=== PATIENT | female | born 1940 | race Caucasian/White ===

== ENCOUNTER → 2018-01-02 10:28 | Outpatient (CLI) | payer MEDICARE, OTHER, SELFPAY ==
--- NOTE | 2018-01-02 10:44 | XR_ITS ---
XR chest 2V HISTORY: ITS.REASON: SHORTNESS OF BREATH ORDERING PHYSICIAN: Vanessa Choudhury PATIENT AGE: 77 years COMPARISON: 03/20/2016 FINDINGS: The cardiomediastinal silhouette and pulmonary vascularity are within normal limits. There are atelectatic changes in the left lung base laterally. The lungs are otherwise clear. No acute bony anomalies. IMPRESSION: Mild left basilar atelectasis otherwise negative chest
== END ==
PROVIDERS: PCP Nurse Practitioner Family; Visit Provider Nurse Practitioner Family
DX: R06.02 Shortness of breath (principal)
CPT/HCPCS: 71046

== ENCOUNTER → 2018-01-24 12:47 | Outpatient (CLI) | payer MEDICARE, OTHER, SELFPAY | PROVIDERS: PCP Nurse Practitioner Family; Visit Provider Nurse Practitioner Family | DX: R06.02 Shortness of breath (principal) | CPT/HCPCS: 94060 ==

== ENCOUNTER → 2018-02-14 10:04 | Outpatient (CLI) | payer MEDICARE, OTHER, SELFPAY ==
--- NOTE | 2018-02-14 10:22 | XR_ITS ---
XR hand RT min 3V HISTORY: ITS.REASON: DECREASED RANG OF MOTION OF FINGER ORDERING PHYSICIAN: Vanessa Choudhury PATIENT AGE: 77 years COMPARISON: None FINDINGS: There are mild osteoarthritic changes at the first interphalangeal joint and second through fifth PIPs. No erosive changes evident. No fracture or dislocation. There are minimal hypertrophic changes along the distal aspect of the second metacarpal laterally. IMPRESSION: Osteoarthritis of the fingers
== END ==
PROVIDERS: PCP Nurse Practitioner Family; Visit Provider Nurse Practitioner Family
DX: M25.641 Stiffness of right hand, not elsewhere classified (principal)
CPT/HCPCS: 73130

== ENCOUNTER → 2018-07-29 09:23 | Outpatient (POV) | payer MEDICARE, OTHER, SELFPAY | PROVIDERS: Visit Provider Dermatology | DX: Z00.00 Encounter for general adult medical examination without abnormal findings (principal) ==

== ENCOUNTER → 2018-10-23 15:07 | Outpatient (CLI) | payer MEDICARE, OTHER, SELFPAY | PROVIDERS: Visit Provider Podiatrist | DX: B35.1 Tinea unguium (principal) | CPT/HCPCS: 87102; 87206; 87220 ==

== ENCOUNTER → 2019-06-16 09:40 | Outpatient (POV) | payer MEDICARE, OTHER, SELFPAY | PROVIDERS: Visit Provider Dermatology | DX: Z00.00 Encounter for general adult medical examination without abnormal findings (principal) ==

== ENCOUNTER → 2019-09-10 14:20 | Outpatient (CLI) | payer MEDICARE, OTHER, SELFPAY ==
--- NOTE | 2019-09-10 14:28 | US_ITS ---
PROCEDURE: US TRANSVAGINAL CLINICAL INDICATION: ABNORMAL UTERINE BLEEDING COMPARISON: No exams were available for comparison FINDINGS: UTERUS: 9cm x 6cmx 4cm with a combined endometrial thickness of 26.5mm.. There is some heterogeneous echogenicity of the endometrium with some blood flow noted within the endometrial lining. The ovaries are not demonstrated. No adnexal mass or cul-de-sac fluid is evident IMPRESSION: Thickened endometrium with heterogeneous echogenicity. Differential diagnosis includes endometrial carcinoma versus endometrial hyperplasia Dictated by: Rafael Jaimes MD 09/10/2019 18:22 Electronically signed by Rafael Jaimes MD in [facility] 09/10/2019 18:22
== END ==
PROVIDERS: PCP Nurse Practitioner Family; Visit Provider Nurse Practitioner Family
DX: N93.9 Abnormal uterine and vaginal bleeding, unspecified (principal)
CPT/HCPCS: 76830

== ENCOUNTER → 2019-09-28 08:29 | Outpatient (CLI) | payer MEDICARE, OTHER, SELFPAY ==
--- NOTE | 2019-09-28 08:56 | CT_ITS ---
PROCEDURE: CT ABDOMEN PELVIS W CON CLINICAL INDICATION: ENDOMETRIAL ADENOCARCINOMA Adenocarcinoma, evaluate for possible metastasis COMPARISON: ABDPELW/O CT ABD PELVIS W/O CONTRAST from 09/01/2016 US TRANSVAGINAL from 09/10/2019 TECHNIQUE: IV Contrast: 75ML OPTIRAY 350 Oral Contrast none Axial images obtained with sagittal and coronal reformats. All CT scans at the facility use one or more dose reduction, viz: automated exposure control, ma/kV adjustment per patient size (including targeted exams where dose is matched to indication, i.e. head), or iterative reconstruction technique. FINDINGS: LOWER THORAX: No acute finding ABDOMEN & PELVIS: There are 2 small hypodensities in the liver 1 in the caudate lobe and 1 in the left hepatic lobe at 4 mm each and may be due to small cyst. The gallbladder, spleen, adrenal glands, and pancreas have an unremarkable appearance. There are multiple small calcified splenic granulomata not significantly changed. There is a 3.7 cm left renal cyst. No retroperitoneal adenopathy. There is a small umbilical hernia containing fat. No intestinal obstruction or free air. No evidence of appendicitis Prominent vascularity is present in the periuterine region. There are some nonspecific low-density changes in the fundus of the uterus on the right. Endometrial thickening was noted on recent ultrasound better demonstrated on that exam. The there is diverticulosis of the sigmoid colon but no evidence of diverticulitis. There is abnormal small bowel wall thickening within the pelvis most prominent in the right pelvic region. This does not involve the terminal ileum. There is no evidence of bowel obstruction. This is not as focal as 1 would expect for a neoplastic process. No evidence of bowel obstruction. There are degenerative changes in the lumbar spine IMPRESSION: 1. No convincing evidence of abdominal metastasis. 2. Prominent vascularity in the periuterine region with low-density changes in the uterine fundus. These findings are keeping with endometrial adenocarcinoma. No obvious extra uterine extension 3. Thickened small bowel loops in the pelvis especially in the right lower pelvic region. These findings are more consistent with enteritis. These loops are adjacent to the uterus however the 1 would expect a more focal process for neoplasm. However, that entity is not excluded. No evidence of bowel obstruction. Dictated by: Rafael Jaimes MD 09/29/2019 07:03 Electronically signed by Rafael Jaimes MD in [facility] 09/29/2019 07:03
--- NOTE | 2019-09-28 08:56 | CT_ITS ---
PROCEDURE: CT CHEST W CON CLINCAL INDICATION: Endometrial adenocarcinoma. Evaluate for metastatic disease COMPARISON: [facility] CT CHEST W/O CONTRAST from 04/11/2016 CT ABDOMEN PELVIS W CON from 09/28/2019 TECHNIQUE: IV Contrast: 75ml Optiray 350 Axial images obtained with sagittal and coronal reformats. All CT scans at the facility use one or more dose reduction, viz: automated exposure control, ma/kV adjustment per patient size (including targeted exams where dose is matched to indication, i.e. head), or iterative reconstruction technique. 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 The right carotid artery originates from the aorta and not the subclavian calcified nodes are present in the mediastinum. No mediastinal or hilar mass or adenopathy. Coronary artery calcifications are present. There is a small hiatal hernia. No suspicious pulmonary nodules. There are atelectatic/fibrotic changes in the left lung base. Small nodular density is present in the left major fissure nonspecific at approximately 5 mm. There are degenerative changes in the thoracic spine with no acute bony anomaly. IMPRESSION: Nonspecific nonacute findings. No evidence of pulmonary metastasis. Dictated by: Rafael Jaimes MD 09/29/2019 06:50 Electronically signed by Rafael Jaimes MD in [facility] 09/29/2019 06:50
== END ==
PROVIDERS: PCP Nurse Practitioner Family; Visit Provider Nurse Practitioner Family
DX: C54.1 Malignant neoplasm of endometrium (principal)
CPT/HCPCS: 71260; 74177; Q9967

== ENCOUNTER 2019-12-30 13:39 | Emergency (ER) | payer MEDICARE, OTHER, SELFPAY ==
[2019-12-30 14:01] VITALS: BP 111/74; PULSE 95; RESP 19; TEMP 36.7; O2SAT 99; BMI 23.8
--- NOTE | 2019-12-30 14:06 | CA_ITS ---
APPROVED REPORT Bilateral Lower Extremity Venous Study for DVT. Osd Clerk: Ora Cadena RVT Indications Lower Extremity Pain: Bilateral Lower Extremity Edema: Bilateral History of Smoking Endometrial cancer, s/p surgery 10/02, just finished radiation treatments last week Risk Factors Malignancy History of Smoking Vein Imaging CFV (R): compressive, spontaneous, phasic, augmentation FEM (R): compressive, spontaneous, phasic, augmentation POP (R): compressive, spontaneous, phasic, augmentation PTV (R): Compressible GSV (R): Compressible Peroneals (R):Compressible GAS (R): Compressible CFV (L): compressive, spontaneous, phasic, augmentation FEM (L): compressive, spontaneous, phasic, augmentation POP (L): compressive, spontaneous, phasic, augmentation PTV (L): Compressible GSV (L): Compressible Peroneals (L):Compressible GAS (L): Compressible Findings Study suggests no evidence of DVT of the bilateral lower extremites. Study suggests no evidence of SVT of the bilateral lower extremites. Conclusion No evidence of DVT or superficial thrombophlebitis in the veins scanned of the right lower extremity. No evidence of DVT or superficial thrombophlebitis in the veins scanned of the left lower extremity. Critical Notification Physician Notified Date: 12/30/2019 Time: 14:55 Physician Name: Mustapha Sotelo Electronically signed by : Rafael Jaimes MD 12/30/2019 17:33:48
--- NOTE | 2019-12-30 14:13 | HMH.EDUTC ---
[facility] Disposition Clinical Impression: Leg pain, bilateral, Localized swelling of both lower legs Disposition: Home, Self-Care Condition on Discharge: Good Instructions: DI for Leg Pain Additional Instructions: Take tylenol for your pain Follow up with your regular doctor and your radiation doctor. GO TO THE ER FOR ANY WORSENING SYMPTOMS OR CONCERNS Referrals: Mac Pennington MD [Primary Care Provider] - Time of Disposition: 16:08 Medical Decision Making - Medical Records Medical records reviewed: No: I reviewed the patient's medical records. - David Inquiry Pt receiving controlled substance: No Vital Signs: 12/30/19 14:01 12/30/19 16:10 Temperature 98.1 F 98.1 F Temperature Source Oral Pulse Rate 95 H Pulse Rate [Right Brachial] 95 H Respiratory Rate 19 19 Blood Pressure 111/74 Blood Pressure [Right Arm] 111/74 Blood Pressure Mean [Right Arm] 86 Blood Pressure Source [Right Arm] Automatic Cuff Blood Pressure Position [Right Arm] Sitting 02 Sat by Pulse Oximetry 99 Oxygen Delivery Method Room Air - Lab Data Lab results reviewed: Yes: I reviewed the patient's lab results. Lab Results 12/30/19 15:20: WBC 4.4 L, RBC 3.90 L, Hgb 11.1 L, Hct 36.2 L, MCV 92.7, MCH 28.5, MCHC 30.8 L, RDW 16.0, Plt Count 241, MPV 7.6, Neut % (Auto) 73.7, Lymph % (Auto) 10.1, [place] % (Auto) 6.8, Eos % (Auto) 8.6, Baso % (Auto) 0.8, Neut # (Auto) 3.2, Lymph # (Auto) 0.4 L, [place] # (Auto) 0.3, Eos # (Auto) 0.4, Baso # (Auto) 0.0, ESR 46 H 12/30/19 15:20: Sodium 138, Potassium 4.4, Chloride 107, Carbon Dioxide 29, Anion Gap 6.4, BUN 22 H, Creatinine 0.80, Estimated Creat Clear 45, Estimated GFR 69, Est GFR ( Amer) 83, Glucose 107 H, Calcium 8.7, Total Bilirubin < 0.1 L, AST 33, ALT 27, Alkaline Phosphatase 73, Total Protein 5.9 L, Albumin 3.3 L, Globulin 2.6, Albumin/Globulin Ratio 1.3 Result diagrams: 12/30/19 15:20 12/30/19 15:20 Medical Decision Narrative: I tried to call her cancer and radiation doctor at to discuss her issues with them. I was unable to get them on the phone, so a message was left. [facility] HPI - General Stated complaint: leg pain,CA patient Time Seen by Provider: 12/30/19 14:14 Mode of Arrival: Ambulatory Source of Information: Patient Limitations: No Limitations Description of Symptoms (Recalled from Triage Doc. by RN): PATIENT C/O SWELLING TO BLE, LEFT MORE SWOLLEN THAN RIGHT. SHE STATES THAT THEY FEEL TINGLY AND RESTLESS . BILATERAL PEDAL PULSES ARE PRESENT. SYMPTOMS STARTED YESTERDAY. PATIENT IS A CANCER PATIENT WHO RECENTLY FINISHED RADIATION THERAPY. SHE SPOKE WITH [facility] WHO REFERED HER HERE TO BE RULED OUT FOR BLOOD CLOTS. HEENT Symptoms (Recalled from RN notes): No Resp Symptoms (Recalled from RN notes): No Skin Symptoms (Recalled from RN notes): No MS Symptoms (Recalled from RN notes): Yes Functional Status (Recalled from RN notes): WNL - History of Present Illness Provider Complaint: She c/o bilateral lower leg pain, numbness and swelling. She states that the left is worse than the right, but both legs are affected. She has a history of endometrial cancer. She is treated at the [facility] in [place]. She called her doctors there and she was told that she needed to come here and get checked for a blood clot first. She denies any shortness of breath or chest pain. She denies any history of dvt of family history of dvt. She did just get finished with 5 weeks of radiation treatment for the endometrial cancer. Her last treatment was - Related Data Home Medications Medication Instructions Recorded Confirmed celecoxib 200 mg capsule 200 mg PO DAILY 90 Days #90 cap 10/23/18 12/30/19 ezetimibe 10 mg-simvastatin 20 mg 1 tab PO QODHS 10/23/18 12/30/19 tablet Allergies Allergy/AdvReac Type Severity Reaction Status Date / Time Penicillins [PENICILLINS] Allergy Unknown Verified 12/22/18 16:26 - Worker's Comp Is this a Worker's
[2019-12-30 15:33] LABS: Basophils % 0.8 % (0.1-2.0); Eosinophils # 0.4 K/mm3 (0.0-0.4); Eosinophils % 8.6 % (0.1-12.0); Hematocrit 36.2 % (37.0-47.0); Hemoglobin 11.1 g/dL (12.2-16.2); Lymphocytes # 0.4 K/mm3 (0.7-4.5); Lymphocytes % 10.1 % (10-50); Mean Corpuscular HGB Conc 30.8 g/dL (31.8-35.4); Mean Corpuscular Hemoglobin 28.5 pg (27.0-31.2); Mean Corpuscular Volume 92.7 fl (81-99); Mean Platelet Volume 7.6 fl (7.4-10.4); Monocytes # 0.3 K/mm3 (0.1-1.0); Monocytes % 6.8 % (1.7-9.3); Neutrophils # 3.2 K/mm3 (1.8-7.8); Neutrophils % 73.7 % (37.0-80.0); Platelet Count 241 K/mm3 (142-424); White Blood Count 4.4 K/mm3 (4.8-10.8)
[2019-12-30 16:03] LABS: Alanine Aminotransferase 27 U/L (12-78); Albumin Level 3.3 g/dl (3.5-5.0); Albumin/Globulin Ratio 1.3 (1.1-1.8); Alkaline Phosphatase 73 U/L (38-126); Anion Gap 6.4 mEq/L (5-15); Aspartate Amino Transferase 33 U/L (14-36); Blood Urea Nitrogen 22 mg/dl (7-17); Calcium 8.7 mg/dl (8.4-10.2); Carbon Dioxide 29 mmol/L (22.0-30.0); Chloride 107 mmol/L (98-107); Creatinine Clearance Estimated 45 mL/min (50-200); Estimated Glomerular Filt Rate 69 ml/min (>60); GFR (African American) 83 ML/MIN (>60); Globulin 2.6 g/dL (1.3-3.2); Glucose 107 mg/dl (74-100); Potassium 4.4 mmoL/L (3.5-5.1); Sodium 138 mmol/L (136-145); Total Protein,Serum 5.9 g/dl (6.3-8.2)
[2019-12-30 16:08] LABS: Bilirubin,Total < 0.1 mg/dl (0.2-1.3)
[2019-12-30 16:10] VITALS: BP 111/74; PULSE 95; RESP 19; TEMP 36.7; O2SAT 99
[2019-12-30 16:12] LABS: Erythrocyte Sedimentation Rate 46 mm/hr (0-30)
== END 2019-12-30 16:16 | disposition home or self-care (01) ==
PROVIDERS: Emergency Provider Nurse Practitioner Family; PCP Family Medicine
DX: R22.43 Localized swelling, mass and lump, lower limb, bilateral (principal); M79.604 Pain in right leg; C54.1 Malignant neoplasm of endometrium; K21.9 Gastro-esophageal reflux disease without esophagitis; I10 Essential (primary) hypertension; E78.5 Hyperlipidemia, unspecified; Z88.0 Allergy status to penicillin; Z87.891 Personal history of nicotine dependence; Z90.09 Acquired absence of other part of head and neck
CPT/HCPCS: G0463; 36415; 80053; 85025; 85651; 93970; 99201; 99202

== ENCOUNTER 2020-04-28 11:00 | Outpatient (RCR) | payer MEDICARE, OTHER, SELFPAY | END 2020-04-28 12:00 | disposition home or self-care (01) | LOC: PT 11:00 | PROVIDERS: PCP Family Medicine; Visit Provider Family Medicine | DX: I89.0 Lymphedema, not elsewhere classified (principal); C54.1 Malignant neoplasm of endometrium | CPT/HCPCS: 97110; 97112; 97140; 97162; 97164; 97530 ==

== ENCOUNTER 2020-06-02 04:20 | Emergency (ER) | payer MEDICARE, OTHER, SELFPAY ==
[2020-06-02 04:20] VITALS: BP 179/108; PULSE 54; RESP 16; TEMP 36.8; O2SAT 98; BMI 23.3
--- NOTE | 2020-06-02 04:23 | ECG_ITS ---
APPROVED REPORT Exam: Resting ECG HR:81 bpm ECG Measurements Heart Rate 81 AXES DE 158 P 90 QRSd 66 QRS 44 QT 370 T 94 QTc 429 <Conclusion> Normal sinus rhythm Nonspecific ST and T wave abnormality Abnormal ECG Electronically signed by : Mac Parsons, 06/03/2020 07:22:18
[2020-06-02 04:50] VITALS: BP 142/81; PULSE 74; RESP 17; O2SAT 98
[2020-06-02 05:04] VITALS: BP 148/81; PULSE 76; RESP 18; O2SAT 94
--- NOTE | 2020-06-02 05:26 | PC.NURSE ---
Sahra McnultyRN: pt to rad
[2020-06-02 06:01] VITALS: BP 147/85; PULSE 71; RESP 14; O2SAT 100
--- NOTE | 2020-06-02 06:01 | PC.NURSE ---
Sahra Mcnulty RN: Pt reports no pain at this time.
--- NOTE | 2020-06-02 08:13 | CT_ITS ---
PROCEDURE: CTA ANGIOGRAPHY CHEST CT ANGIOGRAPHY ABDOMEN AND PELVIS Referring Doctor: Mac Parsons Patient Age:79Y CLINCIAL INDICATION: EPIGASTRIC PAIN RADIATING INTO CHEST,R/O aortic DISECTION. History of endometrial carcinoma COMPARISON: CT [facility] CT CHEST W/O CONTRAST from 04/11/2016 CT ABDPELW/O CT ABD PELVIS W/O CONTRAST from 09/01/[address] CHEST W CON from 09/28/[address] ABDOMEN PELVIS W CON from 09/28/2019 TECHNIQUE: IV Contrast: 100 cc OPTIRAY 350 bolus contrast followed by 40 mL normal saline A helical axialimages obtained with thick MIP sagittal and coronal reformats by technologist on CT workstation.-CTAa technique and processing. All CT scans at the facility use one or more dose reduction, viz: automated exposure control, ma/kV adjustment per patient size (including targeted exams where dose is matched to indication, i.e. head), or iterative reconstruction technique. FINDINGS: Note there is a problems in the 3DVista at the time of this study, which interfered with obtaining appropriate orders and Delayed this report. We are still waiting for the CTA abdomen order. CT ANGIOGRAPHY CHEST --- PULMONARY ARTERIES: No pulmonary embolus evident. AORTA: No acute finding. No thoracic aortic aneurysm or dissection evident Generous over 2 cm caliber, aberrant right subclavian artery and seen passing posterior to the esophagus-anatomical variation the LUNGS: Unremarkable. No mass or consolidation. There is some linear scarring and atelectasis towards the lung bases.. . There is a small 6 mm area of density at the anterior margin RML on axial image 49 and 50. Most likely reflecting an area of scarring but was not on the previous 2016 CT chest thus suggest a follow-up CT chest in 6-8 months to support this is merely due to scarring. There is a small 6 mm nodular density at the anterior aspect of the lingula on axial image 59 which appear stable. PLEURAL SPACES: No significant effusion. No evidence of pneumothorax. HEART: Unremarkable. Normal to upper normal heart size. No significant pericardial effusion. Pulmonary vascularity appears satisfactory MEDIASTINAL AND HILAR STRUCTURES: No significant mediastinal or hilar mass evident. No do significant appearing adenopathy. The multiple numerous calcified lymph nodes is reflect old granulomatous disease LYMPH NODES: Multiple calcified hilar lymph nodes reflecting old granulomatous disease. No significant enlarged nodes BONY STRUCTURES: No acute bony abnormalities apparent. No rib fractures. Degenerative changes spine CT ANGIOGRAPHY ABDOMEN: --- Abdominal aorta: Normal caliber with no aneurysm nor dissection. Atherosclerotic calcification throughout abdominal aorta with minimal calcification origin of renal arteries and celiac artery. SMA and iliac arteries patent and clear.. Liver adrenals pancreas appears satisfactory on this early contrast study but extensive granulomatous calcifications throughout the spleen.. Gallbladder but unremarkable no gallstones. No biliary ductal dilatation GI TRACT. --- Hiatal hernia moderate size. Stomach unremarkable . DILATED SMALL BOWEL, with of prominent fluid throughout. Dilated small bowel measure up to 3.2 cm diameter.... Wall thickening and enhancement suggested involving several segments of distal small bowel at pelvis. For example there seems to be thickening at a segment of small bowel at the mid pelvis axial image 133/134 as well as axial another loop seen anteriorly on image 141. There is also some thickening and enhancement suggested at the distal ileum just prior to the terminal ileum axial image 110-120, coronal 34-29.. No prominent wall thick
[2020-06-02 08:15] VITALS: BP 140/70; PULSE 70; RESP 16; TEMP 36.6; O2SAT 98
--- NOTE | 2020-06-02 08:17 | XR_ITS ---
PROCEDURE: XR CHEST 2V Referring Doctor: Mac Parsons Patient Age:79Y CLINICAL HISTORY: EPIGASTIC PAIN RADIATING TO CHEST epigastric and chest pain former smoker. COMPARISON: CR CXR CHEST(2 VIEWS-NOT PORTABLE) from 03/15/2015 CR CXR CHEST(2 VIEWS-NOT PORTABLE) from 03/20/2016 CR CXR2V XR chest 2V from 01/02/[address] ANGIO CHEST from 06/02/2020 FINDINGS: PA and lateral chest performed today. Nothing definitely acute. Less optimal inspiration today with diaphragm only down to the anterior 5th rib today., previously down to the anterior 6 to 7th rib on 2016 study but this does somewhat crowding markings the bases and there is some mild basilar atelectasis but I specifically note an area of linear atelectasis or scarring just near the left CP angle. . No focal pneumonia is identified. No acute cardiopulmonary disease otherwise At the mediastinum there are some dots of air just above the GE junction. Presumably these are in the distal esophagus and could reflect a hiatal hernia or reflux but mildly tortuous aorta. Bethanie and mediastinal structures satisfactory At the upper abdomen there are air-fluid levels within generous, mildly dilated gas filled small bowel loops in the left upper abdomen. Correlation required IMPRESSION: 1...Less optimal inspiration today than previous studies . Subtle basilar atelectasis; specifically noting a small area linear atelectasis towards left CP angle .. No acute cardiopulmonary findings otherwise. No pneumonia 2... Would note air-fluid levels within dilated small bowel loops in the upper left epigastric region... . Also note scant air along course of distal esophagus faintly seen.-Could reflect small hiatal hernia or reflux. Dictated by: Edwin Luna MD 06/02/2020 15:33 Edwin Luna MD in [facility] 06/02/2020 15:33
--- NOTE | 2020-06-02 08:24 | HMH.EDNVD ---
ED Disposition Clinical Impression: SBO (small bowel obstruction) Disposition: Home, Self-Care Condition on Discharge: Good Instructions: DI for Acute Abdomen Additional Instructions: go to office now Referrals: Mac Pennington MD [Primary Care Provider] - - Critical Care Critical Care Time: No Attestation: On 06/02/20, the high probability of a clinically significant, sudden or life threatening deterioration of the following system(s) required my full and direct attention, intervention and personal management. The time I documented below is in addition to time spent performing reported procedures but includes the following listed in this critical care notation. Medical Decision Making - Medical Records Medical records reviewed: Yes: I reviewed the patient's medical records. - David Inquiry Pt receiving controlled substance: No - Lab Data Lab results reviewed: Yes: I reviewed the patient's lab results. Orders (Tests/Meds): ORDERS Category Date Time Status CT angio abdomen Routine Cat Scan 06/02/20 08:[address] angio chest Routine Cat Scan 06/02/20 08:13 Ordered XR chest AP Routine Exams 06/02/20 08:17 Ordered - Radiology Data #1 Image(s): Chest Image Reviewed: Yes I reviewed the patient's radiology image Preliminary Findings: Normal/NAD - CT Data CT Scan: Abdomen, Pelvis, Chest Time Received: 08:[address] Reviewed: Yes: I have viewed the radiologist's interpretation Preliminary Findings: Abnormal (see report) - ECG Data Tracing #1 Normal Sinus Rhythm: Yes Ischemic changes: non-specific ST-T wave changes - Physician Consults Physician Consulted: manish Reason -: Pt condition Nausea/Vomiting/Diarrhea HPI - General Stated complaint: Chest pain Time Seen by Provider: 06/02/20 05:00 Mode of Arrival: Ambulatory Source of Information: Patient, Relative, Medical Record Limitations: No Limitations - History of Present Illness HPI Narrative: acute onset of upper abd pain - no chest pain- hx of radiation therapy complaint: nausea, abdominal pain Onset (ago): hour(s) Associated Abdominal Pain: Yes Location of pain: epigastric Severity: moderate Associated symptoms: denies other symptoms - Related Data Home Medications Medication Instructions Recorded Confirmed celecoxib 200 mg capsule 200 mg PO DAILY 90 Days #90 cap 10/23/18 05/26/20 ezetimibe 10 mg-simvastatin 20 mg 1 tab PO QODHS 10/23/18 05/26/20 tablet lisinopril 10 mg tablet 10 mg PO tab 05/26/20 05/26/20 Allergies Allergy/AdvReac Type Severity Reaction Status Date / Time Penicillins [PENICILLINS] Allergy Unknown Verified 05/26/20 13:19 [facility] History - Hepatitis A Screen Attestation statement:: This patient has been screened for Hepatitis A risk factors. I have reviewed the patient's past medical history: Yes Medical History: Reports:: Cancer, Gastroesophageal Reflux Disease(GERD), Hyperlipidemia, Hypertension Other Medical History: Reports: Arthritis Laterality Cases: Bilateral: Tonsillectomy Other Surgeries: Yes: No Previous Surgery Amputation: No Fractures: Yes (Fractured 5th met of unknown foot 6 years ago. ) Comment: Bunionectomy L great Hallux- 18 years ago - Social History Smoking Status: Former smoker #Yrs smoked (if former smoker): 45 Alcohol Intake: never Alcohol Intake Frequency:: holidays/special occasions only Occupational Status: other Family Hx:: No significant family history ROS Obtained: Yes All systems reviewed & no additional complaints - Gastrointestinal Gastrointestingal: Reports: as per HPI, abdominal pain, nausea, vomiting Physical Exam - General General appearance: alert - Head Head exam: normocephalic - Eye Eye exam: Present: PERRL, EOMI - ENT ENT exam: Present: mucous membranes moist - Neck Neck exam: Present: trachea midline - Respiratory Respiratory exam: Present: normal lung sounds bilaterally. Absent: respiratory distress
[2020-06-02 08:44] LABS: Basophils # 0.1 K/mm3 (0-0.2); Basophils % 0.9 % (0.1-2.0); Eosinophils # 0.5 K/mm3 (0.0-0.4); Eosinophils % 7.4 % (0.1-12.0); Erythrocyte Sedimentation Rate 32 mm/hr (0-30); Hematocrit 41.6 % (37.0-47.0); Hemoglobin 14.4 g/dL (12.2-16.2); Lymphocytes # 0.7 K/mm3 (0.7-4.5); Lymphocytes % 11.6 % (10-50); Mean Corpuscular HGB Conc 34.7 g/dL (31.8-35.4); Mean Corpuscular Hemoglobin 31.4 pg (27.0-31.2); Mean Corpuscular Volume 90.4 fl (81-99); Mean Platelet Volume 8.5 fl (7.4-10.4); Monocytes # 0.4 K/mm3 (0.1-1.0); Monocytes % 7.1 % (1.7-9.3); Neutrophils # 4.5 K/mm3 (1.8-7.8); Neutrophils % 73.1 % (37.0-80.0); Platelet Count 244 K/mm3 (142-424); Red Cell Distribution Width 14.2 % (11.5-17.5); White Blood Count 6.1 K/mm3 (4.8-10.8)
[2020-06-02 08:45] LABS: Alanine Aminotransferase 21 U/L (12-78); Albumin Level 3.7 g/dl (3.5-5.0); Albumin/Globulin Ratio 1.4 (1.1-1.8); Alkaline Phosphatase 75 U/L (38-126); Amylase 67 U/L (30-110); Anion Gap 12.4 mEq/L (5-15); Aspartate Amino Transferase 30 U/L (14-36); Bilirubin,Total 0.4 mg/dl (0.2-1.3); Blood Urea Nitrogen 25 mg/dl (7-17); Calcium 9.6 mg/dl (8.4-10.2); Carbon Dioxide 25 mmol/L (22.0-30.0); Chloride 107 mmol/L (98-107); Estimated Glomerular Filt Rate 60 ml/min (>60); GFR (African American) 73 ML/MIN (>60); Globulin 2.6 g/dL (1.3-3.2); Glucose 125 mg/dl (74-100); Lipase 140 U/L (23-300); Potassium 4.4 mmoL/L (3.5-5.1); Sodium 140 mmol/L (136-145); Total Protein,Serum 6.3 g/dl (6.3-8.2); Troponin I 0.08 ng/ml (0.00-0.034)
[2020-06-02 08:46] LABS: Lactic Acid 1.9 mmol/L (0.7-2.1)
--- NOTE | 2020-06-02 08:52 | PC.NURSE ---
d/kenny with instructions
[2020-06-02 11:43] LABS: C-Reactive Protein 3.1 mg/L (0-4)
--- NOTE | 2020-06-02 12:05 | PC.NURSE ---
Sahra Mcnulty RN: Spoke with rad who stated they were attempting to contact Dr Jaimes and push CT to [facility]
== END 2020-06-02 08:15 | disposition home or self-care (01) ==
PROVIDERS: Emergency Provider Emergency Medicine; PCP Family Medicine
DX: K56.609 Unspecified intestinal obstruction, unspecified as to partial versus complete obstruction (principal); I10 Essential (primary) hypertension; E78.5 Hyperlipidemia, unspecified; K21.9 Gastro-esophageal reflux disease without esophagitis; Z88.0 Allergy status to penicillin
CPT/HCPCS: 71046; 71275; 74175; 80053; 82150; 83605; 83690; 84484; 85025; 85651; 86140; 87040; 93005; 96365; 96374; 96375; 99284; J2405; Q9967

== ENCOUNTER → 2020-06-16 08:04 | Outpatient (CLI) | payer MEDICARE, OTHER, SELFPAY ==
[2020-06-16 10:58] LABS: Blood Urea Nitrogen 23 mg/dl (7-17); Estimated Glomerular Filt Rate 60 ml/min (>60); GFR (African American) 73 ML/MIN (>60)
== END ==
PROVIDERS: Visit Provider Family Medicine
DX: K56.600 Partial intestinal obstruction, unspecified as to cause (principal)
CPT/HCPCS: 36415; 82565; 84520

== ENCOUNTER → 2020-06-20 10:16 | Outpatient (CLI) | payer MEDICARE, OTHER, SELFPAY ==
--- NOTE | 2020-06-20 10:37 | CT_ITS ---
PROCEDURE: CT ABDOMEN PELVIS W CON CLINICAL INDICATION: PARTIAL SMALL BOWEL OBSTRUCTION COMPARISON: CT CT ABDOMEN PELVIS W CON from 09/28/2019 TECHNIQUE: IV Contrast: 75ML OPTIRAY 350 Oral Contrast 20ml Gastroview Axial images obtained with sagittal and coronal reformats. All CT scans at the facility use one or more dose reduction, viz: automated exposure control, ma/kV adjustment per patient size (including targeted exams where dose is matched to indication, i.e. head), or iterative reconstruction technique. FINDINGS: Lower thorax: There is minimal atelectasis in the posterior gutters bilaterally. Cardiac size is borderline. ABDOMEN: Liver: The liver is normal in size and shows homogeneous density. The tiny hypodense cystic lesions 1 in the left hepatic lobe the other in the caudate lobe are stable and unchanged from the previous exam. Gallbladder: Nondistended. No radio opaque stones. Pancreas: No masses or peripancreatic fluid collections. Spleen: Spleen is normal in size and shows multiple calcifications. Adrenals: unremarkable Kidneys/ureters: The kidneys are normal in size and show symmetrical function. There is a stable exophytic benign-appearing cortical cyst upper pole left kidney measuring 3.7 cm. ABDOMEN & PELVIS: Stomach bowel: There is a small sliding hiatal hernia. The stomach and duodenal sweep appear normal. The proximal small bowel is normal. There is mild thickening of the bowel wall in the distal small bowel not is prominent is on the previous exam. There is oral contrast mixed with stool in the cecum and ascending colon and hepatic flexure. There is a moderate amount stool in the transverse colon and splenic flexure. There are few scattered diverticuli of the sigmoid colon but there is no evidence of diverticulitis. Peritoneum: No abnormal fluid collections. No obvious inflammatory changes. No free air. Lymph nodes: No enlarged lymph nodes apparent. Vasculature: There is prominent diffuse arthrosclerotic calcification of the abdominal aorta but there is no aneurysm. Bones: There are mild multilevel degenerate changes of the lower lumbar spine. There is a vacuum phenomenon of the L2-3, L3-4 L4-5 and L5-S1 disc. Disc space narrowing is most prominent at the L 4 5 level. There is mild diffuse levo scoliotic curvature of the lower thoracic and lumbar spine. PELVIS: Reproductive: The uterus is atrophic and in the midline. Bladder: The urinary bladder is partially decompressed but otherwise appears normal, there is no free fluid in the pelvis. Appendix: There are no findings to suggest appendicitis. IMPRESSION: Mild thickening of the bowel wall distal small bowel possibly a reflection of mild enteritis, findings of mild diverticulosis sigmoid colon without diverticulitis, no other acute abdominal or pelvic pathology identified Dictated by: Dr. Medhat Solis MD 06/20/2020 11:31 Dr. Medhat Solis MD in [facility] 06/20/2020 11:31
== END ==
PROVIDERS: PCP Family Medicine; Visit Provider Family Medicine
DX: K56.600 Partial intestinal obstruction, unspecified as to cause (principal)
CPT/HCPCS: 74177; Q9967

== ENCOUNTER → 2020-06-20 14:40 | Outpatient (POV) | payer MEDICARE, OTHER, SELFPAY | PROVIDERS: Visit Provider Nurse Practitioner Family | DX: Z00.00 Encounter for general adult medical examination without abnormal findings (principal) ==

== ENCOUNTER → 2021-01-24 09:39 | Outpatient (POV) | payer MEDICARE, OTHER, SELFPAY | PROVIDERS: Visit Provider Dermatology | DX: Z00.00 Encounter for general adult medical examination without abnormal findings (principal) ==

== ENCOUNTER 2021-03-17 09:00 | Outpatient (RCR) | payer MEDICARE, OTHER, SELFPAY | END 2021-03-17 09:05 | disposition home or self-care (01) | LOC: PT 09:00 | PROVIDERS: PCP Family Medicine; Visit Provider Obstetrics & Gynecology | DX: I89.0 Lymphedema, not elsewhere classified (principal) | CPT/HCPCS: 97033; 97110; 97140; 97162; 97530; 97760 ==

== ENCOUNTER 2021-05-12 09:00 | Outpatient (RCR) | payer MEDICARE, OTHER, SELFPAY ==
--- NOTE | 2021-03-10 11:28 | HMH.PTOPEV ---
PT Outpatient Evaluation Rehab PT Outpatient Evaluation Start: 03/10/21 10:51 Freq: Status: Active Protocol: Document 03/10/21 10:51 JOSIAH (Rec: 03/10/21 11:27 JOSIAH [id number]) Electronically Signed By Raúl Garrett, PT 03/10/21 10:51 Outpatient Therapy Subjective History Subjective History Pt reports h/o chronic bilateral hip pain and LBP for ~3-4 yrs. Pt reports exacerbation of s/s over the last ~2-3 months. Pt reports R >L sided hip pain, localized to the area just superior to Bilateral greater trochanters. Pt reports increased pain w/ sidelying. Chief Complaint Pain,Stiff,Weakness Symptom Type Ache,Sharp,Dull Symptoms Relieved By Rest/Positioning,Ice Symptoms Aggravated By Standing,Physical Activity, Walking Prior Functional Limitations Standing,Recreation Activity, Walking Current Functional Limitations Housework,Standing,Recreation Activity,Walking Symptom Description Constant but Variable Level of pain today (0-10) 4 Pain scale - at its best (0-10) 3 Pain scale - at its worst (0-10) 7 Hip/Knee Eval Gait Observation General Gait Pattern Observation Antalgic Gait Palpation Tenderness bilateral Knee Palpation Overall Comment 3/4 bilateral glut med mm MMT Hip Flexion Strength Grade 4- Good- Hip Abduction Strength Grade 4- Good- Hip Adduction Strength Grade 4 Good Hip Extension Strength Grade 4 Good Hip External Rotation Strength Grade 4 Good Hip Internal Rotation Strength Grade 4 Good Knee Extension Strength Grade 5 Normal Knee Flexion Strength Grade 5 Normal ROM Hip Flexion w/Knee Extended Passive 0-90 Range of Motion (degrees) Hip External Rotation Passive Range of 0-35 Motion (degrees) Hip Internal Rotation Passive Range of 0-40 Motion (degrees) Hip ROM Limitations Soft Tissue Tightness,Pain Special Tests Hip Andreas Test Negative Left,Negative Right Outpatient Therapy Assessment Impairments Problems/Impairmments Palpation Tenderness,Impaired Range of Motion,Impaired Strength,Impaired Gait Pattern ,Impaired Walking,Impaired Standing,Impaired Household Care,Subjective C/O Pain, Impaired Self Care/Self Management Prognosi
--- NOTE | 2021-04-13 09:40 | HMH.RHREAS ---
Rehab Reassessment Rehab OP Re-assessment Start: 04/13/21 09:08 Freq: Status: Active Protocol: Document 04/13/21 09:08 IRISGURDEEP (Rec: 04/13/21 09:40 ADRIGERARDOGURDEEP [id number]) Electronically Signed By Raúl Garrett, PT 04/13/21 09:08 Rehab Re-assessment Subjective Subjective Pt reports 3-4/10 LBP/ bilateral hip pain on VAS, and feels 50% better overall since I eval. 'I really feel like therapy is helping.' Objective Objective Notes AROM L-SPINE FLX 0-90, EXT 0- 15, B SB 0-20, B HIP FLX W/ KNEE EXT 0-95, B HIP IR 0-45, B HIP ER 0-45 MMT: B HIP FLX 4+/5, B HIP ABD 4+/5, B HIP ADD 4/5, B KNEE EXT 5/5, B KNEE FLX 5/5 TTP: B LUMBAR PARA 1/4, B PIRI MM 2/4 Assessment Progress Assessment Progressing as Expected Assessment Notes improved arom, strength, and ttp Patient goals met STG'S 03/09 LTG'S 11/08 Goals Not Met STG'S 09/09, LTG'S 02/08 Plan Plan Pt to cont. w/skilled P.T. to make further improvements in lumbar spine AROM, strength, and TTP to allow for optimal function Frequency of Therapy 2-3x/wk Duration of therapy 3-4wks Time and Billing Re-Eval Time 15 Re-Eval Billing Units 0 PHYSICIAN CERTIFICATION: I certify the specified therapy services for Jocelyn Ramos are required, authorized, and reviewed every 30 days.
== END 2021-05-12 09:05 | disposition home or self-care (01) ==
LOC: PT 09:00
PROVIDERS: PCP Family Medicine; Visit Provider Nurse Practitioner Family
DX: M70.71 Other bursitis of hip, right hip (principal); M70.72 Other bursitis of hip, left hip; M54.5 Low back pain
CPT/HCPCS: 20560; 97010; 97014; 97033; 97035; 97110; 97163; 97164; G0283

== ENCOUNTER 2021-07-12 08:59 | Emergency (ER) | payer MEDICARE, OTHER, SELFPAY ==
[2021-07-12 09:19] VITALS: BP 136/79; PULSE 77; RESP 18; TEMP 36.5; O2SAT 100; BMI 24.0
--- NOTE | 2021-07-12 10:02 | HMH.EDUTC ---
[facility] [place] Clinical Impression: Lymphedema Cellulitis Qualifiers: Site of cellulitis: extremity Site of cellulitis of extremity: lower extremity Laterality: left Qualified Code(s): L03.116 - Cellulitis of left lower limb Disposition: Home, Self-Care Condition on Discharge: Good Instructions: Cellulitis, DI for Lymphedema Additional Instructions: Follow up in 3 days with your primary care physician to have the area rechecked. Your physician may want to stop one of the antibiotics by then too. Follow the instructions from your physician. Have your physician review your blood work that we kelli today too. I will call you about it if there is anything pertinent about it. If your symptoms are getting worse instead of better (especially if you have fever/chilling or other worrisome symptoms) over the next couple of days, return to the ER or f/u with your primary care physician ko. Take the antibiotics as directed. The topical antibiotic ointment (mupirocin) is for if you have any open areas that develop. It probably won't help much to put in on the intact skin. GO TO THE ER FOR ANY WORSENING SYMPTOMS OR CONCERNS Prescriptions: Sulfamethoxazole/Trimethoprim [Bactrim DS tablet] 1 each PO BID 10 Days #20 tab Transmission Status: Received by [facility] Mupirocin [Bactroban 2% Ointment 22gm tube] 1 applicatio TP TID 7 Days #1 gm Transmission Status: Received by [facility] cephALEXin [cephALEXin 500mg capsule] 500 mg PO Q6H 10 Days #40 cap Transmission Status: Received by [facility] Referrals: Jose Alejandro Cao MD [Primary Care Provider] - Time of Disposition: 10:15 Medical Decision Making - Medical Records Medical records reviewed: No: I reviewed the patient's medical records. - David Inquiry Pt receiving controlled substance: No Vital Signs: 07/12/21 09:19 07/12/21 10:54 Temperature 97.7 F 97.7 F Temperature Source Oral Pulse Rate 77 Pulse Rate [Left] 77 Respiratory Rate 18 18 Blood Pressure 136/79 Blood Pressure [Right Arm] 136/79 Blood Pressure Mean [Right Arm] 98 02 Sat by Pulse Oximetry 100 - Lab Data Lab results reviewed: Yes: I reviewed the patient's lab results. Lab Results 07/12/21 10:47: WBC 4.4 L, RBC 3.36 L, Hgb 10.0 L, Hct 31.4 L, MCV 93.4, MCH 29.6, MCHC 31.7 L, RDW 15.6, Plt Count 250, MPV 8.7, Neut % (Auto) 75.4, Lymph % (Auto) 12.9, [place] % (Auto) 7.3, Eos % (Auto) 3.7, Baso % (Auto) 0.8, Neut # (Auto) 3.4, Lymph # (Auto) 0.6 L, [place] # (Auto) 0.3, Eos # (Auto) 0.2, Baso # (Auto) 0.0 07/12/21 10:47: Sodium 139, Potassium 5.0, Chloride 106, Carbon Dioxide 30, Anion Gap 8.0, BUN 29 H, Creatinine 1.00, Estimated Creat Clear 43, Estimated GFR 53 L, Est GFR ( Amer) 64, Glucose 101 H, Calcium 8.8 Result diagrams: 07/12/21 10:47 07/12/21 10:47 Orders (Tests/Meds): ORDERS Category Date Time Status Blood Culture Stat Micro 07/12/21 10:47 Received [facility] [place] [facility] [place] - General Stated complaint: rash inside left hip/leg area Time Seen by Provider: 07/12/21 09:25 Mode of Arrival: Ambulatory Source of Information: Patient Limitations: No Limitations Description of Symptoms (Recalled from Triage Doc. by RN): pt c/o a red and warm rash on her L buttock, hip and thigh. ongoing since yesterday morning. HEENT Symptoms (Recalled from RN notes): No Resp Symptoms (Recalled from RN notes): No Skin Symptoms (Recalled from RN notes): Yes (rash on L buttock, hip and thigh) MS Symptoms (Recalled from RN notes): No Functional Status (Recalled from RN notes): na - History of Present Illness Provider Complaint: She has a red, tender area on her left buttock and left hip. She states that this began about 2 days ago. She denies any injury. She denies fever or chills. She denies any open areas or boils in the area. She is not a diabetic. She does have a history of cellulitis in her left leg due to a history of endometrial cancer. After she had a total hysterec
[2021-07-12 10:54] VITALS: BP 136/79; PULSE 77; RESP 18; TEMP 36.5
[2021-07-12 11:13] LABS: Basophils % 0.8 % (0.1-2.0); Chloride 106 mmol/L (98-107); Eosinophils # 0.2 K/mm3 (0.0-0.4); Eosinophils % 3.7 % (0.1-12.0); Hematocrit 31.4 % (37.0-47.0); Lymphocytes # 0.6 K/mm3 (0.7-4.5); Lymphocytes % 12.9 % (10-50); Mean Corpuscular HGB Conc 31.7 g/dL (31.8-35.4); Mean Corpuscular Hemoglobin 29.6 pg (27.0-31.2); Mean Corpuscular Volume 93.4 fl (81-99); Mean Platelet Volume 8.7 fl (7.4-10.4); Monocytes # 0.3 K/mm3 (0.1-1.0); Monocytes % 7.3 % (1.7-9.3); Neutrophils # 3.4 K/mm3 (1.8-7.8); Neutrophils % 75.4 % (37.0-80.0); Platelet Count 250 K/mm3 (142-424); Red Blood Count 3.36 M/mm3 (4.20-5.40); Red Cell Distribution Width 15.6 % (11.5-17.5); Sodium 139 mmol/L (136-145); White Blood Count 4.4 K/mm3 (4.8-10.8)
[2021-07-12 11:16] LABS: Blood Urea Nitrogen 29 mg/dl (7-17); Creatinine Clearance Estimated 43 mL/min (50-200); Estimated Glomerular Filt Rate 53 ml/min (>60); GFR (African American) 64 ML/MIN (>60)
[2021-07-12 11:17] LABS: Calcium 8.8 mg/dl (8.4-10.2); Carbon Dioxide 30 mmol/L (22.0-30.0); Glucose 101 mg/dl (74-100)
== END 2021-07-12 10:54 | disposition home or self-care (01) ==
PROVIDERS: Emergency Provider Nurse Practitioner Family; PCP Family Medicine
DX: L03.116 Cellulitis of left lower limb (principal); K21.9 Gastro-esophageal reflux disease without esophagitis; I10 Essential (primary) hypertension; E78.5 Hyperlipidemia, unspecified
CPT/HCPCS: G0463; 80048; 85025; 87040; 99202

== ENCOUNTER → 2021-08-01 10:56 | Outpatient (POV) | payer MEDICARE, OTHER, SELFPAY | PROVIDERS: Visit Provider Dermatology | DX: Z00.00 Encounter for general adult medical examination without abnormal findings (principal) ==

== ENCOUNTER 2021-09-22 16:39 | Inpatient (IN) | payer MEDICARE, OTHER, SELFPAY ==
[2021-09-22] VITALS (7 sets, daily range): BP systolic 106–130; BP diastolic 58–94; PULSE 75–90; RESP 18–20; TEMP 36.4–36.7; O2SAT 96–100; BMI 23.3; BMI 23.0
--- NOTE | 2021-09-22 16:40 | PC.NURSE ---
ER called to BS r/t having difficulty locating pulses in LLE with doppler. Pt has palpable femoral pulse. ER was able to doppler Post tib pulse. will continue to monitor
--- NOTE | 2021-09-22 17:00 | CA_ITS ---
FINAL REPORT TECHNIQUE: Ultrasound images of the deep venous system were obtained from the left groin to the calf veins. CLINICAL HISTORY: Patient has a history of lymphedema in LLE post endometrial cancer. She states she woke up this morning with LLE pain, redness, edema. She denies trauma. The left leg is discolored with the left foot purple in color. FINDINGS: There is visualized thrombosis in the superficial femoral, popliteal, and posterior tibial veins. There is superficial venous thrombosis in the proximal greater saphenous vein. IMPRESSION: Positive for DVT in the left lower extremity. Reviewed, Interpreted and Dictated by Chano Clinton MD Transcribed by Marva Herrera Authenticated by Chano Clinton MD on 09/26/2021 09:49:[address] [facility]
--- NOTE | 2021-09-22 17:00 | PC.NURSE ---
notified CV lab of order, spoke with jerry
--- NOTE | 2021-09-22 17:11 | PC.NURSE ---
CV lab staff at
--- NOTE | 2021-09-22 17:11 | PC.NURSE ---
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
--- NOTE | 2021-09-22 17:13 | PC.NURSE ---
spoke with [facility], states they are going to enter heparin dosing on pt.
[2021-09-22 17:16] LABS: Basophils # 0.1 K/mm3 (0-0.2); Basophils % 0.8 % (0.1-2.0); Eosinophils # 0.2 K/mm3 (0.0-0.4); Hematocrit 35.7 % (37.0-47.0); Hemoglobin 11.1 g/dL (12.2-16.2); Lymphocytes # 1.1 K/mm3 (0.7-4.5); Lymphocytes % 14.1 % (10-50); Mean Corpuscular HGB Conc 31.1 g/dL (31.8-35.4); Mean Corpuscular Hemoglobin 29.2 pg (27.0-31.2); Mean Corpuscular Volume 93.7 fl (81-99); Mean Platelet Volume 8.4 fl (7.4-10.4); Monocytes # 0.5 K/mm3 (0.1-1.0); Monocytes % 6.1 % (1.7-9.3); Neutrophils # 5.7 K/mm3 (1.8-7.8); Platelet Count 194 K/mm3 (142-424); Red Blood Count 3.81 M/mm3 (4.20-5.40); Red Cell Distribution Width 15.3 % (11.5-17.5); White Blood Count 7.5 K/mm3 (4.8-10.8)
[2021-09-22 17:25] LABS: Anion Gap 13.7 mEq/L (5-15); Blood Urea Nitrogen 37 mg/dl (7-17); Calcium 9.5 mg/dl (8.4-10.2); Carbon Dioxide 26 mmol/L (22.0-30.0); Chloride 103 mmol/L (98-107); Creatinine Clearance Estimated 33 mL/min (50-200); Estimated Glomerular Filt Rate 39 ml/min (>60); GFR (African American) 47 ML/MIN (>60); Glucose 96 mg/dl (74-100); Potassium 4.7 mmoL/L (3.5-5.1); Sodium 138 mmol/L (136-145)
[2021-09-22 17:42] LABS: INR 0.93 (0.9-1.1); Prothrombin Time 10.6 seconds (10.1-12.5)
[2021-09-22 17:43] LABS: Activated Partial Thrombo Time 19.9 seconds (22.8-30.6)
--- NOTE | 2021-09-22 17:48 | CT_ITS ---
PROCEDURE INFORMATION: Exam: CTA Chest With Contrast Exam date and time: 09/22/2021 5:48 PM Age: 81 years old Clinical indication: Other: Dvt in left lower leg; Additional info: Large lle dvt through femoral vein RO pe TECHNIQUE: Imaging protocol: Computed tomographic angiography of the chest with contrast. 3D rendering (Not supervised by radiologist): MIP and/or 3D reconstructed images were created by the technologist. Radiation optimization: All CT scans at this facility use at least one of these dose optimization techniques: automated exposure control; mA and/or kV adjustment per patient size (includes targeted exams where dose is matched to clinical indication); or iterative reconstruction. Contrast material: ISOVUE 370; Contrast volume: 70 ml; Contrast route: INTRAVENOUS (IV); COMPARISON: CT ANGIO CHEST 06/02/2020 5:38 AM FINDINGS: Limitations: Respiratory motion artifact degrades images, limiting sensitivity of exam. Pulmonary arteries: No evidence of pulmonary emboli through the level of the segmental pulmonary arteries. Respiratory motion artifact limits evaluation for definitive exclusion of smaller pulmonary emboli (subsegmental). Aorta: Ascending aortic ectasia, unchanged. No aortic aneurysm or dissection. 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 Moderate (50-69%) stenosis in the right subclavian artery secondary to atherosclerotic plaque proximal to the origin of the right vertebral artery. Other arteries: Moderate amount of calcific arterial atherosclerosis throughout the systemic arteries. Lungs: No focal consolidation. No appreciable pulmonary edema. Pleural spaces: No pneumothorax. No pleural effusion. Heart: No cardiomegaly. No pericardial effusion. Lymph nodes: Calcified lymph nodes, compatible with chronic sequelae of prior granulomatous disease. Intraperitoneal space: No emergent findings or suspicious mass lesions in the visualized upper abdomen. Bones/joints: No acute fracture or malalignment. Soft tissues: Unremarkable. IMPRESSION: 1. No acute findings in the chest. No evidence of pulmonary emboli through the level of the segmental pulmonary arteries. Technically suboptimal study for definitive exclusion of smaller pulmonary emboli (subsegmental). 2. Aberrant right subclavian artery coursing posterior to the esophagus. Findings represent normal variant anatomy, although can be associated with dysphagia. Please correlate with patient history. 3. Moderate (50-69%) stenosis in the right subclavian artery secondary to atherosclerotic plaque. Findings may predispose patient to development of vertebral artery steal syndrome. If clinically indicated, ultrasound could better evaluate vertebral artery hemodynamics.
--- NOTE | 2021-09-22 17:59 | PC.NURSE ---
spoke with pt son Cliff at this time updated him on pt POC and pending admission per pt request. PHONE PASSWORD IS : ABDIRAHMAN
[2021-09-22 18:02] LABS: Coronavirus 19, PCR Not Detected (NotDetected); Influenza A, PCR Not Detected (NotDetected); Influenza B, PCR Not Detected (NotDetected)
--- NOTE | 2021-09-22 18:08 | PC.NURSE ---
rad notified of ct scan order
--- NOTE | 2021-09-22 18:27 | PC.NURSE ---
pt to CT
--- NOTE | 2021-09-22 18:30 | HMH.EDGENADL ---
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 The time I documented below is in addition to time spent performing reported procedures but includes the following listed in this critical care notation. Total Critical Care Time: 30 Vital system(s) involved:: Circulatory Failure My critical care processes included: Assessment & monitoring of V/S, Initial and Re-exams, Data Review/Interpretation, Coordinating Care, Medication Orders and management Comment: 30 minutes or more was spent evaluating and reevaluating the patient, attempting to obtain pulses in her foot, and ruling out a limb threatening event as well as following up imaging and dosing heparin products myself as there was no pharmacist available. Medical Decision Making - Medical Records Medical records reviewed: Yes: I reviewed the patient's medical records. - David Inquiry Pt receiving controlled substance: No Vital Signs: 09/22/21 16:39 Temperature 98.0 F Temperature Source Oral Pulse Rate [Right Radial] 89 Respiratory Rate 18 Blood Pressure [Right Arm] 106/58 L Blood Pressure Mean [Right Arm] 74 Blood Pressure Source [Right Arm] Automatic Cuff Blood Pressure Position [Right Arm] Sitting 02 Sat by Pulse Oximetry 100 Oxygen Delivery Method Room Air - Lab Data Lab results reviewed: Yes: I reviewed the patient's lab results. Lab Results 09/22/21 17:08: WBC 7.5, RBC 3.81 L, Hgb 11.1 L, Hct 35.7 L, MCV 93.7, MCH 29.2, MCHC 31.1 L, RDW 15.3, Plt Count 194, MPV 8.4, Neut % (Auto) 76.0, Lymph % (Auto) 14.1, [place] % (Auto) 6.1, Eos % (Auto) 3.0, Baso % (Auto) 0.8, Neut # (Auto) 5.7, Lymph # (Auto) 1.1, [place] # (Auto) 0.5, Eos # (Auto) 0.2, Baso # (Auto) 0.1 09/22/21 17:08: PT 10.6, INR 0.93, APTT 19.9 L 09/22/21 17:08: Sodium 138, Potassium 4.7, Chloride 103, Carbon Dioxide 26, Anion Gap 13.7, BUN 37 H, Creatinine 1.30 H, Estimated Creat Clear 33, Estimated GFR 39 L, Est GFR ( Amer) 47 L, Glucose 96, Calcium 9.5 09/22/21 17:52: SARS-CoV-2 (PCR) Not detected, Influenza A Untype (PCR) Not detected, Influenza Type B (PCR) Not detected Result diagrams: 09/22/21 17:08 09/22/21 17:08 Orders (Tests/Meds): ED MEDICATIONS Generic Name Dose Route Start Last Admin Trade Name Freq PRN Reason Stop Dose Admin Heparin Sodium/Dextrose 500 mls @ 22 mls/hr 09/22/21 17:30 09/22/21 17:38 Heparin 25,000 Units In D5w 500ml Premix IV 10/22/21 17:29 22 mls/hr .[id number] SARIKA Administration 1,100 UNITS/HR Discontinued Medications Generic Name Dose Route Start Last Admin Trade Name Freq PRN Reason Stop Dose Admin Heparin Sodium (Porcine) 5,000 unit 09/22/21 17:15 09/22/21 17:39 Heparin Sodium 5,000 Unit/Ml Vial IV 09/22/21 17:16 5,000 unit ONCE ONE Administration ORDERS Category Date Time Status CT angio chest PE protocol Stat Cat Scan 09/22/21 17:48 Ordered Heparin drip PTT [PTT Heparin (inpatient only)] Routine Lab 09/22/21 22:00 Ordered Medical Decision Narrative: 81-year-old female who presents the emergency department with chief complaint of left lower extremity pain, swelling, discoloration, and inability to ambulate. Patient was evaluated immediately by nursing staff, who alerted me when they could not find Doppler signals in her left foot. On my evaluation, patient's leg was very swollen compared to the right side, bluish discolored, cold from the top of the foot down, and I was unable to find a DP Doppler signal. Fortunately, patient did have a very good PT Doppler signal as well as good cap refill
--- NOTE | 2021-09-22 18:40 | PC.NURSE ---
attempted to call report on pt, second floor bar steward contacted charge, states charge in the middle of giving blood and will call back for report
--- NOTE | 2021-09-22 19:19 | PC.NURSE ---
reassessed pt while giving shift change report, pt color on LLE has improved, skin temp is warmer than before, pt has a palpable DP pulse now notified ER
--- NOTE | 2021-09-22 20:16 | PC.NURSE ---
PT ARRIVED TO FLOOR VIA STRETCHER FROM ED W/STAFF @ 2017
[2021-09-22 23:12] LABS: PTT Heparin (inpatient only) 91.6 Seconds (23.6-34.0)
--- NOTE | 2021-09-22 23:17 | PC.NURSE ---
[facility] contacted at this time about PTT result of 91.6, spoke with Alva, stated to decrease heparin gtt to 950 units/hr, Alva will put in another PTT for 6 hours from now
[2021-09-23 04:00] VITALS: BP 137/67; PULSE 64; RESP 16; TEMP 36.6; O2SAT 96
[2021-09-23 05:17] VITALS: BMI 23.0
--- NOTE | 2021-09-23 06:19 | PC.NURSE ---
pt has remained on room air t/o shift with O2 sats 96-98%, no complaints of pain or SOA, pt has complained about her inability to sleep, LLE noticeably purplish in color, but has improved t/o shift, pedal pulse on left able to be palpated
--- NOTE | 2021-09-23 07:03 | PC.NURSE ---
2317 [facility] contacted at this time about PTT result of 91.6, spoke with Alva, stated to decrease heparin gtt to 900 units/hr, Alva to put to orders in
[2021-09-23 07:13] LABS: Basophils # 0.1 K/mm3 (0-0.2); Basophils % 0.9 % (0.1-2.0); Eosinophils # 0.3 K/mm3 (0.0-0.4); Hematocrit 32.9 % (37.0-47.0); Hemoglobin 10.3 g/dL (12.2-16.2); Lymphocytes # 0.6 K/mm3 (0.7-4.5); Lymphocytes % 12.2 % (10-50); Mean Corpuscular HGB Conc 31.2 g/dL (31.8-35.4); Mean Corpuscular Hemoglobin 29.2 pg (27.0-31.2); Mean Corpuscular Volume 93.5 fl (81-99); Mean Platelet Volume 9.1 fl (7.4-10.4); Monocytes # 0.3 K/mm3 (0.1-1.0); Monocytes % 6.4 % (1.7-9.3); Neutrophils # 3.8 K/mm3 (1.8-7.8); Neutrophils % 75.5 % (37.0-80.0); Platelet Count 168 K/mm3 (142-424); Red Blood Count 3.52 M/mm3 (4.20-5.40); Red Cell Distribution Width 15.5 % (11.5-17.5); White Blood Count 5.1 K/mm3 (4.8-10.8)
[2021-09-23 07:17] LABS: Anion Gap 12.2 mEq/L (5-15); Blood Urea Nitrogen 33 mg/dl (7-17); Calcium 8.7 mg/dl (8.4-10.2); Carbon Dioxide 24 mmol/L (22.0-30.0); Chloride 104 mmol/L (98-107); Creatinine Clearance Estimated 38 mL/min (50-200); Estimated Glomerular Filt Rate 47 ml/min (>60); GFR (African American) 57 ML/MIN (>60); Glucose 109 mg/dl (74-100); Potassium 4.2 mmoL/L (3.5-5.1); Sodium 136 mmol/L (136-145)
[2021-09-23 07:33] LABS: INR 0.98 (0.9-1.1); Prothrombin Time 11.1 seconds (10.1-12.5)
[2021-09-23 07:42] LABS: Activated Partial Thrombo Time 96.1 seconds (22.8-30.6)
[2021-09-23 08:00] VITALS: BP 111/62; PULSE 76; RESP 14; TEMP 36.4; O2SAT 99
--- NOTE | 2021-09-23 08:20 | PC.NURSE ---
0800- Spoke to jorge in pharmacy, decrease heparin gtt to 700 units/hr.
--- NOTE | 2021-09-23 08:31 | HMH.HP ---
*Admission Date: 09/22/21 *Chief complaint: Left leg swelling *History of present illness: 81-year-old female presented to the emergency department with left leg swelling and pain with difficulty ambulating. Patient stated most of the day yesterday she had noticed lightheadedness upon standing. She has a history of lymphedema in the left lower extremity due to prior history of treatment for endometrial cancer with hysterectomy and postsurgical radiation. Patient noticed tingling in the left lower extremity during the day but she states this is not out of the ordinary. Early in the afternoon she attempted to ambulate and had such severe pain in the leg that she self examined the left lower extremity where it was found to be discolored and edematous. Patient contacted family and was brought to the emergency department. In the emergency department patient was identified as having signs of phlegmasia cerulea dolens. Venous Doppler was performed which identified extensive thrombosis from the left mid thigh to the ankle. Pulses were dopplerable. CT angiogram of the chest was performed to rule out PE although patient denies having any shortness of breath. She had no pulmonary embolism. Heparin drip was initiated and patient was admitted. This morning patient reports improvement in pain, swelling and discoloration of the left lower extremity. Pulses continue to be dopplerable of the dorsalis pedis and posterior tibialis [facility] History I have reviewed the patient's past medical history: Yes Medical History: Reports:: Cancer, Gastroesophageal Reflux Disease(GERD), Hyperlipidemia, Hypertension Denies:: Diabetes Mellitus Type 1, Diabetes Mellitus Type 2, Internal Pacemaker, MRSA *Have you ever received a pneumonia vaccine?: No *Have you received a flu vaccine this season?: No Other Medical History: Reports: Arthritis Laterality Cases: Bilateral: Tonsillectomy Other Surgeries: Yes: No Previous Surgery. No: Pacemaker Amputation: No Fractures: Yes (Fractured 5th met of unknown foot 6 years ago. ) - *Social History Smoking Status: Former smoker Tobacco Type: cigarettes # Packs/Day (cigarettes): 1 #Yrs smoked (if former smoker): 45 Alcohol Intake: current Alcohol Intake Frequency:: holidays/special occasions only *Occupational Status:: retired *Travel in the last 8 weeks: None Family Hx:: Cancer, Diabetes, Hyperlipidemia, Hypertension Review of Systems - Constitutional Denies anorexia, Denies body ache(s), Denies chills, Denies lack of energy - *Cardiovascular Denies chest pain - *Respiratory Denies change in phlegm color - *Gastrointestinal Denies abdominal pain - *Genitourinary Denies painful urination - *Musculoskeletal Reports abnormal walking, Reports tingling (Left lower leg) - Integumentary/Breasts Reports change in skin color - *Neurologic Reports abnormal walking, Denies headache(s) Meds Home Medications Medication Instructions Recorded Confirmed Type ezetimibe 10 mg-simvastatin 20 mg 1 tab PO QODHS 10/23/18 09/22/21 History tablet lisinopril 10 mg tablet 10 mg PO DAILY tab 05/26/20 09/22/21 History Celecoxib 100 mg PO DAILY 09/22/21 09/22/21 History Magnesium 400 mg PO DAILY 09/22/21 09/22/21 History Turmeric/Turmeric Root Extract 500 mg PO DAILY 09/22/21 09/22/21 History [Turmeric] Allergies Allergy/AdvReac Type Severity Reaction Status Date / Time Penicillins [PENICILLINS] Allergy Unknown Verified 09/22/21 21:11 Exam Vital signs and Labs for Last 24 Hours: Temp Pulse Resp BP Pulse Ox 97.8 F 64 16 137/67 96 09/23/21 04:00 09/23/21 04:00 09/23/21 04:00 09/23/21 04:00 09/23/21 04:00 Laboratory Results - last 24 hr 09/22/21 17:08: WBC 7.5, RBC 3.81 L, Hgb 11.1 L, Hct 35.7 L, MCV 93.7, MCH 29.2, MCHC 31.1 L, RDW 15.3, Plt Count 194, MPV 8.4, Neut % (Auto) 76.0, Lymph % (Auto) 14.1, [place] % (Auto) 6.1, Eos % (Auto) 3.0, Baso % (Auto) 0.8, Neut # (Auto) 5.7, Lymph # (Auto) 1
--- NOTE | 2021-09-23 10:41 | P.CONPHA_ITS ---
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) Left leg DVT (Acute) History of endometrial cancer (Acute) Lymphedema of left lower extremity (Acute) History of endometrial cancer (Acute) CVA?: No Bleeding problem?: No Kidney disease?: No ND?: No Desired PTT range:: Other (50-75) - Labs Anticoagulation Lab Results:: 09/22/21 09/23/21 17:08 06:36 Hgb 11.1 L 10.3 L Hct 35.7 L 32.9 L Plt Count 194 168 - Monitoring Dose Monitor 1 Date: 09/22/21 Time: 17:08 PTT Result:: 19.9 (BASELINE) Infusion Rate:: 1,100 UNITS/HR Comment:: 5,000 UNIT BOLUS [id number] Dose Monitor 2 Date: 09/22/21 Time: 22:30 PTT Result:: 91.6 Infusion Rate:: RATE DECREASE TO 900 UNITS/HR Dose Monitor 3 Date: 09/23/21 Time: 06:30 PTT Result:: 96.1 Infusion Rate:: RATE DECREASE TO 700 UNITS/HR Comment:: [id number] ELIELGINIS ADDED Dose Monitor 4 Date: 09/23/21 Time: 10:30 PTT Result:: 60.9 Infusion Rate:: 700 UNITS/HR Dose Monitor 5 Date: 09/23/21 Time: 16:30 PTT Result:: 60.4 Infusion Rate:: 700 UNITS/HR Dose Monitor 6 Date: 09/24/21 Time: 07:20 PTT Result:: 58.4 Infusion Rate:: 700 UNITS/HR Comment:: [id number] - Core Measures Is INR > or = 2 at discharge?: No Most Recent Labs:: Laboratory Results - last 24 hr 09/22/21 17:08: WBC 7.5, RBC 3.81 L, Hgb 11.1 L, Hct 35.7 L, MCV 93.7, MCH 29.2, MCHC 31.1 L, RDW 15.3, Plt Count 194, MPV 8.4, Neut % (Auto) 76.0, Lymph % (Auto) 14.1, [place] % (Auto) 6.1, Eos % (Auto) 3.0, Baso % (Auto) 0.8, Neut # (A uto) 5.7, Lymph # (Auto) 1.1, [place] # (Auto) 0.5, Eos # (Auto) 0.2, Baso # (Auto) 0.1 09/22/21 17:08: PT 10.6, INR 0.93, APTT 19.9 L 09/22/21 17:08: Sodium 138, Potassium 4.7, Chloride 103, Carbon Dioxide 26, Anion Gap 13.7, BUN 37 H, Creatinine 1.30 H, Estimated Creat Clear 33, Estimated GFR 39 L, Est GFR ( Amer) 47 L, Glucose 96, Calcium 9.5 09/22/21 17:52: SARS-CoV-2 (PCR) Not detected, Influenza A Untype (PCR) Not detected, Influenza Type B (PCR) Not detected 09/22/21 22:28: APTT 91.6 H* 09/23/21 06:36: WBC 5.1 D, RBC 3.52 L, Hgb 10.3 L, Hct 32.9 L, MCV 93.5, MCH 29.2, MCHC 31.2 L, RDW 15.5, Plt Count 168, MPV 9.1, Neut % (Auto) 75.5, Lymph % (Auto) 12.2, [place] % (Auto) 6.4, Eos % (Auto) 5.0, Baso % (Auto) 0.9, Neut # (Auto) 3.8, Lymph # (Auto) 0.6 L, [place] # (Auto) 0.3, Eos # (Auto) 0.3, Baso # (Auto) 0.1 09/23/21 06:36: PT 11.1, INR 0.98, APTT 96.1 H* D 09/23/21 06:36: Sodium 136, Potassium 4.2, Chloride 104, Carbon Dioxide 24, Anion Gap 12.2, BUN 33 H, Creatinine 1.10 H, Estimated Creat Clear 38, Estimated GFR 47 L, Est GFR ( Amer) 57 L D, Glucose 109 H, Calcium 8.7 If INR was < than 2.0 why was therapy stopped?: ELIQUIS STARTED Were Heparin and Warfarin started on the same day?: No If not, why?: ELIQUIS STARTED
[2021-09-23 11:17] LABS: PTT Heparin (inpatient only) 60.9 Seconds (23.6-34.0)
--- NOTE | 2021-09-23 11:17 | PC.NURSE ---
1117-spoke to Enrike Ryder-continue rate of 700mL/hr on heparin gtt d/t PTT of 60.9
--- NOTE | 2021-09-23 11:20 | PC.NURSE ---
1117-spoke to Enrike Ryder-continue rate of 700units/hr on heparin gtt d/t PTT of 60.9
--- NOTE | 2021-09-23 14:52 | P.CONPHA_ITS ---
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) Left leg DVT (Acute) History of endometrial cancer (Acute) Lymphedema of left lower extremity (Acute) History of endometrial cancer (Acute) - VTE Risk Labs: VTE Related Lab Results Hgb 10.3 g/dL (12.2-16.2) L 09/23/21 06:36 Hct 32.9 % (37.0-47.0) L 09/23/21 06:36 Plt Count 168 K/mm3 (142-424) 09/23/21 06:36 PT 11.1 seconds (10.1-12.5) 09/23/21 06:36 INR 0.98 (0.9-1.1) 09/23/21 06:36 APTT 60.9 Seconds (23.6-34.0) H* 09/23/21 10:26 BUN 33 mg/dl (7-17) H 09/23/21 06:36 Creatinine 1.10 mg/dl (0.52-1.04) H 09/23/21 06:36 Estimated Creat Clear 38 mL/min (50-200) 09/23/21 06:36 Was VTE Risk Assessment Performed: Yes VTE Score: 8 VTE Risk Level: Moderate Risk - Prophylaxis VTE Prophylaxis Ordered?: Yes Types of VTE Prophylaxis: Pharmacological Location of Applied Device: Bilateral Lower Extremeties Pharmacologic Type: Heparin (AND ELIQUIS)
--- NOTE | 2021-09-23 14:55 | HMH.PHAINT ---
MEDICATION RECONCILIATION COMPLETED ON PATIENT USING EXTERNAL FILL HISTORY FROM PHARMACY. -PRISCA CHAN, LALITD
[2021-09-23 16:00] VITALS: BP 136/80; PULSE 80; RESP 19; TEMP 36.6; O2SAT 98
[2021-09-23 19:19] LABS: PTT Heparin (inpatient only) 60.4 Seconds (23.6-34.0)
--- NOTE | 2021-09-23 19:34 | PC.NURSE ---
Gerard from [employer] called at this time, with PTT result, stated to leave at 700 units/hr and that we will recheck PTT in morning
[2021-09-23 20:00] VITALS: BP 103/67; PULSE 78; RESP 18; TEMP 36.7; O2SAT 95
[2021-09-24 04:00] VITALS: BP 111/47; PULSE 62; RESP 16; TEMP 36.5; O2SAT 97
[2021-09-24 06:00] VITALS: BMI 23.3
[2021-09-24 08:00] VITALS: BP 137/70; PULSE 71; RESP 18; TEMP 36.4; O2SAT 98
--- NOTE | 2021-09-24 08:04 | PC.NURSE ---
pt has rested better this shift, has remained on room air, no complaints of SOA or pain, heparin gtt still infusing at 700 units/hr
[2021-09-24 08:17] LABS: Basophils % 0.5 % (0.1-2.0); Eosinophils # 0.2 K/mm3 (0.0-0.4); Eosinophils % 4.3 % (0.1-12.0); Hematocrit 31.5 % (37.0-47.0); Hemoglobin 9.9 g/dL (12.2-16.2); Lymphocytes # 0.7 K/mm3 (0.7-4.5); Lymphocytes % 18.2 % (10-50); Mean Corpuscular HGB Conc 31.4 g/dL (31.8-35.4); Mean Corpuscular Volume 92.2 fl (81-99); Mean Platelet Volume 9.6 fl (7.4-10.4); Monocytes # 0.3 K/mm3 (0.1-1.0); Monocytes % 8.4 % (1.7-9.3); Neutrophils # 2.6 K/mm3 (1.8-7.8); Neutrophils % 68.5 % (37.0-80.0); Platelet Count 189 K/mm3 (142-424); Red Blood Count 3.41 M/mm3 (4.20-5.40); Red Cell Distribution Width 15.8 % (11.5-17.5); White Blood Count 3.9 K/mm3 (4.8-10.8)
[2021-09-24 08:28] LABS: PTT Heparin (inpatient only) 58.4 Seconds (23.6-34.0)
--- NOTE | 2021-09-24 08:43 | PC.NURSE ---
Spoke to Enrike Ryder regarding PTT results. Continue heparin gtt at current rate
--- NOTE | 2021-09-24 09:05 | HMH.ACPN2 ---
Internal Medicine - PN: Subj *Date: 09/24/21 *Time: 09:05 Interval history: Patient reports improvement in swelling in the left leg primarily below the knee. She still feels that there is some edema in the thigh. She has been able to stand at bedside with minimal pain. Exam Vital signs and Labs for Last 24 Hours: Temp Pulse Resp BP Pulse Ox 97.7 F 62 16 111/47 L 97 09/24/21 04:00 09/24/21 04:00 09/24/21 04:00 09/24/21 04:00 09/24/21 04:00 Laboratory Results - last 24 hr 09/23/21 10:26: APTT 60.9 H* 09/23/21 17:45: APTT 60.4 H* 09/24/21 07:22: WBC 3.9 L, RBC 3.41 L, Hgb 9.9 L, Hct 31.5 L, MCV 92.2, MCH 29.0, MCHC 31.4 L, RDW 15.8, Plt Count 189, MPV 9.6, Neut % (Auto) 68.5, Lymph % (Auto) 18.2, [place] % (Auto) 8.4, Eos % (Auto) 4.3, Baso % (Auto) 0.5, Neut # (Auto) 2.6, Lymph # (Auto) 0.7, [place] # (Auto) 0.3, Eos # (Auto) 0.2, Baso # (Auto) 0.0 09/24/21 07:22: APTT 58.4 H* I & O for Last 24 hours: Intake & Output 09/21/21 09/22/21 09/23/21 09/24/21 11:59 11:59 11:59 11:59 Intake Total 917 / 917 849 / 849 Output Total 600 / 600 1200 / 1200 Balance 317 / 317 -351 / -351 Weight 138 lb 0.15 oz 140 lb Narrative: Patient looks comfortable. Lungs are clear. Heart has regular rate and rhythm. Patient continues to have swelling of the left leg with mild calf tenderness and proximal thigh tenderness to palpation. Ready discoloration of the medial left thigh and knee has improved compared to yesterday. Assessment and Plan (1) History of endometrial cancer Status: Acute Category: Medical Code(s): Z85.42 - Personal history of malignant neoplasm of other parts of uterus (2) Left leg DVT Status: Acute Category: Medical Code(s): I82.402 - Acute embolism and thrombosis of unspecified deep veins of left lower extremity (3) Phlegmasia cerulea dolens of left lower extremity Status: Acute Category: Medical Code(s): I80.202 - Phlebitis and thrombophlebitis of unspecified deep vessels of left lower extremity (4) History of endometrial cancer Status: Acute Category: Medical Code(s): Z85.42 - Personal history of malignant neoplasm of other parts of uterus - Assessment and plan all Dx Assessment and Plan for all problems:: 1. Continue Eliquis 10 twice daily 2. DC heparin this morning 3. Ambulate as tolerated today. Anticipate discharge tomorrow.
[2021-09-24 10:44] VITALS: BMI 23.3
--- NOTE | 2021-09-24 12:11 | PC.NURSE ---
0959- heparin gtt turned off per VO from MD Pennington. PO Eliquis given to pt
[2021-09-24 16:00] VITALS: BP 115/84; PULSE 78; RESP 16; TEMP 36.5; O2SAT 97
--- NOTE | 2021-09-24 18:54 | PC.NURSE ---
Pt has done well this shift. Pt ambulated w/ this RN multiple times this morning and maintained a steady gait. For the better part of the afternoon, pt has ambulated independently pt has been up to chair and reading. No other acute changes or complaints, will continue to monitor.
[2021-09-24 20:00] VITALS: BP 127/71; PULSE 78; RESP 20; TEMP 37; O2SAT 98
[2021-09-25 04:00] VITALS: BP 111/60; PULSE 71; RESP 16; TEMP 36.4; O2SAT 99
[2021-09-25 05:18] VITALS: BMI 23.3
--- NOTE | 2021-09-25 06:41 | PC.NURSE ---
Pt rested well this shift. Pt has ambulated to and from bathroom independently as needed with no c/o of pain.
--- NOTE | 2021-09-25 07:36 | HMH.DCSUM ---
General - General Admission date:: 09/22/21 Discharge date: 09/25/21 HPI HPI: 81-year-old female presented to the emergency department with left leg swelling and pain with difficulty ambulating. Patient stated most of the day yesterday she had noticed lightheadedness upon standing. She has a history of lymphedema in the left lower extremity due to prior history of treatment for endometrial cancer with hysterectomy and postsurgical radiation. Patient noticed tingling in the left lower extremity during the day but she states this is not out of the ordinary. Early in the afternoon she attempted to ambulate and had such severe pain in the leg that she self examined the left lower extremity where it was found to be discolored and edematous. Patient contacted family and was brought to the emergency department. In the emergency department patient was identified as having signs of phlegmasia cerulea dolens. Venous Doppler was performed which identified extensive thrombosis from the left mid thigh to the ankle. Pulses were dopplerable. CT angiogram of the chest was performed to rule out PE although patient denies having any shortness of breath. She had no pulmonary embolism. Heparin drip was initiated and patient was admitted. This morning patient reports improvement in pain, swelling and discoloration of the left lower extremity. Pulses continue to be dopplerable of the dorsalis pedis and posterior tibialis Hospital Course Hospital Course: Patient was admitted and placed on heparin drip for extensive left leg DVT. Swelling, pain, discoloration improved significantly on the heparin drip within 12 hours. Patient was transitioned to oral Eliquis 10 mg twice daily. She remained on bedrest until the morning of the . After the patient was allowed to ambulate with assistance in her room. She was able to do this without increase in pain or edema. On the patient was ambulating independently. The proximal thigh remained swollen but was nontender. Patient was discharged home on Eliquis 10 mg twice daily. Patient will follow up in the office on September 29. Objective Vital signs: Temp Pulse Resp BP Pulse Ox 97.6 F 71 16 111/60 99 09/25/21 04:00 09/25/21 04:00 09/25/21 04:00 09/25/21 04:00 09/25/21 04:00 no acute distress - *Routine Respiratory Exam Present: CTA bilaterally - *Routine Cardiovascular Exam Present: RRR - *Routine Extremities Exam Present: edema Results Labs on day of discharge: Labs from last 24 hours 09/24/21 09/24/21 07:22 07:22 WBC 3.9 L RBC 3.41 L Hgb 9.9 L Hct 31.5 L MCV 92.2 MCH 29.0 MCHC 31.4 L RDW 15.8 Plt Count 189 MPV 9.6 Neut % (Auto) 68.5 Lymph % (Auto) 18.2 [place] % (Auto) 8.4 Eos % (Auto) 4.3 Baso % (Auto) 0.5 Neut # (Auto) 2.6 Lymph # (Auto) 0.7 [place] # (Auto) 0.3 Eos # (Auto) 0.2 Baso # (Auto) 0.0 APTT 58.4 H* DS: Diagnosis - Discharge Diagnosis (1) Phlegmasia cerulea dolens of left lower extremity Status: Acute (2) History of endometrial cancer Status: Acute (3) Left leg DVT Status: Acute (4) History of endometrial cancer Status: Acute Discharge Plan - Patient Discharge Instructions ACTIVITY: Continue current activity DIET: continue same diet Patient Instructions: Deep Vein Thrombosis, DI for Deep Vein Thrombosis, Lymphedema, DI for Lymphedema, DI for Leg Pain - Follow up Plan Follow up with: Mac Pennington MD [Primary Care Provider] - 09/29/21 Disposition: Home, Self-Care Condition at discharge:: Improved Home Medications: Home Medications Medication Instructions Recorded Confirmed Type ezetimibe 10 mg-simvastatin 20 mg 1 tab PO MOWEFR@2100 10/23/18 09/23/21 History tablet lisinopril 10 mg tablet 10 mg PO DAILY tab 05/26/20 09/22/21 History Celecoxib 100 mg PO DAILY 09/22/21 09/22/21 History Magnesium 400 mg PO DAILY 09/22/21 09/22/21
[2021-09-25 08:00] VITALS: BP 132/73; PULSE 81; RESP 18; TEMP 37; O2SAT 99
== END 2021-09-25 09:45 | disposition home or self-care (01) | DRG 301 ==
LOC: ER 16:46 → 2ND 18:47
PROVIDERS: Admitting Provider Internal Medicine Adolescent Medicine; Emergency Provider Emergency Medicine; PCP Family Medicine; Visit Provider Family Medicine
DX: I82.432 Acute embolism and thrombosis of left popliteal vein (principal); I82.442 Acute embolism and thrombosis of left tibial vein; I82.412 Acute embolism and thrombosis of left femoral vein; Z87.891 Personal history of nicotine dependence; K21.9 Gastro-esophageal reflux disease without esophagitis; E78.5 Hyperlipidemia, unspecified; Z85.42 Personal history of malignant neoplasm of other parts of uterus; Z20.822 Contact with and (suspected) exposure to COVID-19
CPT/HCPCS: 36415; 71275; 80048; 85025; 85610; 85730; 93971; 96365; 96367; 99284; C9803; Q9967; U0003; U0005

== ENCOUNTER → 2021-11-07 15:20 | Outpatient (CLI) | payer MEDICARE, OTHER, SELFPAY ==
--- NOTE | 2021-11-07 15:38 | XR_ITS ---
FINAL REPORT CLINICAL HISTORY: SOB COMPARISON: June 02, 2020 FINDINGS: Two views of the chest were obtained. The heart size and pulmonary vascularity are within normal limits. The mediastinum is normal. There is mild left lung base atelectasis or scarring. There is no pneumothorax. The bony thorax is intact. IMPRESSION: Mild left lung base atelectasis or scarring. Reviewed, Interpreted and Dictated by Jose Roberto Shrestha III, MD Transcribed by Tess Mchugh Authenticated by Jose Roberto Shrestha III, MD on 11/07/2021 04:53:27 PM [facility]
[2021-11-07 16:09] LABS: Basophils # 0.1 K/mm3 (0-0.2); Eosinophils # 0.2 K/mm3 (0.0-0.4); Eosinophils % 5.2 % (0.1-12.0); Hematocrit 29.2 % (37.0-47.0); Hemoglobin 9.1 g/dL (12.2-16.2); Lymphocytes # 0.7 K/mm3 (0.7-4.5); Lymphocytes % 17.9 % (10-50); Mean Corpuscular HGB Conc 31.2 g/dL (31.8-35.4); Mean Corpuscular Hemoglobin 27.9 pg (27.0-31.2); Mean Corpuscular Volume 89.2 fl (81-99); Mean Platelet Volume 7.5 fl (7.4-10.4); Monocytes # 0.3 K/mm3 (0.1-1.0); Monocytes % 7.5 % (1.7-9.3); Neutrophils # 2.7 K/mm3 (1.8-7.8); Neutrophils % 67.3 % (37.0-80.0); Platelet Count 260 K/mm3 (142-424); Red Blood Count 3.28 M/mm3 (4.20-5.40); Red Cell Distribution Width 15.7 % (11.5-17.5)
== END ==
PROVIDERS: PCP Family Medicine; Visit Provider Family Medicine
DX: R06.02 Shortness of breath (principal)
CPT/HCPCS: 36415; 71046; 85025

== ENCOUNTER 2021-11-24 09:46 | Outpatient (CLI) | payer MEDICARE, OTHER, SELFPAY ==
[2021-11-24 10:11] VITALS: BP 133/88; PULSE 88; RESP 18; TEMP 36.4; O2SAT 97
[2021-11-24 10:35] VITALS: BP 122/66; PULSE 61; RESP 18; O2SAT 98
[2021-11-24 11:00] VITALS: BP 124/68; PULSE 72; RESP 16; TEMP 36.5; O2SAT 98
== END 2021-11-24 11:00 | disposition home or self-care (01) ==
LOC: INF 09:47
PROVIDERS: PCP Nurse Practitioner Family; Visit Provider Family Medicine
DX: D50.9 Iron deficiency anemia, unspecified (principal)
CPT/HCPCS: 96365; J1439

== ENCOUNTER 2021-12-01 09:43 | Outpatient (CLI) | payer MEDICARE, OTHER, SELFPAY ==
[2021-12-01 10:40] VITALS: BP 141/84; PULSE 100; RESP 16; O2SAT 98
[2021-12-01 11:10] VITALS: BP 138/79; PULSE 83; RESP 16
== END 2021-12-01 11:20 | disposition home or self-care (01) ==
LOC: INF 09:44
PROVIDERS: PCP Family Medicine; Visit Provider Family Medicine
DX: D50.9 Iron deficiency anemia, unspecified (principal)
CPT/HCPCS: 96365; J1439

== ENCOUNTER 2022-01-08 20:27 | Inpatient (IN) | payer MEDICARE, OTHER, SELFPAY ==
[2022-01-08] VITALS (8 sets, daily range): BP systolic 93–133; BP diastolic 34–83; PULSE 78–107; RESP 10–24; TEMP 36.5–36.8; O2SAT 96–99; BMI 23.8; BMI 24.0
--- NOTE | 2022-01-08 20:41 | ECG_ITS ---
APPROVED REPORT Exam: Resting ECG HR:101 bpm ECG Measurements Heart Rate 101 AXES ID 166 P 77 QRSd 84 QRS 23 QT 336 T 85 QTc 394 Conclusion SINUS TACHYCARDIA MODERATE ST DEPRESSION [0.05+ mV ST DEPRESSION] ABNORMAL ECG UNCONFIRMED REPORT Electronically signed by : Mac Parsons MD 01/09/2022 21:07:45
--- NOTE | 2022-01-08 20:49 | XR_ITS ---
PROCEDURE INFORMATION: Exam: XR Chest Exam date and time: 01/08/2022 9:14 PM Age: 81 years old Clinical indication: Shortness of breath; Additional info: SOB TECHNIQUE: Imaging protocol: XR of the chest. Views: 2 views. COMPARISON: CR XR CHEST 2V 11/07/2021 3:40 PM FINDINGS: Lungs: Unremarkable. No consolidation. Pleural spaces: Unremarkable. No pleural effusion. No pneumothorax. Heart/Mediastinum: Unremarkable. No cardiomegaly. Bones/joints: Scoliosis. IMPRESSION: No acute findings.
--- NOTE | 2022-01-08 20:50 | CT_ITS ---
PROCEDURE INFORMATION: Exam: CT Abdomen And Pelvis With Contrast Exam date and time: 01/08/2022 9:25 PM Age: 81 years old Clinical indication: Abdominal pain; Generalized; Prior surgery TECHNIQUE: Imaging protocol: Computed tomography of the abdomen and pelvis with contrast. Radiation optimization: All CT scans at this facility use at least one of these dose optimization techniques: automated exposure control; mA and/or kV adjustment per patient size (includes targeted exams where dose is matched to clinical indication); or iterative reconstruction. Contrast material: ISOVUE; Contrast volume: 75 ml; Contrast route: IV; COMPARISON: CT ABDOMEN PELVIS W CON 06/20/2020 11:03 AM FINDINGS: Diaphragm: Moderate hiatal hernia. Liver: Geographic hypoattenuation of the liver adjacent to the falciform ligament, likely focal fat. Gallbladder and bile ducts: No calcified stones. No ductal dilation. Pancreas: Normal enhancement. No ductal dilation. Spleen: There are multiple splenic calcifications likely on the basis of prior granulomatous exposure. Adrenal glands: No mass. Kidneys and ureters: Renal cysts measuring up to 3.4 cm. Stomach and bowel: Dilated loops of fluid and gas-filled small bowel measuring up to 2.8 cm with a small amount of adjacent fluid and distal decompression. Appendix: No evidence of appendicitis. Intraperitoneal space: No free air. No significant fluid collection. Vasculature: Calcified atherosclerosis. No aneurysm. Lymph nodes: No enlarged lymph nodes. Urinary bladder: No acute abnormality. Reproductive: No acute abnormality. Bones/joints: Degenerative changes. No acute fracture. Soft tissues: No soft tissue swelling. IMPRESSION: Dilated loops of fluid and gas-filled small bowel measuring up to 2.8 cm with a small amount of adjacent fluid and distal decompression compatible with small bowel obstruction.
[2022-01-08 21:05] LABS: Alanine Aminotransferase 30 U/L (12-78); Albumin Level 4.2 g/dl (3.5-5.0); Albumin/Globulin Ratio 1.6 (1.1-1.8); Alkaline Phosphatase 86 U/L (38-126); Amylase 79 U/L (30-110); Anion Gap 17.2 mEq/L (5-15); Aspartate Amino Transferase 38 U/L (14-36); Bilirubin,Total 0.7 mg/dl (0.2-1.3); Blood Urea Nitrogen 32 mg/dl (7-17); Calcium 9.6 mg/dl (8.4-10.2); Carbon Dioxide 25 mmol/L (22.0-30.0); Chloride 100 mmol/L (98-107); Creatinine Clearance Estimated 36 mL/min (50-200); Estimated Glomerular Filt Rate 43 ml/min (>60); GFR (African American) 52 ML/MIN (>60); Globulin 2.7 g/dL (1.3-3.2); Glucose 154 mg/dl (74-100); Lipase 182 U/L (23-300); Potassium 4.2 mmoL/L (3.5-5.1); Sodium 138 mmol/L (136-145); Total Protein,Serum 6.9 g/dl (6.3-8.2)
[2022-01-08 21:15] LABS: Microscopic, Urine URINE MICROSCOPIC (MICROSCOPIC)
[2022-01-08 21:15] LABS: Basophils # 0.1 K/mm3 (0-0.2); Basophils % 0.9 % (0.1-2.0); Eosinophils # 0.2 K/mm3 (0.0-0.4); Eosinophils % 2.4 % (0.1-12.0); Hematocrit 42.6 % (37.0-47.0); Hemoglobin 13.8 g/dL (12.2-16.2); Lymphocytes # 0.8 K/mm3 (0.7-4.5); Lymphocytes % 9.2 % (10-50); Mean Corpuscular HGB Conc 32.4 g/dL (31.8-35.4); Mean Corpuscular Hemoglobin 30.9 pg (27.0-31.2); Mean Corpuscular Volume 95.3 fl (81-99); Mean Platelet Volume 8.8 fl (7.4-10.4); Monocytes # 0.5 K/mm3 (0.1-1.0); Monocytes % 6.5 % (1.7-9.3); Neutrophils # 6.7 K/mm3 (1.8-7.8); Neutrophils % 81.1 % (37.0-80.0); Platelet Count 265 K/mm3 (142-424); Red Blood Count 4.47 M/mm3 (4.20-5.40); Red Cell Distribution Width 19.1 % (11.5-17.5); White Blood Count 8.3 K/mm3 (4.8-10.8)
[2022-01-08 21:23] LABS: Procalcitonin 0.092 ng/mL (0.0-2.0); T4 (Thyroxine) 13.3 ug/dl (5.53-11.0)
[2022-01-08 21:25] LABS: Troponin I < 0.01 ng/ml (0.00-0.034)
[2022-01-08 21:36] LABS: Thyroid Stimulating Hormone 0.11 uIU/mL (0.465-4.68)
[2022-01-08 21:41] LABS: Appearance,Urine CLEAR (Clear); Bilirubin,Urine Negative (Negative); Blood, Urine Negative (Negative); Color,Urine YELLOW (Yellow); Glucose,Urine (UA) Negative (Negative); Ketones,Urine 2+ (Negative); Leukocyte Esterase,Urine Negative (Negative); Nitrate,Urine Negative (Negative); PH,Urine 6.5 (5.0-8.5); Protein,Urine Negative (Negative); Specific Gravity, Urine 1.015 (1.005-1.030); Urobilinogen,Urine 0.2 EU/dl (0.2)
[2022-01-08 21:41] LABS: Lactic Acid 2.4 mmol/L (0.7-2.1)
--- NOTE | 2022-01-08 22:06 | PC.NURSE ---
Dr. Devries on phone with HALEYAD
--- NOTE | 2022-01-08 22:08 | HMH.EDNVD ---
ED Disposition Clinical Impression: SBO (small bowel obstruction) Disposition: Admitted As Inpatient Condition on Discharge: Serious Instructions: DI for Acute Abdominal Pain Referrals: Jose Alejandro Cao MD [Primary Care Provider] - - Critical Care Critical Care Time: No Attestation: On 01/08/22, the high probability of a clinically significant, sudden or life threatening deterioration of the following system(s) required my full and direct attention, intervention and personal management. The time I documented below is in addition to time spent performing reported procedures but includes the following listed in this critical care notation. Medical Decision Making - Medical Records Medical records reviewed: Yes: I reviewed the patient's medical records. - David Inquiry Pt receiving controlled substance: No Vital Signs: 01/08/22 20:28 Temperature 97.7 F Temperature Source Oral Pulse Rate [Left Radial] 107 H Respiratory Rate 22 Blood Pressure [Right Arm] 102/34 L Blood Pressure Mean [Right Arm] 56 Blood Pressure Source [Right Arm] Automatic Cuff Blood Pressure Position [Right Arm] Sitting 02 Sat by Pulse Oximetry 99 Oxygen Delivery Method Room Air - Lab Data Lab results reviewed: Yes: I reviewed the patient's lab results. Lab Results 01/08/22 20:45: WBC 8.3, RBC 4.47, Hgb 13.8, Hct 42.6, MCV 95.3, MCH 30.9, MCHC 32.4, RDW 19.1 H, Plt Count 265, MPV 8.8, Neut % (Auto) 81.1 H, Lymph % (Auto) 9.2 L, [place] % (Auto) 6.5, Eos % (Auto) 2.4, Baso % (Auto) 0.9, Neut # (Auto) 6.7, Lymph # (Auto) 0.8, [place] # (Auto) 0.5, Eos # (Auto) 0.2, Baso # (Auto) 0.1, ESR 24 01/08/22 20:45: Sodium 138, Potassium 4.2, Chloride 100, Carbon Dioxide 25, Anion Gap 17.2 H, BUN 32 H, Creatinine 1.20 H, Estimated Creat Clear 36, Estimated GFR 43 L, Est GFR ( Amer) 52 L, Glucose 154 H, Calcium 9.6, Total Bilirubin 0.7, AST 38 H, ALT 30, Alkaline Phosphatase 86, Troponin I < 0.01, Total Protein 6.9, Albumin 4.2, Globulin 2.7, Albumin/Globulin Ratio 1.6, Amylase 79, Lipase 182, Procalcitonin 0.092, TSH 0.11 L, Thyroxine (T4) 13.3 H 01/08/22 21:11: Urine Color Yellow, Urine Appearance Clear, Urine pH 6.5, Ur Specific [place] 1.015, Urine Protein Negative, Urine Glucose (UA) Negative, Urine Ketones 2+, Urine Blood Negative, Urine Nitrate Negative, Urine Bilirubin Negative, Urine Urobilinogen 0.2, Ur Leukocyte Esterase Negative 01/08/22 21:19: Lactate 2.4 H Result diagrams: 01/08/22 20:45 01/08/22 20:45 Orders (Tests/Meds): ED MEDICATIONS Generic Name Dose Route Start Last Admin Trade Name Freq PRN Reason Stop Dose Admin Sodium Chloride 1,000 mls @ 999 mls/hr 01/08/22 21:00 01/08/22 21:10 Sod Chlor 0.9% 1000ml Bag IV 01/08/22 22:00 999 mls/hr .Q1H1M SARIKA Administration Discontinued Medications Generic Name Dose Route Start Last Admin Trade Name Freq PRN Reason Stop Dose Admin Iopamidol 75 ml 01/08/22 21:37 01/08/22 21:38 Iopamidol-370 (76%);100ml Bottle IV 01/08/22 21:38 75 ml ONCE ONE Administration Morphine Sulfate 4 mg 01/08/22 22:18 Morphine 4mg/Ml Syringe IV 01/08/22 22:19 ONCE ONE Ondansetron HCl 4 mg 01/08/22 20:51 01/08/22 21:10 Ondansetron 4mg/2ml Vial IV 01/08/22 20:52 4 mg ONCE ONE Administration Sodium Chloride 10 ml 01/08/22 21:37 01/08/22 21:38 Sodium Chloride 0.9% 10ml Syr (Rad Only) IV 01/08/22 21:38 10 ml ONCE ONE Administration ORDERS Category Date Time Status Rapid PCR Covid and Flu A/B Stat Lab 01/08/22 22:01 Ordered Troponin I Q3H Lab 01/08/22 23:49 Ordered Troponin I Q3H Lab 01/09/22 02:49 Ordered UA [Urinalysis and Microscopic] Stat Lab 01/08/22 21:11 Results Blood Culture Stat Micro 01/08/22 20:45 Received - Radiology Data #1 Image(s): Chest Image Reviewed: Yes I discussed the image results w/the radiologist Preliminary Findings: Normal/NAD - CT Data CT Scan: Abdomen, Pelvis Time Received: 22:[address] Reviewed: Tito
[2022-01-08 22:17] LABS: Erythrocyte Sedimentation Rate 24 mm/hr (0-30)
--- NOTE | 2022-01-08 22:18 | PC.NURSE ---
Dr. Parsons on phone with ED doctor
--- NOTE | 2022-01-08 22:19 | PC.NURSE ---
Research Methods Instructor notified of admission
--- NOTE | 2022-01-08 22:22 | PC.NURSE ---
Admit to [address] Parsons with bowel obstruction.
[2022-01-08 22:31] LABS: Bacteria,Urine Trace /lpf
--- NOTE | 2022-01-08 22:41 | PC.NURSE ---
PT STATES SHE DOES NOT WANT MORPHINE AT THIS TIME. PT RATES HER PAIN 3/10 AND STATES THAT IS OK FOR THIS TIME.
[2022-01-08 22:43] LABS: Coronavirus 19, PCR Not Detected (NotDetected); Influenza A, PCR Not Detected (NotDetected); Influenza B, PCR Not Detected (NotDetected)
--- NOTE | 2022-01-08 23:40 | PC.NURSE ---
patient up to floor via wheelchair @ this time.
[2022-01-09 00:02] LABS: Troponin I < 0.01 ng/ml (0.00-0.034)
[2022-01-09 01:22] LABS: Reflex Lactic Add Lactic Reflex
[2022-01-09 03:03] LABS: Troponin I < 0.01 ng/ml (0.00-0.034)
[2022-01-09 03:56] VITALS: BP 104/62; PULSE 82; RESP 16; TEMP 36.7; O2SAT 94
[2022-01-09 05:00] VITALS: BMI 24.0
[2022-01-09 06:12] LABS: Basophils % 0.5 % (0.1-2.0); Eosinophils # 0.2 K/mm3 (0.0-0.4); Eosinophils % 3.8 % (0.1-12.0); Hematocrit 33.3 % (37.0-47.0); Lymphocytes # 0.5 K/mm3 (0.7-4.5); Lymphocytes % 9.6 % (10-50); Mean Corpuscular HGB Conc 33.2 g/dL (31.8-35.4); Mean Corpuscular Hemoglobin 31.6 pg (27.0-31.2); Mean Corpuscular Volume 95.1 fl (81-99); Mean Platelet Volume 8.5 fl (7.4-10.4); Monocytes # 0.4 K/mm3 (0.1-1.0); Monocytes % 8.6 % (1.7-9.3); Neutrophils # 3.8 K/mm3 (1.8-7.8); Neutrophils % 77.5 % (37.0-80.0); Platelet Count 198 K/mm3 (142-424); Red Blood Count 3.51 M/mm3 (4.20-5.40); Red Cell Distribution Width 19.2 % (11.5-17.5); White Blood Count 4.8 K/mm3 (4.8-10.8)
[2022-01-09 06:17] LABS: Alanine Aminotransferase 18 U/L (12-78); Albumin Level 2.9 g/dl (3.5-5.0); Albumin/Globulin Ratio 1.5 (1.1-1.8); Alkaline Phosphatase 53 U/L (38-126); Anion Gap 6.2 mEq/L (5-15); Aspartate Amino Transferase 26 U/L (14-36); Bilirubin,Total 0.4 mg/dl (0.2-1.3); Blood Urea Nitrogen 32 mg/dl (7-17); Calcium 8.1 mg/dl (8.4-10.2); Carbon Dioxide 27 mmol/L (22.0-30.0); Chloride 108 mmol/L (98-107); Creatinine Clearance Estimated 40 mL/min (50-200); Estimated Glomerular Filt Rate 47 ml/min (>60); GFR (African American) 57 ML/MIN (>60); Glucose 100 mg/dl (74-100); Potassium 4.2 mmoL/L (3.5-5.1); Sodium 137 mmol/L (136-145); Total Protein,Serum 4.9 g/dl (6.3-8.2)
[2022-01-09 06:19] LABS: Hemoglobin 11.1 g/dL (12.2-16.2)
--- NOTE | 2022-01-09 07:09 | PC.NURSE ---
Pt arrive last night with severe stomach cramping and pain. Pt given protonix, zofran and tylenol for cramping and nausea. PT stated that they helped a littler. Pt encouraged to take the morphine and agreed. PT slept after morphine and she had a watery bm this am. PT stated I feel much better PT stated that she felt that her SBO passed and she can go home now. The pain is better and she is no longer cramping or nauseated.
--- NOTE | 2022-01-09 07:12 | HMH.PHAVTE ---
[facility] Pharmacy VTE Monitoring - Patient Demographics Admission date: 01/08/22 Report Date: 01/09/22 Time: 07:12 Allergies/Adverse Reactions: Patient Allergies Penicillins [PENICILLINS] Allergy (Unknown, Verified 11/24/21 10:19) Height: 1.65 m Weight: 65.408 kg Patient Problems: Current Active Problems SBO (small bowel obstruction) (Acute) - VTE Risk Labs: VTE Related Lab Results Hgb 11.1 g/dL (12.2-16.2) L D 01/09/22 05:31 Hct 33.3 % (37.0-47.0) L 01/09/22 05:31 Plt Count 198 K/mm3 (142-424) D 01/09/22 05:31 BUN 32 mg/dl (7-17) H 01/09/22 05:31 Creatinine 1.10 mg/dl (0.52-1.04) H 01/09/22 05:31 Estimated Creat Clear 40 mL/min (50-200) 01/09/22 05:31 Was VTE Risk Assessment Performed: Yes VTE Score: 2 VTE Risk Level: Very Low Risk - Prophylaxis VTE Prophylaxis Ordered?: Yes Types of VTE Prophylaxis: TEDS Knee High Location of Applied Device: Bilateral Lower Extremeties
--- NOTE | 2022-01-09 07:21 | HMH.PHAINT ---
MEDICATION RECONCILIATION COMPLETED ON PATIENT USING EXTERNAL FILL HISTORY FROM PHARMACY. -PRISCA CHAN, LALITD
--- NOTE | 2022-01-09 07:41 | HMH.GSCON ---
*Admission Date: 01/08/22 *Reason for consult:: Bowel OBstruction *History of present illness: Patient is an 81-year-old female who had undergone laparoscopic hysterectomy for apparent cancer in September 2019 with radiation. She had presented to the emergency department yesterday evening. She had multiple episodes of nausea and vomiting beginning in the afternoon of 01/08/2022. This resolved and then returned. She describes cramping significant abdominal pain diffusely. Evaluation in the emergency department included CT scan which revealed dilated loops of fluid and gas-filled small bowel measuring up to 2.8 cm with small amount of adjacent fluid with distal decompression compatible with small bowel obstruction. Patient was admitted for inpatient management. Interestingly she did not have a nasogastric tube placed. She states that this morning she did have a large liquid bowel movement and does feel better. Review of Systems - Review of Systems Review of systems:: pertinent systems reviewed and negative unless documented below - *Neurologic Denies headache(s) [facility] History I have reviewed the patient's past medical history: Yes Medical History: Reports:: Deep Vein Thrombosis, Gastroesophageal Reflux Disease(GERD), Hyperlipidemia, Hypertension Denies:: Cancer (hx), Diabetes Mellitus Type 1, Diabetes Mellitus Type 2, Internal Pacemaker, MRSA *Have you ever received a pneumonia vaccine?: Yes *Have you received a flu vaccine this season?: Yes Other Medical History: Reports: Anemia, Arthritis, Cataracts, Radiation Therapy, Sinus Problems Laterality Cases: Bilateral: Tonsillectomy Other Surgeries: Yes: No Previous Surgery, Colonoscopy, Hysterectomy-Total. No: Pacemaker Amputation: No Fractures: Yes (Fractured 5th met of unknown foot 6 years ago. ) - *Social History Last grade of school completed: High school graduate Smoking Status: Former smoker Tobacco Type: cigarettes # Packs/Day (cigarettes): 1 #Yrs smoked (if former smoker): 45 Alcohol Intake: former Alcohol Intake Frequency:: holidays/special occasions only *Occupational Status:: retired Housing: house Household Members: none *Travel in the last 8 weeks: None Family Hx:: Cancer, Diabetes Meds Home Medications Medication Instructions Recorded Confirmed Type Celecoxib 100 mg PO DAILY 09/22/21 01/09/22 History Magnesium 400 mg PO DAILY 09/22/21 01/09/22 History Turmeric/Turmeric Root Extract 1 each PO DAILY 09/22/21 01/09/22 History [Turmeric 500 mg Capsule] Ezetimibe/Simvastatin 1 each PO HS 01/09/22 01/09/22 History [Ezetimibe-Simvastatin 10-20 mg] Iron Polysaccharide Complex [Pro 180 mg PO DAILY 01/09/22 01/09/22 History Fe] Rivaroxaban [Xarelto 20mg Tablet*] 20 mg PO QPMWITHMEAL 01/09/22 01/09/22 History lisinopriL [Zestril 10mg Tab] 10 mg PO DAILY 01/09/22 01/09/22 History Allergies Allergy/AdvReac Type Severity Reaction Status Date / Time Penicillins [PENICILLINS] Allergy Unknown Verified 11/24/21 10:19 Exam Vital signs and Labs for Last 24 Hours: Temp Pulse Resp BP Pulse Ox 98.1 F 82 16 104/62 L 94 L 01/09/22 03:56 01/09/22 03:56 01/09/22 03:56 01/09/22 03:56 01/09/22 03:56 Laboratory Results - last 24 hr 01/08/22 20:45: WBC 8.3, RBC 4.47, Hgb 13.8, Hct 42.6, MCV 95.3, MCH 30.9, MCHC 32.4, RDW 19.1 H, Plt Count 265, MPV 8.8, Neut % (Auto) 81.1 H, Lymph % (Auto) 9.2 L, [place] % (Auto) 6.5, Eos % (Auto) 2.4, Baso % (Auto) 0.9, Neut # (Auto) 6.7, Lymph # (Auto) 0.8, [place] # (Auto) 0.5, Eos # (Auto) 0.2, Baso # (Auto) 0.1, ESR 24 01/08/22 20:45: Sodium 138, Potassium 4.2, Chloride 100, Carbon Dioxide 25, Anion Gap 17.2 H, BUN 32 H, Creatinine 1.20 H, Estimated Creat Clear 36, Estimated GFR 43 L, Est GFR ( Amer) 52 L, Glucose 154 H, Calcium 9.6, Total Bilirubin 0.7, AST 38 H, ALT 30, Alkaline Phosphatase 86, Troponin I < 0.01, Total Protein 6.9, Albumin 4.2, Globulin 2.7, Albumin/Globulin Ratio 1.6, Amylase 79, Lipase 182, Proca
--- NOTE | 2022-01-09 07:51 | XR_ITS ---
FINAL REPORT CLINICAL HISTORY: BOWEL OBSTRUCTION COMPARISON: CT scan dated January 08, 2022 FINDINGS: Chest: A single view of the chest demonstrates mild bibasilar atelectasis. Abdomen: Flat and upright views of the abdomen demonstrate multiple air-filled distended small bowel loops. There is residual contrast in the bladder. There are degenerative changes of the spine. IMPRESSION: Multiple air-filled distended small bowel loops, consistent with history of small-bowel obstruction. Reviewed, Interpreted and Dictated by Jose Roberto Shrestha III, MD Transcribed by Av Jiang Authenticated by Jose Roberto Shrestha III, MD on 01/09/2022 09:55:49 AM [facility]
--- NOTE | 2022-01-09 07:53 | HMH.HP ---
*Admission Date: 01/08/22 *Chief complaint: nausea and vomiting. *History of present illness: Ms. Ramos is an anxious 81-year-old female who presented to [facility] due to significant abdominal pain, nausea, bilious emesis. Had no fever. Denies any diarrhea. No blood in vomit or stool. On initial evaluation in the ER was found to have tender abdomen. CT obtained showing concern for small bowel obstruction. Denies any preceding illness or previous episodes similar to this. He is admitted to medicine for further management and surgical consult. On review of her history this morning on rounds, she states she underwent laproscopic hysterectomy approximately 2 years ago for endometrial cancer. Subsequently had radiation therapy. No other intra-abdominal procedures/surgeries. Feeling better this morning. Had a loose bowel movement this morning. Belch significantly overnight but that is calm down this morning. Denies passing any gas with her bowel movement. Is afebrile, hemodynamically stable. Still having some mild discomfort with palpation of her abdomen. [facility] History I have reviewed the patient's past medical history: Yes Medical History: Reports:: Deep Vein Thrombosis, Gastroesophageal Reflux Disease(GERD), Hyperlipidemia, Hypertension Denies:: Cancer (hx), Diabetes Mellitus Type 1, Diabetes Mellitus Type 2, Internal Pacemaker, MRSA *Have you ever received a pneumonia vaccine?: Yes *Have you received a flu vaccine this season?: Yes Other Medical History: Reports: Anemia, Arthritis, Cataracts, Radiation Therapy, Sinus Problems Laterality Cases: Bilateral: Tonsillectomy Other Surgeries: Yes: No Previous Surgery, Colonoscopy, Hysterectomy-Total. No: Pacemaker Amputation: No Fractures: Yes (Fractured 5th met of unknown foot 6 years ago. ) - *Social History Last grade of school completed: High school graduate Smoking Status: Former smoker Tobacco Type: cigarettes # Packs/Day (cigarettes): 1 #Yrs smoked (if former smoker): 45 Alcohol Intake: former Alcohol Intake Frequency:: holidays/special occasions only *Occupational Status:: retired Housing: house Household Members: none *Travel in the last 8 weeks: None Family Hx:: Cancer, Diabetes Review of Systems - Review of Systems Review of systems:: pertinent systems reviewed and negative unless documented below (14 point review of systems performed, pertinent positives and negatives as per HPI) - *Neurologic Denies headache(s) Meds Home Medications Medication Instructions Recorded Confirmed Type Celecoxib 100 mg PO DAILY 09/22/21 01/09/22 History Magnesium 400 mg PO DAILY 09/22/21 01/09/22 History Turmeric/Turmeric Root Extract 1 each PO DAILY 09/22/21 01/09/22 History [Turmeric 500 mg Capsule] Ezetimibe/Simvastatin 1 each PO HS 01/09/22 01/09/22 History [Ezetimibe-Simvastatin 10-20 mg] Iron Polysaccharide Complex [Pro 180 mg PO DAILY 01/09/22 01/09/22 History Fe] Rivaroxaban [Xarelto 20mg Tablet*] 20 mg PO QPMWITHMEAL 01/09/22 01/09/22 History lisinopriL [Zestril 10mg Tab] 10 mg PO DAILY 01/09/22 01/09/22 History Allergies Allergy/AdvReac Type Severity Reaction Status Date / Time Penicillins [PENICILLINS] Allergy Unknown Verified 11/24/21 10:19 Exam Vital signs and Labs for Last 24 Hours: Temp Pulse Resp BP Pulse Ox 98.1 F 82 16 104/62 L 94 L 01/09/22 03:56 01/09/22 03:56 01/09/22 03:56 01/09/22 03:56 01/09/22 03:56 Laboratory Results - last 24 hr 01/08/22 20:45: WBC 8.3, RBC 4.47, Hgb 13.8, Hct 42.6, MCV 95.3, MCH 30.9, MCHC 32.4, RDW 19.1 H, Plt Count 265, MPV 8.8, Neut % (Auto) 81.1 H, Lymph % (Auto) 9.2 L, [place] % (Auto) 6.5, Eos % (Auto) 2.4, Baso % (Auto) 0.9, Neut # (Auto) 6.7, Lymph # (Auto) 0.8, [place] # (Auto) 0.5, Eos # (Auto) 0.2, Baso # (Auto) 0.1, ESR 24 01/08/22 20:45: Sodium 138, Potassium 4.2, Chloride 100, Carbon Dioxide 25, Anion Gap 17.2 H, BUN 32 H, Creatinine 1.20 H, Estimated Creat Clear 36, Estim
[2022-01-09 08:00] VITALS: BP 100/58; PULSE 73; RESP 21; TEMP 36.6; O2SAT 97
--- NOTE | 2022-01-09 11:36 | PC.NURSE ---
Called Dr. Corley office to see if we can get something to help the pt with the pain of the NG tube when she swallows. I left a message for his nurse and waiting to hear back.
--- NOTE | 2022-01-09 12:36 | PC.NURSE ---
LATE ENTRY As of 1199, this RN resumes care of this patient.
[2022-01-09 13:15] VITALS: BMI 23.8
[2022-01-09 16:00] VITALS: BP 121/60; PULSE 73; RESP 20; TEMP 36.4; O2SAT 96
--- NOTE | 2022-01-09 16:21 | PC.NURSE ---
New 16fr NG tube placed in pts rt nare. 65cm at the rt nare. Hooked up to low wall suction, creamy light pink contents draining into suction canister. Pt requesting pain meds at this time. No other acute changes. Will monitor.
[2022-01-09 19:39] VITALS: BP 126/70; PULSE 76; RESP 18; TEMP 36.5; O2SAT 98
[2022-01-10 03:39] VITALS: BP 142/81; PULSE 81; RESP 18; TEMP 36.4; O2SAT 95
[2022-01-10 05:00] VITALS: BMI 23.5
--- NOTE | 2022-01-10 06:00 | XR_ITS ---
PROCEDURE INFORMATION: Exam: XR Complete Acute Abdomen Series Including Chest Exam date and time: 01/10/2022 5:46 AM Age: 81 years old Clinical indication: Condition or disease; Intestinal condition; Obstruction; Additional info: Bowel obstruction TECHNIQUE: Imaging protocol: XR complete acute abdomen series, including 2 or more views of the abdomen and a single view chest. COMPARISON: CR XR ACUTE ABDOMEN SERIES 01/09/2022 8:48 AM FINDINGS: Tubes, catheters and devices: NG tube with tip in the proximal stomach. Lungs: Normal. No consolidation. Pleural spaces: Normal. No pleural effusions. No pneumothorax. Heart/Mediastinum: Normal. No cardiomegaly. Gastrointestinal tract: Normal. No bowel dilation. Intraperitoneal space: Normal. No free air. Organs: Calcified splenic granulomas. Bones/joints: Multilevel spondylosis with convex left scoliosis. Soft tissues: Normal. IMPRESSION: 1. NG tube in situ. 2. Otherwise no acute pathology.
--- NOTE | 2022-01-10 07:03 | HMH.GSPN ---
Subjective Narrative: Patient complains of the NG tube being miserable . She denies any cramping abdominal pain. Progress Note: A&P (1) SBO (small bowel obstruction) Status: Acute (2) History of endometrial cancer Status: Chronic (3) Essential hypertension Status: Chronic (4) Hyperlipidemia Status: Chronic (5) Left leg DVT Status: Chronic Assessment and Plan for All Diagnoses:: X-rays reportedly revealed NG tube in place with no other acute pathology. I reviewed these films. She does have the NG tube to be kinked in the upper stomach. She has gas through her colon. I will go ahead and plan to remove the NG tube and have her have some limited clear liquids today. Exam Vital signs and Labs for Last 24 Hours: Temp Pulse Resp BP Pulse Ox 97.6 F 81 18 142/81 H 95 01/10/22 03:39 01/10/22 03:39 01/10/22 03:39 01/10/22 03:39 01/10/22 03:39 I & O for Last 24 hours: Intake & Output 01/07/22 01/08/22 01/09/22 01/10/22 11:59 11:59 11:59 11:59 Output Total 0 / 0 Balance 0 / 0 Weight 144 lb 3.2 oz 141 lb - *Routine Abdominal Exam Present: soft
--- NOTE | 2022-01-10 07:37 | PC.NURSE ---
NG TUBE REMOVED PER MD LUZ V/O. PT TOLERATED WELL.
[2022-01-10 07:41] VITALS: BP 117/79; PULSE 77; RESP 16; TEMP 36.6; O2SAT 98
[2022-01-10 08:00] VITALS: O2SAT 97
--- NOTE | 2022-01-10 08:57 | HMH.ACPN2 ---
Internal Medicine - PN: Subj *Date: 01/10/22 *Time: 08:57 Interval history: Patient has had her NG tube removed and feels like a new woman. Exam Vital signs and Labs for Last 24 Hours: Temp Pulse Resp BP Pulse Ox 97.9 F 77 16 117/79 98 01/10/22 07:41 01/10/22 07:41 01/10/22 07:41 01/10/22 07:41 01/10/22 07:41 I & O for Last 24 hours: Intake & Output 01/07/22 01/08/22 01/09/22 01/10/22 11:59 11:59 11:59 11:59 Intake Total 0 / 0 Output Total 0 / 0 Balance 0 / 0 0 / 0 Weight 144 lb 3.2 oz 141 lb Narrative: Alert, pleasant. Oriented. Lungs clear, heart rate regular. Abdomen soft, very minimal tenderness. Lymphedema on the left side, otherwise right leg clear of edema or clubbing. Lymphedema the left side is baseline. Assessment and Plan (1) SBO (small bowel obstruction) Status: Acute Category: Medical Code(s): K56.609 - Unspecified intestinal obstruction, unspecified as to partial versus complete obstruction (2) History of endometrial cancer Status: Chronic Category: Medical Code(s): Z85.42 - Personal history of malignant neoplasm of other parts of uterus (3) Essential hypertension Status: Chronic Category: Medical Code(s): I10 - Essential (primary) hypertension (4) Hyperlipidemia Status: Chronic Qualifiers: Hyperlipidemia type: mixed hyperlipidemia Qualified Code(s): E78.2 - Mixed hyperlipidemia Category: Medical Code(s): E78.5 - Hyperlipidemia, unspecified (5) Left leg DVT Status: Chronic Qualifiers: Chronicity: chronic Category: Medical Code(s): I82.402 - Acute embolism and thrombosis of unspecified deep veins of left lower extremity - Assessment and plan all Dx Assessment and Plan for all problems:: Improving. Appreciate surgery input. Advance diet to clear liquids cautiously. Possible discharge home tomorrow.
[2022-01-10 09:31] LABS: Blood Urea Nitrogen 19 mg/dl (7-17); Calcium 8.7 mg/dl (8.4-10.2); Carbon Dioxide 27 mmol/L (22.0-30.0); Chloride 107 mmol/L (98-107); Creatinine Clearance Estimated 43 mL/min (50-200); Estimated Glomerular Filt Rate 60 ml/min (>60); GFR (African American) 72 ML/MIN (>60); Glucose 91 mg/dl (74-100); Sodium 140 mmol/L (136-145)
--- NOTE | 2022-01-10 14:34 | DIET.NUTRFU ---
RD saw patient again today, she is feeling much better. Had clear liquids for breakfast and lunch. Hopes to discharge tomorrow. Provided a low fiber diet for 1-2 weeks and then gradual increase fiber. According to er dietary recall she does not eat that much fiber daily. She did question if she should start her Metamucil up right way- recommended to reveiw that with either Tian or Aislinn before discharge.
[2022-01-10 15:05] VITALS: BP 119/56; PULSE 71; RESP 17; TEMP 36.6; O2SAT 97
--- NOTE | 2022-01-10 16:48 | PC.NURSE ---
PT IS AOX4, ABLE TO MAKE NEEDS KNOWN TO STAFF, SHE HAS AMBULATED IN ROOM AND TOLERATED WELL. SPENT A FEW HOURS THIS AFTERNOON SITTING UP TO CHAIR HAS NOT REQUIRED O2 SUPPORT. NG TUBE WAS REMOVED THIS MORNING AND PT TOLERATED WELL. SHE HAS DENIED N/V/D. BOWEL SOUNDS ARE ACTIVEX4, ABD IS SOFT AND NON-TENDER. PT IS TOLERATING DIET WELL.
--- NOTE | 2022-01-10 18:36 | PC.NURSE ---
PT is alert and oriented x4, tolerating room air, no c/o N/V/D. Has ambulated independently to the bathroom. No c/o abd pain. Continue to monitor.
[2022-01-10 19:49] VITALS: BP 136/84; PULSE 85; RESP 18; TEMP 36.6; O2SAT 96
--- NOTE | 2022-01-11 03:26 | PC.NURSE ---
Patient has had no complaints thus far. Bowel sounds are active. Patient reports a bowel movement today (01/10). Patient ambulates good to and from the bathroom without assistance. Patient has had adequate PO intake and has tolerated it well without N/V. Patient reports no pain.
[2022-01-11 04:00] VITALS: BP 128/68; PULSE 77; RESP 18; TEMP 36.3; O2SAT 93
[2022-01-11 04:57] VITALS: BMI 24.2
[2022-01-11 06:39] LABS: Basophils % 0.8 % (0.1-2.0); Eosinophils # 0.2 K/mm3 (0.0-0.4); Eosinophils % 7.4 % (0.1-12.0); Hemoglobin 10.9 g/dL (12.2-16.2); Lymphocytes # 0.5 K/mm3 (0.7-4.5); Lymphocytes % 17.8 % (10-50); Mean Corpuscular Volume 96.9 fl (81-99); Mean Platelet Volume 9.2 fl (7.4-10.4); Monocytes # 0.3 K/mm3 (0.1-1.0); Monocytes % 10.3 % (1.7-9.3); Neutrophils # 1.8 K/mm3 (1.8-7.8); Neutrophils % 63.7 % (37.0-80.0); Platelet Count 187 K/mm3 (142-424); Red Blood Count 3.41 M/mm3 (4.20-5.40); Red Cell Distribution Width 19.3 % (11.5-17.5); White Blood Count 2.8 K/mm3 (4.8-10.8)
[2022-01-11 06:48] LABS: Anion Gap 6.6 mEq/L (5-15); Blood Urea Nitrogen 12 mg/dl (7-17); Calcium 8.2 mg/dl (8.4-10.2); Carbon Dioxide 27 mmol/L (22.0-30.0); Chloride 109 mmol/L (98-107); Creatinine Clearance Estimated 44 mL/min (50-200); Estimated Glomerular Filt Rate 60 ml/min (>60); GFR (African American) 72 ML/MIN (>60); Glucose 102 mg/dl (74-100); Potassium 3.6 mmoL/L (3.5-5.1); Sodium 139 mmol/L (136-145)
[2022-01-11 07:20] VITALS: BP 132/79; PULSE 74; RESP 16; TEMP 36.5; O2SAT 97
--- NOTE | 2022-01-11 07:32 | P.PN_ITS ---
Subjective Narrative: Pt feels much better. No abdominal pain. Tolerating clears without issue. Progress Note: A&P (1) SBO (small bowel obstruction) Status: Acute (2) History of endometrial cancer Status: Chronic (3) Essential hypertension Status: Chronic (4) Hyperlipidemia Status: Chronic (5) Left leg DVT Status: Chronic Assessment and Plan for All Diagnoses:: Advance diet. Probable discharge later. Exam Vital signs and Labs for Last 24 Hours: Temp Pulse Resp BP Pulse Ox 97.7 F 74 16 132/79 97 01/11/22 07:20 01/11/22 07:20 01/11/22 07:20 01/11/22 07:20 01/11/22 07:20 Laboratory Results - last 24 hr 01/10/22 09:04: Sodium 140, Potassium 4.0, Chloride 107, Carbon Dioxide 27, Anion Gap 10.0, BUN 19 H D, Creatinine 0.90, Estimated Creat Clear 43, Estimated GFR 60, Est GFR ( Amer) 72 D, Glucose 91, Calcium 8.7 01/11/22 05:23: WBC 2.8 L D, RBC 3.41 L, Hgb 10.9 L, Hct 33.0 L, MCV 96.9, MCH 32.0 H, MCHC 33.0, RDW 19.3 H, Plt Count 187, MPV 9.2, Neut % (Auto) 63.7, Lymph % (Auto) 17.8, [place] % (Auto) 10.3 H, Eos % (Auto) 7.4, Baso % (Auto) 0.8, Neut # (Auto) 1.8, Lymph # (Auto) 0.5 L, [place] # (Auto) 0.3, Eos # (Auto) 0.2, Baso # (A uto) 0.0 01/11/22 05:23: Sodium 139, Potassium 3.6, Chloride 109 H, Carbon Dioxide 27, Anion Gap 6.6, BUN 12 D, Creatinine 0.90, Estimated Creat Clear 44, Estimated GFR 60, Est GFR ( Amer) 72, Glucose 102 H, Calcium 8.2 L I & O for Last 24 hours: Intake & Output 01/08/22 01/09/22 01/10/22 01/11/22 11:59 11:59 11:59 11:59 Intake Total 0 / 0 1140 / 1140 Output Total 0 / 0 Balance 0 / 0 0 / 0 1140 / 1140 Weight 144 lb 3.2 oz 141 lb 145 lb 3.553 oz Microbiology Reports for the Last 24 Hours: Microbiology 01/08/22 20:45 Blood Blood Culture - Preliminary NO GROWTH AFTER 48 HOURS 01/08/22 20:45 Blood Blood Culture - Preliminary NO GROWTH AFTER 48 HOURS - *Routine Abdominal Exam Present: soft. Absent: tenderness
--- NOTE | 2022-01-11 08:46 | HMH.DCSUM ---
General - General Admission date:: 01/08/22 Discharge date: 01/11/22 HPI HPI: Ms. Ramos is an anxious 81-year-old female who presented to [facility] due to significant abdominal pain, nausea, bilious emesis. Had no fever. Denies any diarrhea. No blood in vomit or stool. On initial evaluation in the ER was found to have tender abdomen. CT obtained showing concern for small bowel obstruction. Denies any preceding illness or previous episodes similar to this. He is admitted to medicine for further management and surgical consult. On review of her history this morning on rounds, she states she underwent laproscopic hysterectomy approximately 2 years ago for endometrial cancer. Subsequently had radiation therapy. No other intra-abdominal procedures/surgeries. Feeling better this morning. Had a loose bowel movement this morning. Belch significantly overnight but that is calm down this morning. Denies passing any gas with her bowel movement. Is afebrile, hemodynamically stable. Still having some mild discomfort with palpation of her abdomen. Hospital Course Hospital Course: Patient was admitted to hospital. NG tube was placed because of her small bowel obstruction. Surgery was consulted. Patient improved very nicely over the next 24 hours. NG tube was able to be removed and patient was transitioned to sips and chips of ice. She did well and progressed with flatus and stool production. Diet was advanced yesterday to clear liquids and she is tolerated that well. This morning she is doing well, up and around, doing her activities of daily living. Tolerating full liquids this morning. Patient will be discharged home and follow-up with surgery next week and with my office where she is transitioning care. Objective Vital signs: Temp Pulse Resp BP Pulse Ox 97.7 F 74 16 132/79 97 01/11/22 07:20 01/11/22 07:20 01/11/22 07:20 01/11/22 07:20 01/11/22 07:20 no acute distress - *Routine HEENT Exam Head: Present: normocephalic Eye: Present: EOMI, PERRL ENT: Present: mucous membranes moist - *Routine Neck Exam Present: supple - *Routine Respiratory Exam Present: CTA bilaterally - *Routine Cardiovascular Exam Present: RRR - *Routine Abdominal Exam Present: soft, normoactive bowel sounds. Absent: tenderness - *Routine Extremities Exam Absent: cyanosis, clubbing, edema - *Routine Skin Exam Present: warm. Absent: rash - Detailed Eye Exam Eyelids: Bilateral normal inspection Results Labs on day of discharge: Labs from last 24 hours 01/11/22 01/11/22 01/10/22 05:23 05:23 09:04 WBC 2.8 L D RBC 3.41 L Hgb 10.9 L Hct 33.0 L MCV 96.9 MCH 32.0 H MCHC 33.0 RDW 19.3 H Plt Count 187 MPV 9.2 Neut % (Auto) 63.7 Lymph % (Auto) 17.8 [place] % (Auto) 10.3 H Eos % (Auto) 7.4 Baso % (Auto) 0.8 Neut # (Auto) 1.8 Lymph # (Auto) 0.5 L [place] # (Auto) 0.3 Eos # (Auto) 0.2 Baso # (Auto) 0.0 Sodium 139 140 Potassium 3.6 4.0 Chloride 109 H 107 Carbon Dioxide 27 27 Anion Gap 6.6 10.0 BUN 12 D 19 H D Creatinine 0.90 0.90 Estimated Creat Clear 44 43 Estimated GFR 60 60 Est GFR ( Amer) 72 72 D Glucose 102 H 91 Calcium 8.2 L 8.7 Preliminary micro results at discharge 01/08/22 20:45 Blood Culture - Preliminary Blood NO GROWTH AFTER 48 HOURS 01/08/22 20:45 Blood Culture - Preliminary Blood NO GROWTH AFTER 48 HOURS DS: Diagnosis - Discharge Diagnosis (1) SBO (small bowel obstruction) Status: Resolved (2) History of endometrial cancer Status: Chronic (3) Essential hypertension Status: Chronic (4) Hyperlipidemia Status: Chronic (5) Left leg DVT Status: Chronic Discharge Plan - Patient Discharge Instructions ACTIVITY: Continue current activity DIET: advance to your usual diet Patient Instructions: DI for Small Kristie
--- NOTE | 2022-01-12 12:41 | CARE MANAGER ---
Contacted patient and she states she is feeling better since being discharged from hospital. She states that she had bowel movement this morning and she is tired, but she is going to rest the next few days. She denies any questions or concerns.
== END 2022-01-11 13:26 | disposition home or self-care (01) | DRG 390 ==
LOC: ER 20:55 → 2ND 22:26
PROVIDERS: Admitting Provider Internal Medicine Adolescent Medicine; Emergency Provider Emergency Medicine; PCP Family Medicine; Visit Provider Internal Medicine Adolescent Medicine
DX: K56.609 Unspecified intestinal obstruction, unspecified as to partial versus complete obstruction (principal); Z20.822 Contact with and (suspected) exposure to COVID-19; Z86.718 Personal history of other venous thrombosis and embolism; E78.5 Hyperlipidemia, unspecified; I10 Essential (primary) hypertension; Z87.891 Personal history of nicotine dependence; Z85.44 Personal history of malignant neoplasm of other female genital organs
CPT/HCPCS: 36415; 71046; 74021; 74177; 80048; 80053; 81001; 82150; 83605; 83690; 84145; 84436; 84443; 84484; 85025; 85651; 87040; 93005; 96375; 99285; C9803; J2405; Q9967; U0003; U0005

== ENCOUNTER 2022-01-15 02:14 | Inpatient (IN) | payer MEDICARE, OTHER, SELFPAY ==
[2022-01-15] VITALS (12 sets, daily range): BP systolic 110–159; BP diastolic 69–92; PULSE 74–84; RESP 17–18; TEMP 36.3–36.9; O2SAT 93–99; BMI 24.1
--- NOTE | 2022-01-15 | ECG_ITS ---
APPROVED REPORT Exam: Resting ECG HR:68 bpm ECG Measurements Heart Rate 68 AXES VA 145 P 44 QRSd 81 QRS 16 QT 384 T 73 QTc 401 Conclusion SINUS RHYTHM NORMAL ECG UNCONFIRMED REPORT Electronically signed by : Mac Parsons MD 01/15/2022 15:48:54
[2022-01-15 02:29] LABS: Microscopic, Urine URINE MICROSCOPIC (MICROSCOPIC)
[2022-01-15 02:31] LABS: Appearance,Urine CLEAR (Clear); Bilirubin,Urine Negative (Negative); Blood, Urine Negative (Negative); Color,Urine YELLOW (Yellow); Glucose,Urine (UA) Negative (Negative); Ketones,Urine Negative (Negative); Leukocyte Esterase,Urine TRACE (Negative); Nitrate,Urine Negative (Negative); PH,Urine 5.5 (5.0-8.5); Protein,Urine Negative (Negative); Specific Gravity, Urine 1.025 (1.005-1.030); Urobilinogen,Urine 0.2 EU/dl (0.2)
[2022-01-15 02:36] LABS: Amorphous Sediment,Urine Trace /lpf
--- NOTE | 2022-01-15 02:36 | CT_ITS ---
PROCEDURE INFORMATION: Exam: CT Abdomen And Pelvis With Contrast Exam date and time: 01/15/2022 3:05 AM Age: 81 years old Clinical indication: Abdominal pain; Generalized; Patient HX: Abd cramping all over TECHNIQUE: Imaging protocol: Computed tomography of the abdomen and pelvis with contrast. Radiation optimization: All CT scans at this facility use at least one of these dose optimization techniques: automated exposure control; mA and/or kV adjustment per patient size (includes targeted exams where dose is matched to clinical indication); or iterative reconstruction. Contrast material: ISOVUE; Contrast volume: 75 ml; Contrast route: IV; COMPARISON: CT ABDOMEN PELVIS W CON 01/08/2022 9:25 PM FINDINGS: Lungs: Lung bases are free of consolidation effusions pneumothorax or pulmonary nodules. Diaphragm: 3 cm hiatal hernia. Liver: The liver is of normal size with no evidence of intrahepatic biliary dilatation or focal lesions. Gallbladder and bile ducts: There is no evidence of cholelithiasis gallbladder wall thickening or pericholecystic fluid. No ductal dilation identified. Pancreas: A trophic No focal lesions, inflammatory changes or ductal dilatation. Spleen: Numerous splenic calcifications compatible with prior granulomatous disease. Intact with no focal lesions. No splenomegaly. Adrenal glands: Normal. No mass. Kidneys and ureters: No hydronephrosis or nephrolithiasis. Stable left renal cyst measuring 4 cm, benign. No follow-up necessary. Stomach and bowel: Mild distension of the stomach. Mild concentric wall thickening of the duodenum and proximal jejunum, not present in the prior study. Diffuse small bowel dilatation with a zone of transition in the right lower quadrant, as seen on the prior study . There is concentric wall thickening of the distal ileum with associated surrounding free fluid and inflammatory changes. The colon is decompressed. There is sigmoid diverticulosis . Appendix: The appendix is not visualized. No pericecal inflammatory changes are identified. Intraperitoneal space: Unremarkable. No free air. Vasculature: Calcified atheromatous changes of the regional vasculature. . Lymph nodes: Unremarkable. No enlarged lymph nodes. Urinary bladder: Unremarkable as visualized. Reproductive: Surgically absent. Bones/joints: No acute fracture. Diffuse severe lumbar disc desiccation and vacuum phenomenon. Multifactorial moderate to severe central canal stenosis at the level of L3-L4. Soft tissues: Unremarkable. IMPRESSION: 1. Mild concentric wall thickening of the duodenum and proximal jejunum, concentric wall thickening of the distal ileum with adjacent inflammatory changes and surrounding free fluid, new when compared to the prior study. Diagnostic considerations: Inflammatory process, Crohn's disease. 2. Diffuse small bowel dilatation with a zone of transition in the right lower quadrant, as seen on the prior study . Findings are suggestive of at least partial small bowel obstruction. 3. Sigmoid diverticulosis. 4. 3 cm hiatal hernia. 5. Status post hysterectomy. 6. Diffuse severe lumbar disc desiccation and vacuum phenomenon. Multifactorial moderate to severe central canal stenosis at the level of L3-L4.
[2022-01-15 02:38] LABS: Coronavirus 19, PCR Not Detected (NotDetected); Influenza A, PCR Not Detected (NotDetected); Influenza B, PCR Not Detected (NotDetected)
--- NOTE | 2022-01-15 02:38 | XR_ITS ---
PROCEDURE INFORMATION: Exam: XR Chest Exam date and time: 01/15/2022 2:54 AM Age: 81 years old Clinical indication: Pain; Chest pressure; Additional info: Chest pain TECHNIQUE: Imaging protocol: XR of the chest. Views: 2 views. COMPARISON: CR XR ACUTE ABDOMEN SERIES 01/10/2022 5:46 AM FINDINGS: Lungs: No consolidation or pulmonary nodules identified. Linear subsegmental atelectasis in the lateral left lung base. Pleural spaces: No evidence of effusions or pneumothorax. Heart/Mediastinum: The cardiomediastinal silhouette is normal in size and configuration. There is no evidence of cardiomegaly. Bones/joints: Intact. IMPRESSION: 1. Linear subsegmental atelectasis in the lateral left lung base. 2. No consolidations identified.
[2022-01-15 02:43] LABS: Basophils # 0.1 K/mm3 (0-0.2); Basophils % 1.1 % (0.1-2.0); Eosinophils # 0.3 K/mm3 (0.0-0.4); Eosinophils % 5.7 % (0.1-12.0); Hematocrit 37.3 % (37.0-47.0); Hemoglobin 12.3 g/dL (12.2-16.2); Lymphocytes # 0.7 K/mm3 (0.7-4.5); Lymphocytes % 14.4 % (10-50); Mean Corpuscular HGB Conc 32.9 g/dL (31.8-35.4); Mean Corpuscular Hemoglobin 31.3 pg (27.0-31.2); Mean Platelet Volume 7.9 fl (7.4-10.4); Monocytes # 0.4 K/mm3 (0.1-1.0); Monocytes % 7.1 % (1.7-9.3); Neutrophils # 3.5 K/mm3 (1.8-7.8); Neutrophils % 71.7 % (37.0-80.0); Platelet Count 256 K/mm3 (142-424); Red Blood Count 3.93 M/mm3 (4.20-5.40); Red Cell Distribution Width 18.5 % (11.5-17.5); White Blood Count 4.9 K/mm3 (4.8-10.8)
[2022-01-15 02:49] LABS: Lipase 102 U/L (23-300)
[2022-01-15 02:51] LABS: Alanine Aminotransferase 32 U/L (12-78); Albumin Level 3.6 g/dl (3.5-5.0); Albumin/Globulin Ratio 1.5 (1.1-1.8); Alkaline Phosphatase 82 U/L (38-126); Amylase 49 U/L (30-110); Aspartate Amino Transferase 35 U/L (14-36); Bilirubin,Total < 0.1 mg/dl (0.2-1.3); Blood Urea Nitrogen 20 mg/dl (7-17); Calcium 8.8 mg/dl (8.4-10.2); Carbon Dioxide 25 mmol/L (22.0-30.0); Chloride 108 mmol/L (98-107); Creatinine Clearance Estimated 44 mL/min (50-200); Estimated Glomerular Filt Rate 60 ml/min (>60); GFR (African American) 72 ML/MIN (>60); Globulin 2.4 g/dL (1.3-3.2); Glucose 115 mg/dl (74-100); Sodium 139 mmol/L (136-145)
--- NOTE | 2022-01-15 02:54 | HMH.EDNVD ---
ED Disposition Clinical Impression: Small bowel obstruction, Duodenitis Disposition: Admitted As Inpatient Condition on Discharge: Good Instructions: DI for Acute Abdominal Pain Referrals: Mac Parsons MD [Primary Care Provider] - - Critical Care Critical Care Time: No Attestation: On 01/15/22, the high probability of a clinically significant, sudden or life threatening deterioration of the following system(s) required my full and direct attention, intervention and personal management. The time I documented below is in addition to time spent performing reported procedures but includes the following listed in this critical care notation. Medical Decision Making - Medical Records Medical records reviewed: Yes: I reviewed the patient's medical records. - David Inquiry Pt receiving controlled substance: No Vital Signs: 01/15/22 02:28 Temperature 97.4 F L Temperature Source Oral Pulse Rate [Left Radial] 74 Respiratory Rate 18 Blood Pressure [Right Arm] 132/88 Blood Pressure Mean [Right Arm] 102 Blood Pressure Source [Right Arm] Automatic Cuff Blood Pressure Position [Right Arm] Sitting 02 Sat by Pulse Oximetry 98 Oxygen Delivery Method Room Air - Lab Data Lab results reviewed: Yes: I reviewed the patient's lab results. Lab Results 01/15/22 02:23: Urine Color Yellow, Urine Appearance Clear, Urine pH 5.5, Ur Specific [place] 1.025, Urine Protein Negative, Urine Glucose (UA) Negative, Urine Ketones Negative, Urine Blood Negative, Urine Nitrate Negative, Urine Bilirubin Negative, Urine Urobilinogen 0.2, Ur Leukocyte Esterase Trace, Urine WBC 3-5, Amorphous Sediment Trace 01/15/22 02:32: SARS-CoV-2 (PCR) Not detected, Influenza A Untype (PCR) Not detected, Influenza Type B (PCR) Not detected 01/15/22 02:32: WBC 4.9, RBC 3.93 L, Hgb 12.3, Hct 37.3, MCV 95.0, MCH 31.3 H, MCHC 32.9, RDW 18.5 H, Plt Count 256 D, MPV 7.9, Neut % (Auto) 71.7, Lymph % (Auto) 14.4, [place] % (Auto) 7.1, Eos % (Auto) 5.7, Baso % (Auto) 1.1, Neut # (Auto) 3.5, Lymph # (Auto) 0.7, [place] # (Auto) 0.4, Eos # (Auto) 0.3, Baso # (Auto) 0.1, ESR 43 H 01/15/22 02:32: Sodium 139, Potassium 4.0, Chloride 108 H, Carbon Dioxide 25, Anion Gap 10.0, BUN 20 H, Creatinine 0.90, Estimated Creat Clear 44, Estimated GFR 60, Est GFR ( Amer) 72, Glucose 115 H, Calcium 8.8, Total Bilirubin < 0.1 L, AST 35, ALT 32, Alkaline Phosphatase 82, C-Reactive Protein 3.7, Total Protein 6.0 L, Albumin 3.6, Globulin 2.4, Albumin/Globulin Ratio 1.5, Amylase 49, Procalcitonin 0.073 01/15/22 02:32: Troponin I < 0.01, Lipase 102 Result diagrams: 01/15/22 02:32 01/15/22 02:32 Orders (Tests/Meds): ED MEDICATIONS Generic Name Dose Route Start Last Admin Trade Name Freq PRN Reason Stop Dose Admin Sodium Chloride 1,000 mls @ 999 mls/hr 01/15/22 02:45 01/15/22 02:56 Sod Chlor 0.9% 1000ml Bag IV 01/15/22 03:45 999 mls/hr .[id number] SARIKA Administration Pantoprazole Sodium 40 mg 01/15/22 09:00 Pantoprazole 40mg Vial IV 02/14/22 08:59 BID SARIKA Sodium Chloride 8 ml 01/15/22 02:43 Sodium Chloride 0.9% 10ml Vial IV 02/14/22 02:42 NEEDED PRN dilute pepcid Discontinued Medications Generic Name Dose Route Start Last Admin Trade Name Freq PRN Reason Stop Dose Admin Famotidine 20 mg 01/15/22 02:43 01/15/22 02:56 Famotidine 20mg/2ml Vial IV 01/15/22 02:44 20 mg ONCE ONE Administration Iopamidol 75 ml 01/15/22 03:16 01/15/22 03:17 Iopamidol-370 (76%);100ml Bottle IV 01/15/22 03:17 75 ml ONCE ONE Administration Metoclopramide HCl 10 mg 01/15/22 02:43 01/15/22 02:56 Metoclopramide Hcl 10mg/2ml Vial IVP 01/15/22 02:44 10 mg ONCE ONE Administration Morphine Sulfate 2 mg 01/15/22 02:54 01/15/22 02:56 Morphine 2mg/Ml Syringe IV 01/15/22 02:55 2 mg ONCE ONE Administration Ondansetron HCl 4 mg 01/15/22 02:43 01/15/22 02:55 Ondansetron 4mg/2ml Vial IV 01/15/22 02:44 4 mg ONCE ONE Admini
[2022-01-15 02:56] LABS: C-Reactive Protein 3.7 mg/L (0-4)
[2022-01-15 03:03] LABS: Troponin I < 0.01 ng/ml (0.00-0.034)
[2022-01-15 03:07] LABS: Procalcitonin 0.073 ng/mL (0.0-2.0)
[2022-01-15 03:09] LABS: Erythrocyte Sedimentation Rate 43 mm/hr (0-30)
--- NOTE | 2022-01-15 03:46 | PC.NURSE ---
DR. BEN FAGAN FOR DR. GIBBONS
--- NOTE | 2022-01-15 04:07 | XR_ITS ---
PROCEDURE INFORMATION: Exam: XR Abdomen Exam date and time: 01/15/2022 4:10 AM Age: 81 years old Clinical indication: Device placement; Gi device; Nasogastric tube; Additional info: Ng tube placement TECHNIQUE: Imaging protocol: XR of the abdomen. Views: Frontal supine view of the abdomen. 1 View. COMPARISON: CT ABDOMEN PELVIS W CON 01/15/2022 3:05 AM FINDINGS: Tubes, catheters and devices: NG tube with distal tip in the stomach fundus. Gastrointestinal tract: Nonspecific, nonobstructive bowel gas pattern. Bones/joints: Unremarkable. IMPRESSION: 1. NG tube with distal tip in the stomach fundus. 2. Nonspecific, nonobstructive bowel gas pattern.
--- NOTE | 2022-01-15 04:24 | PC.NURSE ---
REPORT TO MEL GILMORE
--- NOTE | 2022-01-15 07:15 | PC.NURSE ---
06:15 PT SLEEPING, NO DISTRESS NOTED. CALL LIGHT WITHIN REACH
--- NOTE | 2022-01-15 07:26 | HMH.PHAVTE ---
[facility] Pharm[facility] VTE Monitoring - Patient Demographics Admission date: 01/15/22 Report Date: 01/15/22 Time: 07:26 Allergies/Adverse Reactions: Patient Allergies Penicillins [PENICILLINS] Allergy (Unknown, Verified 11/24/21 10:19) Height: 1.65 m Weight: 65.771 kg Patient Problems: Current Active Problems Small bowel obstruction (Acute) Duodenitis (Acute) - VTE Risk Labs: VTE Related Lab Results Hgb 12.3 g/dL (12.2-16.2) 01/15/22 02:32 Hct 37.3 % (37.0-47.0) 01/15/22 02:32 Plt Count 256 K/mm3 (142-424) D 01/15/22 02:32 BUN 20 mg/dl (7-17) H 01/15/22 02:32 Creatinine 0.90 mg/dl (0.52-1.04) 01/15/22 02:32 Estimated Creat Clear 44 mL/min (50-200) 01/15/22 02:32 Was VTE Risk Assessment Performed: Yes VTE Score: 2 VTE Risk Level: Very Low Risk - Prophylaxis VTE Prophylaxis Ordered?: Yes Types of VTE Prophylaxis: TEDS Knee High Location of Applied Device: Bilateral Lower Extremeties
--- NOTE | 2022-01-15 07:29 | HMH.PHAINT ---
MEDICATION RECONCILIATION COMPLETED ON PATIENT USING EXTERNAL FILL HISTORY FROM PHARMACY AND DISCHARGE SUMMARY FROM PREVIOUS ADMISSION. -LALIT PORTILLOD
--- NOTE | 2022-01-15 09:26 | HMH.HP ---
*Admission Date: 01/15/22 *Chief complaint: Abdominal pain and vomiting *History of present illness: 81-year-old white female with recent small bowel obstruction that was treated with supportive care, NG tube and expectant management and improved and she was discharged home last week. Unfortunately over the past 24 hours has had increasing bloating, pain, vomiting of some coffee-ground material, came back to the ER and was found to have recurrent small bowel obstruction. She was admitted, NG tube was placed and she is now in the hospital. [facility] History I have reviewed the patient's past medical history: Yes Medical History: Reports:: Cancer (ENDOMETRIAL), Deep Vein Thrombosis, Gastroesophageal Reflux Disease(GERD), Hyperlipidemia, Hypertension Denies:: Diabetes Mellitus Type 1, Diabetes Mellitus Type 2, Internal Pacemaker, MRSA *Have you ever received a pneumonia vaccine?: Yes *Have you received a flu vaccine this season?: Yes Other Medical History: Reports: Anemia, Arthritis, Cataracts, Radiation Therapy, Sinus Problems Laterality Cases: Bilateral: Tonsillectomy Other Surgeries: Yes: No Previous Surgery, Colonoscopy, Hysterectomy-Total. No: Pacemaker Amputation: No Fractures: Yes (Fractured 5th met of unknown foot 6 years ago. ) - *Social History Last grade of school completed: High school graduate Smoking Status: Former smoker Tobacco Type: cigarettes # Packs/Day (cigarettes): 1 #Yrs smoked (if former smoker): 45 Alcohol Intake: never Alcohol Intake Frequency:: holidays/special occasions only *Occupational Status:: retired Housing: house Household Members: none *Travel in the last 8 weeks: None Family Hx:: Cancer Review of Systems - Review of Systems Review of systems:: pertinent systems reviewed and negative unless documented below - *Neurologic Denies localized weakness, Denies seizure-like activity Meds Home Medications Medication Instructions Recorded Confirmed Type Celecoxib 100 mg PO DAILY 09/22/21 01/15/22 History Magnesium 400 mg PO DAILY 09/22/21 01/15/22 History Turmeric/Turmeric Root Extract 1 each PO DAILY 09/22/21 01/15/22 History [Turmeric 500 mg Capsule] Ezetimibe/Simvastatin 1 each PO HS 01/09/22 01/15/22 History [Ezetimibe-Simvastatin 10-20 mg] Iron Polysaccharide Complex [Pro 180 mg PO DAILY 01/09/22 01/15/22 History Fe] Rivaroxaban [Xarelto 20mg Tablet*] 20 mg PO QPMWITHMEAL 01/09/22 01/15/22 History lisinopriL [Zestril 10mg Tab] 10 mg PO DAILY 01/09/22 01/15/22 History Allergies Allergy/AdvReac Type Severity Reaction Status Date / Time Penicillins [PENICILLINS] Allergy Unknown Verified 11/24/21 10:19 Exam Vital signs and Labs for Last 24 Hours: Temp Pulse Resp BP Pulse Ox 97.7 F 84 18 120/80 98 01/15/22 07:53 01/15/22 07:53 01/15/22 07:53 01/15/22 07:53 01/15/22 07:53 Laboratory Results - last 24 hr 01/15/22 02:23: Urine Color Yellow, Urine Appearance Clear, Urine pH 5.5, Ur Specific [place] 1.025, Urine Protein Negative, Urine Glucose (UA) Negative, Urine Ketones Negative, Urine Blood Negative, Urine Nitrate Negative, Urine Bilirubin Negative, Urine Urobilinogen 0.2, Ur Leukocyte Esterase Trace, Urine WBC 3-5, Amorphous Sediment Trace 01/15/22 02:32: SARS-CoV-2 (PCR) Not detected, Influenza A Untype (PCR) Not detected, Influenza Type B (PCR) Not detected 01/15/22 02:32: WBC 4.9, RBC 3.93 L, Hgb 12.3, Hct 37.3, MCV 95.0, MCH 31.3 H, MCHC 32.9, RDW 18.5 H, Plt Count 256 D, MPV 7.9, Neut % (Auto) 71.7, Lymph % (Auto) 14.4, [place] % (Auto) 7.1, Eos % (Auto) 5.7, Baso % (Auto) 1.1, Neut # (Auto) 3.5, Lymph # (Auto) 0.7, [place] # (Auto) 0.4, Eos # (Auto) 0.3, Baso # (Auto) 0.1, ESR 43 H 01/15/22 02:32: Sodium 139, Potassium 4.0, Chloride 108 H, Carbon Dioxide 25, Anion Gap 10.0, BUN 20 H, Creatinine 0.90, Estimated Creat Clear 44, Estimated GFR 60, Est GFR ( Amer) 72, Glucose 115 H, Calcium 8.8, Total Bilirubin < 0.1 L, AST 35, ALT 32, Alkaline Phosphatase 82,
--- NOTE | 2022-01-15 11:18 | FL_ITS ---
FINAL REPORT CLINICAL HISTORY: . bowel obstruction COMPARISON: CT abdomen pelvis from earlier today . FINDINGS: SMALL BOWEL SERIES Small-bowel follow-through was performed. A nasogastric tube is present with the tip in the fundus of the stomach. Contrast was then injected into the stomach and sequential radiographs were obtained. Multiple distended small bowel loops are seen. There is contrast seen within the colon by the 2 hour radiograph. The decompressed terminal ileum seen on the CT is not well demonstrated. Findings are consistent with small-bowel obstruction. IMPRESSION: Findings consistent with small-bowel obstruction. Reviewed, Interpreted and Dictated by Jose Roberto Shrestha III, MD Transcribed by Cindy Berumen Authenticated by Jose Roberto Shrestha III, MD on 01/15/2022 03:29:49 PM [facility]
--- NOTE | 2022-01-15 11:19 | HMH.GSCON ---
*Admission Date: 01/15/22 *Reason for consult:: Bowel obstruction, coffee-ground emesis *History of present illness: Patient is an 81-year-old female who had previously undergone laparoscopic hysterectomy for uterine cancer with radiation. She had been admitted to the hospital last week on 01/08/2022 until 01/11/2022 with findings of bowel obstruction. This was managed nonoperatively with rapid improvement in her symptoms. She states that she was having some symptoms at home since discharge with minimal appetite. However, yesterday evening after she had eaten only some chicken noodle soup and crackers she had developed cramping abdominal pain. She had some emesis resembling coffee-ground. This became quite severe and she had presented to the emergency department early this morning. She underwent evaluation including CT scan which revealed findings of mild concentric wall thickening of the duodenum and proximal jejunum, concentric wall thickening of the distal ileum with adjacent inflammatory changes and surrounding free fluid, new when compared to the prior study. Diagnostic considerations: Inflammatory process, Crohn's disease. Distal small bowel dilatation with a zone of transition in the right lower quadrant as seen on the prior study. Findings are suggestive of at least partial small bowel obstruction. Surgery was consulted. Review of Systems - Review of Systems Review of systems:: pertinent systems reviewed and negative unless documented below - *Neurologic Denies localized weakness, Denies seizure-like activity [facility] History I have reviewed the patient's past medical history: Yes Medical History: Reports:: Cancer (ENDOMETRIAL), Deep Vein Thrombosis, Gastroesophageal Reflux Disease(GERD), Hyperlipidemia, Hypertension Denies:: Diabetes Mellitus Type 1, Diabetes Mellitus Type 2, Internal Pacemaker, MRSA *Have you ever received a pneumonia vaccine?: Yes *Have you received a flu vaccine this season?: Yes Other Medical History: Reports: Anemia, Arthritis, Cataracts, Radiation Therapy, Sinus Problems Laterality Cases: Bilateral: Tonsillectomy Other Surgeries: Yes: No Previous Surgery, Colonoscopy, Hysterectomy-Total. No: Pacemaker Amputation: No Fractures: Yes (Fractured 5th met of unknown foot 6 years ago. ) - *Social History Last grade of school completed: High school graduate Smoking Status: Former smoker Tobacco Type: cigarettes # Packs/Day (cigarettes): 1 #Yrs smoked (if former smoker): 45 Alcohol Intake: never Alcohol Intake Frequency:: holidays/special occasions only *Occupational Status:: retired Housing: house Household Members: none *Travel in the last 8 weeks: None Family Hx:: Cancer Meds Home Medications Medication Instructions Recorded Confirmed Type Celecoxib 100 mg PO DAILY 09/22/21 01/15/22 History Magnesium 400 mg PO DAILY 09/22/21 01/15/22 History Turmeric/Turmeric Root Extract 1 each PO DAILY 09/22/21 01/15/22 History [Turmeric 500 mg Capsule] Ezetimibe/Simvastatin 1 each PO HS 01/09/22 01/15/22 History [Ezetimibe-Simvastatin 10-20 mg] Iron Polysaccharide Complex [Pro 180 mg PO DAILY 01/09/22 01/15/22 History Fe] Rivaroxaban [Xarelto 20mg Tablet*] 20 mg PO QPMWITHMEAL 01/09/22 01/15/22 History lisinopriL [Zestril 10mg Tab] 10 mg PO DAILY 01/09/22 01/15/22 History Allergies Allergy/AdvReac Type Severity Reaction Status Date / Time Penicillins [PENICILLINS] Allergy Unknown Verified 11/24/21 10:19 Exam Vital signs and Labs for Last 24 Hours: Temp Pulse Resp BP Pulse Ox 97.7 F 84 18 120/80 98 01/15/22 07:53 01/15/22 07:53 01/15/22 07:53 01/15/22 07:53 01/15/22 07:53 Laboratory Results - last 24 hr 01/15/22 02:23: Urine Color Yellow, Urine Appearance Clear, Urine pH 5.5, Ur Specific [place] 1.025, Urine Protein Negative, Urine Glucose (UA) Negative, Urine Ketones Negative, Urine Blood Negative, Urine Nitrate Negative, Urine Bilirubin Negative, Urine Urobilino
--- NOTE | 2022-01-15 11:38 | PC.NURSE ---
RADIOLOGY AT BEDSIDE
--- NOTE | 2022-01-15 12:31 | PC.NURSE ---
RADIOLOGY BACK AT BEDSIDE. MD CONSIDERING SURGICAL INTERVENTION.
--- NOTE | 2022-01-15 14:41 | PC.NURSE ---
DR LUZ AT BEDSIDE.
--- NOTE | 2022-01-15 14:52 | P.PN_ITS ---
Subjective Narrative: Patient had some increasing abdominal tenderness and cramping throughout her small bowel follow-through. Arrangements were actually being made for laparotomy. Progress Note: A&P (1) Duodenitis Status: Acute (2) Small bowel obstruction Status: Acute Assessment and Plan for All Diagnoses:: Small bowel follow-through report pending. However this shows no evidence of any appreciable small bowel distention with contrast through to the colon. Plan will be to hold off on surgery at this time. Continue nasogastric decompression and serial abdominal films. Exam Vital signs and Labs for Last 24 Hours: Temp Pulse Resp BP Pulse Ox 97.7 F 84 18 120/80 98 01/15/22 07:53 01/15/22 07:53 01/15/22 07:53 01/15/22 07:53 01/15/22 07:53 Laboratory Results - last 24 hr 01/15/22 02:23: Urine Color Yellow, Urine Appearance Clear, Urine pH 5.5, Ur Specific [place] 1.025, Urine Protein Negative, Urine Glucose (UA) Negative, Urine Ketones Negative, Urine Blood Negative, Urine Nitrate Negative, Urine Bilirubin Negative, Urine Urobilinogen 0.2, Ur Leukocyte Esterase Trace, Urine WBC 3-5, Amorphous Sediment Trace 01/15/22 02:32: SARS-CoV-2 (PCR) Not detected, Influenza A Untype (PCR) Not detected, Influenza Type B (PCR) Not detected 01/15/22 02:32: WBC 4.9, RBC 3.93 L, Hgb 12.3, Hct 37.3, MCV 95.0, MCH 31.3 H, MCHC 32.9, RDW 18.5 H, Plt Count 256 D, MPV 7.9, Neut % (Auto) 71.7, Lymph % (Auto) 14.4, [place] % (Auto) 7.1, Eos % (Auto) 5.7, Baso % (Auto) 1.1, Neut # (Auto) 3.5, Lymph # (Auto) 0.7, [place] # (Auto) 0.4, Eos # (Auto) 0.3, Baso # (Auto) 0.1, ESR 43 H 01/15/22 02:32: Sodium 139, Potassium 4.0, Chloride 108 H, Carbon Dioxide 25, Anion Gap 10.0, BUN 20 H, Creatinine 0.90, Estimated Creat Clear 44, Estimated GFR 60, Est GFR ( Amer) 72, Glucose 115 H, Calcium 8.8, Total Bilirubin < 0.1 L, AST 35, ALT 32, Alkaline Phosphatase 82, C-Reactive Protein 3.7, Total Protein 6.0 L, Albumin 3.6, Globulin 2.4, Albumin/Globulin Ratio 1.5, Amylase 49, Procalcitonin 0.073 01/15/22 02:32: Troponin I < 0.01, Lipase 102 I & O for Last 24 hours: Intake & Output 01/13/22 01/14/22 01/15/22 01/16/22 11:59 11:59 11:59 11:59 Intake Total 1000 / 1000 Output Total 825 / 825 Balance 175 / 175 Weight 145 lb - *Routine Abdominal Exam Present: tenderness, distended
--- NOTE | 2022-01-15 14:54 | PC.NURSE ---
NATTY STATES HE BELIEVES WE CAN HOLD OFF ON SX FOR THE TIME BEING. STATES PT CAN HAVE ICE CHIPS, AND TO CONTINUE LOW WALL SUCTION. PT V/U. GIVEN MORPHINE FOR PAIN, RESTING COMFORTABLY IN BED AT THIS TIME.
--- NOTE | 2022-01-15 17:36 | PC.NURSE ---
PT HAS BEEN HAVING DIARRHEA FOR THE PAST HALF HOUR. ABLE TO WALK TO THE BATHROOM INDEPENDENTLY. BROUGHT BEDSIDE COMMODE FOR CONVENIENCE AND SAFETY. PT STATES AFTER MULTIPLE BM, THAT HER STOMACH DOES FEEL BETTER. HAS C/O INTERMITTENT ABD CRAMPING T/O SHIFT, TX PER OCT. NO OTHER C/O. TOLERATING ICE CHIPS WELL. VSS, WILL CONTINUE TO MONITOR.
[2022-01-16 04:00] VITALS: BP 138/91; PULSE 72; RESP 16; TEMP 36.8; O2SAT 97
--- NOTE | 2022-01-16 04:00 | PC.NURSE ---
PT HAS RESTED WELL THROUGHOUT THIS SHIFT. SHE HAS REPORTED NO PAIN OR DISCOMFORT. IV PATENT AND INFUSING WELL. NG PATENT AND DRAINING CLEAR AND CONT LOW WALL SUCTION. PT AMBULATING WELL INDEPENDENTLY. VSS. CALL LIGHT IN REACH.
--- NOTE | 2022-01-16 05:30 | PC.NURSE ---
PT OFF UNIT TO RADIOLOGY
--- NOTE | 2022-01-16 05:55 | PC.NURSE ---
PT RETURNED TO UNIT FROM RADIOLOGY
--- NOTE | 2022-01-16 06:00 | XR_ITS ---
PROCEDURE INFORMATION: Exam: XR Abdomen Exam date and time: 01/16/2022 5:31 AM Age: 81 years old Clinical indication: Condition or disease; Intestinal condition; Obstruction; Additional info: Small bowel obstruction TECHNIQUE: Imaging protocol: XR of the abdomen. Views: 2 Views. Upright and supine views. COMPARISON: CR XR KUB 01/15/2022 4:10 AM FINDINGS: Tubes, catheters and devices: NG tube with tip in the proximal stomach. Gastrointestinal tract: Residual contrast within the colon. Sigmoid diverticula. Intraperitoneal space: Normal. No free air. Bones/joints: Unremarkable for age. IMPRESSION: 1. No acute pathology. 2. NG tube. 3. Residual contrast within the colon demonstrating sigmoid diverticula.
[2022-01-16 06:11] LABS: Eosinophils # 0.2 K/mm3 (0.0-0.4); Eosinophils % 7.1 % (0.1-12.0); Hemoglobin 11.2 g/dL (12.2-16.2); Lymphocytes # 0.7 K/mm3 (0.7-4.5); Lymphocytes % 19.5 % (10-50); Mean Corpuscular HGB Conc 32.8 g/dL (31.8-35.4); Mean Corpuscular Hemoglobin 31.8 pg (27.0-31.2); Mean Corpuscular Volume 97.1 fl (81-99); Mean Platelet Volume 8.2 fl (7.4-10.4); Monocytes # 0.3 K/mm3 (0.1-1.0); Monocytes % 8.3 % (1.7-9.3); Neutrophils # 2.2 K/mm3 (1.8-7.8); Neutrophils % 64.2 % (37.0-80.0); Platelet Count 225 K/mm3 (142-424); White Blood Count 3.4 K/mm3 (4.8-10.8)
[2022-01-16 06:29] LABS: Alanine Aminotransferase 22 U/L (12-78); Albumin/Globulin Ratio 1.4 (1.1-1.8); Alkaline Phosphatase 62 U/L (38-126); Anion Gap 8.7 mEq/L (5-15); Aspartate Amino Transferase 24 U/L (14-36); Bilirubin,Total < 0.1 mg/dl (0.2-1.3); Blood Urea Nitrogen 15 mg/dl (7-17); Calcium 8.1 mg/dl (8.4-10.2); Carbon Dioxide 25 mmol/L (22.0-30.0); Chloride 110 mmol/L (98-107); Creatinine Clearance Estimated 44 mL/min (50-200); Estimated Glomerular Filt Rate 69 ml/min (>60); GFR (African American) 83 ML/MIN (>60); Globulin 2.2 g/dL (1.3-3.2); Glucose 93 mg/dl (74-100); Potassium 3.7 mmoL/L (3.5-5.1); Sodium 140 mmol/L (136-145); Total Protein,Serum 5.2 g/dl (6.3-8.2)
--- NOTE | 2022-01-16 07:43 | HMH.ACPN2 ---
Internal Medicine - PN: Subj *Date: 01/16/22 *Time: 13:22 Interval history: No Acute events overnight. Has remained afebrile. 3 bowel movements in the past 24 hours. X-ray this morning shows no significant distention, contrast and large intestines. Exam Vital signs and Labs for Last 24 Hours: Temp Pulse Resp BP Pulse Ox 98.2 F 72 16 138/91 H 97 01/16/22 04:00 01/16/22 04:00 01/16/22 04:00 01/16/22 04:00 01/16/22 04:00 Laboratory Results - last 24 hr 01/16/22 05:55: WBC 3.4 L D, RBC 3.50 L, Hgb 11.2 L, Hct 34.0 L, MCV 97.1, MCH 31.8 H, MCHC 32.8, RDW 19.0 H, Plt Count 225, MPV 8.2, Neut % (Auto) 64.2, Lymph % (Auto) 19.5, [place] % (Auto) 8.3, Eos % (Auto) 7.1, Baso % (Auto) 1.0, Neut # (Auto) 2.2, Lymph # (Auto) 0.7, [place] # (Auto) 0.3, Eos # (Auto) 0.2, Baso # (Auto) 0.0 01/16/22 05:55: Sodium 140, Potassium 3.7, Chloride 110 H, Carbon Dioxide 25, Anion Gap 8.7, BUN 15, Creatinine 0.80, Estimated Creat Clear 44, Estimated GFR 69, Est GFR ( Amer) 83, Glucose 93, Calcium 8.1 L, Total Bilirubin < 0.1 L, AST 24 D, ALT 22 D, Alkaline Phosphatase 62, Total Protein 5.2 L, Albumin 3.0 L D, Globulin 2.2, Albumin/Globulin Ratio 1.4 I & O for Last 24 hours: Intake & Output 01/13/22 01/14/22 01/15/22 01/16/22 23:59 23:59 23:59 23:59 Intake Total 1000 / 1000 Output Total 1275 / 1275 Balance -275 / -275 Weight 65.771 kg Narrative: - Constitutional no acute distress, thin, cooperative - *Routine HEENT Exam Head: Present: normocephalic Eye: Present: EOMI, PERRL ENT: Present: mucous membranes moist Comments: NG tube in the right nostril - *Routine Neck Exam Present: supple. Absent: lymphadenopathy - *Routine Respiratory Exam Present: CTA bilaterally - *Routine Cardiovascular Exam Present: RRR - *Routine Abdominal Exam Present: Minimal tenderness, no distention. No guarding or rebound. Active bowel sounds - *Routine Extremities Exam Absent: cyanosis, clubbing, edema - *Routine Skin Exam Present: warm. Absent: rash - *Routine Neurological Exam Present: alert, oriented X3 Assessment and Plan (1) Duodenitis Status: Acute Category: Medical Code(s): K29.80 - Duodenitis without bleeding (2) Small bowel obstruction Status: Acute Category: Medical Code(s): K56.609 - Unspecified intestinal obstruction, unspecified as to partial versus complete obstruction (3) Osteoarthritis Status: Chronic Category: Medical Code(s): M19.90 - Unspecified osteoarthritis, unspecified site (4) History of DVT (deep vein thrombosis) Status: Acute Category: Medical Code(s): Z86.718 - Personal history of other venous thrombosis and embolism (5) Essential hypertension Status: Chronic Category: Medical Code(s): I10 - Essential (primary) hypertension - Assessment and plan all Dx Assessment and Plan for all problems:: 81-year-old female with readmission for bowel obstruction. Tolerating decompression well. No significant obstruction on imaging this morning. Has had several small bowel movements. Contrast throughout colon and rectum from GI series yesterday. Surgery consulted, appreciate their recommendations. At this time she is showing improvement with bowel movements and function of her bowels. My concern today is that her duodenitis seen on initial imaging is potentially a side effect from her Celebrex for arthritis mixed with Xarelto that she is on for recent DVT. No sign of bowel obstruction at this time however given recent admission for small bowel obstruction, will take it slow reintroducing p.o. intake. Anticipate removal of NG today pending surgery recommendations. We will slowly advance diet, initially clear liquids for at least a day. Further management and adjustments tomorrow. Patient is clinically stable, prognosis good. Full code Clear diet
[2022-01-16 08:05] VITALS: BP 130/82; PULSE 72; RESP 17; TEMP 36.6; O2SAT 95
--- NOTE | 2022-01-16 08:25 | P.PN_ITS ---
Subjective Narrative: Patient states that she is doing quite well. No acute events overnight. Has not had any cramping pain or required any pain medication. 3 liquid bowel movements overnight. Minimal NG output. Progress Note: A&P (1) Duodenitis Status: Acute (2) Small bowel obstruction Status: Acute Assessment and Plan for All Diagnoses:: Likely discontinue NG tube. Continue n.p.o. except ice chips with slow pr ogress. Exam Vital signs and Labs for Last 24 Hours: Temp Pulse Resp BP Pulse Ox 97.8 F 72 17 130/82 95 01/16/22 08:05 01/16/22 08:05 01/16/22 08:05 01/16/22 08:05 01/16/22 08:05 Laboratory Results - last 24 hr 01/16/22 05:55: WBC 3.4 L D, RBC 3.50 L, Hgb 11.2 L, Hct 34.0 L, MCV 97.1, MCH 31.8 H, MCHC 32.8, RDW 19.0 H, Plt Count 225, MPV 8.2, Neut % (Auto) 64.2, Lymph % (Auto) 19.5, [place] % (Auto) 8.3, Eos % (Auto) 7.1, Baso % (Auto) 1.0, Neut # (Auto) 2.2, Lymph # (Auto) 0.7, [place] # (Auto) 0.3, Eos # (Auto) 0.2, Baso # (Auto) 0.0 01/16/22 05:55: Sodium 140, Potassium 3.7, Chloride 110 H, Carbon Dioxide 25, Anion Gap 8.7, BUN 15, Creatinine 0.80, Estimated Creat Clear 44, Estimated GFR 69, Est GFR ( Amer) 83, Glucose 93, Calcium 8.1 L, Total Bilirubin < 0.1 L, AST 24 D, ALT 22 D, Alkaline Phosphatase 62, Total Protein 5.2 L, Albumin 3.0 L D, Globulin 2.2, Albumin/Globulin Ratio 1.4 I & O for Last 24 hours: Intake & Output 01/13/22 01/14/22 01/15/22 01/16/22 11:59 11:59 11:59 11:59 Intake Total 1000 / 1000 Output Total 825 / 825 450 / 450 Balance 175 / 175 -450 / -450 Weight 145 lb - *Routine Abdominal Exam Present: soft, distended. Absent: tenderness
--- NOTE | 2022-01-16 09:57 | PC.NURSE ---
PT TOLERATED NG TUBE REMOVAL WELL. HAS HAD NO C/O PAIN THUS FAR THIS SHIFT. HAS HAD ONE EPISODE OF DIARRHEA THUS FAR. VSS, WILL CONTINUE TO MONITOR.
--- NOTE | 2022-01-16 11:44 | PC.NURSE ---
PT WALKING IN ROOM AT THIS TIME. NO NEEDS OR C/O. FRESH ICE CHIPS PROVIDED.
--- NOTE | 2022-01-16 14:52 | PC.NURSE ---
IV IN L WRIST BEGAN LEAKING. ATTEMPTED PLACEMENT OF NEW IV BUT PT HAS REFUSED AT THIS TIME. PT STATES SHE HAS PASSED GAS WELL. NO OTHER NEEDS OR C/O.
[2022-01-16 16:00] VITALS: BP 126/75; PULSE 73; RESP 17; TEMP 36.8; O2SAT 95
[2022-01-16 19:35] VITALS: O2SAT 98
[2022-01-16 20:00] VITALS: BP 149/82; PULSE 72; RESP 17; TEMP 36.6; O2SAT 95
--- NOTE | 2022-01-16 20:00 | PC.NURSE ---
SPOKE WITH DR. GIBBONS AT THIS TIME REGARDING PT'S IV BEING D/C DUE TO LEAKING AND HER STILL HAVING IV PROTONIX ORDERED. OK TO SWITCH TO PO PROTONIX 40MG BID AND CONTINUE CLEARS WITH NO NEW IV. ORDERS R/V
[2022-01-17 04:00] VITALS: BP 142/77; PULSE 73; RESP 18; TEMP 36.4; O2SAT 96; BMI 23.6
[2022-01-17 07:17] LABS: Eosinophils # 0.2 K/mm3 (0.0-0.4); Eosinophils % 6.7 % (0.1-12.0); Hematocrit 32.8 % (37.0-47.0); Hemoglobin 10.4 g/dL (12.2-16.2); Lymphocytes # 0.5 K/mm3 (0.7-4.5); Mean Corpuscular HGB Conc 31.8 g/dL (31.8-35.4); Mean Corpuscular Hemoglobin 31.2 pg (27.0-31.2); Mean Corpuscular Volume 97.9 fl (81-99); Mean Platelet Volume 8.2 fl (7.4-10.4); Monocytes # 0.3 K/mm3 (0.1-1.0); Neutrophils # 2.5 K/mm3 (1.8-7.8); Neutrophils % 69.2 % (37.0-80.0); Platelet Count 209 K/mm3 (142-424); Red Blood Count 3.35 M/mm3 (4.20-5.40); Red Cell Distribution Width 18.9 % (11.5-17.5); White Blood Count 3.6 K/mm3 (4.8-10.8)
[2022-01-17 07:33] LABS: Alanine Aminotransferase 24 U/L (12-78); Albumin/Globulin Ratio 1.4 (1.1-1.8); Alkaline Phosphatase 60 U/L (38-126); Anion Gap 6.6 mEq/L (5-15); Aspartate Amino Transferase 28 U/L (14-36); Bilirubin,Total < 0.1 mg/dl (0.2-1.3); Blood Urea Nitrogen 8 mg/dl (7-17); Calcium 8.4 mg/dl (8.4-10.2); Carbon Dioxide 29 mmol/L (22.0-30.0); Chloride 107 mmol/L (98-107); Creatinine Clearance Estimated 43 mL/min (50-200); Estimated Glomerular Filt Rate 80 ml/min (>60); GFR (African American) 97 ML/MIN (>60); Globulin 2.2 g/dL (1.3-3.2); Glucose 103 mg/dl (74-100); Potassium 3.6 mmoL/L (3.5-5.1); Sodium 139 mmol/L (136-145); Total Protein,Serum 5.2 g/dl (6.3-8.2)
--- NOTE | 2022-01-17 07:39 | XR_ITS ---
FINAL REPORT CLINICAL HISTORY: sbo COMPARISON: January 16 and January 15, 2022 FINDINGS: Chest: A single view of the chest demonstrates mild left lung base atelectasis or scarring. Abdomen: Flat and upright views of the abdomen were obtained. The NG tube has been removed. There is a small amount of residual contrast. There is a nonspecific bowel gas pattern with overall improved gaseous distension. There is no free air. IMPRESSION: Interval removal of NG tube with overall improvement of gaseous distension in a nonspecific bowel gas pattern. Reviewed, Interpreted and Dictated by Jose Roberto Shrestha III, MD Transcribed by Av Jiang Authenticated by Jose Roberto Shrestha III, MD on 01/17/2022 09:32:08 AM [facility]
[2022-01-17 08:00] VITALS: BP 141/76; PULSE 70; RESP 18; TEMP 36.4; O2SAT 95
--- NOTE | 2022-01-17 08:22 | PC.NURSE ---
Radiology at bs to perform xray
[2022-01-17 08:23] VITALS: O2SAT 95
--- NOTE | 2022-01-17 08:23 | P.PN_ITS ---
Subjective Patient reports: feels better, flatus, bowel movement Progress Note: A&P (1) Duodenitis Status: Acute (2) Small bowel obstruction Status: Acute Assessment and plan: She continues to show improvement. Secondary to recurrent symptomatology and rehospitalization, very cautious advancement of her diet will be implemented. Clear liquid diet without carbonation Follow-up flat/upright films (3) Osteoarthritis Status: Chronic (4) History of DVT (deep vein thrombosis) Status: Acute (5) Essential hypertension Status: Chronic Exam Vital signs and Labs for Last 24 Hours: Temp Pulse Resp BP Pulse Ox 97.5 F L 70 18 141/76 H 95 01/17/22 08:00 01/17/22 08:00 01/17/22 08:00 01/17/22 08:00 01/17/22 08:00 Laboratory Results - last 24 hr 01/17/22 07:00: WBC 3.6 L, RBC 3.35 L, Hgb 10.4 L, Hct 32.8 L, MCV 97.9, MCH 31.2, MCHC 31.8, RDW 18.9 H, Plt Count 209, MPV 8.2, Neut % (Auto) 69.2, Lymph % (Auto) 15.0, [place] % (Auto) 8.0, Eos % (Auto) 6.7, Baso % (Auto) 1.0, Neut # (Auto) 2.5, Lymph # (Auto) 0.5 L, [place] # (Auto) 0.3, Eos # (Auto) 0.2, Baso # (Auto) 0.0 01/17/22 07:00: Sodium 139, Potassium 3.6, Chloride 107, Carbon Dioxide 29, Anion Gap 6.6, BUN 8 D, Creatinine 0.70, Estimated Creat Clear 43, Estimated GFR 80, Est GFR ( Amer) 97, Glucose 103 H, Calcium 8.4, Total Bilirubin < 0.1 L, AST 28, ALT 24, Alkaline Phosphatase 60, Total Protein 5.2 L, Albumin 3.0 L, Globulin 2.2, Albumin/Globulin Ratio 1.4 I & O for Last 24 hours: Intake & Output 01/14/22 01/15/22 01/16/22 01/17/22 11:59 11:59 11:59 11:59 Intake Total 1000 / 1000 Output Total 825 / 825 450 / 450 Balance 175 / 175 -450 / -450 Weight 145 lb 141 lb 9 oz - Constitutional no acute distress - *Routine Respiratory Exam Absent: respiratory distress - *Routine Cardiovascular Exam Absent: tachycardia - *Routine Abdominal Exam Present: soft, distended Comments: Baseline per patient
--- NOTE | 2022-01-17 09:05 | HMH.ACPN2 ---
Internal Medicine - PN: Subj *Date: 01/17/22 *Time: 09:05 Interval history: Overall patient has improved nicely. Eating clear liquids. Good p.o. intake of clears, good urine output and stool output. Exam Vital signs and Labs for Last 24 Hours: Temp Pulse Resp BP Pulse Ox 97.5 F L 70 18 141/76 H 95 01/17/22 08:00 01/17/22 08:00 01/17/22 08:00 01/17/22 08:00 01/17/22 08:23 Laboratory Results - last 24 hr 01/17/22 07:00: WBC 3.6 L, RBC 3.35 L, Hgb 10.4 L, Hct 32.8 L, MCV 97.9, MCH 31.2, MCHC 31.8, RDW 18.9 H, Plt Count 209, MPV 8.2, Neut % (Auto) 69.2, Lymph % (Auto) 15.0, [place] % (Auto) 8.0, Eos % (Auto) 6.7, Baso % (Auto) 1.0, Neut # (Auto) 2.5, Lymph # (Auto) 0.5 L, [place] # (Auto) 0.3, Eos # (Auto) 0.2, Baso # (Auto) 0.0 01/17/22 07:00: Sodium 139, Potassium 3.6, Chloride 107, Carbon Dioxide 29, Anion Gap 6.6, BUN 8 D, Creatinine 0.70, Estimated Creat Clear 43, Estimated GFR 80, Est GFR ( Amer) 97, Glucose 103 H, Calcium 8.4, Total Bilirubin < 0.1 L, AST 28, ALT 24, Alkaline Phosphatase 60, Total Protein 5.2 L, Albumin 3.0 L, Globulin 2.2, Albumin/Globulin Ratio 1.4 I & O for Last 24 hours: Intake & Output 01/14/22 01/15/22 01/16/22 01/17/22 11:59 11:59 11:59 11:59 Intake Total 1000 / 1000 Output Total 825 / 825 450 / 450 Balance 175 / 175 -450 / -450 Weight 145 lb 141 lb 9 oz - Constitutional no acute distress - *Routine HEENT Exam Head: Present: normocephalic Eye: Present: EOMI, PERRL ENT: Present: mucous membranes moist - *Routine Neck Exam Present: supple. Absent: lymphadenopathy - *Routine Respiratory Exam Present: CTA bilaterally - *Routine Cardiovascular Exam Present: RRR - *Routine Abdominal Exam Present: soft, normoactive bowel sounds. Absent: tenderness - *Routine Extremities Exam Absent: cyanosis, clubbing, edema - *Routine Skin Exam Present: warm. Absent: rash - *Routine Neurological Exam Present: alert, oriented X3 Assessment and Plan (1) Duodenitis Status: Acute Category: Medical Code(s): K29.80 - Duodenitis without bleeding (2) Small bowel obstruction Status: Acute Category: Medical Code(s): K56.609 - Unspecified intestinal obstruction, unspecified as to partial versus complete obstruction (3) Osteoarthritis Status: Chronic Category: Medical Code(s): M19.90 - Unspecified osteoarthritis, unspecified site (4) History of DVT (deep vein thrombosis) Status: Acute Category: Medical Code(s): Z86.718 - Personal history of other venous thrombosis and embolism (5) Essential hypertension Status: Chronic Category: Medical Code(s): I10 - Essential (primary) hypertension - Assessment and plan all Dx Assessment and Plan for all problems:: Long discussion about history of DVT issues. I will research into her DVT history. She was told that she would need lifelong anticoagulation therapy. Hopefully being off Celebrex will help resolve the duodenitis issues. Continue PPI, advance diet cautiously, possibly home tomorrow, check iron studies given her history of anemia in the past.
--- NOTE | 2022-01-17 12:20 | PC.NURSE ---
Pt up walking in the hallway, states that she normally walks around 1 mile a day.
[2022-01-17 12:35] VITALS: BMI 23.6
[2022-01-17 16:00] VITALS: BP 126/81; PULSE 71; RESP 18; TEMP 36.6; O2SAT 98
--- NOTE | 2022-01-17 16:22 | PC.NURSE ---
Pt's son back at bs visiting. Pt has had an uneventful day, no pain, ambulated well in room and hallway. + BS all quads. 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 She is currently receiving ongoing physical therapy for this. Lungs cta. No IV access. Vitals stable WNL. Tolerating liquid diet well.
--- NOTE | 2022-01-17 17:11 | PC.NURSE ---
Pt sittting up in bed with legs elevated watching TV and/or reading. Denies any needs at this time. Continues clear liquids. Last bm reported this morning. Voiding w/o difficulty and reports voiding frequently r/t clear liquids.
[2022-01-17 20:00] VITALS: BP 152/82; PULSE 73; RESP 17; TEMP 36.6; O2SAT 96
[2022-01-17 20:15] VITALS: O2SAT 96
[2022-01-18 04:00] VITALS: BP 142/82; PULSE 71; RESP 17; TEMP 36.6; O2SAT 96
--- NOTE | 2022-01-18 04:25 | PC.NURSE ---
PT HAS SLEPT WELL TONIGHT,DENIES ANY PAIN,LUNGS CLEAR,RESP.EVEN AND UNLABORED,NORMAL BOWEL SOUNDS,PT REPORTS SHE HAD ANOTHER LOOSE STOOL TONIGHT,V/S STABLE
[2022-01-18 07:01] LABS: Basophils # 0.1 K/mm3 (0-0.2); Basophils % 2.4 % (0.1-2.0); Eosinophils # 0.2 K/mm3 (0.0-0.4); Eosinophils % 6.9 % (0.1-12.0); Hematocrit 34.6 % (37.0-47.0); Hemoglobin 11.3 g/dL (12.2-16.2); Lymphocytes # 0.5 K/mm3 (0.7-4.5); Lymphocytes % 17.1 % (10-50); Mean Corpuscular HGB Conc 32.7 g/dL (31.8-35.4); Mean Corpuscular Hemoglobin 31.7 pg (27.0-31.2); Monocytes # 0.2 K/mm3 (0.1-1.0); Monocytes % 6.7 % (1.7-9.3); Neutrophils % 66.9 % (37.0-80.0); Platelet Count 216 K/mm3 (142-424); Red Blood Count 3.57 M/mm3 (4.20-5.40); Red Cell Distribution Width 18.6 % (11.5-17.5)
[2022-01-18 07:11] LABS: Alanine Aminotransferase 22 U/L (12-78); Albumin/Globulin Ratio 1.4 (1.1-1.8); Alkaline Phosphatase 60 U/L (38-126); Anion Gap 6.8 mEq/L (5-15); Aspartate Amino Transferase 27 U/L (14-36); Blood Urea Nitrogen 7 mg/dl (7-17); Calcium 8.7 mg/dl (8.4-10.2); Carbon Dioxide 30 mmol/L (22.0-30.0); Chloride 108 mmol/L (98-107); Creatinine Clearance Estimated 43 mL/min (50-200); Estimated Glomerular Filt Rate 80 ml/min (>60); GFR (African American) 97 ML/MIN (>60); Globulin 2.1 g/dL (1.3-3.2); Glucose 98 mg/dl (74-100); Potassium 3.8 mmoL/L (3.5-5.1); Sodium 141 mmol/L (136-145); Total Protein,Serum 5.1 g/dl (6.3-8.2)
[2022-01-18 07:16] LABS: Bilirubin,Total < 0.1 mg/dl (0.2-1.3)
--- NOTE | 2022-01-18 07:30 | PC.NURSE ---
DR. LUZ AT BEDSIDE
--- NOTE | 2022-01-18 07:38 | P.PN_ITS ---
Subjective Narrative: Patient anxious to go home. Taking clears. Denies nausea or cramping abdominal pain. Progress Note: A&P (1) Duodenitis Status: Acute (2) Small bowel obstruction Status: Acute (3) Osteoarthritis Status: Chronic (4) History of DVT (deep vein thrombosis) Status: Acute (5) Essential hypertension Status: Chronic Assessment and Plan for All Diagnoses:: Advance diet. Possible discharge later. Exam Vital signs and Labs for Last 24 Hours: Temp Pulse Resp BP Pulse Ox 97.9 F 71 17 142/82 H 96 01/18/22 04:00 01/18/22 04:00 01/18/22 04:00 01/18/22 04:00 01/18/22 04:00 Laboratory Results - last 24 hr 01/18/22 06:42: WBC 3.0 L, RBC 3.57 L, Hgb 11.3 L, Hct 34.6 L, MCV 97.0, MCH 31.7 H, MCHC 32.7, RDW 18.6 H, Plt Count 216, MPV 8.0, Neut % (Auto) 66.9, Lymph % (Auto) 17.1, [place] % (Auto) 6.7, Eos % (Auto) 6.9, Baso % (Auto) 2.4 H, Neut # (Auto) 2.0, Lymph # (Auto) 0.5 L, [place] # (Auto) 0.2, Eos # (Auto) 0.2, Baso # (Auto) 0.1 01/18/22 06:42: Sodium 141, Potassium 3.8, Chloride 108 H, Carbon Dioxide 30, Anion Gap 6.8, BUN 7, Creatinine 0.70, Estimated Creat Clear 43, Estimated GFR 80, Est GFR ( Amer) 97, Glucose 98, Calcium 8.7, Total Bilirubin < 0.1 L, AST 27, ALT 22, Alkaline Phosphatase 60, Total Protein 5.1 L, Albumin 3.0 L, Globulin 2.1, Albumin/Globulin Ratio 1.4 I & O for Last 24 hours: Intake & Output 01/15/22 01/16/22 01/17/22 01/18/22 11:59 11:59 11:59 11:59 Intake Total 1000 / 1000 480 / 480 Output Total 825 / 825 450 / 450 Balance 175 / 175 -450 / -450 480 / 480 Weight 145 lb 141 lb 9 oz 141 lb 9.012 oz - *Routine Abdominal Exam Present: soft. Absent: tenderness
[2022-01-18 07:51] VITALS: BP 135/76; PULSE 76; RESP 18; TEMP 36.6; O2SAT 96
[2022-01-18 07:54] LABS: Iron 59 ug/dL (37-170)
[2022-01-18 08:03] LABS: Total Iron Binding Capacity 197 ug/dL (265-497)
[2022-01-18 08:30] LABS: Ferritin 209 ng/ml (11.1-264)
[2022-01-18 09:00] VITALS: O2SAT 96
--- NOTE | 2022-01-18 10:20 | DIET.NUTRFU ---
RD saw patient and reveiwed diet hx and provided diet education post SBO. Will follow as needed this admit
--- NOTE | 2022-01-18 13:23 | HMH.GSPN ---
Subjective Narrative: Patient tolerated full liquid diet for breakfast and bland diet, limited, for lunch. No complaints. Anxious to go home. Progress Note: A&P (1) Duodenitis Status: Acute (2) Small bowel obstruction Status: Acute (3) Osteoarthritis Status: Chronic (4) History of DVT (deep vein thrombosis) Status: Acute (5) Essential hypertension Status: Chronic Assessment and Plan for All Diagnoses:: Should be okay for discharge home. I recommend she remain on a low residue/fiber restricted diet. I advised her to discontinue the Metamucil she has been taking at home which she has been mixing with MiraLAX for the time being. Exam Vital signs and Labs for Last 24 Hours: Temp Pulse Resp BP Pulse Ox 97.8 F 76 18 135/76 96 01/18/22 07:51 01/18/22 07:51 01/18/22 07:51 01/18/22 07:51 01/18/22 09:00 Laboratory Results - last 24 hr 01/18/22 06:42: WBC 3.0 L, RBC 3.57 L, Hgb 11.3 L, Hct 34.6 L, MCV 97.0, MCH 31.7 H, MCHC 32.7, RDW 18.6 H, Plt Count 216, MPV 8.0, Neut % (Auto) 66.9, Lymph % (Auto) 17.1, [place] % (Auto) 6.7, Eos % (Auto) 6.9, Baso % (Auto) 2.4 H, Neut # (Auto) 2.0, Lymph # (Auto) 0.5 L, [place] # (Auto) 0.2, Eos # (Auto) 0.2, Baso # (Auto) 0.1 01/18/22 06:42: Sodium 141, Potassium 3.8, Chloride 108 H, Carbon Dioxide 30, Anion Gap 6.8, BUN 7, Creatinine 0.70, Estimated Creat Clear 43, Estimated GFR 80, Est GFR ( Amer) 97, Glucose 98, Calcium 8.7, Iron 59, TIBC 197 L, Iron Saturation 29.22667, Ferritin 209, Total Bilirubin < 0.1 L, AST 27, ALT 22, Alkaline Phosphatase 60, Total Protein 5.1 L, Albumin 3.0 L, Globulin 2.1, Albumin/Globulin Ratio 1.4 I & O for Last 24 hours: Intake & Output 01/16/22 01/17/22 01/18/22 01/19/22 11:59 11:59 11:59 11:59 Intake Total 480 / 480 240 / 240 Output Total 450 / 450 Balance -450 / -450 480 / 480 240 / 240 Weight 141 lb 9 oz 141 lb 9.012 oz
--- NOTE | 2022-01-18 13:37 | HMH.DCSUM ---
General - General Admission date:: 01/15/22 Discharge date: 01/18/22 HPI HPI: 81-year-old white female with recent small bowel obstruction that was treated with supportive care, NG tube and expectant management and improved and she was discharged home last week. Unfortunately over the past 24 hours has had increasing bloating, pain, vomiting of some coffee-ground material, came back to the ER and was found to have recurrent small bowel obstruction. She was admitted, NG tube was placed and she is now in the hospital. Hospital Course Hospital Course: Patient was admitted, worries that she had another obstruction reassured by the presence of contrast on follow-up studies and she was treated with proton pump inhibitors with improvement in her duodenitis symptoms. Celebrex was held. She slowly improved in a stepwise fashion. This morning she was able to take full liquids for a couple of meals and felt well. Plan okay to discharge her home with twice daily proton pump inhibitor, cessation of her Celebrex and close follow-up in our office. Objective Vital signs: Temp Pulse Resp BP Pulse Ox 97.8 F 76 18 135/76 96 01/18/22 07:51 01/18/22 07:51 01/18/22 07:51 01/18/22 07:51 01/18/22 09:00 no acute distress - *Routine HEENT Exam Head: Present: normocephalic Eye: Present: EOMI, PERRL ENT: Present: mucous membranes moist - *Routine Neck Exam Present: supple - *Routine Respiratory Exam Present: CTA bilaterally - *Routine Cardiovascular Exam Present: RRR - *Routine Abdominal Exam Present: soft, normoactive bowel sounds. Absent: tenderness - *Routine Extremities Exam Absent: cyanosis, clubbing, edema - *Routine Skin Exam Present: warm. Absent: rash - Detailed Eye Exam Eyelids: Bilateral normal inspection Results Labs on day of discharge: Labs from last 24 hours 01/18/22 01/18/22 06:42 06:42 WBC 3.0 L RBC 3.57 L Hgb 11.3 L Hct 34.6 L MCV 97.0 MCH 31.7 H MCHC 32.7 RDW 18.6 H Plt Count 216 MPV 8.0 Neut % (Auto) 66.9 Lymph % (Auto) 17.1 [place] % (Auto) 6.7 Eos % (Auto) 6.9 Baso % (Auto) 2.4 H Neut # (Auto) 2.0 Lymph # (Auto) 0.5 L [place] # (Auto) 0.2 Eos # (Auto) 0.2 Baso # (Auto) 0.1 Sodium 141 Potassium 3.8 Chloride 108 H Carbon Dioxide 30 Anion Gap 6.8 BUN 7 Creatinine 0.70 Estimated Creat Clear 43 Estimated GFR 80 Est GFR ( Amer) 97 Glucose 98 Calcium 8.7 Iron 59 TIBC 197 L Iron Saturation 29.48577 Ferritin 209 Total Bilirubin < 0.1 L AST 27 ALT 22 Alkaline Phosphatase 60 Total Protein 5.1 L Albumin 3.0 L Globulin 2.1 Albumin/Globulin Ratio 1.4 DS: Diagnosis - Discharge Diagnosis (1) Duodenitis Status: Acute (2) Small bowel obstruction Status: Acute (3) Osteoarthritis Status: Chronic (4) History of DVT (deep vein thrombosis) Status: Acute (5) Essential hypertension Status: Chronic Discharge Plan - Patient Discharge Instructions ACTIVITY: Continue current activity DIET: continue same diet Patient Instructions: Small Bowel Obstruction - Follow up Plan Follow up with: Mac Parsons MD [Primary Care Provider] - 01/25/22 Disposition: Home, Self-Care Condition at discharge:: Improved Home Medications: Home Medications Medication Instructions Recorded Confirmed Type Celecoxib 100 mg PO DAILY 09/22/21 01/15/22 History Magnesium 400 mg PO DAILY 09/22/21 01/15/22 History Turmeric/Turmeric Root Extract 1 each PO DAILY 09/22/21 01/15/22 History [Turmeric 500 mg Capsule] Ezetimibe/Simvastatin 1 each PO HS 01/09/22 01/15/22 History [Ezetimibe-Simvastatin 10-20 mg] Iron Polysaccharide Complex [Pro 180 mg PO DAILY 01/09/22 01/15/22 History Fe] Rivaroxaban [Xarelto 20mg Tablet*] 20 mg PO QPMWITHMEAL 01/09/22 01/15/22 History lisinopriL [Zestril 10mg Tab] 10 mg PO DAILY 01/09/22 01/15/22 History
--- NOTE | 2022-01-19 15:02 | CARE MANAGER ---
Spoke with patient for post-discharge phone interview, patient states she feels better but is weak. She was able to get her stomach medication and knws her appointment with Dr. Parsons next week. No further issues noted.
== END 2022-01-18 14:00 | disposition home or self-care (01) | DRG 392 ==
LOC: ER 03:57 → OB 14:38
PROVIDERS: Admitting Provider Internal Medicine Adolescent Medicine; Emergency Provider Emergency Medicine; PCP Internal Medicine Adolescent Medicine; Visit Provider Internal Medicine Adolescent Medicine
DX: K29.80 Duodenitis without bleeding (principal); K56.609 Unspecified intestinal obstruction, unspecified as to partial versus complete obstruction; F17.200 Nicotine dependence, unspecified, uncomplicated; Z86.718 Personal history of other venous thrombosis and embolism; I10 Essential (primary) hypertension; K21.9 Gastro-esophageal reflux disease without esophagitis; Z20.822 Contact with and (suspected) exposure to COVID-19
CPT/HCPCS: 36415; 71046; 74018; 74019; 74021; 74177; 74250; 80053; 81001; 82150; 82728; 83540; 83550; 83690; 84145; 84484; 85025; 85651; 86140; 93005; 96375; 96376; 97140; 99285; C9803; J2405; Q9967; U0003; U0005

== ENCOUNTER 2022-03-12 10:00 | Outpatient (RCR) | payer MEDICARE, OTHER, SELFPAY | END 2022-03-12 10:05 | disposition home or self-care (01) | LOC: PT 10:00 | PROVIDERS: PCP Family Medicine; Visit Provider Obstetrics & Gynecology | DX: I89.0 Lymphedema, not elsewhere classified (principal); R22.42 Localized swelling, mass and lump, left lower limb | CPT/HCPCS: 97140; 97162; 97164; 97760 ==

== ENCOUNTER 2022-03-18 14:34 | Inpatient (IN) | payer MEDICARE, OTHER, SELFPAY ==
[2022-03-18] VITALS (14 sets, daily range): BP systolic 105–149; BP diastolic 70–90; PULSE 53–94; RESP 16–20; TEMP 36.8–37.1; O2SAT 94–98; BMI 23.5; BMI 23.2
[2022-03-18 15:18] LABS: Basophils # 0.1 K/mm3 (0-0.2); Basophils % 0.6 % (0.1-2.0); Eosinophils # 0.3 K/mm3 (0.0-0.4); Eosinophils % 3.4 % (0.1-12.0); Hematocrit 39.6 % (37.0-47.0); Hemoglobin 13.1 g/dL (12.2-16.2); Lymphocytes % 12.6 % (10-50); Mean Corpuscular Hemoglobin 30.5 pg (27.0-31.2); Mean Corpuscular Volume 92.3 fl (81-99); Mean Platelet Volume 8.2 fl (7.4-10.4); Monocytes # 0.5 K/mm3 (0.1-1.0); Monocytes % 5.7 % (1.7-9.3); Neutrophils # 6.2 K/mm3 (1.8-7.8); Neutrophils % 77.7 % (37.0-80.0); Platelet Count 237 K/mm3 (142-424); Red Blood Count 4.29 M/mm3 (4.20-5.40); Red Cell Distribution Width 13.4 % (11.5-17.5)
--- NOTE | 2022-03-18 15:29 | CT_ITS ---
PROCEDURE INFORMATION: Exam: CT Abdomen And Pelvis With Contrast Exam date and time: 03/18/2022 3:57 PM Age: 81 years old Clinical indication: Abdominal pain; Acute; Patient HX: Previous bowel obstruction in December; Additional info: Pain- bloating and distention- abd pain -- TECHNIQUE: Imaging protocol: Computed tomography of the abdomen and pelvis with contrast. Radiation optimization: All CT scans at this facility use at least one of these dose optimization techniques: automated exposure control; mA and/or kV adjustment per patient size (includes targeted exams where dose is matched to clinical indication); or iterative reconstruction. Contrast material: ISOVUE; Contrast volume: 75 ml; Contrast route: IV; COMPARISON: CT ABDOMEN PELVIS W CON 01/15/2022 3:05 AM FINDINGS: Liver: Normal. No mass. Gallbladder and bile ducts: Normal. No calcified stones. No ductal dilation. Pancreas: Normal. No ductal dilation. Spleen: Normal. No splenomegaly. Adrenal glands: Normal. No mass. Kidneys and ureters: Persistent left renal cyst findings stable. Stomach and bowel: Persistent hiatal hernia extending approximately 3 cm above the hemidiaphragm. Moderate fluid distending the stomach. Persistent mild thickening involving the wall of the duodenum and proximal jejunum. Persistent small bowel dilatation with collapse of the colon. Transition zone again located in the right lower quadrant. Persistent mild wall thickening of the ileum. Previously demonstrated small amount of free fluid in the pelvis is not demonstrated on the current study. Colonic diverticulosis. No evidence of diverticulitis.. Appendix: No evidence of appendicitis. Intraperitoneal space: See Stomach and bowel finding. Vasculature: Scattered regions of atherosclerotic vascular calcification within the abdominal aorta and common iliac arteries. Lymph nodes: Unremarkable. No enlarged lymph nodes. Urinary bladder: Unremarkable as visualized. Reproductive: Unremarkable as visualized. Bones/joints: Appearance of the lumbar spine unchanged. Multilevel advanced changes of disc degeneration with spinal and neural foraminal stenosis . No acute fracture. Soft tissues: Unremarkable. Other findings: Evidence of prior granulomatous disease. Findings unchanged. IMPRESSION: 1. Findings compatible with small-bowel obstruction 2. Persistent mild wall thickening involving the small bowel as described above. Findings nonspecific. 3. Please see above report for discussion of nonacute findings.
[2022-03-18 15:33] LABS: Alanine Aminotransferase 29 U/L (12-78); Albumin Level 4.1 g/dl (3.5-5.0); Albumin/Globulin Ratio 1.5 (1.1-1.8); Alkaline Phosphatase 76 U/L (38-126); Amylase 73 U/L (30-110); Anion Gap 12.1 mEq/L (5-15); Aspartate Amino Transferase 36 U/L (14-36); Bilirubin,Total 0.4 mg/dl (0.2-1.3); Blood Urea Nitrogen 28 mg/dl (7-17); Calcium 9.7 mg/dl (8.4-10.2); Carbon Dioxide 26 mmol/L (22.0-30.0); Chloride 103 mmol/L (98-107); Creatinine Clearance Estimated 42 mL/min (50-200); Estimated Glomerular Filt Rate 60 ml/min (>60); GFR (African American) 72 ML/MIN (>60); Globulin 2.8 g/dL (1.3-3.2); Glucose 113 mg/dl (74-100); Lipase 104 U/L (23-300); Potassium 4.1 mmoL/L (3.5-5.1); Sodium 137 mmol/L (136-145); Total Protein,Serum 6.9 g/dl (6.3-8.2)
--- NOTE | 2022-03-18 15:35 | PC.NURSE ---
AT BEDSIDE WITH NEW MED ORDERS
--- NOTE | 2022-03-18 15:37 | HMH.EDABDPAI ---
ED Disposition Clinical Impression: Diverticulitis, Metastatic disease Disposition: Admitted As Inpatient Condition on Discharge: Fair - Critical Care Critical Care Time: No Attestation: On 03/18/22, the high probability of a clinically significant, sudden or life threatening deterioration of the following system(s) required my full and direct attention, intervention and personal management. The time I documented below is in addition to time spent performing reported procedures but includes the following listed in this critical care notation. Medical Decision Making - Medical Records Medical records reviewed: Yes: I reviewed the patient's medical records. - David Inquiry Pt receiving controlled substance: No Vital Signs: 03/18/22 14:34 03/18/22 15:31 03/18/22 16:15 Temperature 98.7 F Temperature Source Oral Pulse Rate 84 88 Pulse Rate [Right Radial] 53 L Respiratory Rate 20 18 18 Blood Pressure 130/78 147/84 H Blood Pressure [Right Arm] 149/83 H Blood Pressure Mean 95 93 Blood Pressure Mean [Right Arm] 105 Blood Pressure Source [Right Arm] Automatic Cuff Blood Pressure Position [Right Arm] Sitting 02 Sat by Pulse Oximetry 97 96 97 Oxygen Delivery Method Room Air 03/18/22 16:30 03/18/22 16:45 03/18/22 17:00 Temperature Temperature Source Pulse Rate 91 H 94 H 94 H Pulse Rate [Right Radial] Respiratory Rate 18 18 18 Blood Pressure 123/83 123/83 129/85 Blood Pressure [Right Arm] Blood Pressure Mean 91 97 Blood Pressure Mean [Right Arm] Blood Pressure Source [Right Arm] Blood Pressure Position [Right Arm] 02 Sat by Pulse Oximetry 97 95 96 Oxygen Delivery Method 03/18/22 17:30 03/18/22 17:38 03/18/22 18:00 Temperature Temperature Source Pulse Rate 92 H 92 H 91 H Pulse Rate [Right Radial] Respiratory Rate 18 18 18 Blood Pressure 135/85 105/85 L 125/83 Blood Pressure [Right Arm] Blood Pressure Mean 113 91 89 Blood Pressure Mean [Right Arm] Blood Pressure Source [Right Arm] Blood Pressure Position [Right Arm] 02 Sat by Pulse Oximetry 97 97 Oxygen Delivery Method 03/18/22 18:30 03/18/22 19:00 Temperature Temperature Source Pulse Rate 88 90 Pulse Rate [Right Radial] Respiratory Rate 18 18 Blood Pressure 132/90 128/81 Blood Pressure [Right Arm] Blood Pressure Mean 97 88 Blood Pressure Mean [Right Arm] Blood Pressure Source [Right Arm] Blood Pressure Position [Right Arm] 02 Sat by Pulse Oximetry 97 94 L Oxygen Delivery Method - Lab Data Lab results reviewed: Yes: I reviewed the patient's lab results. Lab Results 03/18/22 15:05: WBC 8.0, RBC 4.29, Hgb 13.1, Hct 39.6, MCV 92.3, MCH 30.5, MCHC 33.0, RDW 13.4, Plt Count 237, MPV 8.2, Neut % (Auto) 77.7, Lymph % (Auto) 12.6, [place] % (Auto) 5.7, Eos % (Auto) 3.4, Baso % (Auto) 0.6, Neut # (Auto) 6.2, Lymph # (Auto) 1.0, [place] # (Auto) 0.5, Eos # (Auto) 0.3, Baso # (Auto) 0.1 03/18/22 15:05: Sodium 137, Potassium 4.1, Chloride 103, Carbon Dioxide 26, Anion Gap 12.1, BUN 28 H, Creatinine 0.90, Estimated Creat Clear 42, Estimated GFR 60, Est GFR ( Amer) 72, Glucose 113 H, Calcium 9.7, Total Bilirubin 0.4, AST 36, ALT 29, Alkaline Phosphatase 76, Total Protein 6.9 D, Albumin 4.1, Globulin 2.8, Albumin/Globulin Ratio 1.5, Amylase 73, Lipase 104 03/18/22 17:18: SARS-CoV-2 (PCR) Not detected, Influenza A Untype (PCR) Not detected, Influenza Type B (PCR) Not detected Result diagrams: 03/18/22 15:05 03/18/22 15:05 Orders (Tests/Meds): ED MEDICATIONS Generic Name Dose Route Start Last Admin Trade Name Freq PRN Reason Stop Dose Admin Sodium Chloride 10 ml 03/18/22 14:56 Sodium Chloride 0.9% 10ml Flush Syringe IV 04/17/22 14:55 NEEDED PRN Maintain IV Site Sodium Chloride 10 ml 03/18/22 17:46 Sodium Chloride 0.9% 10ml Vial IV 04/17/22 17:45 NEEDED PRN dilute protonix Discontinued Medications Generic Name Dose
--- NOTE | 2022-03-18 16:00 | PC.NURSE ---
PT GOING TO CT VIA W/C
--- NOTE | 2022-03-18 16:14 | PC.NURSE ---
pt states feeling improved after pain meds
--- NOTE | 2022-03-18 16:18 | PC.NURSE ---
BACK FROM CT
--- NOTE | 2022-03-18 16:28 | PC.NURSE ---
PT RESTING FAMILY AT BS
--- NOTE | 2022-03-18 17:21 | PC.NURSE ---
COVID SWAB SENT TO LAB
[2022-03-18 17:25] LABS: Coronavirus 19, PCR Not Detected (NotDetected)
--- NOTE | 2022-03-18 17:29 | PC.NURSE ---
IN WITH PT GOING OVER CT RESULTS
--- NOTE | 2022-03-18 17:30 | PC.NURSE ---
DR JAVIER FAGAN
--- NOTE | 2022-03-18 17:42 | PC.NURSE ---
DR COFFMAN SPEAKING WITH DR HERRERA , HE HAS AGREED TO ADMIT PT HE ALSO SPOKE WITH DR MCDUFFIE HE IS CONSULTING
--- NOTE | 2022-03-18 17:49 | PC.NURSE ---
HOUSE CALLED FOR BED
[2022-03-18 18:00] LABS: Influenza A, PCR Not Detected (NotDetected); Influenza B, PCR Not Detected (NotDetected)
--- NOTE | 2022-03-18 18:58 | PC.NURSE ---
Called report to Angelia Mchugh RN
--- NOTE | 2022-03-18 19:20 | PC.NURSE ---
PT STARTED VOMITING PAIN IS BACK , MD AT BEDSIDE AND NEW ORDERS GIVEN
--- NOTE | 2022-03-18 19:28 | PC.NURSE ---
Gina Newell RN at bedside to place NG tube, pt has been given zofran & Dilaudid prior to placement for comfort and pain management
--- NOTE | 2022-03-18 19:36 | XR_ITS ---
PROCEDURE INFORMATION: Exam: XR Chest Exam date and time: 03/18/2022 7:48 PM Age: 81 years old Clinical indication: Device placement; Ng tube; Additional info: Confirm ng tube placement TECHNIQUE: Imaging protocol: Radiologic exam of the chest. Views: 1 view. COMPARISON: CR XR CHEST 2V 01/15/2022 2:54 AM FINDINGS: Tubes, catheters and devices: NG tube terminates overlying the left upper quadrant with tip overlying the expected location of the stomach and side port near the GE junction. Lungs: No consolidation. Pleural spaces: No pneumothorax. Heart/Mediastinum: No cardiomegaly. Bones/joints: Scoliosis. IMPRESSION: NG tube terminates overlying the left upper quadrant with tip overlying the expected location of the stomach and side port near the GE junction.
--- NOTE | 2022-03-18 19:58 | PC.NURSE ---
16f NGT PLACED TO RIGHT NARE. PLACEMENT CONFIRMED VIA AUSCULTATION. 200 ML GI CONTENTS RETURNED. NGT SECURED AT THE 55 LINE. RADIOLOGY FILMS OBTAINED FOR VERIFICATION. JOVANA RN ON FLOOR UPDATED AND AWARE PT IS READY FOR TRANSPORT TO FLOOR.
--- NOTE | 2022-03-18 20:18 | PC.NURSE ---
PT ARRIVED TO FLOOR VIA STRETCHER FROM ED W/STAFF @ 2017
[2022-03-19] VITALS: PULSE 90
[2022-03-19 04:00] VITALS: BP 108/63; PULSE 80; PULSE 87; RESP 18; TEMP 36.5; O2SAT 99
[2022-03-19 04:19] VITALS: BMI 23.3
--- NOTE | 2022-03-19 04:21 | PC.NURSE ---
Pt is alert and oriented x4, pt has had no complaints of pain or nausea/vomiting since arriving to floor. Pt has NG tube in place, 16 cymraes @ 55cm, tube is connected to continuous low wall suction and draining. Pt abdomen is soft and tender, but states no pain. Pt gets up to the bathroom. Pt has rested well since arriving to floor.
--- NOTE | 2022-03-19 07:55 | HMH.PHAVTE ---
[facility] Pharmacy VTE Monitoring - Patient Demographics Admission date: 03/19/22 Report Date: 03/19/22 Time: 07:55 Allergies/Adverse Reactions: Patient Allergies Penicillins [PENICILLINS] Allergy (Unknown, Verified 11/24/21 10:19) Height: 1.63 m Weight: 61.915 kg Patient Problems: Current Active Problems Diverticulitis (Acute) Metastatic disease (Acute) - VTE Risk Labs: VTE Related Lab Results Hgb 13.1 g/dL (12.2-16.2) 03/18/22 15:05 Hct 39.6 % (37.0-47.0) 03/18/22 15:05 Plt Count 237 K/mm3 (142-424) 03/18/22 15:05 BUN 28 mg/dl (7-17) H 03/18/22 15:05 Creatinine 0.90 mg/dl (0.52-1.04) 03/18/22 15:05 Estimated Creat Clear 42 mL/min (50-200) 03/18/22 15:05 Was VTE Risk Assessment Performed: Yes VTE Score: 3 VTE Risk Level: Low Risk Clinical Trial Participant: No - Prophylaxis VTE Prophylaxis Ordered?: Yes Types of VTE Prophylaxis: TEDS Knee High
[2022-03-19 08:00] VITALS: BP 105/68; PULSE 73; PULSE 80; RESP 16; TEMP 36.7; O2SAT 94
--- NOTE | 2022-03-19 08:38 | HMH.HP ---
*Admission Date: 03/19/22 *Chief complaint: Abdominal pain/vomiting *History of present illness: 81-year-old white female with excellent functional status who has had history of abdominal radiation from radius cancer treatment has had a couple of admissions for small bowel obstructions. Yesterday she felt very similar to these previous symptoms. Experienced abdominal pain, nausea, came to the ER, found to have bloated stomach on CT findings with evidence of SBO and NG tube was placed. She was admitted to floor for further evaluation and surgical consultation. [facility] History I have reviewed the patient's past medical history: Yes Medical History: Reports:: Cancer (ENDOMETRIAL), Deep Vein Thrombosis, Gastroesophageal Reflux Disease(GERD), Hyperlipidemia, Hypertension Denies:: Diabetes Mellitus Type 1, Diabetes Mellitus Type 2, Internal Pacemaker, MRSA *Have you ever received a pneumonia vaccine?: Yes *Have you received a flu vaccine this season?: Yes Other Medical History: Reports: Anemia, Arthritis, Cataracts, Radiation Therapy, Sinus Problems Laterality Cases: Bilateral: Tonsillectomy Other Surgeries: Yes: No Previous Surgery, Colonoscopy, Hysterectomy-Total. No: Pacemaker Amputation: No Fractures: Yes (Fractured 5th met of unknown foot 6 years ago. ) - *Social History Smoking Status: Former smoker Tobacco Type: cigarettes # Packs/Day (cigarettes): 1 #Yrs smoked (if former smoker): 45 Alcohol Intake: never Alcohol Intake Frequency:: holidays/special occasions only *Occupational Status:: retired Housing: house Household Members: none *Travel in the last 8 weeks: None Family Hx:: Cancer Review of Systems - Review of Systems Review of systems:: pertinent systems reviewed and negative unless documented below Meds Home Medications Medication Instructions Recorded Confirmed Type Ezetimibe/Simvastatin 1 each PO HS 01/09/22 03/18/22 History [Ezetimibe-Simvastatin 10-20 mg] Rivaroxaban [Xarelto 20mg Tablet*] 20 mg PO QPMWITHMEAL 01/09/22 03/18/22 History lisinopriL [Zestril 10mg Tab] 10 mg PO DAILY 01/09/22 03/18/22 History Pantoprazole Sodium [Protonix 40mg 40 mg PO BID 03/18/22 03/18/22 History tablet] Celecoxib [CeleBREX 100mg Capsule] 100 mg PO DAILY 03/19/22 03/19/22 History Allergies Allergy/AdvReac Type Severity Reaction Status Date / Time Penicillins [PENICILLINS] Allergy Unknown Verified 11/24/21 10:19 Exam Vital signs and Labs for Last 24 Hours: Temp Pulse Resp BP Pulse Ox 97.7 F 87 18 108/63 L 99 03/19/22 04:00 03/19/22 04:00 03/19/22 04:00 03/19/22 04:00 03/19/22 04:00 Laboratory Results - last 24 hr 03/18/22 15:05: WBC 8.0, RBC 4.29, Hgb 13.1, Hct 39.6, MCV 92.3, MCH 30.5, MCHC 33.0, RDW 13.4, Plt Count 237, MPV 8.2, Neut % (Auto) 77.7, Lymph % (Auto) 12.6, Runnels % (Auto) 5.7, Eos % (Auto) 3.4, Baso % (Auto) 0.6, Neut # (Auto) 6.2, Lymph # (Auto) 1.0, Runnels # (Auto) 0.5, Eos # (Auto) 0.3, Baso # (Auto) 0.1 03/18/22 15:05: Sodium 137, Potassium 4.1, Chloride 103, Carbon Dioxide 26, Anion Gap 12.1, BUN 28 H, Creatinine 0.90, Estimated Creat Clear 42, Estimated GFR 60, Est GFR ( Amer) 72, Glucose 113 H, Calcium 9.7, Total Bilirubin 0.4, AST 36, ALT 29, Alkaline Phosphatase 76, Total Protein 6.9 D, Albumin 4.1, Globulin 2.8, Albumin/Globulin Ratio 1.5, Amylase 73, Lipase 104 03/18/22 17:18: SARS-CoV-2 (PCR) Not detected, Influenza A Untype (PCR) Not detected, Influenza Type B (PCR) Not detected I & O for Last 24 hours: Intake & Output 03/16/22 03/17/22 03/18/22 03/19/22 11:59 11:59 11:59 11:59 Output Total 500 / 500 Balance -500 / -500 Weight 136 lb 8 oz Narrative: I saw patient on second floor after admission. She had actually sneezed out her NG tube and reported that she was feeling back to her baseline and looks well with no evidence of pain, abdominal bloating, etc. - Constitutional no acute distress - *Routine HEENT Exam Head: Present: nor
--- NOTE | 2022-03-19 09:14 | HMH.GSCON ---
*Admission Date: 03/19/22 *Reason for consult:: Small bowel obstruction *History of present illness: This is an 81-year-old female seen in consultation for Dr. Parsons for evaluation regarding small bowel obstruction. She presented to the emergency department yesterday with fairly acute-onset abdominal pain and nausea/vomiting. A CT scan was obtained that revealed a right lower quadrant transition with ileal thickening. Overall changes were consistent with small bowel obstruction. She is status post laparoscopic hysterectomy for uterine cancer in September 2019. A course of radiation was also completed. She has had 2 admissions in December of this year for similar symptoms. 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 She quickly improved with NG decompression and was subsequently discharged. However, readmission 1 week later was necessary when she returned with similar symptoms. Similar resolution noted during her second hospitalization. Between December of this year and her current hospitalization...she has undergone multiple CT scans, as well as, a small bowel follow-through. Persistent right lower quadrant transition and small bowel thickening noted. Her small bowel follow-through did show contrast within the colon at 2 hours but changes consistent with likely partial obstruction were confirmed. Note: The patient states that she feels much better right now . She did have a nasogastric tube placed; however, this was dislodged when she suffered a violent sneeze . She states that she does not want the NG replaced because she feels fine right now . Review of Systems - Constitutional Denies chills - Eyes Denies change in vision - *Cardiovascular Denies chest pain - *Respiratory Denies cough - *Gastrointestinal Reports abdominal pain, Reports nausea, Reports vomiting Comments: Note: Currently her pain, nausea, and vomiting have resolved. [facility] History Medical History: Reports:: Cancer (ENDOMETRIAL), Deep Vein Thrombosis, Gastroesophageal Reflux Disease(GERD), Hyperlipidemia, Hypertension Denies:: Diabetes Mellitus Type 1, Diabetes Mellitus Type 2, Internal Pacemaker, MRSA *Have you ever received a pneumonia vaccine?: Yes *Have you received a flu vaccine this season?: Yes Other Medical History: Reports: Anemia, Arthritis, Cataracts, Radiation Therapy, Sinus Problems Laterality Cases: Bilateral: Tonsillectomy Other Surgeries: Yes: No Previous Surgery, Colonoscopy, Hysterectomy-Total. No: Pacemaker Amputation: No Fractures: Yes (Fractured 5th met of unknown foot 6 years ago. ) - *Social History Smoking Status: Former smoker Tobacco Type: cigarettes # Packs/Day (cigarettes): 1 #Yrs smoked (if former smoker): 45 Alcohol Intake: never Alcohol Intake Frequency:: holidays/special occasions only *Occupational Status:: retired Housing: house Household Members: none *Travel in the last 8 weeks: None Family Hx:: Cancer Meds Home Medications Medication Instructions Recorded Confirmed Type Ezetimibe/Simvastatin 1 each PO HS 01/09/22 03/18/22 History [Ezetimibe-Simvastatin 10-20 mg] Rivaroxaban [Xarelto 20mg Tablet*] 20 mg PO QPMWITHMEAL 01/09/22 03/18/22 History lisinopriL [Zestril 10mg Tab] 10 mg PO DAILY 01/09/22 03/18/22 History Pantoprazole Sodium [Protonix 40mg 40 mg PO BID 03/18/22 03/18/22 History tablet] Celecoxib [CeleBREX 100mg Capsule] 100 mg PO DAILY 03/19/22 03/19/22 History Allergies Allergy/AdvReac Type Severity Reaction Status Date / Time Penicillins [PENICILLINS] Allergy Unknown Verified 11/24/21 10:19 Exam Vital signs and Labs for Last 24 Hours: Temp Pulse Resp BP Pulse Ox 97.7 F 87 18 108/63 L 99 03/19/22 04:00 03/19/22 04:00 03/19/22 04:00 03/19/22 04:00 03/19/22 04:00 Laboratory Results - last 24 hr 03/18/22 15:05: WBC 8.0, RBC 4.29, Hgb 13.1, Hct 39.6, M
[2022-03-19 12:00] VITALS: PULSE 80
[2022-03-19 15:14] VITALS: BMI 23.3
--- NOTE | 2022-03-19 15:55 | HMH.DCSUM ---
General - General Admission date:: 03/18/22 Discharge date: 03/19/22 HPI HPI: 81-year-old white female with excellent functional status who has had history of abdominal radiation from [facility] cancer treatment has had a couple of admissions for small bowel obstructions. Yesterday she felt very similar to these previous symptoms. Experienced abdominal pain, nausea, came to the ER, found to have bloated stomach on CT findings with evidence of SBO and NG tube was placed. She was admitted to floor for further evaluation and surgical consultation. Hospital Course Hospital Course: Patient was admitted, NG tube came out spontaneously and patient felt much better. She was able to tolerate clear liquids, belly exam improved and normalized. She tolerated full liquids through the day today and desperately wish to be discharged home. Given the fact she lives very close, is very sophisticated vis-?-vis healthcare and has excellent family support I decided this would be safe and prudent for her. Plan number to discharge home today, twice daily Protonix, follow-up with me in 1 week for GI referral. Full liquid diet advanced as tolerated. Objective Vital signs: Temp Pulse Resp BP Pulse Ox 98.0 F 73 16 105/68 L 94 L 03/19/22 08:00 03/19/22 08:00 03/19/22 08:00 03/19/22 08:00 03/19/22 08:00 no acute distress - *Routine HEENT Exam Head: Present: normocephalic Eye: Present: EOMI, PERRL ENT: Present: mucous membranes moist - *Routine Neck Exam Present: supple - *Routine Respiratory Exam Present: CTA bilaterally - *Routine Cardiovascular Exam Present: RRR - *Routine Abdominal Exam Present: soft, normoactive bowel sounds. Absent: tenderness - *Routine Extremities Exam Absent: cyanosis, clubbing, edema - *Routine Skin Exam Present: warm. Absent: rash - Detailed Eye Exam Eyelids: Bilateral normal inspection Results Labs on day of discharge: Labs from last 24 hours 03/18/22 17:18 SARS-CoV-2 (PCR) Not detected Influenza A Untype (PCR) Not detected Influenza Type B (PCR) Not detected DS: Diagnosis - Discharge Diagnosis (1) Small bowel obstruction Status: Resolved Discharge Plan - Patient Discharge Instructions ACTIVITY: Continue current activity DIET: continue same diet, advance to your usual diet Additional Instructions: eat full liquids for 48 hours Patient Instructions: DI for Small Bowel Obstruction - Follow up Plan Follow up with: Mac Parsons MD [Primary Care Provider] - 1 week Disposition: Home, Self-Care Condition at discharge:: Improved Home Medications: Home Medications Medication Instructions Recorded Confirmed Type Ezetimibe/Simvastatin 1 each PO HS 01/09/22 03/18/22 History [Ezetimibe-Simvastatin 10-20 mg] Rivaroxaban [Xarelto 20mg Tablet*] 20 mg PO QPMWITHMEAL 01/09/22 03/18/22 History lisinopriL [Zestril 10mg Tab] 10 mg PO DAILY 01/09/22 03/18/22 History Pantoprazole Sodium [Protonix 40mg 40 mg PO BID 03/18/22 03/18/22 History tablet] Celecoxib [CeleBREX 100mg Capsule] 100 mg PO DAILY 03/19/22 03/19/22 History Prescriptions/Medication Reconciliation: Continued Rivaroxaban [Xarelto 20mg Tablet*] 20 mg PO QPMWITHMEAL Ezetimibe/Simvastatin [Ezetimibe-Simvastatin 10-20 mg] 1 each PO HS Pantoprazole Sodium [Protonix 40mg tablet] 40 mg PO BID lisinopriL [Zestril 10mg Tab] 10 mg PO DAILY Discontinued Celecoxib [CeleBREX 100mg Capsule] 100 mg PO DAILY - Problem Reconciliation Problems Reviewed?: Yes
[2022-03-19 16:00] VITALS: PULSE 90
--- NOTE | 2022-03-19 16:54 | PC.NURSE ---
extensive teaching on diet, and full liquid for 48hours. no nsaids. patient follow up. when to return. patient was able to voice understanding.
--- NOTE | 2022-03-20 14:44 | CARE MANAGER ---
Spoke with patient for post-discharge phone interview, patient states that she feels better and hasno complaints. Patient has a follow-up appointment with Dr. Parsons on 03/26 and she is aware.
== END 2022-03-19 16:50 | disposition home or self-care (01) | DRG 389 ==
LOC: ER 14:49 → 2ND 18:01
PROVIDERS: Admitting Provider Internal Medicine Adolescent Medicine; Emergency Provider Emergency Medicine; PCP Internal Medicine Adolescent Medicine; Visit Provider Internal Medicine Adolescent Medicine
DX: K56.699 Other intestinal obstruction unspecified as to partial versus complete obstruction (principal); K52.0 Gastroenteritis and colitis due to radiation; Z87.891 Personal history of nicotine dependence; E78.5 Hyperlipidemia, unspecified; K21.9 Gastro-esophageal reflux disease without esophagitis; Z85.42 Personal history of malignant neoplasm of other parts of uterus; Z86.718 Personal history of other venous thrombosis and embolism; Y84.2 Radiological procedure and radiotherapy as the cause of abnormal reaction of the patient, or of later complication, without mention of misadventure at the time of the procedure
CPT/HCPCS: 71045; 74177; 80053; 82150; 83690; 85025; 99285; C9803; J2405; Q9967; U0003; U0005

== ENCOUNTER → 2022-04-10 09:42 | Outpatient (POV) | payer MEDICARE, OTHER, SELFPAY | PROVIDERS: Visit Provider Dermatology | DX: Z00.00 Encounter for general adult medical examination without abnormal findings (principal) ==

== ENCOUNTER → 2022-06-12 13:27 | Outpatient (CLI) | payer MEDICARE, OTHER, SELFPAY ==
--- NOTE | 2022-06-12 13:30 | XR_ITS ---
FINAL REPORT CLINICAL HISTORY: pain FINDINGS: RIGHT FOOT Three views of the right foot demonstrate no acute fracture or dislocation. There is mild hallux valgus deformity. There are mild degenerative changes at the 1st metatarsal phalangeal joint . There is a chronic fracture of the 5th metatarsal. There is soft tissue swelling medial to the head of 1st metatarsal with a small calcification in this region. IMPRESSION: Chronic and degenerative changes with no acute bony abnormality. Reviewed, Interpreted and Dictated by Jose Roberto Shrestha III, MD Transcribed by Tess Mchugh Authenticated and [facility]
== END ==
PROVIDERS: PCP Internal Medicine Adolescent Medicine; Visit Provider Nurse Practitioner Family
DX: M79.674 Pain in right toe(s) (principal)
CPT/HCPCS: 73630

== ENCOUNTER → 2022-07-02 10:26 | Outpatient (CLI) | payer MEDICARE, OTHER, SELFPAY ==
--- NOTE | 2022-07-02 10:27 | CT_ITS ---
FINAL REPORT TECHNIQUE: Thin section axial CT images with coronal and sagittal reformats were performed. This study was performed with techniques to keep radiation doses as low as reasonably achievable (ALARA). Individualized dose reduction techniques using automated exposure control or adjustment of mA and/or kV according to the patient''s size were employed. CLINICAL HISTORY: right foot pain COMPARISON: Radiograph dated June 12, 2022 FINDINGS: CT RIGHT FOOT WITHOUT CONTRAST There is no acute fracture. There is a chronic 5th metatarsal fracture. There are mild degenerative changes. There is mild hallux valgus deformity. There are no masses or fluid collections. There is soft tissue swelling medial to the head of the 1st metatarsal with a small chronic calcification in this region. There are mild vascular calcifications. IMPRESSION: No acute fracture. Soft tissue swelling medial to the head of the 1st metatarsal with a small chronic calcification in this region. Reviewed, Interpreted and Dictated by Jose Roberto Shrestha III, MD Transcribed by Tess Mchugh Authenticated and [facility]
== END ==
PROVIDERS: PCP Internal Medicine Adolescent Medicine; Visit Provider Nurse Practitioner Family
DX: L03.031 Cellulitis of right toe (principal); L84 Corns and callosities; M79.671 Pain in right foot
CPT/HCPCS: 73700

== ENCOUNTER → 2022-07-11 08:41 | Outpatient (CLI) | payer MEDICARE, OTHER, SELFPAY ==
--- NOTE | 2022-07-11 08:42 | US_ITS ---
FINAL REPORT CLINICAL HISTORY: RT 2ND DIGIT/TOE WOUND, HX LT DVT FINDINGS: ANKLE-BRACHIAL PRESSURE INDICES Pressure indices are as follows: RIGHT LOWER EXTREMITY: Ankle-brachial pressure index: 1.0 Comments: Normal LEFT LOWER EXTREMITY: Ankle-brachial pressure index: 1.1 Comments: Normal CONCLUSION: No evidence of significant obstructive peripheral vascular disease of the lower extremities Reviewed, Interpreted and Dictated by Chano Clinton MD Transcribed by Tess Mchugh Authenticated and [facility]
[2022-07-18 18:07] LABS: 1,25 Dihydroxy Vitamin D 39 pg/mL (.); 1,25-Dihydroxy, Vitamin D-2 <10 pg/mL (.); 1,25-Dihydroxy, Vitamin D-3 39 pg/mL (.)
== END ==
PROVIDERS: PCP Internal Medicine Adolescent Medicine; Visit Provider Podiatrist
DX: R09.89 Other specified symptoms and signs involving the circulatory and respiratory systems (principal); E55.9 Vitamin D deficiency, unspecified
CPT/HCPCS: 36415; 82652; 93923

== ENCOUNTER → 2022-08-07 08:25 | Outpatient (CLI) | payer MEDICARE, OTHER, SELFPAY ==
[2022-08-07 09:06] LABS: Basophils % 1.1 % (0.1-2.0); Eosinophils # 0.2 K/mm3 (0.0-0.4); Eosinophils % 6.7 % (0.1-12.0); Hematocrit 37.6 % (37.0-47.0); Hemoglobin 11.8 g/dL (12.2-16.2); Lymphocytes # 0.5 K/mm3 (0.7-4.5); Lymphocytes % 14.7 % (10-50); Mean Corpuscular HGB Conc 31.4 g/dL (31.8-35.4); Mean Corpuscular Hemoglobin 29.7 pg (27.0-31.2); Mean Corpuscular Volume 94.7 fl (81-99); Mean Platelet Volume 7.1 fl (7.4-10.4); Monocytes # 0.3 K/mm3 (0.1-1.0); Monocytes % 9.5 % (1.7-9.3); Neutrophils # 2.1 K/mm3 (1.8-7.8); Platelet Count 298 K/mm3 (142-424); Red Blood Count 3.97 M/mm3 (4.20-5.40); Red Cell Distribution Width 13.4 % (11.5-17.5); White Blood Count 3.1 K/mm3 (4.8-10.8)
[2022-08-07 09:53] LABS: Erythrocyte Sedimentation Rate 96 mm/hr (0-30)
[2022-08-07 10:57] LABS: Chloride 105 mmol/L (98-107); Potassium 4.2 mmoL/L (3.5-5.1); Sodium 139 mmol/L (136-145)
[2022-08-07 10:59] LABS: Alanine Aminotransferase 22 U/L (12-78); Aspartate Amino Transferase 26 U/L (14-36); Blood Urea Nitrogen 30 mg/dl (7-17); Estimated Glomerular Filt Rate 53 ml/min (>60); GFR (African American) 64 ML/MIN (>60)
[2022-08-07 11:00] LABS: Albumin Level 3.5 g/dl (3.5-5.0); Albumin/Globulin Ratio 1.5 (1.1-1.8); Alkaline Phosphatase 77 U/L (38-126); Anion Gap 9.2 mEq/L (5-15); Bilirubin,Total 0.2 mg/dl (0.2-1.3); Calcium 9.2 mg/dl (8.4-10.2); Carbon Dioxide 29 mmol/L (22.0-30.0); Globulin 2.3 g/dL (1.3-3.2); Glucose 89 mg/dl (74-100); Total Protein,Serum 5.8 g/dl (6.3-8.2)
[2022-08-07 11:05] LABS: C-Reactive Protein 5.9 mg/L (0-4)
== END ==
PROVIDERS: PCP Internal Medicine Adolescent Medicine; Visit Provider Podiatrist
DX: L84 Corns and callosities (principal); M79.671 Pain in right foot; M19.071 Primary osteoarthritis, right ankle and foot; M77.51 Other enthesopathy of right foot and ankle
CPT/HCPCS: 36415; 80053; 84550; 85025; 85651; 86140

== ENCOUNTER → 2022-08-16 13:47 | Outpatient (CLI) | payer MEDICARE, OTHER, SELFPAY ==
--- NOTE | 2022-08-16 13:59 | MR_ITS ---
FINAL REPORT CLINICAL HISTORY: Pain in 1st and 2nd toe with burning and stinging sensation. symptoms [id number]. redness and swelling in toes. FINDINGS: Multiplanar MR imaging of the right foot was performed without contrast. A mild hallux valgus deformity is noted. There are mild degenerative changes. There is no evidence of fracture or bone marrow edema. The flexor and extensor tendons are intact. No ligamentous injury is identified. The musculature is intact. The plantar aponeurosis is intact. There is forefoot soft tissue edema or cellulitis. IMPRESSION: No acute bony abnormality identified. Forefoot soft tissue edema or cellulitis. Mild degenerative changes with mild hallux valgus deformity. Authenticated and [facility]
== END ==
PROVIDERS: PCP Internal Medicine Adolescent Medicine; Visit Provider Podiatrist
DX: L03.031 Cellulitis of right toe (principal); L84 Corns and callosities; M77.51 Other enthesopathy of right foot and ankle
CPT/HCPCS: 73718

== ENCOUNTER → 2022-10-16 15:03 | Outpatient (CLI) | payer MEDICARE, OTHER, SELFPAY ==
--- NOTE | 2022-10-16 | CA_ITS ---
FINAL REPORT TECHNIQUE: Ultrasound images of the deep venous system were obtained from the left groin to the calf veins. CLINICAL HISTORY: EDEMA LLE, PRIOR DVT LLE 2021,PT ON XARELTO FINDINGS: The deep venous system is normally compressible. Normal flow is identified. IMPRESSION: No evidence of left lower extremity DVT. Reviewed, Interpreted and Dictated by Nancy Telles MD Transcribed by Av Jiagn Authenticated and [facility]
== END ==
PROVIDERS: PCP Internal Medicine Adolescent Medicine; Visit Provider Nurse Practitioner Family
DX: M79.605 Pain in left leg (principal); R60.0 Localized edema; Z86.718 Personal history of other venous thrombosis and embolism; I89.0 Lymphedema, not elsewhere classified
CPT/HCPCS: 93971

== ENCOUNTER → 2022-10-22 11:24 | Outpatient (CLI) | payer MEDICARE, OTHER, SELFPAY ==
--- NOTE | 2022-10-22 11:30 | XR_ITS ---
FINAL REPORT CLINICAL HISTORY: pre-op testing COMPARISON: 03/18/2022 FINDINGS: Two views of the chest were obtained. The heart size and pulmonary vascularity are within normal limits. The mediastinum is normal. No acute pulmonary abnormality is identified. There is no pneumothorax. The bony thorax is intact. IMPRESSION: No active cardiopulmonary disease. Reviewed, Interpreted and Dictated by Jose Roberto Shrestha III, MD Transcribed by Marva Herrera Authenticated and . [facility]
--- NOTE | 2022-10-22 11:47 | ECG_ITS ---
APPROVED REPORT Exam: Resting ECG HR:68 bpm ECG Measurements Heart Rate 68 AXES LA 147 P 45 QRSd 91 QRS 42 QT 372 T 59 QTc 390 Conclusion SINUS RHYTHM WITH SINUS ARRHYTHMIA LOW QRS VOLTAGE IN PRECORDIAL LEADS [QRS DEFLECTION < 1.0 mV IN CHEST LEADS] Late R wave progression ABNORMAL ECG UNCONFIRMED REPORT Electronically signed by : Mac Parsons MD 10/22/2022 18:51:01
== END ==
PROVIDERS: PCP Internal Medicine Adolescent Medicine; Visit Provider Podiatrist
DX: Z01.818 Encounter for other preprocedural examination (principal); M79.662 Pain in left lower leg
CPT/HCPCS: 71046; 93005

== ENCOUNTER 2022-10-31 06:06 | Day surgery (SDC) | payer MEDICARE, OTHER, SELFPAY ==
[2022-10-29 11:13] VITALS: BMI 23.1
[2022-10-31 06:47] VITALS: BP 109/59; PULSE 68; RESP 18; TEMP 36.6; O2SAT 96
--- NOTE | 2022-10-31 07:46 | P.PN_ITS ---
[facility] Disclaimer: The information contained in this section may have been updated after the patient was seen, as this information can be updated by other users. Medical History DVT (deep venous thrombosis) Hypertension Uterine cancer Surgical History History of bunionectomy History of hysterectomy History of tonsillectomy Family History Other Family history of Alzheimer's disease Family history of cancer Social History (Updated 10/31/22 @ 06:49 by Joelle Andersen RN) Smoking Status: Former smoker quit date: 10/04/97 pack-years: 45 alcohol intake: never substance use type: denies use current occupational status: retired Travel in the last 8 weeks: None household members: none housing: house lives independently: Yes marital status: education level: high school caffeine: Yes special juana needs: No agree to transfusion: No do you feel safe at home: Yes victim of physical abuse: No victim of emotional abuse: No victim of sexual abuse: No would you like helpful sources: No [facility] Anesthesia Checklist Patient Identification Patient Identification: Arm Band Structural Data Admitted From: Home Planned Operative Procedure/s: Right 2nd Hammertoe Repair Consent for Planned Operative Procedure(s) Verified: Yes Verified Documents: Surgical Consent and History and Physical NPO Status Verified Time NPO: 00:00 Additional verifications Anesthesia Reactions: Yes (LIGHT HEADED. PT STATES SHE FELT DRUNK) Hx Blood Transfusions: No Blood Transfusion Reaction: No Airway Assessment C-Spine Mobility Assessed: Yes TMJ Mobility Assessed: Yes Dentition: Good Dentition Neurological Assessment Level of Consciousness: Awake and Alert Anesthesia Plan Anesthesia Risk discussed: Yes Anesthesia Plan: Verified ASA Class: II Anesthesia Type: MAC
--- NOTE | 2022-10-31 08:21 | EXP.OP.NOTE ---
Date of procedure: 10/31/22 Pre-op Diagnosis:: Right second hammertoe Right second toe exostosis Right second toe callus Post-op Diagnosis:: Same Procedure performed:: Right hammertoe repair (PIPJ arthroplasty) Right DIPJ AP Right partial resection of phalanx bone Right toe/foot callus debridement Surgeon:: Isabel Campo DPM [employer] INSPECTOR:: Jimi Segundo Anesthesia: MAC and local (05% raeann plain) Estimated blood loss (mL): 10 Clinical Note:: Patient is 82-year-old female who presents to the office with painful right second toe callus and hammertoe.? Patient has had an extensive work-up including right foot x-rays 06/12/22, right foot CT 07/02/2022, MRI 08/16/2022 which showed mild degenerative changes with mild hallux valgus deformity.? Forefoot soft tissue swelling noted.? ABIs 07/11/2022 were within normal limits, conclusion: No evidence of significant obstructive peripheral vascular disease of lower extremities.? Patient has also had multiple in office debridement procedures which give short-term relief of symptoms.? She has tried and failed conservative care including modification of activity, modification of shoe gear, taping, strapping, inserts, ice elevation, NSAIDs. After a long discussion with the patient in regards to the conservative versus surgical treatment for the hammertoe deformity, the patient has elected to proceed with surgery because they have failed conservative treatment and continue to have pain and worsening symptoms affecting daily activities. The patient has been instructed on the planned procedure, all risk versus benefits of the procedure to include bleeding, infection, nerve and blood vessel damage, need for further surgery, delay in healing of soft tissue or bone, failure of bones to heal, non-union, mal-union, prolonged pain and recovery, prolonged swelling, recurrence of deformity, recurrence of callus, referred pain, floating/floppy toe, CRPS/RSD, DVT/PE and anesthetic complications. No guarantees were given. All questions fully answered. The patient verbalized understanding and agreed to proceed with surgery. Written consent was obtained. Fitted/dispensed short fx boot and left foam heel lift. Patient refused Rx for walker. She will be WBaT in fx boot 2-3 wks. She will continue Xarelto, history of DVT and cancer. Necessary labs and pre-op testing reviewed. PCP Dr Parsons granted medical clearance. Operative findings:: Right second toe medial callus noted. No underlying ulceration or signs of infection noted. Bony spur noted over the medial proximal phalanx head and the entire medial phalanx was irregular with exostosis noted. Bone was soft but within normal limits for patient's age. No obvious signs of osteomyelitis appreciated. Operative note:: On this date and time patient was deemed an appropriate surgical candidate. With informed consent signed, the patient was taken to the operating theater. The patient was positioned supine. MAC anesthesia was induced. Tourniquet was applied to the right mid-calf. IV clindamycin given. Pre-op right ankle block given with 20 cc 0.5% marcaine plain. Right 2nd toe callus debridement: The right lower extremity was prepped and draped in normal sterile fashion. Callus noted to the medial aspect of the second toe over the middle and proximal phalanx. 15 blade used to sharply debride callus through thickened skin only. No underlying ulceration noted. No purulence malodor or signs of wound or infection noted. Right 2nd Digit PIPJ AD: Tourniquet inflated at 225mmHg. Attention was directed to the right 2nd toe, where a dorsal linear incision was mapped out over the PIPJ extending distally over the DIPJ. Dissection was carried thru skin and sub q tissue, with care to maintain surgical hemostasis. Transverse tenotomy performed at the PIPJ, with release of the medial and lateral collateral ligaments. The head of the proximal phalanx was removed, exposing good cancellous bone. Right 2nd Digit DIPJ AP: Attent
[2022-10-31 08:25] VITALS: BP 111/67; PULSE 80; RESP 16; TEMP 36.2; O2SAT 95
[2022-10-31 08:35] VITALS: BP 122/68; PULSE 81; RESP 16; O2SAT 96
[2022-10-31 08:45] VITALS: BP 117/74; PULSE 80; RESP 17; O2SAT 96
--- NOTE | 2022-10-31 09:00 | XR_ITS ---
FINAL REPORT CLINICAL HISTORY: Post op hammertoe repair COMPARISON: 06/12/2022 FINDINGS: AP, oblique and lateral views of the right foot were obtained. There is abnormal appearance of the head of the 2nd proximal phalanx and middle phalanx of the 2nd toe, may be postoperative but a fracture or osteomyelitis is not excluded. Overlying bandage material limits detail. There is an old fracture deformity of the 5th metatarsal. 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 IMPRESSION: Abnormal appearance of the head of the 2nd proximal phalanx and middle phalanx of the 2nd toe as detailed above. Multi joint degenerative disease. Reviewed, Interpreted and Dictated by Nancy Telles MD Transcribed by Marva Herrera Authenticated and [facility]
--- NOTE | 2022-10-31 09:48 | SUR.OPER ---
0818-family updated of patient's current status via DEIRDRE Cortez
[2022-10-31 10:04] VITALS: TEMP 43
== END 2022-10-31 09:10 | disposition home or self-care (01) ==
PROVIDERS: PCP Internal Medicine Adolescent Medicine; Visit Provider Podiatrist
PROC: (CPT 28272; principal; 2022-10-31 07:30)
DX: M20.41 Other hammer toe(s) (acquired), right foot (principal); M89.8X7 Other specified disorders of bone, ankle and foot; M19.071 Primary osteoarthritis, right ankle and foot; M79.671 Pain in right foot; I89.0 Lymphedema, not elsewhere classified; Z86.718 Personal history of other venous thrombosis and embolism; M77.51 Other enthesopathy of right foot and ankle; Z79.01 Long term (current) use of anticoagulants; Z79.899 Other long term (current) drug therapy
CPT/HCPCS: 28272; 28285; 73630; 88304; 88305; 88311; 96374; J2704

== ENCOUNTER 2022-11-07 10:26 | Day surgery (SDC) | payer MEDICARE, OTHER, SELFPAY ==
[2022-10-17 10:49] VITALS: BMI 23.1
[2022-11-07 10:54] VITALS: BP 168/93; PULSE 75; RESP 18; TEMP 36.8; O2SAT 98
--- NOTE | 2022-11-07 11:17 | EXP.ANES.CKL ---
[facility] Disclaimer: The information contained in this section may have been updated after the patient was seen, as this information can be updated by other users. Medical History DVT (deep venous thrombosis) Hypertension Uterine cancer Surgical History History of bunionectomy History of hysterectomy History of tonsillectomy Family History Other Family history of Alzheimer's disease Family history of cancer Social History Smoking Status: Former smoker quit date: 10/04/97 pack-years: 45 alcohol intake: never substance use type: denies use current occupational status: retired Travel in the last 8 weeks: None household members: none housing: house lives independently: Yes marital status: education level: high school caffeine: Yes special juana needs: No agree to transfusion: No do you feel safe at home: Yes victim of physical abuse: No victim of emotional abuse: No victim of sexual abuse: No would you like helpful sources: No [facility] Anesthesia Checklist Patient Identification Patient Identification: Arm Band and Verbal (Name & ) Structural Data Admitted From: Home Planned Operative Procedure/s: EGD Consent for Planned Operative Procedure(s) Verified: Yes NPO Status Verified Time NPO: 00:00 Additional verifications Anesthesia Reactions: Yes (LIGHT HEADED. PT STATES SHE FELT DRUNK) Hx Blood Transfusions: No Blood Transfusion Reaction: No Airway Assessment C-Spine Mobility Assessed: Yes TMJ Mobility Assessed: Yes Dentition: Partials Neurological Assessment Level of Consciousness: Awake Hx Seizures: No Numbness or tingling in extremities: No Anesthesia Plan Anesthesia Risk discussed: Yes Anesthesia Plan: Verified ASA Class: III Anesthesia Type: MAC
[2022-11-07 11:44] VITALS: O2SAT 98
--- NOTE | 2022-11-07 11:54 | HMH.SCOPE ---
Procedure: Date: 11/07/22 Patient Date of :: 1940 Procedure Performed:: EGD Indications:: The patient is an 82 year old who presents for EGD evaluation of chronic abdominal pain, vomiting, GERD Performing Provider:: Hesham Hall MD Referring Provider:: Mac Parsons MD Sedation:: See RN records Procedure:: The gastroscope was gently passed through the incisoral orifice into the oral cavity and under direct visualization the esophagus was intubated. The endoscope was passed down the esophagus, through the stomach, and into the duodenum. Color, texture, mucosa, and anatomy of the esophagus, stomach, and duodenum were carefully examined with the scope. Findings:: Oropharynx: normal Esophagus: Tortuous distal esophagus (secondary to moderate large hiatal hernia) EG Junction: Measured at 35 cm, non obstructing schatzki ring Cardia: hiatal hernia, approximately 5 cm in size Fundus: normal Body: Diffuse erythema. Biopsy obtained Antrum: Diffuse erythema. Biopsy obtained Duodenal bulb: normal Duodenum (second and third portion): normal Impression: non obstructing schatzki ring Moderately large hiatal hernia Diffuse gastric erythema Recommendations:: Continue pantoprazole 40 mg two times per day Can use famotidine 40 mg 1-2 times per day Antireflux measures discussed with patient Barium esophagram Complications:: None Estimated blood obtained (mL): 0
[2022-11-07 11:55] VITALS: BP 96/60; PULSE 74; RESP 14; TEMP 36.3; O2SAT 94
[2022-11-07 12:05] VITALS: BP 109/64; PULSE 73; RESP 17; O2SAT 96
[2022-11-07 12:15] VITALS: BP 114/77; PULSE 73; RESP 16; O2SAT 97
[2022-11-07 12:25] VITALS: BP 100/66; PULSE 68; RESP 17; TEMP 36.4; O2SAT 98
== END 2022-11-07 12:25 | disposition home or self-care (01) ==
PROVIDERS: PCP Internal Medicine Adolescent Medicine; Visit Provider Internal Medicine
PROC: 0DJ08ZZ Inspection of Upper Intestinal Tract, Via Natural or Artificial Opening Endoscopic (ICD-10-PCS; CPT 43235; principal; 2022-11-07 11:30)
DX: K21.9 Gastro-esophageal reflux disease without esophagitis (principal); R10.9 Unspecified abdominal pain; R11.10 Vomiting, unspecified; K22.2 Esophageal obstruction; K44.9 Diaphragmatic hernia without obstruction or gangrene; K29.70 Gastritis, unspecified, without bleeding; Z79.899 Other long term (current) drug therapy
CPT/HCPCS: 43239; 88305

== ENCOUNTER 2022-11-15 13:00 | Outpatient (RCR) | payer MEDICARE, OTHER, SELFPAY ==
--- NOTE | 2022-10-24 14:26 | HMH.PTOPWND ---
Rehab Outpt Wound Evaluation Rehab OP Wound Evaluation Start: 10/24/22 14:04 Freq: Status: Active Protocol: Document 10/24/22 14:19 LEANN (Rec: 10/24/22 14:26 PHORYLAN [id number]) E-signed By Cleve Joshua, PT Subjective/History History History This is the initial PT eval for Jocelyn Ramos 82 yowf who presents with c/o L LE increased edema. She has hx of Lymphedema in the L LE for many years after treatment uterine cancer including LEN. She reports this increased edema came on suddenly ~ 1 wk with no known cause. She had US performed which shows no DVT in the L LE, but she continues to have tenderness in her L calf and tingling throughout the L LE. She reports the tingling has decreased somewhat overall, as has the edema. Subjective Subjective Currently no c/o pain in the L LE, 0/10. 1+ pitting edema noted to L LE. 2/4 TTP noted to L calf, but no increased erythema or calor. Lymphedema Eval Classification of Lymphedema Secondary Lymphedema Yes Stemmer's sign Stemmer's Sign no Stage of Lymphedema Lymphedema stages Stage I (Pitting edema, reduces w/ elevation, no fibrosis) Skin Changes Dry Skin Yes Discoloration of Skin Yes Other Changes Yes Pain Scale Pain Scale (0-10) 0 Affected Extremities Areas Affected by Lymphedema/Edema Abdomen,Left Lower Extremity Manual Lymphatic Drainage Treatment Area MLD Treatment Area Abdomen,Left Lower Extremity Wound Problems/Impairments Impairments Problems/Impairmments Palpation Tenderness,Impaired Walking,Impaired Standing, Impaired Recreational Activities,Increased Edema, Lymphedema Present,Impaired Self Care/Self Management Prognosis Rehab Potential Good Clinical Impression Consistent with Diagnosis Yes Short Term Goals Number of Weeks 2 Decreased Palpation Tenderness Yes: 1/4 L calf Decrease Edema Yes: no pitting Patient to
== END 2022-11-15 13:05 | disposition home or self-care (01) ==
LOC: PT 13:00
PROVIDERS: PCP Internal Medicine Adolescent Medicine; Visit Provider Nurse Practitioner Family
DX: M79.605 Pain in left leg (principal); I89.0 Lymphedema, not elsewhere classified
CPT/HCPCS: 97140; 97162

== ENCOUNTER 2022-12-13 15:59 | Inpatient (IN) | payer MEDICARE, OTHER, SELFPAY ==
[2022-12-13] VITALS (9 sets, daily range): BP systolic 120–162; BP diastolic 73–95; PULSE 73–120; RESP 17–23; TEMP 36.5–37.1; O2SAT 92–99; BMI 22.4; BMI 23.1
--- NOTE | 2022-12-13 16:13 | PC.NURSE ---
at bedside with bedside US. VO Morphine 4mg & Jim 4mg IV
--- NOTE | 2022-12-13 16:17 | CT_ITS ---
PROCEDURE INFORMATION: Exam: CTA Abdomen and Pelvis With Contrast Exam date and time: 12/13/2022 4:49 PM Age: 82 years old Clinical indication: Abdominal pain; Generalized; Additional info: Diffuse abd pain. Hiatal hernia vs mes ischemia TECHNIQUE: Imaging protocol: Computed tomographic angiography of the abdomen and pelvis with contrast. 3D rendering (Not supervised by radiologist): MIP and/or 3D reconstructed images were created by the technologist. Radiation optimization: All CT scans at this facility use at least one of these dose optimization techniques: automated exposure control; mA and/or kV adjustment per patient size (includes targeted exams where dose is matched to clinical indication); or iterative reconstruction. Contrast material: ISOVUE 370; Contrast volume: 100 ml; Contrast route: INTRAVENOUS (IV); REPORTING DATA: Count of CT and Cardiac NM exams in prior 12 months: This patient has received 5 known CTs and 0 known cardiac nuclear medicine studies in the 12 months prior to the current study. COMPARISON: CT ABDOMEN PELVIS W CON 03/18/2022 3:57 PM FINDINGS: Aorta: No CTA evidence of aortic dissection. Celiac trunk and mesenteric arteries: No occlusion or significant stenosis. Renal arteries: No occlusion or significant stenosis. Right iliac arteries: No occlusion or significant stenosis. Left iliac arteries: No occlusion or significant stenosis. Liver: No mass. Gallbladder and bile ducts: Unremarkable. No calcified stones. No ductal dilation. Pancreas: Unremarkable. No mass. No ductal dilation. Spleen: Unremarkable. No splenomegaly. Adrenal glands: Unremarkable. No mass. Kidneys and ureters: Unremarkable. No solid mass. No hydronephrosis. Stomach and bowel: High-grade small-bowel obstruction in the pelvis. Suspect related to hysterectomy adhesion. (series 4, image 189). Appendix: No evidence of appendicitis. Intraperitoneal space: No CTA evidence of mesenteric ischemia. Lymph nodes: Unremarkable. No enlarged lymph nodes. Urinary bladder: Unremarkable. No mass. Reproductive: Hysterectomy. Bones/joints: Degenerative disc changes lumbar spine. Soft tissues: Unremarkable. IMPRESSION: 1. High-grade small-bowel obstruction in the pelvis. Suspect related to hysterectomy adhesion. (series 4, image 189). 2. Hysterectomy. 3. No CTA evidence of mesenteric ischemia. 4. No CTA evidence of aortic dissection.
--- NOTE | 2022-12-13 16:17 | CT_ITS ---
PROCEDURE INFORMATION: Exam: CTA Chest With Contrast Exam date and time: 12/13/2022 4:49 PM Age: 82 years old Clinical indication: Pain; Other: R/O dissection; Additional info: Dissectin vs hiatal hernia strangulation vs other TECHNIQUE: Imaging protocol: Computed tomographic angiography of the chest with contrast. 3D rendering (Not supervised by radiologist): MIP and/or 3D reconstructed images were created by the technologist. Radiation optimization: All CT scans at this facility use at least one of these dose optimization techniques: automated exposure control; mA and/or kV adjustment per patient size (includes targeted exams where dose is matched to clinical indication); or iterative reconstruction. Contrast material: ISOVUE 370; Contrast volume: 100 ml; Contrast route: INTRAVENOUS (IV); REPORTING DATA: Count of CT and Cardiac NM exams in prior 12 months: This patient has received 5 known CTs and 0 known cardiac nuclear medicine studies in the 12 months prior to the current study. COMPARISON: CT ABDOMEN PELVIS W CON 03/18/2022 3:57 PM FINDINGS: Pulmonary arteries: Normal. No pulmonary emboli. Aorta: Unremarkable. No aortic aneurysm. No aortic dissection. Lungs: Unremarkable. No consolidation. No masses. Pleural spaces: Unremarkable. No pneumothorax. No pleural effusion. Heart: Unremarkable. No cardiomegaly. No pericardial effusion. Mediastinal space: Fluid-filled esophagus. Lymph nodes: Unremarkable. No enlarged lymph nodes. Spleen: Splenic granulomata. Stomach and bowel: Small-bowel obstruction in the pelvis. (series 5, image 189). Reproductive: Hysterectomy. Bones/joints: Vacuum discs at all inter lumbar levels. Soft tissues: Unremarkable. IMPRESSION: 1. No CT evidence of aortic dissection. 2. Fluid-filled esophagus. 3. High-grade small-bowel obstruction in the pelvis. (series 5, image 189). 4. Vacuum discs at all inter lumbar levels.
[2022-12-13 16:24] LABS: Basophils # 0.1 K/mm3 (0-0.2); Basophils % 0.7 % (0.1-2.0); Chloride 103 mmol/L (98-107); Eosinophils # 0.1 K/mm3 (0.0-0.4); Eosinophils % 1.3 % (0.1-12.0); Hematocrit 41.4 % (37.0-47.0); Hemoglobin 13.9 g/dL (12.2-16.2); Lymphocytes % 12.5 % (10-50); Mean Corpuscular HGB Conc 33.5 g/dL (31.8-35.4); Mean Corpuscular Hemoglobin 30.3 pg (27.0-31.2); Mean Corpuscular Volume 90.2 fl (81-99); Mean Platelet Volume 7.6 fl (7.4-10.4); Monocytes # 0.5 K/mm3 (0.1-1.0); Neutrophils # 6.1 K/mm3 (1.8-7.8); Neutrophils % 79.5 % (37.0-80.0); Platelet Count 269 K/mm3 (142-424); Red Blood Count 4.59 M/mm3 (4.20-5.40); Red Cell Distribution Width 14.6 % (11.5-17.5); White Blood Count 7.6 K/mm3 (4.8-10.8)
[2022-12-13 16:25] LABS: Potassium 4.4 mmoL/L (3.5-5.1); Sodium 141 mmol/L (136-145)
[2022-12-13 16:27] LABS: Alanine Aminotransferase 28 U/L (12-78); Anion Gap 15.4 mEq/L (5-15); Aspartate Amino Transferase 31 U/L (14-36); Bilirubin,Unconjugated 0.5 mg/dL (0.0-1.1); Blood Urea Nitrogen 26 mg/dl (7-17); Carbon Dioxide 27 mmol/L (22.0-30.0); Creatinine Clearance Estimated 40 mL/min (50-200); Estimated Glomerular Filt Rate 53 ml/min (>60); GFR (African American) 64 ML/MIN (>60)
[2022-12-13 16:28] LABS: Albumin Level 4.4 g/dl (3.5-5.0); Alkaline Phosphatase 95 U/L (38-126); Bilirubin,Indirect 0.5 mg/dL (0.0-0.9); Bilirubin,Total 0.5 mg/dl (0.2-1.3); Calcium 9.5 mg/dl (8.4-10.2); Glucose 119 mg/dl (74-100); Total Protein,Serum 7.4 g/dl (6.3-8.2)
--- NOTE | 2022-12-13 16:33 | ECG_ITS ---
APPROVED REPORT Exam: Resting ECG HR:95 bpm ECG Measurements Heart Rate 95 AXES NC 164 P 65 QRSd 88 QRS 19 QT 364 T 74 QTc 417 Conclusion SINUS RHYTHM NORMAL ECG UNCONFIRMED REPORT Electronically signed by : Mac Parsons MD 12/14/2022 09:32:59
[2022-12-13 16:46] LABS: Troponin I < 0.01 ng/ml (0.00-0.034)
--- NOTE | 2022-12-13 17:04 | HMH.EDGENADL ---
Discharge Plan Disposition Patient Disposition: Home, Self-Care Condition: Fair Chief Complaint: Abdominal Pain Clinical Impressions Clinical Impression: SBO (small bowel obstruction) Discharge ED Provider: Rosas Mccall General Adult HPI General Chief complaint: Abdominal Pain Stated complaint: abd Pain Time Seen by Provider: 12/13/22 16:10 History of Present Illness HPI narrative: This is an 82-year-old female with history of Schatzki's ring of esophagus, hiatal hernia, hypertension presenting with abdominal pain. Patient states that about 4 hours prior to arrival, she had an acute onset abdominal pain while she was sitting at lunch. Had not started eating yet, but had to leave given degree of pain. Has had nausea without vomiting. Abdominal pain is diffuse, but primarily epigastric, does not radiate, 10 out of 10, associated with bloating, stomach hardness. Last bowel movement was today, 12/13, she had 2 of them and they were normal for her. No blood in her stool. No fevers, chills, dysuria, hematuria, abnormal vaginal discharge, trauma, overlying skin changes, or any other concerns. Related Data Home Medications Medication Instructions Recorded Confirmed ezetimibe 10 mg-simvastatin 20 mg 1 each PO HS Cholesterol 01/09/22 12/13/22 tablet lisinopril 10 mg tablet 10 mg PO DAILY Hypertension 01/09/22 12/13/22 pantoprazole 40 mg tablet,delayed 40 mg PO BID Acid reflux 03/18/22 12/13/22 release rivaroxaban 10 mg tablet (Xarelto) 10 mg PO QPMWITHMEAL Blood thinner 10/22/22 12/13/22 ondansetron 4 mg disintegrating 4 mg PO Q6H PRN Nausea 12/13/22 12/13/22 tablet Allergies Allergy/AdvReac Type Severity Reaction Status Date / Time Penicillins [PENICILLINS] Allergy Unknown Verified 11/27/22 09:06 hydrocodone- acetaminophen AdvReac Mild Hives Uncoded 11/15/22 14:00 [facility] Disclaimer: The information contained in this section may have been updated after the patient was seen, as this information can be updated by other users. Medical History DVT (deep venous thrombosis) Hypertension Uterine cancer Surgical History History of bunionectomy History of hysterectomy History of tonsillectomy Family History Other Family history of Alzheimer's disease Family history of cancer Social History Smoking Status: Never smoker alcohol intake: never substance use type: denies use current occupational status: retired Travel in the last 8 weeks: None household members: none housing: house lives independently: Yes marital status: education level: high school caffeine: Yes special juana needs: No agree to transfusion: No do you feel safe at home: Yes victim of physical abuse: No victim of emotional abuse: No victim of sexual abuse: No would you like helpful sources: No ROS Obtained: Yes All systems reviewed & no additional complaints except as documented Physical Exam General General appearance: alert and in distress Head Head exam: atraumatic, normocephalic and normal inspection Eye Eye exam: Present normal appearance, PERRL and EOMI ENT ENT exam: Present normal exam, normal oropharynx, mucous membranes moist, TM's normal bilaterally and normal external ear exam Neck Neck exam: Present normal inspection, full ROM and trachea midline; Absent meningismus or lymphadenopathy Chest Chest inspection: Present normal inspection and symmetric chest wall rise; Absent tenderness Respiratory Respiratory exam: Present normal lung sounds bilaterally; Absent respiratory distress Cardiovascular Cardiovascular exam: Present regular rate and normal rhythm; Absent JVD Abdominal Exam Abdominal exam: Present soft, distention, tenderness, guarding, rebound and normal b
--- NOTE | 2022-12-13 17:29 | PC.NURSE ---
Blood cultures and lactic sent to lab. Pt given ice chips, okay's per Dr. Mccall. No other needs at this time
[2022-12-13 17:40] LABS: Lipase 135 U/L (23-300)
--- NOTE | 2022-12-13 18:05 | PC.NURSE ---
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
--- NOTE | 2022-12-13 18:11 | XR_ITS ---
PROCEDURE INFORMATION: Exam: XR Abdomen Exam date and time: 12/13/2022 6:31 PM Age: 82 years old Clinical indication: Device placement; Gi device; Other: Ng tube placed; Additional info: Gatric tube placement TECHNIQUE: Imaging protocol: Radiologic exam of the abdomen. Views: Frontal supine view of the abdomen. 1 View. COMPARISON: CT ANGIO ABDOMEN PELVIS 12/13/2022 4:49 PM FINDINGS: Tubes, catheters and devices: NG tube in the stomach. Gastrointestinal tract: Normal. No bowel dilation. Bones/joints: Unremarkable. IMPRESSION: NG tube in the stomach.
[2022-12-13 18:15] LABS: Lactic Acid 2.2 mmol/L (0.7-2.1)
--- NOTE | 2022-12-13 18:45 | PC.NURSE ---
call house for admission, awaiting bed assignment
--- NOTE | 2022-12-13 19:01 | PC.NURSE ---
Patient coughed and when she did she displaced her gastric tube. Patient refusing to have another placed at this time. Attending notified
--- NOTE | 2022-12-13 19:13 | PC.NURSE ---
Patient agreeable to NG tube replacement, but would like to wait a while
--- NOTE | 2022-12-13 20:01 | PC.NURSE ---
14fr NG replaced to right nare. 55cm measured. Verified with airbolus
--- NOTE | 2022-12-13 20:08 | PC.NURSE ---
Pt arrived to floor via stretcher @ 2000
[2022-12-13 21:30] LABS: Reflex Lactic Add Lactic Reflex
[2022-12-13 22:00] LABS: Lactic Acid Follow Up (RFLX 1) 1.2 mmol/L (0.7-2.1)
[2022-12-14] VITALS (20 sets, daily range): BP systolic 103–177; BP diastolic 68–95; PULSE 68–102; RESP 14–20; TEMP 36.5–43; O2SAT 91–98; BMI 24.0
--- NOTE | 2022-12-14 02:55 | PC.NURSE ---
pt called out complaining of nausea and feeling like the tube was balled up in her throat, tube still secured at 55cm, confirmed placement by auscultating airbolus over abd. zofran admin as prescribed and pt given ice chips for throat comfort.
--- NOTE | 2022-12-14 05:40 | PC.NURSE ---
no changes from previous assessment, vss, ng to ilws, pt denies pain this am, no acute distress.
--- NOTE | 2022-12-14 06:26 | EXP.SURG.CON ---
History of Present Illness *Admission Date: 12/13/22 *Reason for visit:: Bowel obstruction *History of present illness: Patient is an 82-year-old female who had previously undergone laparoscopic hysterectomy for uterine cancer with radiation 3 years ago. She has had approximately 5 admissions for small bowel obstruction over the past year and a half which have been managed nonoperatively. Last time was in March [address] Hobson had consulted on the patient. She has had apparently some episodes at home which have been more minor and self-limited. Of note, patient had recently undergone upper endoscopy with Dr. Hall and was diagnosed with moderate hiatal hernia and Schatzki's ring. Patient presented to the emergency department in the afternoon of 12/13/2022 with acute onset of abdominal pain during lunch similar to before. She had significant nausea. She described it as severity of 10 out of 10. She had some bloating and firmness to her abdomen. She did have 2 bowel movements in the morning prior to that presentation. She was evaluated in the emergency department. She underwent CT angiogram of the abdomen which revealed findings of high-grade small bowel obstruction in the pelvis. Suspected related to hysterectomy adhesion. She had nasogastric tube placed and was admitted for inpatient management and surgical consultation. [facility] Disclaimer: The information contained in this section may have been updated after the patient was seen, as this information can be updated by other users. Medical History DVT (deep venous thrombosis) Hypertension Uterine cancer Surgical History History of bunionectomy History of hysterectomy History of tonsillectomy Family History Other Family history of Alzheimer's disease Family history of cancer Social History (Updated 12/13/22 @ 20:26 by Zandra Ortiz RN) Smoking Status: Former smoker quit date: 10/04/97 pack-years: 45 years smoked: 45 alcohol intake: never substance use type: denies use current occupational status: retired Travel in the last 8 weeks: None household members: none housing: house lives independently: Yes marital status: education level: high school caffeine: Yes physical activity: walking special juana needs: No agree to transfusion: No do you feel safe at home: Yes victim of physical abuse: No victim of emotional abuse: No victim of sexual abuse: No would you like helpful sources: No Meds Home Medications and Allergies Home Medications Medication Instructions Recorded Confirmed Type ezetimibe 10 mg-simvastatin 20 mg 1 each PO HS Cholesterol 01/09/22 12/13/22 History tablet lisinopril 10 mg tablet 10 mg PO DAILY Hypertension 01/09/22 12/13/22 History pantoprazole 40 mg tablet,delayed 40 mg PO BID Acid reflux 03/18/22 12/13/22 History release rivaroxaban 10 mg tablet (Xarelto) 10 mg PO QPMWITHMEAL Blood thinner 10/22/22 12/13/22 History ondansetron 4 mg disintegrating 4 mg PO Q6H PRN Nausea 12/13/22 12/13/22 History tablet New Prescriptions to Start Prescriptions: Allergies Allergy/AdvReac Type Severity Reaction Status Date / Time Penicillins [PENICILLINS] Allergy Unknown Verified 11/27/22 09:06 hydrocodone- acetaminophen AdvReac Mild Hives Uncoded 11/15/22 14:00 Exam (Inpt) Vital signs and Labs for Last 24 Hours: Temp Pulse Resp BP Pulse Ox 98.2 F 74 18 103/68 L 94 L 12/14/22 04:00 12/14/22 04:00 12/14/22 04:00 12/14/22 04:00 12/14/22 04:00 Laboratory Results - last 24 hr 12/13/22 16:11: WBC 7.6, RBC 4.59, Hgb 13.9, Hct 41.4, MCV 90.2, MCH 30.3, MCHC 33.5, RDW 14.6, Plt Count 269, MPV 7.6, Neut % (Auto) 79.5, Lymph % (Auto) 12.5, [place] % (Auto) 6.0, Eos % (Auto) 1.3, Baso % (Auto) 0.7, Neut #
--- NOTE | 2022-12-14 06:35 | FL_ITS ---
FINAL REPORT CLINICAL HISTORY: SMALL BOWEL OBSTRUCTION, incomplete, pt taken to sx. FINDINGS: SMALL BOWEL SERIES There is significant distension of small bowel loops measuring up to 4.2 2 cm up to a 5 hour radiograph. Findings are worrisome for small bowel obstruction. IMPRESSION: Findings worrisome for small bowel obstruction. Reviewed, Interpreted and Dictated by Jose Roberto Shrestha III, MD Transcribed by Cindy Berumen Authenticated and [facility]
--- NOTE | 2022-12-14 09:03 | EXP.HP ---
History of Present Illness *Admission Date: 12/13/22 *History of present illness: Patient is an 82-year-old female who had previously undergone laparoscopic hysterectomy for uterine cancer with radiation 3 years ago. She has had approximately 5 admissions for small bowel obstruction over the past year and a half which have been managed nonoperatively. Last time was in March [address] Hobson had consulted on the patient. She has had apparently some episodes at home which have been more minor and self-limited. Of note, patient had recently undergone upper endoscopy with Dr. Hall and was diagnosed with moderate hiatal hernia and Schatzki's ring. Patient presented to the emergency department in the afternoon of 12/13/2022 with acute onset of abdominal pain during lunch similar to before. She had significant nausea. She described it as severity of 10 out of 10. She had some bloating and firmness to her abdomen. She did have 2 bowel movements in the morning prior to that presentation. She was evaluated in the emergency department. She underwent CT angiogram of the abdomen which revealed findings of high-grade small bowel obstruction in the pelvis. Suspected related to hysterectomy adhesion. She had nasogastric tube placed and was admitted for inpatient management and surgical consultation. Above Per general surgery consult note. Agree with history. [facility] Disclaimer: The information contained in this section may have been updated after the patient was seen, as this information can be updated by other users. Medical History DVT (deep venous thrombosis) Hypertension Uterine cancer Surgical History History of bunionectomy History of hysterectomy History of tonsillectomy Family History Other Family history of Alzheimer's disease Family history of cancer Social History (Updated 12/13/22 @ 20:26 by Zandra Ortiz RN) Smoking Status: Former smoker quit date: 10/04/97 pack-years: 45 years smoked: 45 alcohol intake: never substance use type: denies use current occupational status: retired Travel in the last 8 weeks: None household members: none housing: house lives independently: Yes marital status: education level: high school caffeine: Yes physical activity: walking special juana needs: No agree to transfusion: No do you feel safe at home: Yes victim of physical abuse: No victim of emotional abuse: No victim of sexual abuse: No would you like helpful sources: No Meds Home Medications and Allergies Home Medications Medication Instructions Recorded Confirmed Type ezetimibe 10 mg-simvastatin 20 mg 1 each PO HS Cholesterol 01/09/22 12/13/22 History tablet lisinopril 10 mg tablet 10 mg PO DAILY Hypertension 01/09/22 12/13/22 History pantoprazole 40 mg tablet,delayed 40 mg PO BID Acid reflux 03/18/22 12/13/22 History release rivaroxaban 10 mg tablet (Xarelto) 10 mg PO QPMWITHMEAL Blood thinner 10/22/22 12/13/22 History ondansetron 4 mg disintegrating 4 mg PO Q6H PRN Nausea 12/13/22 12/13/22 History tablet New Prescriptions to Start Prescriptions: Allergies Allergy/AdvReac Type Severity Reaction Status Date / Time Penicillins [PENICILLINS] Allergy Unknown Verified 11/27/22 09:06 hydrocodone- acetaminophen AdvReac Mild Hives Uncoded 11/15/22 14:00 Exam Data for Last 24 hours Vital signs and Labs for Last 24 Hours: Temp Pulse Resp BP Pulse Ox 98.3 F 68 18 121/72 94 L 12/14/22 08:00 12/14/22 08:00 12/14/22 08:00 12/14/22 08:00 12/14/22 08:00 Laboratory Results - last 24 hr 12/13/22 16:11: WBC 7.6, RBC 4.59, Hgb 13.9, Hct 41.4, MCV 90.2, MCH 30.3, MCHC 33.5, RDW 14.6, Plt Count 269, MPV 7.6, Neut % (Auto) 79.5, Lymph % (Auto) 12.5, [place] % (Auto) 6.0,
--- NOTE | 2022-12-14 10:17 | HMH.PHAINT1 ---
Pharmacy Intervention Comments: MEDICATION RECONCILIATION COMPLETED ON PATIENT USING EXTERNAL FILL HISTORY FROM PHARMACY. -PRISCA CHAN, LALITD
--- NOTE | 2022-12-14 10:55 | PC.NURSE ---
courtesy tech note; rounded on pt, pt requested ice, notified nurse, informed pt she is NPO. pt denied the need to use the bathroom and need to reposition. call light within reach, no further requests at this time. Nikolas San, SRNA
[2022-12-14 11:12] LABS: Coronavirus 19, PCR Not Detected (NotDetected); Influenza A, PCR Not Detected (NotDetected); Influenza B, PCR Not Detected (NotDetected)
--- NOTE | 2022-12-14 15:21 | P.PN_ITS ---
[facility] Disclaimer: The information contained in this section may have been updated after the patient was seen, as this information can be updated by other users. Medical History DVT (deep venous thrombosis) Hypertension Uterine cancer Surgical History History of bunionectomy History of hysterectomy History of tonsillectomy Family History Other Family history of Alzheimer's disease Family history of cancer Social History (Updated 12/13/22 @ 20:26 by Zandra Ortiz RN) Smoking Status: Former smoker quit date: 10/04/97 pack-years: 45 years smoked: 45 alcohol intake: never substance use type: denies use current occupational status: retired Travel in the last 8 weeks: None household members: none housing: house lives independently: Yes marital status: education level: high school caffeine: Yes physical activity: walking special juana needs: No agree to transfusion: No do you feel safe at home: Yes victim of physical abuse: No victim of emotional abuse: No victim of sexual abuse: No would you like helpful sources: No [facility] Anesthesia Checklist Patient Identification Patient Identification: Arm Band Structural Data Admitted From: Home Planned Operative Procedure/s: Exploratory Laparotomy Consent for Planned Operative Procedure(s) Verified: Yes Verified Documents: Surgical Consent and History and Physical NPO Status Verified Time NPO: 00:00 Additional verifications Anesthesia Reactions: Yes (LIGHT HEADED. PT STATES SHE FELT DRUNK) Hx Blood Transfusions: No Blood Transfusion Reaction: No Airway Assessment C-Spine Mobility Assessed: Yes TMJ Mobility Assessed: Yes Dentition: Good Dentition Neurological Assessment Level of Consciousness: Awake and Alert Anesthesia Plan Anesthesia Risk discussed: Yes Anesthesia Plan: Verified ASA Class: III Anesthesia Type: General
--- NOTE | 2022-12-14 15:50 | PC.NURSE ---
courtesy tech note; 0300 rounded on pt, pt denied need to void and need to reposition in bed. call light within reach, no further requests at this time. Nikolas San, SRNA
--- NOTE | 2022-12-14 16:05 | PC.NURSE ---
courtesy tech note; 0300 rounded on pt family member, pt not in room at this time, in surgery, pt family member denied the need for drink. call light within reach, no further requests at this time. Nikolas San, SRNA
--- NOTE | 2022-12-14 16:22 | EXP.OP.NOTE ---
Date of procedure: 12/14/22 Pre-op Diagnosis:: Small bowel obstruction Post-op Diagnosis:: Same Procedure performed:: Exploratory laparotomy with small bowel resection and primary anastomosis for obstruction Surgeon:: Jose Roberto Avendano MD WHEAT INSPECTOR:: Jimi Segundo Anesthesia: GETJose Alejandro Estimated blood loss (mL): 25 Clinical Note:: Patient is an 82-year-old female who had previously undergone laparoscopic hysterectomy for uterine cancer with radiation 3 years ago.? She has had approximately 5 admissions for small bowel obstruction over the past year and a half which have been managed nonoperatively.? Last time was in March [address] Hobson had consulted on the patient.? She has had apparently some episodes at home which have been more minor and self-limited for which she did not seek medical treatment.? Of note, patient had recently undergone upper endoscopy with Dr. Hall and was diagnosed with moderate hiatal hernia and Schatzki's ring.? Patient presented to the emergency department in the afternoon of 12/13/2022 with acute onset of abdominal pain during lunch similar to before.? She had significant nausea.? She described it as severity of 10 out of 10.? She had some bloating and firmness to her abdomen.? She did have 2 bowel movements in the morning prior to that presentation.? She was evaluated in the emergency department.? She underwent CT angiogram of the abdomen which revealed findings of high-grade small bowel obstruction in the pelvis.? Suspected related to hysterectomy adhesion. ? She had nasogastric tube placed and was admitted for inpatient management and surgical consultation. It was felt that it was highly likely that the patient would need surgical intervention which she was seen as a consultation. She seemed to have ongoing symptoms and findings consistent with obstruction. She has had numerous admissions for bowel obstruction. She remained symptomatic after nasogastric tube placement. Very long discussion was held with the patient and plan was made to proceed with small bowel follow-through to assess degree of obstruction. She was administered oral contrast. She had significant pain with administration of oral contrast and had actually vomited. Serial x-rays for small bowel follow-through after about 6 hours revealed limited advancement of contrast with residual contrast (which had not been vomited) remaining in multiple loops of dilated small bowel. Patient was reexamined. She has some tenderness in the right lower abdomen with voluntary guarding. Once again, very prolonged discussion was held with the patient as it was felt that she needed surgical intervention at this time. Plan was made for laparotomy. Operative findings:: Patient had an essentially complete distal small bowel obstruction with dilated proximal small bowel completely decompressed towards the ileum. 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 Most distal stricture was seemingly the most stenotic. There was feculent material in the small bowel proximal to this and undigested food matter palpable. Operative note:: Consent was obtained and patient was taken to the operating room. She was given preoperative intravenous antibiotics. In the operating room she was placed in a supine position. General anesthesia was induced via endotracheal tube. Chan catheter was placed. Abdomen was prepped and draped in the standard surgical fashion. Low midline incision was made. Dissection was carried down through subcutaneous tissues. Fascial layers were incised. Peritoneum was elevated and carefully incised. There was some fluid within the abdomen which was suctioned free. Exposure was achieved. She had multiple loops of dilated small bowel. This was eviscerated and traced distally. There appeared to be multiple concentric fibrotic strictures in the distal small bowel likely from previous radiation e
--- NOTE | 2022-12-14 16:43 | EXP.ANES.I ---
[facility] Anesthesia Record Part I Anesthesia Record I Intake, IV Amount: 1,500 Estimated blood loss (mL): 50 Urine output (mL): 25 Blood Pressure: 163/88 SaO2: 98 Pulse Rate: 88 Respiratory Rate: 16 Temperature: 97.8 F Patient is:: Drowsy and Stable Stable to PACU at:: 16:40
--- NOTE | 2022-12-14 17:31 | SUR.PHASEI ---
Detailed report called to Nikolas Cochran RN @ 2160. Pt transported via bed w/ O2 to floor and left in care of Nikolas Cochran RN. Site observed @ bedside. Son @ bedside. Bed left in lowest locked position. Call lorene w/in reach. VSS.
--- NOTE | 2022-12-14 17:32 | PC.NURSE ---
PER DR LUZ, CAROL NOT TO BE GIVEN UNIL TOMORROW. WILL DC ON OCT FOR DOSE SCHEDULED FOR NOW.
--- NOTE | 2022-12-14 18:02 | PC.NURSE ---
A&OX4. RESPIRATIONS REGULAR AND UNLABORED. DIMINISHED LUNG SOUNDS NOTED THROUGHOUT. NO COUGH NOTED. HEART RATE REGULAR. +2 PULSES NOTED THROUGHOUT. LLE +3 NONPITTING EDEMA NOTED. DISTENDED, SOFT, TENDER ABDOMEN NOTED. HYPOACTIVE BOWEL SOUNDS NOTED. NO BM REPORTED THIS SHIFT. PT VOIDS PER BATHROOM INDEPENDENTLY. PT HAS BEEN ON RA BUT WAS PLACED ON 2L NC AFTER RECEIVING PAIN MEDICATION. AFTER SURGERY A QUIGLEY CATH WAS PLACED, QUIGLEY CURRENTLY INTACT, NO KINKS NOTED, YELLOW URINE DRAINING INTO BAG. NO BM REPORTED. HAND PHOTO PRODUCER EQUAL. NG TUBE NOTED TO R NARE ON CONTINUOUS LOW WALL SUCTION. PT TOLERATING WELL. DRESSING AFTER SURGERY IS A MIDLINE INCISION WITH TELFA AND TEGADERM. SEROSANGINIOUS DRAINAGE NOTED. OUTLINED WITH A MARKER. WILL CONTINUE TO MONITOR. PT HAS HAD SIPS AND CHIPS ONLY AFTER SURGERY TOLERATING WELL. AFTER SURGERY PT REPORTED PAIN AND RECEIVED PAIN PER MAR. CALL LIGHT WITHIN REACH. BED IN LOWEST POSITION. NO QUESTIONS OR CONCERNS VOICED AT THIS TIME. WILL CONTINUE TO MONITOR. NS INFUSING AT 100ML/HR.
[2022-12-14 19:15] LABS: Microscopic,Cath URINE MICROSCOPIC (MICROSCOPIC)
[2022-12-14 20:40] LABS: Appearance,Urine/Cath CLEAR (Clear); Bilirubin,Cath Negative (Negative); Blood, Urine/Cath Negative (Negative); Color,Urine/Cath YELLOW (Yellow); Glucose,Urine/Cath (UA) Negative (Negative); Ketones,Urine/Cath 1+ (Negative); Leukocyte Esterase,Cath Negative (Negative); Nitrate,Cath Negative (Negative); PH,Urine/Cath 6.5 (5.0-8.5); Protein,Urine/Cath Negative (Negative); Specific Gravity, Urine/Cath 1.015 (1.005-1.030); Urobilinogen,Cath 0.2 EU/dl (0.2)
[2022-12-14 20:55] LABS: Bacteria,Urine/Cath TRACE /lpf; Squamous Epithelial Ur./Cath Occasional #/hpf (0-5)
[2022-12-15] VITALS (7 sets, daily range): BP systolic 119–165; BP diastolic 69–85; PULSE 83–100; RESP 16–20; TEMP 36.5–37.6; O2SAT 92–95; BMI 24.8
--- NOTE | 2022-12-15 08:28 | EXP.ACUTE.PN ---
Subjective *Date: 12/15/22 *Time: 08:28 Interval history: Surgical operative notes reviewed. Intervention appreciated. Patient feels much better with less pain. Wonders about when her NG tube can come out. Aggressively eating ice chips. Is able to pull 2000 mL on her incentive spirometry. Medical Exam Vital signs and Labs for Last 24 Hours: Vital Signs Temp Pulse Pulse Resp BP BP Pulse Ox 12/15/22 08:00 97.7 F 86 18 131/76 94 L 12/15/22 04:00 99.6 F 96 H 20 130/74 94 L 12/15/22 00:00 98.0 F 100 H 16 130/69 92 L 12/14/22 23:00 97.7 F 101 H 16 141/79 H 91 L 12/14/22 22:00 97.8 F 102 H 18 143/78 H 91 L 12/14/22 21:00 98.0 F 102 H 18 149/80 H 92 L 12/14/22 20:00 98.0 F 99 H 20 152/81 H 91 L 12/14/22 19:30 98.0 F 101 H 18 151/82 H 91 L 12/14/22 19:00 97.7 F 97 H 16 137/75 91 L 12/14/22 18:30 97.9 F 97 H 18 150/71 H 96 12/14/22 18:00 97.9 F 98 H 16 144/81 H 94 L 12/14/22 17:30 97.8 F 93 H 20 162/95 H 92 L 12/14/22 17:45 97.8 F 92 H 18 159/89 H 93 L 12/14/22 17:15 97.8 F 90 20 143/88 H 95 12/14/22 17:00 92 H 14 163/92 H 96 12/14/22 17:10 98.5 F 91 H 17 165/85 H 97 12/14/22 16:50 92 H 14 177/91 H 96 12/14/22 16:40 97.8 F 88 16 163/88 H 98 12/14/22 09:15 94 L 12/14/22 16:44 97.8 F 88 16 163/88 H Intake and Output 12/14/22 12/15/22 12/15/22 19:59 03:59 11:59 Intake Total 2367 / 3340 973 / 3340 Output Total 1000 / 1725 0 / 1725 725 / 1725 Balance 1367 / 1615 0 / 1615 248 / 1615 Intake: Intake, Oral Amount 0 / 0 Intake, Total IV Amount 2367 / 3340 973 / 3340 0.9 % Sodium Chloride 1000ML 1, 867 / 1840 973 / 1840 000 ml @ 100 mls/hr IV .Q10H [facility] Rx#:[id number] Output: Output, Urine Amount 100 / 625 0 / 625 525 / 625 Output, Gastric Drainage Amount 900 / 1100 200 / 1100 Right Nare 900 / 1100 200 / 1100 Other: Number of Voids 0 Weight 149 lb 0.52 oz Patient Weight 12/15/22 11:59 Weight 149 lb 0.52 oz Laboratory Results - last 24 hr 12/13/22 16:12: SARS-CoV-2 (PCR) Not detected, Influenza A Untype (PCR) Not detected, Influenza Type B (PCR) Not detected 12/14/22 14:40: Urine Color Yellow, Urine Appearance Clear, Urine pH 6.5, Ur Specific [place] 1.015, Urine Protein Negative, Urine Glucose (UA) Negative, Urine Ketones 1+, Urine Blood Negative, Urine Nitrate Negative, Urine Bilirubin Negative, Urine Urobilinogen 0.2, Ur Leukocyte Esterase Negative, Urine RBC None, Urine WBC None, Ur Squamous Epith Cells Occasional, Urine Bacteria Trace I & O for Labs for Last 24 Hours: Intake & Output 12/12/22 12/13/22 12/14/22 12/15/22 11:59 11:59 11:59 11:59 Intake Total 730 / 730 3340 / 3340 Output Total 500 / 500 1725 / 1725 Balance 230 / 230 1615 / 1615 Weight 144 lb 9.972 oz 149 lb 0.52 oz Comment:: NG tube in the left nostril. Heart rate regular. Lungs are clear and well-expanded. Heart rate regular. Abdomen soft, scar looks good. Some tenderness around the scar. No CVA tenderness. No distal edema or clubbing. Good distal perfusion Assessment and Plan *Assessment and plan (1) SBO (small bowel obstruction): Status: Acute Category: Medical Code(s): K56.609 - Unspecified intestinal obstruction, unspecified as to partial versus complete obstruction Plan Appreciate surgical consultation. Patient is doing well. Reinforced need for incentive spirometry. Minimal eating of ice chips. Surgery will decide about NG tube removal over the next day or so. PT/OT evaluation for early mobilization. Compression devices on for DVT prevention. Start IV Protonix.
[2022-12-15 09:27] LABS: Chloride 111 mmol/L (98-107)
[2022-12-15 09:28] LABS: Basophils % 0.1 % (0.1-2.0); Eosinophils % 0.2 % (0.1-12.0); Hematocrit 35.7 % (37.0-47.0); Hemoglobin 11.5 g/dL (12.2-16.2); Lymphocytes # 0.6 K/mm3 (0.7-4.5); Lymphocytes % 9.2 % (10-50); Mean Corpuscular HGB Conc 32.1 g/dL (31.8-35.4); Mean Corpuscular Hemoglobin 29.6 pg (27.0-31.2); Mean Corpuscular Volume 92.1 fl (81-99); Mean Platelet Volume 7.7 fl (7.4-10.4); Monocytes # 0.5 K/mm3 (0.1-1.0); Monocytes % 8.4 % (1.7-9.3); Neutrophils # 5.1 K/mm3 (1.8-7.8); Neutrophils % 82.1 % (37.0-80.0); Platelet Count 194 K/mm3 (142-424); Red Blood Count 3.88 M/mm3 (4.20-5.40); Red Cell Distribution Width 14.8 % (11.5-17.5); Sodium 143 mmol/L (136-145); White Blood Count 6.3 K/mm3 (4.8-10.8)
[2022-12-15 09:30] LABS: Blood Urea Nitrogen 17 mg/dl (7-17); Creatinine Clearance Estimated 45 mL/min (50-200); Estimated Glomerular Filt Rate 60 ml/min (>60); GFR (African American) 72 ML/MIN (>60)
[2022-12-15 09:31] LABS: Calcium 7.5 mg/dl (8.4-10.2); Carbon Dioxide 26 mmol/L (22.0-30.0); Glucose 121 mg/dl (74-100)
--- NOTE | 2022-12-15 09:36 | P.PN_ITS ---
Subjective Narrative: Patient actually feels better. No flatus or bowel movements. Taking in significant amounts of ice chips. Exam Data for Last 24 hours Vital signs and Labs for Last 24 Hours: Temp Pulse Resp BP Pulse Ox 97.7 F 86 18 131/76 94 L 12/15/22 08:00 12/15/22 08:00 12/15/22 08:00 12/15/22 08:00 12/15/22 08:00 Laboratory Results - last 24 hr 12/13/22 16:12: SARS-CoV-2 (PCR) Not detected, Influenza A Untype (PCR) Not detected, Influenza Type B (PCR) Not detected 12/14/22 14:40: Urine Color Yellow, Urine Appearance Clear, Urine pH 6.5, Ur Specific [place] 1.015, Urine Protein Negative, Urine Glucose (UA) Negative, Urine Ketones 1+, Urine Blood Negative, Urine Nitrate Negative, Urine Bilirubin Negative, Urine Urobilinogen 0.2, Ur Leukocyte Esterase Negative, Urine RBC None, Urine WBC None, Ur Squamous Epith Cells Occasional, Urine Bacteria Trace 12/15/22 09:15: Sodium 143, Potassium 4.0, Chloride 111 H, Carbon Dioxide 26, Anion Gap 10.0, BUN 17 D, Creatinine 0.90, Estimated Creat Clear 45, Estimated GFR 60, Est GFR ( Amer) 72, Glucose 121 H, Calcium 7.5 L 12/15/22 09:15: WBC 6.3, RBC 3.88 L, Hgb 11.5 L, Hct 35.7 L, MCV 92.1, MCH 29.6, MCHC 32.1, RDW 14.8, Plt Count 194 D, MPV 7.7, Neut % (Auto) 82.1 H, Lymph % (Auto) 9.2 L, [place] % (Auto) 8.4, Eos % (Auto) 0.2, Baso % (Auto) 0.1, Neut # (Auto) 5.1, Lymph # (Auto) 0.6 L, [place] # (Auto) 0.5, Eos # (Auto) 0.0, Baso # (Auto) 0.0 I & O for Last 24 hours: Intake & Output 12/12/22 12/13/22 12/14/22 12/15/22 11:59 11:59 11:59 11:59 Intake Total 730 / 730 3340 / 3340 Output Total 500 / 500 1725 / 1725 Balance 230 / 230 1615 / 1615 Weight 144 lb 9.972 oz 149 lb 0.52 oz *Routine Abdominal Exam Comments: Somewhat distended. Some serosanguineous drainage on dressing. Progress Note: A&P Assessment and plan (1) SBO (small bowel obstruction): Status: Acute Assessment and plan: LOUIS Chan. Continue NG for now. Out of bed to chair. May chew gum.
--- NOTE | 2022-12-15 13:59 | HMH.PTEV ---
Physical Therapy Evaluation Rehab PT IP Evaluation Start: 12/15/22 08:29 Freq: ONCE Status: Active Protocol: Document 12/15/22 13:31 PDESEROUX (Rec: 12/15/22 13:58 [email or web address] [id number]) Subjective/History History History Pt. is a 82 year old female who presents to [facility] 2nd floor Inpatient care for Physical Therapy consult this date(12/15/22) w/ a PMH including history of bowel obstructions, DVT, Lymphedema, Uterine Cancer, and Hypertension. Pt. reports she was admitted to the hospital two days ago on 12/13/22 w/ P! in her abdominal region and given history of bowel obstructions. Pt. reports having some P! in the abdominal region today() secondary to yesterday's( 12/14/22) surgery that was an exploratory laparotomy w/ small bowel resection and primary anastomosis for obstruction. Pt. vocalizes abdominal P! increases w/ exertion, but states having relief from P! w/ prescribed pain medication. Pt. reports she lives alone in a 1-story home w/ no stairs on the inside. Pt. reports prior to admittance into hospital she was ambulating up to 3 miles a day indpenendtly. Pt. reports being very eager to return to [facility]. Subjective Subjective Pt. notes some P! in the abdominal region secondary to surgery yesterday(12/14/22), but reports having relief w/ pain medicine. Pt. very eager and willingly to participate in Physical Therapy initial evaluation. Pt. was awake and upright in hospital bed upon being welcomed into room by pt. w/ son sitting in chair bed side.
--- NOTE | 2022-12-15 17:09 | PC.NURSE ---
PT IS RESTING IN BED. ALERT AND ORIENTED X4. PT HAS BEEN TOLERATING ICE CHIPS. MEDICATED PER MAR FOR DISCOMFORT. CATHETER WAS DC'D THIS SHIFT. PT WAS ABLE TO TOLERATE GETTING OOB AND WORKING WITH PHYSICAL THERAPY. MIDLINE INCISION WITH DRESSING. LUNG SOUNDS CLEAR. ABDOMEN SOFT/TENDER WITH HYPOACTIVE BOWEL SOUNDS. WILL CONTINUE TO MONITOR.
--- NOTE | 2022-12-15 17:10 | P.PNANES_ITS ---
[facility] Anesthesia Record Part II Anesthesia Record Part II Discharge Time: 17:10 Destination: Medical Surgical Department PACU nurse assessment reviewed?: Yes Patient Condition:: Good Anesthesia Complications:: None Swallowing reflex intact?: Yes Cyanosis?: No Blood Pressure: 165/85 Pulse Rate: 91 Temperature: 98.5 F Mental Status: Alert & Oriented Pain level:: 0 Nausea and/or vomitting:: None Intake, IV Amount: 0
--- NOTE | 2022-12-15 17:46 | PC.NURSE ---
PT'S NG TUBE FELL OUT WHILE AMBULATING TO THE BATHROOM. PT STATED SHE WOULD PREFER THAT NG TUBE DID NOT HAVE TO BE REINSERTED. NOTIFIED AND HE STATED PT NEEDED TO BE TOTALLY NPO. PT HAD 100 ML'S OF DRAINAGE THIS SHIFT.
[2022-12-16] VITALS: BP 141/65; PULSE 90; RESP 16; TEMP 37.1; O2SAT 94
[2022-12-16 04:00] VITALS: BP 133/69; PULSE 92; RESP 16; TEMP 36.8; O2SAT 90; BMI 24.8
[2022-12-16 07:17] LABS: Basophils % 0.5 % (0.1-2.0); Eosinophils # 0.1 K/mm3 (0.0-0.4); Hematocrit 31.4 % (37.0-47.0); Hemoglobin 10.4 g/dL (12.2-16.2); Lymphocytes # 0.4 K/mm3 (0.7-4.5); Lymphocytes % 7.9 % (10-50); Mean Corpuscular HGB Conc 33.3 g/dL (31.8-35.4); Mean Corpuscular Hemoglobin 30.7 pg (27.0-31.2); Mean Corpuscular Volume 92.2 fl (81-99); Mean Platelet Volume 7.8 fl (7.4-10.4); Monocytes # 0.3 K/mm3 (0.1-1.0); Monocytes % 5.8 % (1.7-9.3); Neutrophils # 4.4 K/mm3 (1.8-7.8); Neutrophils % 84.8 % (37.0-80.0); Platelet Count 169 K/mm3 (142-424); Red Cell Distribution Width 14.5 % (11.5-17.5); White Blood Count 5.2 K/mm3 (4.8-10.8)
[2022-12-16 07:22] LABS: Chloride 111 mmol/L (98-107); Potassium 3.6 mmoL/L (3.5-5.1); Sodium 142 mmol/L (136-145)
[2022-12-16 07:25] LABS: Blood Urea Nitrogen 15 mg/dl (7-17); Creatinine Clearance Estimated 45 mL/min (50-200); Estimated Glomerular Filt Rate 68 ml/min (>60); GFR (African American) 83 ML/MIN (>60)
[2022-12-16 07:26] LABS: Anion Gap 10.6 mEq/L (5-15); Calcium 7.5 mg/dl (8.4-10.2); Carbon Dioxide 24 mmol/L (22.0-30.0); Glucose 107 mg/dl (74-100)
[2022-12-16 08:00] VITALS: BP 123/67; PULSE 86; RESP 18; TEMP 36.9; O2SAT 91
--- NOTE | 2022-12-16 08:54 | EXP.ACUTE.PN ---
Subjective *Date: 12/16/22 *Time: 08:54 Interval history: Overall patient feels better. Did require some IV pain medicine overnight. Has been up and going to the restroom. Chan catheters been out and she is doing well with this. She lost her NG tube accidentally early this morning when she bent over in the restroom. Feels good and has had no vomiting. Has been chewing some gum but no swallowing. Reports no flatus or stool production. Feels like her mouth is dry. Medical Exam Vital signs and Labs for Last 24 Hours: Vital Signs Temp Pulse Pulse Resp BP BP Pulse Ox 12/16/22 08:00 98.5 F 86 18 123/67 91 L 12/16/22 04:00 98.2 F 92 H 16 133/69 90 L 12/16/22 00:00 98.8 F 90 16 141/65 H 94 L 12/15/22 20:00 98.2 F 98 H 16 146/82 H 93 L 12/15/22 15:29 98.2 F 83 18 119/71 94 L 12/15/22 11:50 99.0 F 90 18 135/75 95 12/15/22 17:11 98.5 F 91 H 165/85 H Intake and Output 12/15/22 12/16/22 12/16/22 19:59 03:59 11:59 Intake Total 798 / 798 Output Total 400 / 600 200 / 600 Balance 798 / 198 -400 / 198 -200 / 198 Intake: Intake, Oral Amount 0 / 0 Intake, Total IV Amount 798 / 798 0.9 % Sodium Chloride 1000ML 1, 798 / 798 000 ml @ 100 mls/hr IV .Q10H [facility] Rx#:[id number] Output: Output, Urine Amount 400 / 600 200 / 600 Other: Number of Unmeasured Voids 1 1 Weight 149 lb 0.52 oz Patient Weight 12/16/22 11:59 Weight 149 lb 0.52 oz Laboratory Results - last 24 hr 12/15/22 09:15: Sodium 143, Potassium 4.0, Chloride 111 H, Carbon Dioxide 26, Anion Gap 10.0, BUN 17 D, Creatinine 0.90, Estimated Creat Clear 45, Estimated GFR 60, Est GFR ( Amer) 72, Glucose 121 H, Calcium 7.5 L 12/15/22 09:15: WBC 6.3, RBC 3.88 L, Hgb 11.5 L, Hct 35.7 L, MCV 92.1, MCH 29.6, MCHC 32.1, RDW 14.8, Plt Count 194 D, MPV 7.7, Neut % (Auto) 82.1 H, Lymph % (Auto) 9.2 L, [place] % (Auto) 8.4, Eos % (Auto) 0.2, Baso % (Auto) 0.1, Neut # (Auto) 5.1, Lymph # (Auto) 0.6 L, [place] # (Auto) 0.5, Eos # (Auto) 0.0, Baso # (Auto) 0.0 12/16/22 06:53: WBC 5.2, RBC 3.40 L, Hgb 10.4 L, Hct 31.4 L, MCV 92.2, MCH 30.7, MCHC 33.3, RDW 14.5, Plt Count 169, MPV 7.8, Neut % (Auto) 84.8 H, Lymph % (Auto) 7.9 L, [place] % (Auto) 5.8, Eos % (Auto) 1.0, Baso % (Auto) 0.5, Neut # (Auto) 4.4, Lymph # (Auto) 0.4 L, [place] # (Auto) 0.3, Eos # (Auto) 0.1, Baso # (Auto) 0.0 12/16/22 06:53: Sodium 142, Potassium 3.6, Chloride 111 H, Carbon Dioxide 24, Anion Gap 10.6, BUN 15, Creatinine 0.80, Estimated Creat Clear 45, Estimated GFR 68, Est GFR ( Amer) 83, Glucose 107 H, Calcium 7.5 L I & O for Labs for Last 24 Hours: Intake & Output 12/13/22 12/14/22 12/15/22 12/16/22 11:59 11:59 11:59 11:59 Intake Total 730 / 730 3340 / 3340 798 / 798 Output Total 500 / 500 2024 / 2024 600 / 600 Balance 230 / 230 1315 / 1315 198 / 198 Weight 144 lb 9.972 oz 149 lb 0.52 oz 149 lb 0.52 oz Microbiology Reports for the Last 24 Hours: Microbiology 12/13/22 17:21 Blood Blood Culture - Preliminary NO GROWTH AFTER 48 HOURS 12/13/22 17:18 Blood Blood Culture - Preliminary NO GROWTH AFTER 48 HOURS Comment:: Alert, pleasant. Talkative. Lungs clear. She is able to pull 1500 mL on the incentive spirometer with excellent technique. Heart rate regular. Abdominal scar looks good. Distended but not really tender. Distal extremities warm and well-perfused. Neurologically intact Assessment and Plan *Assessment and plan (1) SBO (small bowel obstruction): Status: Acute Category: Medical Code(s): K56.609 - Unspecified intestinal obstruction, unspecified as to partial versus complete obstruction Plan Appreciate surgical consultation. Patient is doing well. Reinforced need for incentive spirometry. Minimal eating of ice chips. Surgery will decide about NG tube removal over the next day or so. PT/OT sandra
--- NOTE | 2022-12-16 11:38 | XR_ITS ---
PROCEDURE INFORMATION: Exam: XR Complete Acute Abdomen Series Including Chest Exam date and time: 12/16/2022 12:27 PM Age: 82 years old Clinical indication: Bloating; Additional info: Abdominal distension, increased pain. TECHNIQUE: Imaging protocol: Radiologic exam. Complete acute abdomen series, including 2 or more views of the abdomen and a single view chest. COMPARISON: CR XR KUB 12/13/2022 6:31 PM FINDINGS: Lungs: Minimal bibasilar atelectasis. No consolidation. Pleural spaces: Normal. No pleural effusions. No pneumothorax. Heart/Mediastinum: Normal. No cardiomegaly. Gastrointestinal tract: Gaseous distention of multiple bowel loops without fluid levels. Contrast seen within colon from recent small bowel follow-through. Exclusion rectum on examination. More likely ileus than obstruction, clinical correlation necessary. Intraperitoneal space: Normal. No free air. Bones/joints: Normal. No acute fracture. Soft tissues: Midline jp lower abdomen. IMPRESSION: Gaseous distention of multiple bowel loops without fluid levels. Contrast seen within colon from recent small bowel follow-through. Exclusion rectum on examination. More likely ileus than obstruction, clinical correlation necessary.
--- NOTE | 2022-12-16 11:38 | EXP.SURG.PN ---
Subjective Narrative: Patient's nasogastric tube came out yesterday evening inadvertently. She has refused to have it replaced. She denies any nausea. She has been n.p.o. with no ice chips since her NG has been out. She does states that she passed a small amount of gas. Exam Data for Last 24 hours Vital signs and Labs for Last 24 Hours: Temp Pulse Resp BP Pulse Ox 98.5 F 86 18 123/67 91 L 12/16/22 08:00 12/16/22 08:00 12/16/22 08:00 12/16/22 08:00 12/16/22 08:00 Laboratory Results - last 24 hr 12/16/22 06:53: WBC 5.2, RBC 3.40 L, Hgb 10.4 L, Hct 31.4 L, MCV 92.2, MCH 30.7, MCHC 33.3, RDW 14.5, Plt Count 169, MPV 7.8, Neut % (Auto) 84.8 H, Lymph % (Auto) 7.9 L, [place] % (Auto) 5.8, Eos % (Auto) 1.0, Baso % (Auto) 0.5, Neut # (Auto) 4.4, Lymph # (Auto) 0.4 L, [place] # (Auto) 0.3, Eos # (Auto) 0.1, Baso # (Auto) 0.0 12/16/22 06:53: Sodium 142, Potassium 3.6, Chloride 111 H, Carbon Dioxide 24, Anion Gap 10.6, BUN 15, Creatinine 0.80, Estimated Creat Clear 45, Estimated GFR 68, Est GFR ( Amer) 83, Glucose 107 H, Calcium 7.5 L I & O for Last 24 hours: Intake & Output 12/13/22 12/14/22 12/15/22 12/16/22 11:59 11:59 11:59 11:59 Intake Total 730 / 730 3340 / 3340 798 / 798 Output Total 500 / 500 2024 / 2024 600 / 600 Balance 230 / 230 1315 / 1315 198 / 198 Weight 144 lb 9.972 oz 149 lb 0.52 oz 149 lb 0.52 oz Microbiology Reports for the Last 24 Hours: Microbiology 12/13/22 17:21 Blood Blood Culture - Preliminary NO GROWTH AFTER 48 HOURS 12/13/22 17:18 Blood Blood Culture - Preliminary NO GROWTH AFTER 48 HOURS *Routine Abdominal Exam Abdominal: Present tenderness and distended Comments: Her abdomen is distended and tender. Progress Note: A&P Assessment and plan (1) SBO (small bowel obstruction): Status: Acute Assessment and plan: I am concerned with the increasing distention and tenderness. I will obtain an acute abdominal series for assessment. Hopefully no issues with anastomosis. May require replacement of NG tube.
[2022-12-16 12:00] VITALS: BP 134/72; PULSE 79; RESP 20; TEMP 36.4; O2SAT 94
--- NOTE | 2022-12-16 12:34 | INFXCTL.NOTE ---
after Surgeon reviewed xrays, pt is to remain NPO at this time. no ice chips/sips at this time. 1230
[2022-12-16 13:55] VITALS: BMI 24.8
[2022-12-16 16:00] VITALS: BP 133/70; PULSE 83; RESP 22; TEMP 36.6; O2SAT 97
--- NOTE | 2022-12-16 18:04 | PC.NURSE ---
pt NPO, NO ice chips. changed midline dsg today, jp in place, incision looks good, no signs of infection. dsg cdi. pt ambulated in room today. up to chair around 3 hrs. pt stated she dropped somthing in the floor and bent over to pick it up, c/o of pain to abd. educated pt about splinting abd when cough/sneezing. not to bend over or strain. pain meds admin x1 with relief. hypoactive bowel sounds, pt stated she passed gas one time early in the am. morning assessment abd was tender not distended. 10am assessment, abd distended. allran notified. pt doing well watching tv, cb within reach.
[2022-12-16 20:00] VITALS: BP 132/70; PULSE 65; RESP 17; TEMP 36.6; O2SAT 94
[2022-12-17 04:00] VITALS: BP 132/71; PULSE 72; RESP 16; TEMP 36.6; O2SAT 91; BMI 24.1
--- NOTE | 2022-12-17 06:31 | P.PN_ITS ---
Subjective Narrative: Patient states that she may feel somewhat better. She admits that she may have had overzealous expectations about how quickly she would feel much better. She has been passing some gas this morning. She states that her abdominal distention may be somewhat improved. She describes significant abdominal soreness . Exam Data for Last 24 hours Vital signs and Labs for Last 24 Hours: Temp Pulse Resp BP Pulse Ox 97.8 F 72 16 132/71 91 L 12/17/22 04:00 12/17/22 04:00 12/17/22 04:00 12/17/22 04:00 12/17/22 04:00 Laboratory Results - last 24 hr 12/16/22 06:53: WBC 5.2, RBC 3.40 L, Hgb 10.4 L, Hct 31.4 L, MCV 92.2, MCH 30.7, MCHC 33.3, RDW 14.5, Plt Count 169, MPV 7.8, Neut % (Auto) 84.8 H, Lymph % (Auto) 7.9 L, [place] % (Auto) 5.8, Eos % (Auto) 1.0, Baso % (Auto) 0.5, Neut # (Auto) 4.4, Lymph # (Auto) 0.4 L, [place] # (Auto) 0.3, Eos # (Auto) 0.1, Baso # (Auto) 0.0 12/16/22 06:53: Sodium 142, Potassium 3.6, Chloride 111 H, Carbon Dioxide 24, Anion Gap 10.6, BUN 15, Creatinine 0.80, Estimated Creat Clear 45, Estimated GFR 68, Est GFR ( Amer) 83, Glucose 107 H, Calcium 7.5 L I & O for Last 24 hours: Intake & Output 12/14/22 12/15/22 12/16/22 12/17/22 11:59 11:59 11:59 11:59 Intake Total 730 / 730 3340 / 3340 798 / 798 2695 / 2695 Output Total 500 / 500 5 / 2025 600 / 600 1100 / 1100 Balance 230 / 230 1315 / 1315 198 / 198 1595 / 1595 Weight 144 lb 9.972 oz 149 lb 0.52 oz 149 lb 0.52 oz 145 lb 1.6 oz *Routine Abdominal Exam Comments: Somewhat distended and tender Progress Note: A&P Assessment and plan (1) SBO (small bowel obstruction): Status: Acute Assessment and plan: Awaiting resolution of ileus and return of bowel function. I may go ahead and give her some ice chips. Acute abdominal series yesterday revealed findings consistent with ileus with contrast from prior small bowel follow-through into the colon. Therefore I would anticipate possible bowel function soon.
[2022-12-17 07:01] LABS: Chloride 113 mmol/L (98-107); Sodium 143 mmol/L (136-145)
[2022-12-17 07:02] LABS: Potassium 3.6 mmoL/L (3.5-5.1)
[2022-12-17 07:04] LABS: Anion Gap 10.6 mEq/L (5-15); Blood Urea Nitrogen 14 mg/dl (7-17); Carbon Dioxide 23 mmol/L (22.0-30.0); Creatinine Clearance Estimated 44 mL/min (50-200); Estimated Glomerular Filt Rate 68 ml/min (>60); GFR (African American) 83 ML/MIN (>60)
[2022-12-17 07:05] LABS: Calcium 7.7 mg/dl (8.4-10.2); Glucose 79 mg/dl (74-100)
[2022-12-17 07:09] LABS: Basophils % 0.3 % (0.1-2.0); Eosinophils # 0.2 K/mm3 (0.0-0.4); Eosinophils % 4.2 % (0.1-12.0); Hemoglobin 10.2 g/dL (12.2-16.2); Lymphocytes # 0.6 K/mm3 (0.7-4.5); Lymphocytes % 11.3 % (10-50); Mean Corpuscular HGB Conc 30.9 g/dL (31.8-35.4); Mean Corpuscular Hemoglobin 29.5 pg (27.0-31.2); Mean Corpuscular Volume 95.7 fl (81-99); Mean Platelet Volume 8.6 fl (7.4-10.4); Monocytes # 0.3 K/mm3 (0.1-1.0); Monocytes % 4.7 % (1.7-9.3); Neutrophils # 4.4 K/mm3 (1.8-7.8); Neutrophils % 79.5 % (37.0-80.0); Platelet Count 181 K/mm3 (142-424); Red Blood Count 3.45 M/mm3 (4.20-5.40); Red Cell Distribution Width 14.5 % (11.5-17.5); White Blood Count 5.5 K/mm3 (4.8-10.8)
--- NOTE | 2022-12-17 07:13 | XR_ITS ---
FINAL REPORT CLINICAL HISTORY: BOWEL DISTENSION COMPARISON: 12/16/2022 FINDINGS: THREE-VIEW ABDOMEN An AP view of the the chest was obtained. The lungs are clear. Heart mediastinum are within normal limits. There is no pneumothorax. Flat and upright views of the abdomen were obtained. Again seen are distended, air-filled small bowel loops, not significantly changed from prior exam. Findings may represent ileus. Residual contrast is noted in the colon. No abnormally dilated loops of bowel are seen. There is no free air present. No abnormal calcifications are identified. There are postoperative changes of the pelvis. IMPRESSION: No acute cardiopulmonary process. No significant change in distended, air-filled small bowel loops which may represent ileus. Reviewed, Interpreted and Dictated by Jose Roberto Shrestha III, MD Transcribed by Amira Kat Authenticated and . [facility]
[2022-12-17 07:21] VITALS: BP 155/83; PULSE 76; RESP 18; TEMP 36.6; O2SAT 96
--- NOTE | 2022-12-17 08:22 | EXP.ACUTE.PN ---
Subjective *Date: 12/17/22 *Time: 08:22 Interval history: Patient did well overnight. Appreciate surgical note this morning. Patient notes that her belly is less swollen and she feels like her belly is rumbling. Medical Exam Vital signs and Labs for Last 24 Hours: Vital Signs Temp Pulse Resp BP Pulse Ox 12/17/22 07:21 97.8 F 76 18 155/83 H 96 12/17/22 04:00 97.8 F 72 16 132/71 91 L 12/16/22 20:00 97.9 F 65 17 132/70 94 L 12/16/22 16:00 97.8 F 83 22 133/70 97 12/16/22 12:00 97.6 F 79 20 134/72 94 L Intake and Output 12/16/22 12/17/22 12/17/22 19:59 03:59 11:59 Intake Total 1606 / 2695 1089 / 2695 Output Total 0 / 1100 800 / 1100 300 / 1100 Balance 1606 / 1595 -800 / 1595 789 / 1595 Intake: Intake, Total IV Amount 1606 / 2695 1089 / 2695 0.9 % Sodium Chloride 1000ML 1, 1606 / 2695 1089 / 2695 000 ml @ 100 mls/hr IV .Q10H [facility] Rx#:[id number] Output: Output, Urine Amount 0 / 1100 800 / 1100 300 / 1100 Other: Number of Unmeasured Voids 1 1 1 Weight 149 lb 0.52 oz 145 lb 1.6 oz Patient Weight 12/17/22 11:59 Weight 145 lb 1.6 oz Laboratory Results - last 24 hr 12/17/22 06:21: WBC 5.5, RBC 3.45 L, Hgb 10.2 L, Hct 33.0 L, MCV 95.7, MCH 29.5, MCHC 30.9 L, RDW 14.5, Plt Count 181, MPV 8.6, Neut % (Auto) 79.5, Lymph % (Auto) 11.3, [place] % (Auto) 4.7, Eos % (Auto) 4.2, Baso % (Auto) 0.3, Neut # (Auto) 4.4, Lymph # (Auto) 0.6 L, [place] # (Auto) 0.3, Eos # (Auto) 0.2, Baso # (Auto) 0.0 12/17/22 06:21: Sodium 143, Potassium 3.6, Chloride 113 H, Carbon Dioxide 23, Anion Gap 10.6, BUN 14, Creatinine 0.80, Estimated Creat Clear 44, Estimated GFR 68, Est GFR ( Amer) 83, Glucose 79 D, Calcium 7.7 L I & O for Labs for Last 24 Hours: Intake & Output 12/14/22 12/15/22 12/16/22 12/17/22 11:59 11:59 11:59 11:59 Intake Total 730 / 730 3340 / 3340 798 / 798 2695 / 2695 Output Total 500 / 500 2024 / 2024 600 / 600 1100 / 1100 Balance 230 / 230 1315 / 1315 198 / 198 1595 / 1595 Weight 144 lb 9.972 oz 149 lb 0.52 oz 149 lb 0.52 oz 145 lb 1.6 oz Comment:: Alert, pleasant. Oriented. Lungs clear. Still doing well on her incentive spirometer. Heart rate regular without murmurs. Abdomen less distended. Wound looks good. Distal extremities with SCUD boot devices on but no edema. Assessment and Plan *Assessment and plan (1) SBO (small bowel obstruction): Status: Acute Category: Medical Code(s): K56.609 - Unspecified intestinal obstruction, unspecified as to partial versus complete obstruction Plan Appreciate surgical consultation. Patient is doing well. Reinforced need for incentive spirometry. Minimal eating of ice chips. Surgery will decide about NG tube removal over the next day or so. PT/OT evaluation for early mobilization. Compression devices on for DVT prevention. Start IV Protonix. Plan update 12/16/22-NG tube out-hopefully we can avoid reinserting this. Discussed avoiding a lot of ice chips. Administer fluid bolus today given her slight dryness. Continue incentive spirometer, mobilization, DVT prophylaxis, etc. Appreciate surgical consultation. Plan update 12/17/2022-doing well. Appreciate surgical input. Advised walking. PT/OT input continues.
--- NOTE | 2022-12-17 09:47 | HMH.OTEV ---
OT Inpatient Evaluation Rehab OT IP Evaluation Start: 12/15/22 08:29 Freq: ONCE Status: Active Protocol: Document 12/17/22 09:40 [facility] (Rec: 12/17/22 09:46 [facility] [id number]) Rehab OT IP Assessment Subjective History Pt oriented x 4 on arrival. Pt agreeable to engage in therapy evaluation. Pt admitted on 12/13/22 due to high-grade small bowel obstruction in the pelvis. Pt required an exploratory laparotomy with small bowel resection and primary anastomosis for obstruction on 12/14/22. Prior to being in the hosptial, pt lived at home alone. Pt was very independent with all ADLs and IADLs. She did not require any type of AE. She still drove. Pt has a past medical history of: DVT (deep venous thrombosis) Hypertension Uterine cancer Subjective I really need to be able to go back home. Objective Patient Orientation Person,Place,Birthday,Month Upper Extremity Gross ROM WFL Bed Mobility bed mobility-scooting,bed mobility - supine/sit,bed mobility - rolling Assist Level Contact Guard/Hand Hold Transfer Training Sit/Stand Transfer Assist Level Minimal x 1 (25% assist) Rehab OT IP prob,goals,plan Problems Date of Evaluation: 12/17/22 OT IP Problems Bed Mobility,Transfers,Balance ,Self care,Safety Rehab Potential Rehab Potential Good Equipment Needs Assistive Devices Rolling / Wheeled Walker Plan OT intervention Plan Bed Mobility,Transfers,Balance ,Self care,Safety,Therapeutic Exercise OT Plan Frequency BID Duration LOS Discharge Goals Bed Mobility Ability Standby Assistance Sit to Stand Chair Transfer Ability Contact Guard/Hand Hold Chair Transfer Ability Contact Guard/Hand Hold Chair Transfer Technique Sit to/from Ambulatory Chair Transfer Assistive Devices Rolling Walker Feeding Ability Assist with Tray Set Up Lower Body
[2022-12-17 11:41] VITALS: BP 133/76; PULSE 63; RESP 18; TEMP 36.6; O2SAT 96
--- NOTE | 2022-12-17 14:37 | PC.NURSE ---
patient has done well this shift. has ambulated in karimi with pt. did tolerate a shower. dressing to midline incision changed, slight drainage noted to dressing. no complaints of pain. has stated she has passed gas. has been chewing bubble gum and tolerating ice chips. no nausea or vomiting. rings out as needed. vitals stable.
[2022-12-17 15:54] VITALS: BP 156/78; PULSE 68; RESP 18; TEMP 36.9; O2SAT 97
[2022-12-17 16:46] VITALS: O2SAT 97
[2022-12-17 20:00] VITALS: BP 149/79; PULSE 65; RESP 18; TEMP 36.8; O2SAT 95
[2022-12-18] VITALS: BP 153/81; PULSE 69; RESP 18; TEMP 36.7; O2SAT 95
[2022-12-18 04:00] VITALS: BP 137/79; PULSE 69; RESP 18; TEMP 36.6; O2SAT 94; BMI 24.2
[2022-12-18 07:31] VITALS: BP 136/71; PULSE 66; RESP 18; TEMP 36.4; O2SAT 95
--- NOTE | 2022-12-18 08:00 | EXP.SURG.PN ---
Subjective Narrative: Patient states that she feels much better this morning. She did have a hard stool. Still somewhat bloated. Exam Data for Last 24 hours Vital signs and Labs for Last 24 Hours: Temp Pulse Resp BP Pulse Ox 97.5 F L 66 18 136/71 95 12/18/22 07:31 12/18/22 07:31 12/18/22 07:31 12/18/22 07:31 12/18/22 07:31 I & O for Last 24 hours: Intake & Output 12/15/22 12/16/22 12/17/22 12/18/22 11:59 11:59 11:59 11:59 Intake Total 3340 / 3340 798 / 798 3045 / 3045 3031 / 3031 Output Total 202 / 202 600 / 600 1100 / 1100 200 / 200 Balance 1315 / 1315 198 / 198 1945 / 1945 2831 / 2831 Weight 149 lb 0.52 oz 149 lb 0.52 oz 145 lb 1.6 oz 145 lb 4 oz *Routine Abdominal Exam Comments: Abdomen somewhat distended. Progress Note: A&P Assessment and plan (1) SBO (small bowel obstruction): Status: Acute Assessment and plan: Clear liquid diet.
--- NOTE | 2022-12-18 08:02 | PC.NURSE ---
Dr. Parsons and Dr. Upton at bedside. Patient had a BM this morning.
--- NOTE | 2022-12-18 08:11 | EXP.ACUTE.PN ---
Subjective *Date: 12/18/22 *Time: 08:11 Interval history: Overall patient feels much better, walked in the hallways yesterday and had a bowel movement this morning. No breathing issues or heart rate issues Medical Exam Vital signs and Labs for Last 24 Hours: Vital Signs Temp Pulse Resp BP Pulse Ox 12/18/22 07:31 97.5 F L 66 18 136/71 95 12/18/22 04:00 97.9 F 69 18 137/79 94 L 12/18/22 00:00 98.0 F 69 18 153/81 H 95 12/17/22 20:00 98.2 F 65 18 149/79 H 95 12/17/22 16:46 97 12/17/22 15:54 98.4 F 68 18 156/78 H 97 12/17/22 11:41 97.9 F 63 18 133/76 96 Intake and Output 12/17/22 12/18/22 12/18/22 19:59 03:59 11:59 Intake Total 1871 / 3031 1160 / 3031 Output Total 0 / 200 0 / 200 200 / 200 Balance 1871 / 2831 1160 / 2831 -200 / 2831 Intake: Intake, Total IV Amount 1871 / 3031 1160 / 3031 0.9 % Sodium Chloride 1000ML 1, 1871 / 3031 1160 / 3031 000 ml @ 100 mls/hr IV .Q10H [facility] Rx#:[id number] Output: Output, Urine Amount 0 / 200 0 / 200 200 / 200 Other: Number of Unmeasured Voids 1 1 1 Weight 145 lb 4 oz Patient Weight 12/18/22 11:59 Weight 145 lb 4 oz I & O for Labs for Last 24 Hours: Intake & Output 12/15/22 12/16/22 12/17/22 12/18/22 11:59 11:59 11:59 11:59 Intake Total 3340 / 3340 798 / 798 3045 / 3045 3031 / 3031 Output Total 2024 / 2024 600 / 600 1100 / 1100 200 / 200 Balance 1315 / 1315 198 / 198 1945 / 1945 2831 / 2831 Weight 149 lb 0.52 oz 149 lb 0.52 oz 145 lb 1.6 oz 145 lb 4 oz Comment:: Alert, pleasant. Abdominal exam per surgery, heart rate regular with previously noted murmur. Lungs clear. No swelling or edema or neurologic dysfunction Assessment and Plan *Assessment and plan (1) SBO (small bowel obstruction): Status: Acute Category: Medical Code(s): K56.609 - Unspecified intestinal obstruction, unspecified as to partial versus complete obstruction Plan Appreciate surgical consultation. Patient is doing well. Reinforced need for incentive spirometry. Minimal eating of ice chips. Surgery will decide about NG tube removal over the next day or so. PT/OT evaluation for early mobilization. Compression devices on for DVT prevention. Start IV Protonix. Plan update 12/16/22-NG tube out-hopefully we can avoid reinserting this. Discussed avoiding a lot of ice chips. Administer fluid bolus today given her slight dryness. Continue incentive spirometer, mobilization, DVT prophylaxis, etc. Appreciate surgical consultation. Plan update 12/17/2022-doing well. Appreciate surgical input. Advised walking. PT/OT input continues. Plan update for 12/18/2022-doing well, bowel movement noted. Discussed case with surgery. Continue close/slow diet advance and ambulation.
[2022-12-18 11:30] VITALS: BP 139/68; PULSE 67; RESP 18; TEMP 36.4; O2SAT 97
--- NOTE | 2022-12-18 14:02 | DIET.NUTRFU ---
Addendum entered by Adriana Sanchez RD, LD 12/18/22 15:15: tolerated clear liquids for lunch, consuming beef broth, juice and was still going to try the juice later. She was up walking in the karimi with therapy Original Note: Provided handout for diet with hiatal hernia, she reported having a hiatal hernia that is inoperable. She is already on protonix BID, she denies any heart burn. She does eat multiple foods on the avoid list, but enjoys them. She has had multiple hospitalizations in the past year due to GI issues. She is s/p sx this admit, had some of bowel removed. This RD discussed limiting multiple foods in the same week/day on the avoid list but not to completely avoid something she enjoys. Patient eats very small amounts of each food already. She does drink chocolate ensure daily, rotates with chocolate premier protein. Suggested to rotate with strawberry. provided contact information for further questions.
[2022-12-18 15:22] VITALS: BP 128/67; PULSE 65; RESP 18; TEMP 36.4; O2SAT 96
[2022-12-18 20:00] VITALS: BP 153/77; PULSE 66; RESP 18; TEMP 36.5; O2SAT 95; O2SAT 96
[2022-12-19] VITALS: BP 148/74; PULSE 66; RESP 18; TEMP 36.7; O2SAT 96
--- NOTE | 2022-12-19 02:59 | PC.NURSE ---
Report received from Edwige GILMORE.
[2022-12-19 04:00] VITALS: BP 148/85; PULSE 62; RESP 18; TEMP 36.5; O2SAT 95; BMI 23.8
[2022-12-19 07:25] LABS: Chloride 109 mmol/L (98-107); Sodium 139 mmol/L (136-145)
[2022-12-19 07:28] LABS: Blood Urea Nitrogen 11 mg/dl (7-17); Creatinine Clearance Estimated 43 mL/min (50-200); Estimated Glomerular Filt Rate 95 ml/min (>60); GFR (African American) 115 ML/MIN (>60)
[2022-12-19 07:29] LABS: Basophils % 0.4 % (0.1-2.0); Calcium 7.5 mg/dl (8.4-10.2); Carbon Dioxide 26 mmol/L (22.0-30.0); Eosinophils # 0.2 K/mm3 (0.0-0.4); Eosinophils % 5.6 % (0.1-12.0); Glucose 102 mg/dl (74-100); Hematocrit 29.6 % (37.0-47.0); Hemoglobin 9.7 g/dL (12.2-16.2); Lymphocytes # 0.4 K/mm3 (0.7-4.5); Lymphocytes % 12.1 % (10-50); Mean Corpuscular HGB Conc 32.6 g/dL (31.8-35.4); Mean Corpuscular Hemoglobin 29.9 pg (27.0-31.2); Mean Corpuscular Volume 91.6 fl (81-99); Mean Platelet Volume 9.4 fl (7.4-10.4); Monocytes # 0.3 K/mm3 (0.1-1.0); Monocytes % 8.6 % (1.7-9.3); Neutrophils # 2.5 K/mm3 (1.8-7.8); Neutrophils % 73.4 % (37.0-80.0); Platelet Count 201 K/mm3 (142-424); Red Blood Count 3.23 M/mm3 (4.20-5.40); Red Cell Distribution Width 14.2 % (11.5-17.5); White Blood Count 3.4 K/mm3 (4.8-10.8)
[2022-12-19 07:37] VITALS: BP 127/69; PULSE 65; RESP 18; TEMP 36.3; O2SAT 97
--- NOTE | 2022-12-19 07:51 | PC.NURSE ---
Dr. Parsons at bedside. If okay with Juan Alberto Valencia, patient to be discharged later today.
--- NOTE | 2022-12-19 08:43 | EXP.SURG.PN ---
Subjective Patient reports: no new complaints, no flatus and bowel movement Exam Data for Last 24 hours Vital signs and Labs for Last 24 Hours: Temp Pulse Resp BP Pulse Ox 97.4 F L 65 18 127/69 97 12/19/22 07:37 12/19/22 07:37 12/19/22 07:37 12/19/22 07:37 12/19/22 07:37 Laboratory Results - last 24 hr 12/19/22 06:40: WBC 3.4 L D, RBC 3.23 L, Hgb 9.7 L, Hct 29.6 L, MCV 91.6, MCH 29.9, MCHC 32.6, RDW 14.2, Plt Count 201, MPV 9.4, Neut % (Auto) 73.4, Lymph % (Auto) 12.1, [place] % (Auto) 8.6, Eos % (Auto) 5.6, Baso % (Auto) 0.4, Neut # (Auto) 2.5, Lymph # (Auto) 0.4 L, [place] # (Auto) 0.3, Eos # (Auto) 0.2, Baso # (Auto) 0.0 12/19/22 06:40: Sodium 139, Potassium 3.0 L, Chloride 109 H, Carbon Dioxide 26, Anion Gap 7.0, BUN 11, Creatinine 0.60 D, Estimated Creat Clear 43, Estimated GFR 95, Est GFR ( Amer) 115 D, Glucose 102 H, Calcium 7.5 L I & O for Last 24 hours: Intake & Output 12/16/22 12/17/22 12/18/22 12/19/22 11:59 11:59 11:59 11:59 Intake Total 798 / 798 3045 / 3045 3031 / 3031 240 / 240 Output Total 600 / 600 1100 / 1100 200 / 200 125 / 125 Balance 198 / 198 1945 / 1945 2831 / 2831 115 / 115 Weight 149 lb 0.52 oz 145 lb 1.6 oz 145 lb 4 oz 143 lb 4.807 oz Microbiology Reports for the Last 24 Hours: Microbiology 12/13/22 17:21 Blood Blood Culture - Final NO GROWTH AFTER 5 DAYS 12/13/22 17:18 Blood Blood Culture - Final NO GROWTH AFTER 5 DAYS Constitutional Constitutional: no acute distress *Routine Respiratory Exam Respiratory: Absent respiratory distress *Routine Cardiovascular Exam Cardiovascular: Absent tachycardia *Routine Abdominal Exam Abdominal: Present soft Comments: Incision healing without sign of infection Progress Note: A&P Assessment and plan (1) SBO (small bowel obstruction): Status: Acute Assessment and plan: Continuing to prove status post partial small bowel resection. Remove one half of jp Continue to slowly advance diet Stable from surgical standpoint for discharge home with close outpatient follow-up
[2022-12-19 10:35] LABS: Chloride 106 mmol/L (98-107)
[2022-12-19 10:36] LABS: Sodium 138 mmol/L (136-145)
[2022-12-19 10:39] LABS: Blood Urea Nitrogen 11 mg/dl (7-17); Calcium 7.8 mg/dl (8.4-10.2); Carbon Dioxide 29 mmol/L (22.0-30.0); Creatinine Clearance Estimated 43 mL/min (50-200); Estimated Glomerular Filt Rate 80 ml/min (>60); GFR (African American) 96 ML/MIN (>60); Glucose 107 mg/dl (74-100)
--- NOTE | 2022-12-19 11:11 | PC.NURSE ---
Called Dr. Parsons concerning Potassium. No new orders given.
--- NOTE | 2022-12-19 13:05 | EXP.DC.SUM ---
General Admission date:: 12/13/22 Discharge date: 12/19/22 HPI HPI HPI: Patient is an 82-year-old female who had previously undergone laparoscopic hysterectomy for uterine cancer with radiation 3 years ago. She has had approximately 5 admissions for small bowel obstruction over the past year and a half which have been managed nonoperatively. Last time was in March [address] Hobson had consulted on the patient. She has had apparently some episodes at home which have been more minor and self-limited. Of note, patient had recently undergone upper endoscopy with Dr. Hall and was diagnosed with moderate hiatal hernia and Schatzki's ring. Patient presented to the emergency department in the afternoon of 12/13/2022 with acute onset of abdominal pain during lunch similar to before. She had significant nausea. She described it as severity of 10 out of 10. She had some bloating and firmness to her abdomen. She did have 2 bowel movements in the morning prior to that presentation. She was evaluated in the emergency department. She underwent CT angiogram of the abdomen which revealed findings of high-grade small bowel obstruction in the pelvis. Suspected related to hysterectomy adhesion. She had nasogastric tube placed and was admitted for inpatient management and surgical consultation. Above Per general surgery consult note. Agree with history. Hospital Course Hospital Course Hospital Course: Patient was admitted as noted above with significant bowel obstruction. She did not do well with supportive care and NG tube and had significant emesis with Gastrografin administration. 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 This area was resected and a primary anastomosis was done. Please refer to OR notes for details. The patient tolerated the procedure very nicely almost immediately felt better. Her NG tube was able to come out the next day and she progressed to ambulatory status and 24 hours after surgery began to have flatus and bowel movements. She progressed over the next 48 hours to be able to tolerate clear liquids and now full liquids. This morning she feels well, is fully ambulatory and able to do her own ADLs. She will be discharged home with Tylenol for pain. Home health evaluation and close follow-up with surgery and in my office. She did have a low potassium this morning. However she will be rechecked in 2 days and I believe it is mostly from lack of diet for the perioperative period. Exam Data for Last 24 hours Vital signs and Labs for Last 24 Hours: Temp Pulse Resp BP Pulse Ox 97.4 F L 65 18 127/69 97 12/19/22 07:37 12/19/22 07:37 12/19/22 07:37 12/19/22 07:37 12/19/22 07:37 Laboratory Results - last 24 hr 12/19/22 06:40: WBC 3.4 L D, RBC 3.23 L, Hgb 9.7 L, Hct 29.6 L, MCV 91.6, MCH 29.9, MCHC 32.6, RDW 14.2, Plt Count 201, MPV 9.4, Neut % (Auto) 73.4, Lymph % (Auto) 12.1, [place] % (Auto) 8.6, Eos % (Auto) 5.6, Baso % (Auto) 0.4, Neut # (Auto) 2.5, Lymph # (Auto) 0.4 L, [place] # (Auto) 0.3, Eos # (Auto) 0.2, Baso # (Auto) 0.0 12/19/22 06:40: Sodium 139, Potassium 3.0 L, Chloride 109 H, Carbon Dioxide 26, Anion Gap 7.0, BUN 11, Creatinine 0.60 D, Estimated Creat Clear 43, Estimated GFR 95, Est GFR ( Amer) 115 D, Glucose 102 H, Calcium 7.5 L 12/19/22 10:11: Sodium 138, Potassium 3.0 L, Chloride 106, Carbon Dioxide 29, Anion Gap 6.0, BUN 11, Creatinine 0.70, Estimated Creat Clear 43, Estimated GFR 80, Est GFR ( Amer) 96, Glucose 107 H, Calcium 7.8 L I & O for Last 24 hours: Intake & Output 12/17/22 12/18/22 12/19/22 12/20/22 11:59 11:59 11:59 11:59 Intake Total 3045 / 3045 3031 / 3031 240 / 240 240 / 240 Output Total 1100 / 1100 200 / 200 125 / 125 0 / 0 Balance 1945 / 194 2831 / 2831 115
--- NOTE | 2022-12-19 13:16 | SW/DCPLANNER ---
Addendum entered by Rosario Solis 12/19/22 15:32: Melissa frederick/ [facility] stated that services will begin Saturday for this patient. Original Note: Patient information/order has been faxed to [facility] for home health services. Patient will discharge home today.
--- NOTE | 2022-12-19 14:02 | PC.NURSE ---
8 [place] removed, Long sterstrips placed back to incision. Patient asked that I not cut the strips in half and leave them long.
--- NOTE | 2022-12-20 13:42 | CARE MANAGER ---
Called and spoke with patient regarding recent discharge. She states that she is sore, but otherwise doing ok. No complaints or concerns at time of call.
== END 2022-12-19 15:30 | disposition home health service (06) | DRG 331 ==
LOC: ER 16:53 → 2ND 19:47
PROVIDERS: Surgery; Admitting Provider Family Medicine; Emergency Provider Emergency Medicine; PCP Internal Medicine Adolescent Medicine; Visit Provider Internal Medicine Adolescent Medicine
PROC: 0DB80ZZ Excision of Small Intestine, Open Approach (ICD-10-PCS; CPT 49000; principal; 2022-12-14 13:30)
DX: K56.601 Complete intestinal obstruction, unspecified as to cause (principal); I10 Essential (primary) hypertension; Z86.718 Personal history of other venous thrombosis and embolism; Z85.42 Personal history of malignant neoplasm of other parts of uterus; Z87.891 Personal history of nicotine dependence
CPT/HCPCS: 44120; 36415; 71275; 74018; 74021; 74174; 74250; 80048; 80076; 81001; 83605; 83690; 84484; 85025; 87040; 88307; 93005; 97110; 97116; 97161; 97166; 97530; 99285; C9290; C9803; J1335; J2405; Q9967; U0003; U0005

== ENCOUNTER 2023-01-25 10:35 | Outpatient (CLI) | payer MEDICARE, OTHER, SELFPAY ==
[2023-01-25 10:45] VITALS: BMI 20.5
[2023-01-25 11:18] VITALS: BP 100/56; PULSE 84; RESP 18; O2SAT 98
[2023-01-25 11:23] LABS: Basophils % 0.4 % (0.1-2.0); Eosinophils # 0.1 K/mm3 (0.0-0.4); Eosinophils % 1.4 % (0.1-12.0); Hemoglobin 11.4 g/dL (12.2-16.2); Lymphocytes # 0.6 K/mm3 (0.7-4.5); Lymphocytes % 10.8 % (10-50); Mean Corpuscular HGB Conc 31.7 g/dL (31.8-35.4); Mean Corpuscular Hemoglobin 29.8 pg (27.0-31.2); Mean Platelet Volume 8.2 fl (7.4-10.4); Monocytes # 0.3 K/mm3 (0.1-1.0); Monocytes % 6.1 % (1.7-9.3); Neutrophils # 4.3 K/mm3 (1.8-7.8); Neutrophils % 81.3 % (37.0-80.0); Platelet Count 233 K/mm3 (142-424); Red Blood Count 3.83 M/mm3 (4.20-5.40); Red Cell Distribution Width 14.9 % (11.5-17.5); White Blood Count 5.2 K/mm3 (4.8-10.8)
[2023-01-25 11:28] LABS: Chloride 103 mmol/L (98-107); Potassium 4.2 mmoL/L (3.5-5.1); Sodium 139 mmol/L (136-145)
[2023-01-25 11:30] LABS: Alanine Aminotransferase 32 U/L (12-78); Aspartate Amino Transferase 34 U/L (14-36); Blood Urea Nitrogen 28 mg/dl (7-17); Creatinine Clearance Estimated 38 mL/min (50-200); Estimated Glomerular Filt Rate 53 ml/min (>60); GFR (African American) 64 ML/MIN (>60)
[2023-01-25 11:31] LABS: Albumin Level 3.9 g/dl (3.5-5.0); Albumin/Globulin Ratio 1.2 (1.1-1.8); Alkaline Phosphatase 82 U/L (38-126); Anion Gap 17.2 mEq/L (5-15); Bilirubin,Total 0.3 mg/dl (0.2-1.3); Carbon Dioxide 23 mmol/L (22.0-30.0); Globulin 3.2 g/dL (1.3-3.2); Glucose 115 mg/dl (74-100); Total Protein,Serum 7.1 g/dl (6.3-8.2)
[2023-01-25 12:20] VITALS: BP 95/66; PULSE 86; RESP 18
== END 2023-01-25 12:30 | disposition home or self-care (01) ==
LOC: INF 10:35
PROVIDERS: PCP Internal Medicine Adolescent Medicine; Visit Provider Nurse Practitioner Family
DX: E86.0 Dehydration (principal); R19.7 Diarrhea, unspecified
CPT/HCPCS: 80053; 85025; 96360; 96375; J2405

== ENCOUNTER → 2023-01-26 09:59 | Outpatient (CLI) | payer MEDICARE, OTHER, SELFPAY ==
[2023-01-26 10:21] LABS: Clostridium Difficile A/B, PCR Not Detected (NotDetected); Enteroaggregative E coli Not Detected (NotDetected); Plesimonas Shigalloides, PCR Not Detected (NotDetected); Salmonella, PCR Not Detected (NotDetected); Vibrio Cholerae Not Detected (NotDetected); Vibrio, PCR Not Detected (NotDetected); Yersinia Entercolitica, PCR Not Detected (NotDetected)
[2023-01-26 10:22] LABS: Adenovirus F 40/41, stool Not Detected (NotDetected); Astrovirus Not Detected (NotDetected); Cryptosporidium Not Detected (NotDetected); Cyclospora Cayetanesis Not Detected (NotDetected); Entamoeba histolytica Not Detected (NotDetected); Enteropathogenic E coli Not Detected (NotDetected); Enterotoxigenic E coli Not Detected (NotDetected); Giardia lamblia Not Detected (NotDetected); Norovirus Not Detected (NotDetected); Rotavirus A Not Detected (NotDetected); Sapovirus Not Detected (NotDetected); Shiga-like toxin E coli Not Detected (NotDetected); Shigella Enterovasive E coli Not Detected (NotDetected)
[2023-01-26 13:22] LABS: Campylobacter Detected (NotDetected)
== END ==
PROVIDERS: PCP Internal Medicine Adolescent Medicine; Visit Provider Internal Medicine Adolescent Medicine
DX: R19.7 Diarrhea, unspecified (principal); A04.5 Campylobacter enteritis
CPT/HCPCS: 87506

== ENCOUNTER → 2023-08-16 13:43 | Outpatient (CLI) | payer MEDICARE, OTHER, SELFPAY ==
--- NOTE | 2023-08-16 13:50 | XR_ITS ---
FINAL REPORT CLINICAL HISTORY: left foot pain FINDINGS: LEFT FOOT Three views of the left foot demonstrate no acute fracture or dislocation. The visualized joint spaces are normally aligned. There are mild hypertrophic changes of the first MTP joint with mild osteophytes at the medial joint margin consistent with osteoarthritis. The soft tissues are unremarkable. IMPRESSION: No acute bony abnormality. Reviewed, Interpreted and Dictated by Chano Clinton MD Transcribed by Amira Kat Authenticated and . [facility]
== END ==
PROVIDERS: PCP Internal Medicine Adolescent Medicine; Visit Provider Podiatrist
DX: M79.672 Pain in left foot (principal)
CPT/HCPCS: 73630

== ENCOUNTER 2023-10-31 11:00 | Outpatient (CLI) | payer MEDICARE, OTHER, SELFPAY ==
--- NOTE | 2023-10-31 11:06 | XR_ITS ---
FINAL REPORT CLINICAL HISTORY: Right foot Pain FINDINGS: AP, oblique and lateral views of the right foot were obtained. There is no prior exam for comparison. There is partial fusion of the proximal and middle phalanx of the second toe. There is old fracture deformity of the fifth metatarsal. There is no acute fracture. There is multijoint degenerative disease most pronounced in the first MTP joint. Soft tissues are normal. IMPRESSION: Degenerative and chronic changes without acute osseous abnormality of the right foot. Reviewed, Interpreted and Dictated by Nancy Telles MD Transcribed by Anny Schaefer Authenticated and [facility][1]
--- NOTE | 2023-10-31 11:06 | XR_ITS ---
FINAL REPORT CLINICAL HISTORY: Left foot Pain FINDINGS: AP, oblique and lateral views of the left foot were obtained. There is no prior exam for comparison. There is no acute fracture or dislocation. There is degenerative joint disease, most pronounced at the first MTP. Soft tissues are normal. IMPRESSION: Degenerative changes without acute osseous abnormality of the left foot. Reviewed, Interpreted and Dictated by Nancy Telles MD Transcribed by Anny Schaefer Authenticated and . [facility]
== END 2023-10-31 23:59 ==
PROVIDERS: PCP Internal Medicine Adolescent Medicine; Visit Provider Podiatrist
DX: M79.672 Pain in left foot (principal); M79.671 Pain in right foot
CPT/HCPCS: 73630

== ENCOUNTER 2023-12-25 13:58 | Outpatient (POV) | payer MEDICARE, OTHER, SELFPAY | END 2023-12-25 23:59 | disposition home or self-care (01) | LOC: SC 13:59 | PROVIDERS: Visit Provider Specialist/Technologist | DX: Z00.00 Encounter for general adult medical examination without abnormal findings (principal) ==

== ENCOUNTER 2024-03-17 14:26 | Outpatient (POV) | payer MEDICARE, OTHER, SELFPAY | END 2024-03-17 23:59 | disposition home or self-care (01) | LOC: SC 14:26 | PROVIDERS: PCP Internal Medicine Adolescent Medicine; Visit Provider Dermatology | DX: Z00.00 Encounter for general adult medical examination without abnormal findings (principal) ==

== ENCOUNTER 2024-05-30 21:29 | Emergency (ER) | payer MEDICARE, OTHER, SELFPAY ==
--- NOTE | 2024-05-30 21:47 | XR_ITS ---
PROCEDURE INFORMATION: Exam: XR Left Tibia and Fibula Exam date and time: 05/30/2024 9:59 PM Age: 83 years old Clinical indication: Pain; Lower leg; Left; Additional info: Fall proximal posterior tenderness TECHNIQUE: Imaging protocol: Radiologic exam of the left tibia and fibula. Views: 2 views. COMPARISON: CR XR FOOT WT BEARING LT 3V 10/31/2023 11:07 AM FINDINGS: Bones/joints: The tibia and fibula are intact. No acute fracture. The knee and ankle are normally aligned. Soft tissues: Normal. IMPRESSION: No acute findings.
--- NOTE | 2024-05-30 21:48 | HMH.EDGENADL ---
Discharge Plan Disposition Patient Disposition: Home, Self-Care Chief Complaint: Extremity Injury, Lower Prescriptions Prescriptions: No Action cholecalciferol (vitamin D3) 25 mcg (1,000 unit) capsule 25 mcg PO DAILY pantoprazole [Protonix] [address] henriquez susp in packet 40 mg PO DAILY cyanocobalamin (vitamin B-12) 1,000 mcg capsule 1,000 mcg PO QMONTH multivitamin Tablet 1 tab PO DAILY ezetimibe-simvastatin 1 EACH tablet 1 each PO HS Referrals Follow up/Referrals: Shahid Rao DO [Staff Physician] - See instructions Mac Parsons MD [Primary Care Provider] - See instructions Activity Restrictions/Add. Instructions Additional Instructions/Restrictions: At this time it was felt you are safe to be discharged home. If new or worsening symptoms please do not hesitate to return the emergency department. If your symptoms are persisting please call and schedule appoint with Dr. Rao given that you may have damaged your calf muscles. Please take Tylenol and ibuprofen as needed for pain. [facility] will contact you for an appointment for a duplex DVT ultrasound of your left lower extremity this coming week. 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 Last Saturday patient fell out of a window after she became locked in a room and tried to crime out of her for story window. The fall was approximately 6 inches however she landed on her leg awkwardly causing posterior calf pain and bruising. She states she has a chronically discolored left ankle and foot which is not hurting her, she has chronically swollen left lower extremity compared to right which is not worse to baseline. Due to tenderness and pain over her posterior calf she presents here for continued evaluation. She has been ambulatory throughout the course Related Data Home Medications ?Medication ?Instructions ?Recorded ?Confirmed ezetimibe 10 mg-simvastatin 20 mg 1 each PO HS Cholesterol 01/09/22 12/10/23 tablet multivitamin 1 tab PO DAILY 05/28/23 12/10/23 cholecalciferol (vitamin D3) 25 25 mcg PO DAILY 09/24/23 12/10/23 mcg (1,000 unit) capsule cyanocobalamin (vitamin B-12) 1,000 mcg PO QMONTH 09/24/23 12/10/23 1,000 mcg capsule pantoprazole 40 mg granules 40 mg PO DAILY 09/24/23 12/10/23 delayed-release for susp in packet (Protonix) Allergies Allergy/AdvReac Type Severity Reaction Status Date / Time Penicillins [PENICILLINS] Allergy Unknown Verified 12/10/23 10:17 azithromycin AdvReac Intermediate Verified 12/10/23 10:17 prednisolone AdvReac Intermediate Verified 12/10/23 10:17 hydrocodone- acetaminophen AdvReac Mild Hives Uncoded 01/10/23 09:53 PFSH PFS Disclaimer: The information contained in this section may have been updated after the patient was seen, as this information can be updated by other users. Medical History DVT (deep venous thrombosis) Hypertension Uterine cancer Surgical History History of colon resection History of bunionectomy History of tonsillectomy History of hysterectomy Family History Other Family history of Alzheimer's disease Family history of cancer Social History Smoking Status: Former smoker tobacco type: cigarettes packs per day: 1 years smoked: 45 alcohol intake: never substance use type: denies use current occupational status: retired Travel in the last 8 weeks: None household members: none housing: house lives independently: Yes marital status: education level: high school caffeine: Yes physical activity: walking special juana needs: No agree to transfusion: No do you feel safe at home: Yes victim of physical abuse: No victim of emotional abuse: No victim of sexual abuse: No would you like helpful sources: No ROS Obtained: Yes Systems reviewed as appropriate & no additional complaints except as documented Physical Exam General General appearance: alert and in no apparent distress Head Head exam: atraumatic and normocephalic Eye Eye exam: Present PERRL and EOMI ENT ENT exam: Present mucous membranes moist Neck Neck exam: Present normal inspection Chest Chest inspection: Present normal inspection and symmetric chest wall rise Respiratory Respiratory exam: Absent respiratory distress Cardiovascular Cardiovascular exam: Present regular rate and normal rhythm Abdominal Exam Abdominal exam: Present soft Extremities Exam Extremities exam: Present calf tenderness (Tenderness over the posterior proximal calf with overlying bruising, all compartments are soft) and other (Asymmetric swelling left lower extremity greater than right. Palpable dorsal pedal pulse on the left. Discoloration over the left foot and ankle. Sensation intact to light touch distally, capillary refill preserved left lower extremity.) Neurological Exam Neurological exam: Present alert Psychiatric Psychiatric exam: Present normal affect Skin Skin exam: Present warm and dry Medical Decision Making Medical Records Screening: Per USPSTF and CDC recommendations, given the prevalence of disease in our region, it is our hospital?s policy to screen for HIV and viral Hepatitis for all patients aged 18 and over and those with ongoing risk factors. David Inquiry Pt receiving controlled substance: No Vital Signs: 05/30/24 21:54 Temperature 97.6 F Temperature Source Oral Pulse Rate [Right] 81 Respiratory Rate 16 Blood Pressure [Right Arm] 180/96 H Blood Pressure Mean [Right Arm] 124 02 Sat by Pulse Oximetry 95 Oxygen Delivery Method Room Air Orders (Tests/Meds): ED MEDICATIONS Discontinued Medications Generic Name Dose Route Start Last Admin Trade Name Freq PRN Reason Stop Dose Admin Acetaminophen 1,000 mg 05/30/24 21:47 05/30/24 22:08 Acetaminophen 500mg Tab PO 05/30/24 21:48 1,000 mg ONCE ONE Administration Ibuprofen 600 mg 05/30/24 21:47 05/30/24 22:08 Ibuprofen 600 Mg Tablet PO 05/30/24 21:48 600 mg ONCE ONE Administration ORDERS Category Date Time Status Fibula/tibia XR left 2 views [XR tibia fibula LT 2V] Exams 05/30/24 21:47 Taken Stat POCUS Point of Care (ER Only) Stat Exams 05/30/24 21:47 Ordered Medical Decision Narrative: In summary patient is 83-year-old female past medical history described above who presents emergency department for evaluation of traumatic left lower extremity pain. Patient is hemodynamically stable nontoxic-appearing upon arrival, afebrile. Patient has asymmetric swelling of her left lower extremity with chronic lymphedema and discoloration which is reportedly at her baseline. She does have tenderness over her posterior calf however all of her compartments are soft. There is a superficial hematoma and bruising over her posterior calf. Differential includes calf strain, calf tear, hematoma, fracture, among others. I have no concern for compartment syndrome at this time based on how soft the compartments are on exam and the fact that patient can bear weight, is distally neurovascularly intact. [id number] ultrasound will be conducted at bedside for large proximal DVT which was negative. Patient has been active and is walking on it throughout the course post injury which may be exacerbating her calf strain. Initial inventions include Tylenol and ibuprofen. X-rays informally interpreted by me, no acute displaced fracture. Patient was ambulatory at bedside without difficulty and given this is appropriate for outpatient management will be scheduled formal duplex ultrasound given that DVT cannot be 100% ruled out and she is increased risk factors. Patient was given return precautions. Procedure: Procedure performed was [id number] ultrasound. Ultrasound was DVT ultrasound of left lower extremity. Using sequential compression ultrasound the femoral vein shows no evidence of DVT. Popliteal vein unable to be identified. Limited soft tissue of the posterior superior is no large fluid collection. Patient tolerated procedure well. There were no immediate complications. Critical Care Critical Care Time Critical Care Time: No
[2024-05-30 21:54] VITALS: BP 180/96; PULSE 81; RESP 16; TEMP 36.4; O2SAT 95; BMI 40.1
[2024-05-30] MEDS: IBUPROFEN 600 MG TABLET PO (22:08)
[2024-05-30] MEDS: ACETAMINOPHEN 500MG TAB 1000 MG PO (22:08)
[2024-05-30 22:24] VITALS: BP 161/98; PULSE 70; RESP 18; TEMP 36.4; O2SAT 95
== END 2024-05-30 22:25 | disposition home or self-care (01) ==
PROVIDERS: Emergency Provider Emergency Medicine; PCP Internal Medicine Adolescent Medicine
DX: M79.662 Pain in left lower leg (principal); Z86.718 Personal history of other venous thrombosis and embolism; W17.89XA Other fall from one level to another, initial encounter
CPT/HCPCS: 73590; 99284

== ENCOUNTER 2024-06-01 13:56 | Outpatient (CLI) | payer MEDICARE, OTHER, SELFPAY ==
--- NOTE | 2024-06-01 14:05 | CA_ITS ---
FINAL REPORT TECHNIQUE: Ultrasound images of the deep venous system were obtained from the left groin to the calf veins. CLINICAL HISTORY: PAIN,BRUISING BACK OF LEFT CALF X 8 DAYS,HX LYMPHEDEMA COMPARISON: None FINDINGS: The deep venous system is normally compressible. Normal flow is identified. IMPRESSION: No evidence of left lower extremity DVT. Reviewed, Interpreted and Dictated by Chano Clinton MD Transcribed by Alexandria Cuevas Authenticated and [facility]
== END 2024-06-01 23:59 | disposition home or self-care (01) ==
LOC: RT 14:01
PROVIDERS: PCP Internal Medicine Adolescent Medicine; Visit Provider Emergency Medicine
DX: M79.605 Pain in left leg (principal)
CPT/HCPCS: 93971

== ENCOUNTER 2024-12-28 14:00 | Outpatient (RCR) | payer MEDICARE, OTHER, SELFPAY ==
--- NOTE | 2024-12-18 15:53 | HMH.PTOPWND ---
Rehab Outpt Wound Evaluation Rehab OP Wound Evaluation Start: 12/18/24 15:10 Freq: Status: Active Protocol: Document 12/18/24 15:17 LEANN (Rec: 12/18/24 15:53 PHORARABELLA [id number]) E-signed By Cleve Joshua, PT Subjective/History History History This is the initial PT lymphedema eval for ~ 3-4 mos this episode, but overall for many years. She has long history of L LE lymphedema after treatment for uterine cancer in ~2019 with LEN and XRT. She reports she continues to wear knee high compression stockings consistently with good results, but has not suffered from L thigh edema until now. She also has a home lymphedema pump, but she does not use it consistently. She reports SB resection performed ~ 1 yr ago, but no other significant PMH. Subjective Subjective Currently she reports no c/o pain in her L LE, 0/10. She does have 3/4 TTP throughout the L anterior and lateral thigh, and the L piriformis. Minimal L lower leg erythema noted. Lymphedema Eval Classification of Lymphedema Secondary Lymphedema Yes Stemmer's sign Stemmer's Sign no Stage of Lymphedema Lymphedema stages Stage II (Pitting edema, increased fibrosis w/ decreased pitting) Skin Changes Dry Skin Yes Redness Yes Pain Scale Pain Scale (0-10) 0 Radiation Therapy Has received radiation therapy yes Chemo Therapy Has received chemo therapy no Affected Extremities Areas Affected by Lymphedema/Edema Left Lower Extremity Lower Extremity Measurements Left MTP Measurement (cm) 19.6 Heel Measurement (cm) 29.9 10 cm Proximal to Lateral Malleoli 23.5 Measurement (cm) 20 cm Proximal to Lateral Malleoli 23.6 Measurement (cm) 30 cm Proximal to Lateral Malleoli 36.6 Measurement (cm) 40 cm Proximal to Lateral Malleoli 36.3 Measurement (cm) 50 cm Proximal to Lateral Malleoli 0 Measurement (cm) 60 cm Proximal to Lateral Malleoli 0 Measurement (cm) Lower Extremity Measurement Total (cm) 169.5 Manual Lymphatic Drainage Treatment Area MLD Treatment Area Left Lower Extremity Wound Problems/Impairments Impairments Problems/Impairmments Palpation Tenderness,Impaired Endurance,Impaired Walking, Impaired Standing,Impaired Household Care,Increased Edema ,Lymphedema Present,Impaired Self Care/Self Management Prognosis Rehab Potential Good Comment Skilled therapy services are indicated to reduce overall lymphedema burden in order to aid pt return to prior level of function with all ADLs and ambulation. Clinical Impression Consistent with Diagnosis Yes Short Term Goals Number of Weeks 2 Decreased Palpation Tenderness Yes: 2/4 Decrease Lymphedema Yes: MILD fibrotic edema in L LE Patient to Understand Lymphedema Yes Treatment and Exercises Decrease Girth Measurments by (cm) Yes: L LE total by 5 cm Log Operations Coordinator Goals Number of Weeks 4 Decreased Palpation Tenderness Yes: 1/4 L LE Decrease Lymphedema Yes: No fibrotic edema L LE Patient to be Ind w/ HEP Yes Patient to Adhere Lymphedema Precautions Yes Decrease Girth Measurments by (cm) Yes: L LE total by 15 cm Outpatient Therapy Plan of Care Treatment Plan May Include Therapeutic Exercise Including Home Yes Exercise Program Manual Therapy Techniques Yes Neuromuscular Re-education Yes Therapeutic Activities to Return to Yes Previous Functional/Work Level ADL/Self Care Education Yes Orthotics/Bracing/Splinting Yes Manual Lymphatic Drainage Yes Eval/Re-Eval Yes Frequency Times per week 2 Duration Number of Weeks 4 Addendums This patient is a candidate for social No or vocational rehab? Patient/Guardian verbally acknowledges Yes understanding of treatment program and consents to further treatment? Patient/Guardian verbally acknowledges Yes understanding of diagnosis, prognosis and goals for treatment? Eval Complexity PT Charges 22351 - High Complexity PHYSICIAN CERTIFICATION: I certify the specified therapy services for Jocelyn Ramos are required, authorized, and reviewed every 30 days.
== END 2024-12-28 23:59 | disposition home or self-care (01) ==
LOC: PT 14:00
PROVIDERS: PCP Internal Medicine Adolescent Medicine; Visit Provider Internal Medicine Adolescent Medicine
DX: I89.0 Lymphedema, not elsewhere classified (principal); M79.605 Pain in left leg
CPT/HCPCS: 97140; 97163

== ENCOUNTER 2025-01-29 10:00 | Outpatient (RCR) | payer MEDICARE, OTHER, SELFPAY ==
--- NOTE | 2025-01-18 10:38 | HMH.RHREAS ---
Rehab Reassessment Rehab OP Re-assessment Start: 01/01/25 13:33 Freq: Status: Active Protocol: Document 01/18/25 10:26 LEANN (Rec: 01/18/25 10:37 LEANN [id number]) E-signed By Cleve Joshua, PT Rehab Re-assessment Subjective Subjective My L leg doesn't feel like my R leg, it's just different Pt has no c/o pain this date and does feel she is improving , but continues to report heaviness throughout the L LE with increased edema. Objective Objective Notes Circumferential Measurements: L LE total is 177.5 cm which is +8.0 cm since IE. TTP: 2/ throughout L lower leg. Edema: No pitting edema noted with MILD fibrotic edema. doughy palpation texture in L thigh. Assessment Progress Assessment Slower Than Expected Assessment Notes Pt has shown increased overall edema in the L LE since her initial evaluation. She does have some improvements in overall edema texture with palpation, but she continues to need further decreased edema throughout the L LE. Skilled therapy services remains indicated to reduce overall edema burden in order to return pt to PLOF with all mobility and ADLs. Patient goals met ST LT/5 Plan Plan Continue per initial POC. Frequency of Therapy 2 x/wk Duration of therapy 4 wks Time and Billing Re-Eval Time 11 Re-Eval Billing Units 0 Charge for PT reassessment? No PHYSICIAN CERTIFICATION: I certify the specified therapy services for Jocelyn Ramos are required, authorized, and reviewed every 30 days.
== END 2025-01-29 23:59 | disposition home or self-care (01) ==
LOC: PT 10:00
PROVIDERS: PCP Internal Medicine Adolescent Medicine; Visit Provider Internal Medicine Adolescent Medicine
DX: I89.0 Lymphedema, not elsewhere classified (principal); M79.605 Pain in left leg; R60.0 Localized edema
CPT/HCPCS: 97140; 97760

== ENCOUNTER 2025-02-23 09:00 | Outpatient (RCR) | payer MEDICARE, OTHER, SELFPAY ==
--- NOTE | 2025-02-16 13:55 | HMH.RHREAS ---
Rehab Reassessment Rehab OP Re-assessment Start: 02/01/25 12:31 Freq: Status: Active Protocol: Document 02/16/25 13:49 DOUGLASSukhARABELLA (Rec: 02/16/25 13:54 PHORYLAN [id number]) E-signed By Cleve Joshua, PT Rehab Re-assessment Subjective Subjective Pt reports no discomfort in her L LE at this time. My leg feels so much softer than it did when we started, but it's just still so much bogger than the other side. Objective Objective Notes Circumferential Measurements: L LE total is 187.1 cm which is +17.6 cm since IE. TTP: 09/05 throughout L lower leg. Edema: No pitting edema noted with MILD fibrotic edema. doughy palpation texture in L thigh. Assessment Progress Assessment Slower Than Expected Assessment Notes Pt has again shown increased overall edema in the L LE since her initial evaluation. She does have some improvements in overall edema texture with palpation and less tenderness to palpation, but she continues to need further decreased edema throughout the L LE. Skilled therapy services remains indicated to reduce overall edema burden in order to return pt to PLOF with all mobility and ADLs. Patient goals met ST/4 LT/5 Plan Plan Continue per initial POC. Frequency of Therapy 2 x/wk Duration of therapy 4 wks Time and Billing Re-Eval Time 12 Re-Eval Billing 0 Units Charge for PT No reassessment? PHYSICIAN CERTIFICATION: I certify the specified therapy services for Jocelyn Ramos are required, authorized, and reviewed every 30 days.
== END 2025-02-23 23:59 | disposition home or self-care (01) ==
LOC: PT 09:00
PROVIDERS: PCP Internal Medicine Adolescent Medicine; Visit Provider Internal Medicine Adolescent Medicine
DX: I89.0 Lymphedema, not elsewhere classified (principal); M79.605 Pain in left leg
CPT/HCPCS: 97140

== ENCOUNTER 2025-03-04 09:00 | Outpatient (RCR) | payer MEDICARE, OTHER, SELFPAY | END 2025-03-04 23:59 | disposition home or self-care (01) | LOC: PT 09:00 | PROVIDERS: PCP Internal Medicine Adolescent Medicine; Visit Provider Internal Medicine Adolescent Medicine | DX: I89.0 Lymphedema, not elsewhere classified (principal); M79.605 Pain in left leg | CPT/HCPCS: 97140 ==

== ENCOUNTER 2025-03-16 10:26 | Outpatient (CLI) | payer MEDICARE, OTHER, SELFPAY ==
--- OUTSIDE RECORDS SUMMARY | 2025-03-08 05:15 | XMS_ITS ---
Author Organization [facility] Address [address] [place] [address] Care Team Providers Care Photography Coordinator Name Role Phone Mac Parsons Primary Care Provider Mac Parsons Unavailable Unavailable Allergies Allergen (clinical drug ingredient) Drug/Non Drug Allergy documented on EMR Reaction Allergy Type Onset Date Status predniSONE rapid heart rate Drug Allergy Active Azithromycin upset stomach Drug Allergy Active Penicillin Unknown Drug Allergy Active REASON FOR VISIT 4 Month follow up Medications Medication SIG (Take, Route, Frequency, Duration) Notes Start Date End Date Status ONE A DAY WOMEN'S COMPLETE MULTIPLE VITAMINS WITH MINERALS 1 TAB(S) ORALLY ONCE A DAY; Duration: 30 DAY(S) *Please review for potential replacement for e-prescription and drug interaction check* Active MiraLax - 1/2 CAP ORALLY ONCE A DAY *Please review and pick correct strength-formulatio n from [employer] options. If intended option is not shown, discontinue and re-order from Quick Search* Active Pantoprazole Sodium 40 mg TAKE 1 TABLET DAILY Active Ezetimibe-Simvastatin 10-20 mg TAKE 1 TABLET ON SATURDAY, SATURDAY AND SATURDAY Active Vitamin D3 25 MCG 1 tab(s) orally once a day Active NAC 600 MG 1 cap(s) orally once a day Active FOLATE FORTE VITAMIN B6, B12 AND FOLATE 1 TAB(S) ORALLY ONCE A DAY *Please review for potential replacement for e-prescription and drug interaction check* Active Clobetasol Propionate 0.05 % 1 juan applied topically 2 times a day Active Social History Smoking: Question Answer Notes How long has it been since you last smoked? > 10 years Vital Signs Temperature 98.0 degrees Fahrenheit 03/08/20 25 Blood pressure systolic 126 mm Hg 03/08/20 25 Blood pressure diastolic 80 mm Hg 025 Heart Rate 80 /min 03/08/2025 Height 65 in 03/08/2025 Weight 135 lbs 03/08/2025 BMI 22.46 kg/m2 03/08/2025 Encounters Encounter Location Date Provider Diagnosis [facility] [place] [address] [facility] [address] [place] [address] 03/08/2025 Mac Parsons Lymphedema of left lower extremity I89.0 ; Mild cognitive impairment G31.84 ; Hypertension, essential I10 and Chronic constipation K59.09 Assessments Encounter Date Diagnosis (ICD Code) Assessment Notes Treatment Notes Treatment Clinical Notes Section Notes 03/08/2025 Lymphedema of left lower extremity (ICD-10 - I89.0) - Follows with [facility] - Wears compression stockings and wraps at night - Encouraged continued exercise 03/08/2025 Mild cognitive impairment (ICD-10 - G31.84) Last MOCA . No signs concerning for progressive memory loss. Previously trialed memantine but patient self dc'd because she didn't like how she felt on it. Counseled to continue healthy lifestyle, exercise, social activities. 03/08/2025 Hypertension, essential (ICD-10 - I10) - BP well controlled in clinic 120/80s - Not currently on anti-HTN meds 03/08/2025 Chronic constipation (ICD-10 - K59.09) - Having reg bowel movements - Continue miralax 03/08/2025 Other - Will follow up in May 2025 for labs and Medicare wellness Plan Of Treatment Treatment Notes Assessment Notes Lymphedema of left lower extremity - Follows with [facility] - Wears compression stockings and wraps at night - Encouraged continued exercise Mild cognitive impairment Last MOCA 27/11 0. No signs concerning for progressive memory loss. Previously trialed memantine but patient self dc'd because she didn't like how she felt on it. Counseled to continue healthy lifestyle, exercise, social activities. Hypertension, essential - BP well controlled in clinic 120/80s - Not currently on anti-HTN meds Chronic constipation - Having reg bowel movements - Continue miralax Other - Will follow up in May 2025 for labs and Medicare wellness Next Appt Details Follow Up: prn, Reason: Provider Name:Mac Rizvicarson Parsons, 05/31/2025 10:15:00 AM, [address], [address], [place], [address], Progress Notes * Jocelyn RABAGODOB: 8 (84 yo F)Acc No.[id number]:03/08/2025 Progress Notes Patient: Jocelyn KAN Provider: Gina Parsons MD :1940 A ge:84 Y S ex:Female Date:03/08/2025 Address:[facility] [place] [address] [place], [id number] Subjective: * Chief Complaints: * 1 . 4 Month follow up. * HPI: g en: Jocelyn Rabago is an 84 yo F here for a follow up. She is doing well overall. Discussed her memory concerns, sometimes having word finding difficulty. Has a recent back injury from stomping on a mole in her back yard. Has been seeing a chiropractor twice pre week. She no longer requires follow up with oncology due to her remote cancer history. She continues to walk 1 mile multiple times per week. * Medical History: A nemia, Hypertension, blood clots - diagnosed with PE after DVT less than 6 months ago, Severe esophagitis symptoms with small bowel obstruction treated conservatively in hospital and December 2021, Endometrial cancer s/p LEN/BSO and radiation, Left lower extremity lymphedema following endometrial cancer and radiation, SBO 2022. * Surgical History: a bdominal hysterectomy 09/2019, tonsillectomy , blocked small bowel 12/2022. * Hospitalization/Major Diagno stic Procedure: a s lsited above , abdomen pain-[facility] 12/2021, blood clots - [facility] 09/2021, H 03/2022, [facility]-blocked small bowell 12/2022. * Family History: F ather: , diagnosed with Cancer. M other: , Alzheimer's dementia. P aternal Grand Father: . P aternal Grand Mother: . M aternal Grand Father: . M aternal Grand Mother: . P aternal uncle: . P aternal aunt: . M aternal uncle: . M aternal aunt: . S iblings: alive. Rosa serrano: alive, Son - cancer. 3 brother(s) - healthy. 3 son(s) - healthy. . * Social History: S moking H ow long has it been since you last smoked? > 10 years. R ecreational drug use: no. Exercise: yes. Home smoke detector use: yes. Caffeine: no. Living Will: Yes. Alcohol: socially. Sexually active: no. Travel outside [place]: no. * Medications: T aking Clobetasol Propionate 0.05 % Ointment 1 juan applied topically 2 times a day , Taking FOLATE FORTE VITAMIN B6, B12 AND FOLATE TABLET 1 TAB(S) ORALLY ONCE A DAY , Notes to Pharmacist: *Please review for potential replacement for e-prescription and drug interaction check*, Taking NAC 600 MG Capsule 1 cap(s) orally once a day , Taking Vitamin D3 25 MCG Tablet 1 tab(s) orally once a day , Taking MiraLax - POWDER FOR RECONSTITUTION 1/2 CAP ORALLY ONCE A DAY , Notes to Pharmacist: *Please review and pick correct strength-formulation from [employer] options. If intended option is not shown, discontinue and re-order from Quick Search*, Taking ONE A DAY WOMEN'S COMPLETE MULTIPLE VITAMINS WITH MINERALS TABLET 1 TAB(S) ORALLY ONCE A DAY , Notes to Pharmacist: *Please review for potential replacement for e-prescription and drug interaction check*, Taking Ezetimibe-Simvastatin 10-20 mg Tablet TAKE 1 TABLET ON SATURDAY, SATURDAY AND SATURDAY , Taking Pantoprazole Sodium 40 mg Tablet Delayed Release TAKE 1 TABLET DAILY , Discontinued Zithromax Z-Fantasma 250 MG Tablet 2 tablets on the first day, then 1 tablet daily for 4 days orally once a day , Medication List reviewed and reconciled with the patient * Allergies: P enicillin, Azithromycin: upset stomach, predniSONE: rapid heart rate. Objective: * Vitals: N urse: be, Pain: 0, Temp: 98.0, RR: 14, HR: 80, BP: 126/80, Ht: 65, Wt: 135, BMI:22.46. * Examination: G eneral Examination: Heart: R egular Rate and Rhythm, no murmur, rubs or gallops. Lungs: L CTAB, No wheezes, crackles or rhonchi, Good air movement,. Extremities: l eft lower extremity [facility]. ? Assessment: * Assessment: 1. L ymphedema of left lower extremity - I89.0 (Primary) 2 . M ild cognitive impairment - G31.84 3 . H ypertension, essential - I10 4 .?Chronic constipation - K59.09 Plan: * Treatment: 2. M ild cognitive impairment Notes:Last MOCA . No signs concerning for progressive memory loss. Previously trialed memantine but patient self dc'd because she didn't like how she felt on it. Counseled to continue healthy lifestyle, exercise, social activities. 3. H ypertension, essential Notes: - BP well controlled in clinic 120/80s - Not currently on anti-HTN meds 4. C hronic constipation Notes: - Having reg bowel movements - Continue miralax 5. O thers Notes: - Will follow up in May 2025 for labs and Medicare wellness * Follow Up: p rn * * Sign off status: Completed true * Provider: Gina Parsons MD Date: 03/08/2025 Generated for Risa talavera/Nate/eTransmitting on: 0 03/16/2025 10:50 AM EDT History and Physical Notes * HPI (History of Present Illness) Category Sub-Category Detail Notes Category Not es gen Jocelyn Rabago is an 84 yo F here for a follow up. She is doing well overall. Discussed her memory concerns, sometimes having word finding difficulty. Has a recent back injury from stomping on a mole in her back yard. Has been seeing a chiropractor twice pre week. She no longer requires follow up with oncology due to her remote cancer history. She continues to walk 1 mile multiple times per week. Examination Category Sub-Category Detail Notes Category Not es General Examination Heart: Regular Rate and Rhythm, no murmur, rubs or gallops Lungs: LCTAB, No wheezes, c rackles or rhonchi, Good air movement, Extremities: left lower extremity [facility]
--- OUTSIDE RECORDS SUMMARY | 2025-03-16 09:31 | XMS_ITS | Continuity of Care Document ---
Author Name [facility] Organization [facility] Care Team Providers Care Beer Maker Name Role Phone [facility] Unavailable Unavailable Medications Combined list of outpatient medications from Department of Defense and Veterans Affairs facilities.Medications provided include 1) outpatient medications from the last 15 months, and 2) patient-reported medications. Medication Details Route Status Patient Instructions Prescription Expires Prescription Number Last Dispense Date Ordering Provider Order Date Order Qty Source PANTOPRAZOL E SODIUM (pantoprazo le sodium), 40 MG, TABLET CJ CONLEY, [employer] 1000 ea. BOTTLE Active [id number] 2023 90 Pharmac y Data Transac tion Service Facilit y Immunizations Combined list of available immunizations from the Department of Defense and Veterans Affairs facilities. Immunization Series Date Given Administered By Site Reaction Lot Number CVX Code Drug Science Professor Status Comments Source zoster recombinant 2018 OLGA RDZ () Not Given zoster recombina nt [facility] zoster recombinant 2017 OLGA RDZ () Not Given zoster recombina nt [facility] Social History Combined list of available smoking, tobacco, and other social history from Department of Defense and Veterans Affairs facilities. Social History Type Response Date Comment [facility] e This section is an empty social history section. [facility]
--- NOTE | 2025-03-16 10:30 | XR_ITS ---
FINAL REPORT CLINICAL HISTORY: ACUTE LT-SIDE LBP COMPARISON: None FINDINGS: LUMBOSACRAL SPINE SERIES Five views of the lumbosacral spine were obtained. There is no fracture present. There is grade 1 anterolisthesis of L5 on S1. Mild levoscoliosis is noted. There is severe diffuse degenerative disc disease and facet arthropathy. IMPRESSION: Severe degenerative changes without acute process. Reviewed, Interpreted and Dictated by Mustapha Weber MD Transcribed by Anny Schaefer Authenticated and [facility]
--- OUTSIDE RECORDS SUMMARY | 2025-03-16 10:50 | XMS_ITS | Clinical Summary ---
Author Organization [facility] Address [address] [place] [address] Care Team Providers Care Slice Cutting Machine Operator Name Role Phone Vanessa Choudhury STEFFI Primary Care Provider [phone] Allergies Active Allergy Reactions Criticality Noted Date Comments Azithromycin Other - please docum ent in the comment field Low 10/02/2019 nausea Penicillin G Unknown - Patient st ates they do not know rxn details Low 09/14/2019 Prednisone Palpitations Low 12/02/2023 Medications ezetimibe-simvast atin (Vytorin) 10-20 MG tablet Take 1 tablet by mouth 1 (one) time each day. Saturday, Saturday, and Saturday Active Multiple Vitamins-Minerals (Multivitamin Women) tablet Take 1 tablet by mouth 1 (one) time each day. Active Protonix 40 MG EC tablet Take 1 tablet (40 mg) by mouth Daily. Active cholecalciferol (Vitamin D-3) 25 MCG (1000 UT) capsule Take 1 capsule (1,000 Units) by mouth 1 (one) time each day. Active acetylcysteine (NAC) 600 MG capsules Take 1 capsule (600 mg) by mouth 1 (one) time. Active Cobalamin Combinations (B12 FOLATE PO) Take by mouth. Bioactive Folate Active Active Problems Problem Noted Date Diagnosed Date DVT (deep venous thrombosis) 12/04/2021 Hyperlipidemia 12/01/2021 HTN (hypertension) 09/23/2019 Endometrial cancer 09/14/2019 Cancer Staging:Pathologic stage from 10/02/2019:FIGO Stage IB(pT1b, pN0, cM0) - Signed by Anca Ibarra MD on 12/01/2021 Family History Medical History Relation Name Comments Stomach cancer Father FH: stomach c ancer Prostate cancer Son FH: prostate cancer Relation Name Status Comments Father Son Social History Tobacco Use Types Packs/Day Years Used Date Smoking Tobacco: Former Cigarettes 1 25 0 09/02/1972 - 09/02/1997 Passive Smoke Exposure: Never Smokeless Tobacco: Never Tobacco Cessation:Counseling Given: Not Answered Alcohol Use Standard Drinks/Week Comments Yes 0 (1 standard drink = 0.6 oz pur e alcohol) occ PHQ-2 Answer Date Recorded Patient Health Questionnaire-2 Score 0 11/30/2024 PHQ-2A Answer Date Recorded Patient Health Questionnaire-2 Score 0 12/03/2022 Comments No Sex and Gender Information Value Date Recorded Sex Assigned at Not on file Legal Sex Female 7:40 PM EDT Gender Identity Not on file Sexual Orientation Not on file Last Filed Vital Signs Vital Sign Reading Time Taken Comments Blood Pressure 160/83 11/30/2024 10:54 AM EDT Pulse 75 11/30/2024 10:54 AM EDT Temperature 36.5 C (97.7 F) 11/30/2024 10:54 AM EDT Respiratory Rate 18 11/30/2024 10:54 AM EDT Oxygen Saturation 94% 11/30/2024 10:54 AM EDT Inhaled Oxygen Concentration - - Weight 63.6 kg (140 lb 3.4 oz) 11/30/2024 10:54 AM EDT Height 165.1 cm (5' 5 ) 06/01/2024 10:22 AM EDT Body Mass Index 23.33 06/01/2024 10:22 AM EDT Plan of Treatment Health Maintenance Due Date Last Done Comments Y-Bone Density Scan 1940 [facility]-Medicare Annual Wellness (AWV) 1940 [facility]-Infant/Child/Adol SDOH Screenings 1940 [facility]- SDOH Screenings 1956 [facility]-Adult SDOH Screenings 1958 [facility]-DTaP,Tdap,and Td Vaccines (1 - Tdap) 1957 [facility]-Pneumococcal Vaccine: 50+ Years (1 of 2 - PCV) 1959 [facility]-SEPOQ-55 Vaccine (8 - Moderna risk season) 2024 06/04/2024, 06/20/2023, 08/15/2022, Additional history exists [facility]-Influenza Vaccine (#1) 05/03/202506/04, 06/17/2023, 06/04/2022, Additional history exists [facility]-Depression Screening 11/30/2025 11/30/2024, 10/0 10/2021 [facility]-Zoster Vaccines Completed 10/27/2018, 06/04/2018, 06/02/2012 [facility]-RSV Vaccine: 60+ Years or Completed 06/17/2023 HPV Vaccines Aged Out No longer eligi ble based on patient's age to complete this topic [facility]-HIB Vaccines Aged Out No longer e ligible based on patient's age to complete this topic [facility]-Hepatitis A Vaccines Aged Out No longer eligible based on patient's age to complete this topic [facility]-IPV Vaccines Aged Out No longer e ligible based on patient's age to complete this topic [facility]-Rotavirus Vaccines Aged Out No lo nger eligible based on patient's age to complete this [place] [address] [facility] Care Teams Slice Cutting Machine Operator Relationship Specialty Start Date End Date Vanessa Choudhury APRN [address] [phone] PCP - General 01/13/21
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
== END 2025-03-16 23:59 | disposition home or self-care (01) ==
LOC: RAD 10:27
PROVIDERS: PCP Internal Medicine Adolescent Medicine; Visit Provider Nurse Practitioner Family
DX: M47.26 Other spondylosis with radiculopathy, lumbar region (principal)
CPT/HCPCS: 72110

== ENCOUNTER 2025-03-31 15:08 | Outpatient (CLI) | payer MEDICARE, OTHER, SELFPAY ==
--- OUTSIDE RECORDS SUMMARY | 2025-03-16 05:30 | XMS_ITS ---
Author Organization [facility] Address [address] [place] [address] Care Team Providers Care Hazardous Substances Scientist Name Role Phone Mac Parsons Primary Care Provider Mac Parsons Unavailable Unavailable Katia Andersen Unavailable [phone] Allergies Allergen (clinical drug ingredient) Drug/Non Drug Allergy documented on EMR Reaction Allergy Type Onset Date Status predniSONE rapid heart rate Drug Allergy Active Azithromycin upset stomach Drug Allergy Active Penicillin Unknown Drug Allergy Active Results Component Value Reference Range Notes X ray : Spines, Lumbosacral Reviewed date:03/19/2025 10:37:57 AM Interpretation: Performing Lab: Notes/Report: X ray : Spines, Lumbosacral Reviewed date:03/19/2025 10:37:57 AM Interpretation: Performing Lab: Notes/Report: REASON FOR VISIT lymphedema leg is awful, sciatica,can't hardly walk Medications Medication SIG (Take, Route, Frequency, Duration) Notes Start Date End Date Status Clobetasol Propionate 0.05 % 1 juan applied topically 2 times a day Active FOLATE FORTE VITAMIN B6, B12 AND FOLATE 1 TAB(S) ORALLY ONCE A DAY *Please review for potential replacement for e-prescription and drug interaction check* Active NAC 600 MG 1 cap(s) orally once a day Active dexAMETHasone 6 MG 1 tablet Orally Once a day; Duration: 5 days 03/16/2025 Active Vitamin D3 25 MCG 1 tab(s) orally once a day Active Pantoprazole Sodium 40 mg TAKE 1 TABLET DAILY Active MiraLax - 1/2 CAP ORALLY ONCE A DAY *Please review and pick correct strength-formulatio n from [employer] options. If intended option is not shown, discontinue and re-order from Quick Search* Active ONE A DAY WOMEN'S COMPLETE MULTIPLE VITAMINS WITH MINERALS 1 TAB(S) ORALLY ONCE A DAY; Duration: 30 DAY(S) *Please review for potential replacement for e-prescription and drug interaction check* Active Ezetimibe-Simvastatin 10-20 mg TAKE 1 TABLET ON SATURDAY, SATURDAY AND SATURDAY Active Problems Problem Type SNOMED Code ICD Code Onset Dates Problem Status W/U Status Risk Notes Problem Sciatica ([id number]) Acute left-sided low back pain with left-sided sciatica (M54.42) Active confirmed Vital Signs Temperature 97.9 degrees Fahrenheit 03/16/20 25 Blood pressure systolic 138 mm Hg 03/16/20 25 Blood pressure diastolic 90 mm Hg 025 Heart Rate 76 /min 03/16/2025 Height 65 in 03/16/2025 Weight 132.4 lbs 03/16/2025 BMI 22.03 kg/m2 03/16/2025 Encounters Encounter Location Date Provider Diagnosis [facility] [place] [address] [place] [address] 03/16/2025 Katia Andersen Acute left-sided low back pain with left-sided sciatica M54.42 Assessments Encounter Date Diagnosis (ICD Code) Assessment Notes Treatment Notes Treatment Clinical Notes Section Notes 03/16/2025 Acute left-sided low back pain with left-sided sciatica (ICD-10 - M54.42) Does not tolerate narcotic analgesics very well. Samples of Advil Dual Action provided to use every 6-8 hours PRN as well as OTC lidocaine patches. Can continue heat or ice as needed for comfort as well. Imaging today to r/o compression fracture due to age/risk factors. Does not tolerate prednisone well, trial of dexamethasone. Plan Of Treatment Medication Medication Name Sig Start Date Stop Date Notes dexAMETHasone 6 MG 1 tablet Orally Once a day; Duration: 5 days 03/16/2025 Next Appt Details Follow Up: prn, Reason: Provider Name:Mac Parsons, 05/31/2025 10:15:00 AM, [address], [address], [place] [address], Progress Notes * Jocelyn RABAGODOB: 8 (84 yo F)Acc No.[id number]:03/16/2025 Progress Notes Patient: Jocelyn KAN Provider: SAGRARIO Kothari :1940 A ge:84 Y S ex:Female Date:03/16/2025 Address:[place], [id number] Pcp:Mac Parsons Subjective: * Chief Complaints: * 1 . Lymphedema leg is awful, sciatica,can't hardly walk. * HPI: g en: 84 yr old female presents today, with her son, with c/o lower back and left leg pain. Pain started in the right lower back and buttock initially a couple of weeks ago after some outdoor activities. She had some chiropractic treatments and her right sided pain resolved completely but over the past week has developed progressively severe pain on the left side, in similar pattern. Left mid-buttock that radiates down the leg and into her toes. Not resting due to pain. Minimal relief with ibuprofen, no relief with tylenol. Using ice around the clock. No difficulty moving bowels or bladder. Denies actual fall. * ROS: C ONSTITUTIONAL: no L oss of appetite. n o F ever. D ERMATOLOGY: no R delfin. G ASTROENTEROLOGY: no V omiting. n o D iarrhea. n o C onstipation. U ROLOGY: no D ifficulty urinating. * Medical History: A nemia, Hypertension, blood clots - diagnosed with PE after DVT less than 6 months ago, Severe esophagitis symptoms with small bowel obstruction treated conservatively in hospital and December 2021, Endometrial cancer s/p LEN/BSO and radiation, Left lower extremity lymphedema following endometrial cancer and radiation, SBO 2022. * Medications: T aking Clobetasol Propionate 0.05 [...] *Please review and pick correct strength-formulation from [employer] options. If intended option is not shown, [...] Delayed Release TAKE 1 TABLET DAILY , Medication List reviewed and reconciled with the patient * Allergies: P enicillin, Azithromycin: upset stomach, predniSONE: rapid heart rate. Objective: * Vitals: N urse: KJ, Pain: 7, Temp: 97.9, RR: 14, HR: 76, BP: 138/90, Ht: 65, Wt: 132.4, BMI:22.03. * Examination: G eneral Examination: e lderly female in mild distress due to pain, difficulty sitting in chair. Gets relief with sitting erect with left leg extended and raised to 90 degrees. + patellar reflexes. Antalgic gait. Tender left SI and trochanteric region. Assessment: * Assessment: 1. A cute left-sided low back pain with left-sided sciatica - M54.42 (Primary) Plan: * Treatment: * Clinical Notes: Does not tolerate narcotic analgesics very well. Samples of Advil Dual Action provided to use every 6-8 hours PRN as well as OTC lidocaine patches. Can continue heat or ice as needed for comfort as well. Imaging today to r/o compression fracture due to age/risk factors. Does not tolerate prednisone well, trial of dexamethasone. ?? * Follow Up: p shannon * * Sign off status: Completed true * Provider: SAGRARIO Kothari Date: 0 03/16/2025 Generated for Risa talavera/Faxing/eTransmitting on: 0 03/31/2025 03:15 PM EDT History and Physical Notes * Examination Category Sub-Category Detail Notes Category Not es General Examination elderly female in mild distress due to pain, difficulty sitting in chair. Gets relief with sitting erect with left leg extended and raised to 90 degrees. + patellar reflexes. Antalgic gait. Tender left SI and trochanteric region.
--- OUTSIDE RECORDS SUMMARY | 2025-03-25 08:45 | XMS_ITS ---
Author Organization [facility] LIBRA Ham [place] Address [address] [facility] [address] [place] [address] Care Team Providers Care Scientific Research Associate Name Role Phone Mac Parsons Primary Care Provider [phone] Mac Parsons Unavailable Unavailable Katia Andersen Unavailable [phone] Allergies Allergen (clinical drug ingredient) Drug/Non Drug Allergy documented on EMR Reaction Allergy Type Onset Date Status predniSONE rapid heart rate Drug Allergy Active Azithromycin upset stomach Drug Allergy Active Penicillin Unknown Drug Allergy Active Reason For Referral Reason MRI LS spine without contrast Diagnosis 1 Acute left-sided low back pain with left-sided sciatica (M54.42) Referral Organization [facility] DAIJA HARMAN Referring Provider First Name Katia Referring Provider Last Name Nathaly Referring Provider Speciality [facility] Referred Organization [facility] Referred Address [address] [facility] Referred Provider Specialty Diagnostic R adiology General Notes Namita Rodriguez 2024 03:38:30 PM >sent to [facility] to schedule Referral Priority Routine REASON FOR VISIT Having a lot of pain across lower back Medications Medication SIG (Take, Route, Frequency, Duration) Notes Start Date End Date Status Ezetimibe-Simvastatin 10-20 mg TAKE 1 TABLET ON SATURDAY, SATURDAY AND SATURDAY Active ONE A DAY WOMEN'S COMPLETE MULTIPLE VITAMINS WITH MINERALS 1 TAB(S) ORALLY ONCE A DAY; Duration: 30 DAY(S) *Please review for potential replacement for e-prescription and drug interaction check* Active Pantoprazole Sodium 40 mg TAKE 1 TABLET DAILY Active Gabapentin 100 MG 1 capsule Orally twice a day; Duration: 30 days 03/25/2025 Active MiraLax - 1/2 CAP ORALLY ONCE A DAY *Please review and pick correct strength-formulatio n from [employer] options. If intended option is not shown, discontinue and re-order from Quick Search* Active Vitamin D3 25 MCG 1 tab(s) orally once a day Active FOLATE FORTE VITAMIN B6, B12 AND FOLATE 1 TAB(S) ORALLY ONCE A DAY *Please review for potential replacement for e-prescription and drug interaction check* Active Clobetasol Propionate 0.05 % 1 juan applied topically 2 times a day Active NAC 600 MG 1 cap(s) orally once a day Active Vital Signs Temperature 97.5 degrees Fahrenheit 03/25/20 25 Blood pressure systolic 118 mm Hg 03/25/20 25 Blood pressure diastolic 70 mm Hg 025 Heart Rate 80 /min 03/25/2025 Height 65 in 03/25/2025 Weight 132 lbs 03/25/2025 BMI 21.96 kg/m2 03/25/2025 Encounters Encounter Location Date Provider Diagnosis [facility] [place] [address] [place] [address] 03/25/2025 Katia Andersen Acute left-sided low back pain with left-sided sciatica M54.42 and 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 Assessments Encounter Date Diagnosis (ICD Code) Assessment Notes Treatment Notes Treatment Clinical Notes Section Notes 03/25/2025 Acute left-sided low back pain with left-sided sciatica (ICD-10 - M54.42) 03/25/2025 Degeneration of intervertebral disc of lumbar region with discogenic back pain and lower extremity pain (ICD-10 - M51.362) Reports that pain is significantly impacting daily life, rest, etc. Rec MRI to help guide management which may include pain management, PT, etc. Reports very sensitive to many medications but believe she has taken gabapentin previously. Rec start 100mg at HS and if tolerated can take BID. Plan Of Treatment Medication Medication Name Sig Start Date Stop Date Notes Gabapentin 100 MG 1 capsule Orally twi ce a day; Duration: 30 days 03/25/2025 Referrals Referral Date Details 03/25/2025 03/25/2025, MRI LS s pine without contrast, [address], [place], [address], Next Appt Details Follow Up: pending results, Reason: Provider Name:Mac Parsons, 05/31/2025 10:15:00 AM, [address], [address], [place], [address], Progress Notes * Jocelyn RABAGODOB: 8 (84 yo F)Acc No.[id number]:03/25/2025 Progress Notes Patient: Jocelyn KAN Provider: SAGRARIO Kothari :1940 A ge:84 Y S ex:Female Date:03/25/2025 Address:[address] [place] [address], [place]-[id number] Pcp:Mac Parsons Subjective: * Chief Complaints: * 1 . Having a lot of pain across lower back. * HPI: g en: 84 yr old female presents today with c/o lower back and left leg pain. Pain is all across the lower back at this point and down the left leg. S he had some chiropractic treatments which has always done well for her but has not been beneficial this time. Left mid-buttock that radiates down the leg and into her toes, tingling, numbness. Not resting well due to pain. Minimal relief with ibuprofen/apap. No difficulty moving bowels or bladder. I saw her about 10 days ago and started dexamethasone which she has completed but reports no improvement. * ROS: C ONSTITUTIONAL: no L oss [...] *Please review and pick correct strength-formulation from [employer] options. If intended option is not shown, [...] Release TAKE 1 TABLET DAILY , Discontinued dexAMETHasone 6 MG Tablet 1 tablet Orally Once a day , Medication List reviewed and reconciled with the patient * Allergies: P enicillin, Azithromycin: upset stomach, predniSONE: rapid heart rate. Objective: * Vitals: N urse: KJ, Pain: 8, Temp: 97.5, RR: 14, HR: 80, BP: 118/70, Ht: 65, Wt: 132, BMI:21.96. * Examination: G eneral Examination: a ppears more comfortable on exam today but wire preparation machine tender across the lower back, antalgic gait. Assessment: * Assessment: 1. D egeneration of intervertebral disc of lumbar region with discogenic back pain and lower extremity pain - M51.362 (Primary) 2 . A cute left-sided low back pain with left-sided sciatica - M54.42 Plan: * Treatment: 2. A cute left-sided low back pain with left-sided sciatica Start Gabapentin Capsule, 100 MG, 1 capsule, Orally, twice a day, 30 days, 60 Capsule, Refills 0.? Referral To: Reason:MRI LS spine without contrast * Follow Up: p ending results * * Sign off status: Completed true * Provider: SAGRARIO Kothari Date: 03/25/2025 Generated for Risa talavera/Nate/Mamta on: 03/31/2025 03:13 PM EDT History and Physical Notes * Examination Category Sub-Category Detail Notes Category Not es General Examination appears more comfortable on exam today but wire preparation machine tender across the lower back, antalgic gait Consultation Request Notes Referral Date Referring Provider Referred Provider Not es 03/25/2025 Katia Andersen , MRI LS spine without contrast
--- OUTSIDE RECORDS SUMMARY | 2025-03-25 11:17 | XMS_ITS ---
Author Organization [facility] [place] Address [address] [facility] [address] [place] [address] Care Team Providers Care Paramedical Aide Name Role Phone Mac Parsons Primary Care Provider [phone] Mac Parsons Unavailable Unavailable Katia Andersen Unavailable [phone] Encounters Encounter Location Date Provider Diagnosis [facility] [place] [address] [facility] [address] [place] [address] 03/25/2025 Katia Nathaly Acute left-sided low back pain with left-sided sciatica M54.42 Assessments Encounter Date Diagnosis (ICD Code) Assessment Notes Treatment Notes Treatment Clinical Notes Section Notes 03/25/2025 Acute left-sided low back pain with left-sided sciatica (ICD-10 - M54.42) Plan Of Treatment Pending Test Test Name Order Date MRI : Lumbar Spine w/o contrast 03/25/20 Next Appt Details Provider Name:Mac Parsons, 05/31/2025 10:15:00 AM, [address], [address], [place], [address], Progress Notes * Jocelyn RABAGODOB: 8 (84 yo F)Acc No.[id number]:03/25/2025 Patient: Jocelyn KAN :1940 A ge:84 Y S ex:Female Address:[place], [address] Subjective: * Chief Complaints: * * Medical History: * Surgical History: * Hospitalization/Major Diagno stic Procedure: * Medications: Objective: * Vitals: * Physical Examination: Assessment: * Assessment: 1. A cute left-sided low back pain with left-sided sciatica - M54.42 Plan: * Treatment: * * Procedure Codes: * true * Date: Generated for Risa talavera/Nate/Mamta on: 0 03/31/2025 03:15 PM EDT
--- OUTSIDE RECORDS SUMMARY | 2025-03-31 15:12 | XMS_ITS | Continuity of Care Document ---
Author Name [facility] Organization [facility] Care Team Providers Care Land Surveyor Manager Name Role Phone [facility] Unavailable Unavailable Medications Combined list of outpatient medications from Department of Defense and Veterans Affairs facilities.Medications provided include 1) outpatient medications from the last 15 months, and 2) patient-reported medications. Medication Details Route Status Patient Instructions Prescription Expires Prescription Number Last Dispense Date Ordering Provider Order Date Order Qty Source PANTOPRAZOL E SODIUM (pantoprazo le sodium), 40 MG, TABLET CJ CONLEY, [employer] 1000 ea. BOTTLE Active [id number] 2023 90 Pharmac y Data Transac tion Service Facilit y Immunizations Combined list of available immunizations from the Department of Defense and Veterans Affairs facilities. Immunization Series Date Given Administered By Site Reaction Lot Number CVX Code Drug Hand Stripper Status Comments Source zoster recombinant 2018 OLGA RDZ () Not Given zoster recombina nt [facility] zoster recombinant 2017 OLGA RDZ () Not Given zoster recombina nt [facility] Social History Combined list of available smoking, tobacco, and other social history from Department of Defense and Veterans Affairs facilities. Social History Type Response Date Comment [facility] e This section is an empty social history section. [facility]
--- OUTSIDE RECORDS SUMMARY | 2025-03-31 15:15 | XMS_ITS | Patient Health Record ---
Author Organization [facility] Address [address] [place] [address] Care Team Providers Care Filleter Name Role Phone Mac Parsons Primary Care Provider [phone] Mac Parsons Unavailable Unavailable Katia Andersen Unavailable [phone] Migration, Provider Unavailable Unavailable Allergies Allergen (clinical [...] date:03/19/2025 10:37:57 AM Interpretation: Performing Lab: Notes/Report: CBC (INCLUDES DIFF/PLT) (639 9) Reviewed date:11/12/2024 03:22:50 PM Interpretation: Performing Lab:CB, [facility] [address], [place] HsdqEO[address] Carlos Shaikh Notes/Report: NON-FASTING; NON-FASTING WHITE BLOOD [...] MPV 10.6 7.5-12.5 fL ABSOLUTE NEUTROPHILS [phone] cells/uL ABSOLUTE LYMPHOCYTES 951 953-7992 cells/uL ABSOLUTE MONOCYTES 360 200-950 cells/uL ABSOLUTE EOSINOPHILS 150 15-500 cells/uL ABSOLUTE BASOPHILS 51 0-200 cells/uL NEUTROPHILS 64 LYMPHOCYTES 19.5 MONOCYTES 10.6 EOSINOPHILS 4.4 BASOPHILS 1.5 COMPREHENSIVE METABOLIC PANE L (50272) Reviewed date:11/10/2024 11:10:17 AM Interpretation: Performing Lab:[facility] [facility] Carlos Shaikh Notes/Report: NON-FASTING; NON-FASTING GLUCOSE 84 [...] 16 10-35 U/L ALT 16 6-29 U/L COMPREHENSIVE METABOLIC PANE L (52019) Reviewed date:04/14/2024 02:08:09 PM Interpretation: Performing Lab:NISSA [id number] [facility]lzkCN[address] Carlos Shaikh Notes/Report: FASTING: YES FASTING:YES NON-FASTING; NON-FASTING GLUCOSE 97 65-99 mg/dL Fasting reference interval [...] (7600) Reviewed date:04/14/2024 02:08:09 PM Interpretation: Performing Lab:[facility] [id number] [facility] HospitalIckjZT[address] Carlos Shaikh Notes/Report: NON-FASTING; NON-FASTING FASTING:YES FASTING: YES CHOLESTEROL, TOTAL 195 <200 mg/dL HDL CHOLESTEROL 49 > OR = 50 mg/dL TRIGLYCERIDES 215 <150 mg/dL If a non-fasting specimen was collected, consider repeat triglyceride testing on a fasting specimen if clinically indicated. Thompson et al. J. of Clin. Lipidol. 2015;9:129-169. LDL-CHOLESTEROL 112 Reference range: <100 Desirable range <100 mg/dL for primary prevention; <70 mg/dL for patients with CHD or diabetic patients with > or = 2 CHD risk factors. LDL-C is now calculated using the Raul-Jam calculation, which is a validated novel method providing better accuracy than the Friedewald equation in the estimation of LDL-C. Raul CASTILLO et al. DONNA. 2013;310(19): 3008-3254 (http://education.Ability Dynamics/faq/VPO848) CHOL/HDLC RATIO 4.0 <5.0 (calc) NON HDL CHOLESTEROL 146 <130 mg/dL (calc) For patients with diabetes plus 1 major ASCVD risk factor, treating to a non-HDL-C goal of <100 mg/dL (LDL-C of <70 mg/dL) is considered a therapeutic option. Rapid Covid/Flu A-B Combo Reviewed date:12/07/2024 12:58:30 PM Interpretation: Performing Lab: Notes/Report: Rapid Covid neg Flu A neg Flu B neg Reason For Referral Reason [facility] Diagnosis 1 Seborrheic dermatiti s of scalp (L21.9) Referral Organization [facility] Referring Provider First Name Mac Referring Provider Last Name Jaqueline Referring Provider Speciality Internal M edicine Referred Provider Specialty Dermatology General Notes Namita Rodriguez 2023 12:03:02 PM >Sent to [facility] Referral Priority Routine Reason MRI LS spine without contrast Diagnosis 1 Acute left-sided low back pain with left-sided sciatica (M54.42) Referral Organization [facility] GHAZAL Referring Provider First Name Katia Referring Provider Last Name Nathaly Referring Provider Speciality [facility] keriice Referred Organization [facility] Referred Address [address] [place] [address], Referred Provider Specialty Diagnostic R adiology General Notes Namita Rodriguez 2024 03:38:30 PM >sent to [facility] to schedule Referral Priority Routine Medications Medication SIG (Take, Route, Frequency, Duration) Notes Start Date End Date Status MiraLax - 1/2 CAP ORALLY ONCE A DAY *Please review and pick correct strength-formulatio n from Medispan options. If intended option is not shown, discontinue and re-order from Quick Search* Active Vitamin D3 25 MCG 1 tab(s) orally once a day Active Ezetimibe-Simvastatin 10-20 mg TAKE 1 TABLET [...] a day; Duration: 30 days 03/25/2025 Active FOLATE FORTE VITAMIN B6, B12 AND FOLATE 1 TAB(S) ORALLY ONCE A DAY *Please review for potential replacement for e-prescription and drug interaction check* Active Clobetasol Propionate 0.05 % 1 juan applied topically 2 times a day Active NAC 600 MG 1 cap(s) orally once a day Active Immunizations Vaccine Route Administration Date Status [...] W/U Status Risk Notes Problem Essential hypertension (97717323) Essential (primary) hypertension (I10) Active confirmed Problem 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 Problem Hyperlipidemia (79652792) Hyperlipidemia (E78.5) Active confirmed Problem Mild cognitive impairment (748503912) Mild cognitive impairment (G31.84) Active confirmed Problem Essential hypertension (30126323) Hypertension, essential (I10) Active confirmed Problem Hyperlipidaemia (30295524) Hyperlipemia (E78.5) Active confirmed Problem Gastric reflux (955976403) Gastric reflux (K21.9) Active confirmed Problem Lymphedema (908743632) Lymphedema of left lower extremity (I89.0) Active confirmed Problem Memory loss (59268465) Memory loss (R41.3) Active confirmed Problem Elevated blood pressure (46971496) Elevated BP (I10) Active confirmed Problem History of pulmonary embolus (851424406) History of pulmonary embolism (Z86.711) Active confirmed Problem Acid reflux (544144700) Acid reflux (K21.9) Active confirmed Problem Sciatica (25719272) Acute left-s ided low back pain with left-sided sciatica (M54.42) Active confirmed Problem Adult health examination (455755475) Healthcare maintenance (Z00.00) Active confirmed Problem History of cancer of uterine body (237335442) History of uterine cancer (Z85.42) Active confirmed Problem Primary hypertension (92127497) Primary hypertension (I10) Active confirmed Problem Current smoker (19453651) Current smoker (F17.200) Active confirmed Problem Hearing loss (25616902) Hearing loss, unspecified hearing loss type, unspecified laterality (H91.90) Active confirmed Problem Duodenitis (54153726) Duodenitis determined by biopsy (K29.80) Active confirmed Problem Hyperlipidemia (51543110) Other hyperlipidemia (E78.49) Active confirmed Problem Generalized arthritis (766961423) Generalized arthritis (M19.90) Active confirmed Problem Gastroesophageal reflux disease with esophagitis (disorder) (000520080) Gastroesophageal reflux disease with esophagitis without hemorrhage (K21.00) Active confirmed Vital Signs Heart Rate 80 /min 03/25/2025 Temperature 97.5 degrees Fahrenheit 03/25/2025 Blood pressure diastolic 70 mm Hg 03/25/2025 Height 65 in 03/25/2025 Blood pressure systolic 118 mm Hg 03/25/2025 Weight 132 lbs 03/25/2025 BMI 21.96 kg/m2 03/25/2025 Encounters Encounter Location Date Provider Diagnosis [facility] [address] [place] [address] 12/05/2024 Provider Migration [facility] [address] [place] [address] 04/13/2024 Mac Parsons Hyperlipemia E78.5 ; Hypertension, essential I10 ; Gastroesophageal reflux disease with esophagitis without hemorrhage K21.00 ; Mild cognitive impairment G31.84 ; Generalized arthritis M19.90 and Healthcare maintenance Z00.00 [facility] [address] [facility] [address] [place] [address] 05/18/2024 Macjose Parsons Memory loss R41.3 an d Seborrheic dermatitis of scalp L21.9 [facility] [address] [place] [address] 06/04/2024 Katia Andersen Contusion of left ca lf, subsequent encounter S80.12XD ; Hematoma of left lower leg S80.12XA and Immunization(s) administered Z23 [facility] [address] [place] [address] 07/13/2024 Mac Jaqueline Gastroesophageal ref lux disease with esophagitis without hemorrhage K21.00 ; Hypertension, essential I10 and Gastroenteritis and colitis due to radiation K52.0 [facility] [address] [place] [address] 08/17/2024 Macjose Parsons Acute bronchitis, unspecified organism J20.9 and Acute cough R05.1 [facility] [address] [place] [address] 11/09/2024 Mac Parsons Elevated BP I10 ; Mi ld cognitive impairment G31.84 ; 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 and Chronic constipation K59.09 [facility] [address] [place] [address] 12/04/2024 Mac Besson Acute URI J06.9 and Acute rhinitis J00 [facility] [address] [place] [address] 12/07/2024 Mac Besson Cough in adult R05.9 ; Acute non-recurrent maxillary sinusitis J01.00 and Viral bronchitis J20.8 [facility] [address] [place] [address] 03/08/2025 Mac Besumu Lymphedema of left l ower extremity I89.0 ; Mild cognitive impairment G31.84 ; Hypertension, essential I10 and Chronic constipation K59.09 [facility] [address] [place] [address] 03/16/2025 Katia Andersen Acute left-sided low back pain with left-sided sciatica M54.42 [facility] [address] [facility] [address] [place] [address] 03/25/2025 Katia Andersen Acute left-sided low back pain with left-sided sciatica M54.42 and 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 [facility] [address] [facility] [address] [place] [address] 06/01/2024 Mac Besson [facility] [address] [facility] [address] [place] [address] 06/01/2024 Katia Andersen [facility] [address] [place] [address] 08/27/2024 Mac Besson [facility] [address] [facility] [address] [place] [address] 11/23/2024 Mac Besson Lymphedema of left l ower extremity I89.0 and Pain of left lower extremity M79.605 [facility] [address] [facility] [address] [place] [address] 12/07/2024 Mac Besson Edema of left lower extremity R60.0 [facility] [address] [facility] [address] [place] [address] 03/25/2025 Katia Andersen Acute left-sided low back pain with left-sided sciatica M54.42 Assessments Encounter Date Diagnosis (ICD Code) Assessment Notes Treatment Notes Treatment Clinical Notes Section Notes 04/13/2024 Hypertension, essential (ICD-10 - I10) -Well controlled, off medication 04/13/2024 Hyperlipemia (ICD-10 - E78.5) -Continue ezetimibe-simva statin -Recheck lipid panel today 06/04/2024 Hematoma of left lower leg (ICD-10 - S80.12XA) 06/04/2024 Contusion of left calf, subsequent encounter (ICD-10 - S80.12XD) ED records reviewed, symptomatically improving. Encouraged to continue compression, elevation as able when at rest and can use warm compresses to help resolve the hematoma. Return precautions reviewed. 07/13/2024 Hypertension, essential (ICD-10 - I10) Blood [...] plan. 08/17/2024 Acute cough (ICD-10 - R05.1) 11/23/2024 Lymphedema of left lower extremity (ICD-10 - I89.0) 12/07/2024 Acute non-recurrent maxillary sinusitis (ICD-10 - J01.00) 12/07/2024 Cough in adult (ICD-10 - R05.9) Flu and COVID testing done because of her bronchitis symptoms. I reviewed these personally, increasing the complexity of the visit 03/08/2025 Mild cognitive impairment (ICD-10 - G31.84) [...] wraps at night - Encouraged continued exercise 03/25/2025 Acute left-sided low back pain with [...] HS and if tolerated can take BID. 03/25/2025 Acute left-sided low back pain with left-sided sciatica (ICD-10 - M54.42) 05/18/2024 Memory loss (ICD-10 - R41.3) Went [...] make this referral to dermatology group in [place]. 03/16/2025 Acute left-sided low back pain with [...] not tolerate prednisone well, trial of dexamethasone. 12/07/2024 Edema of left lower extremity (ICD-10 - R60.0) 11/09/2024 Mild cognitive impairment (ICD-10 - G31.84) Last MOCA 28/30. No signs concerning for progressive memory loss. Previously trialed memantine but patient self dc'd because she didn't like how she felt on it. Counseled to continue healthy lifestyle, exercise, social activities. 11/09/2024 Elevated BP (ICD-10 - I10) BP elevated in office today. Will check CMP, CBC. 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 04/13/2024 Gastroesophageal reflux disease with esophagitis without hemorrhage (ICD-10 - K21.00) -Well controlled symptoms, continue protonix 06/04/2024 Immunization(s) administered (ICD-10 - Z23) 04/13/2024 Mild cognitive impairment (ICD-10 - G31.84) -Patient previous scored 28/30 on MOCA testing. She has dementia panel and beta amyloid testing previously. -She continues to be concerned about her ability to recal words and remember names of friends and family. -Will trial memantine 5 mg and follow up in 1 month 03/08/2025 Chronic constipation (ICD-10 - K59.09) - Having reg bowel movements - Continue miralax 11/09/2024 Chronic constipation (ICD-10 - K59.09) having regular bowel movements. Continue daily miralax. 04/13/2024 Generalized arthritis (ICD-10 - M19.90) -Having [...] MRI : Lumbar Spine w/o contrast 03/25/20 Physical Therapy : Lymphedema 10/16/2022 Physical Therapy : Lymphedema 11/23/2024 Physical Therapy : Lymphedema 12/07/2024 Next Appt Details Provider Name:Mac Parsons, 05/31/2025 10:15:00 AM, [address] [facility], [address], [place], [address], Insurance Providers Payer Name Payer Address Payer Phone Subscriber Number Group Number Insured Name Patient Relationship to Insured Coverage Start Date Coverage End Date [place] [address] [place] [address] [id number] Jocelyn Ramos Self - patient is the insured [facility] [address] [place] [address] [id number] Jocelyn Ramos Self - patient is the insured [employer] [address] [place] [address] [address] [place] [address] [phone] ACL WinginaJocelyn lacy Self - patient is the insured Medications [...] small bowel 12/2022 Hospitalization History Reason Date(Month/Year) [facility]-blocked small bowell 12/[address] [facility] 03/2022 blood clots - [facility] 09/2021 abdomen pain-[facility] 12/2021 as lsited above
--- OUTSIDE RECORDS SUMMARY | 2025-03-31 15:15 | XMS_ITS | Clinical Summary ---
Author Organization [facility] Address [address] [place] [address] Care Team Providers Care Support Director Name Role Phone Vanessa Choudhury STEFFI Primary Care Provider [phone] Allergies Active Allergy Reactions Criticality Noted Date [...] Last Done Comments Y-Bone Density Scan 1940 [facility]-Medicare Annual Wellness (AWV) 1940 [facility]-Infant/Child/Adol SDOH Screenings 1938 [facility]- SDOH Screenings 1956 [facility]-Adult SDOH Screenings 1956 [facility]-DTaP,Tdap,and Td Vaccines (1 - Tdap) 1957 [facility]-Pneumococcal Vaccine: 50+ Years (1 of 2 - PCV) 1957 [facility]-CVBOG-34 Vaccine (8 - Moderna risk season) 2024 [...] age to complete this topic Insurance MEDICARE [facility] Care Teams Support Director Relationship Specialty Start Date End Date Vanessa Choudhury APRN [address] [place] [phone] PCP - General 01/13/21
--- OUTSIDE RECORDS SUMMARY | 2025-03-31 15:16 | XMS_ITS | Clinical Summary ---
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 Not on file 05/2023 Does Anyone Keep You from Co ntacting Others or Doint Things Outside the Home? Not on file 06/10/2023 Physical Sign of Abuse Present Not on file 1 Housing Stability Answer Date Recorded Current Living Arrangements Not on file 05/2023 Potentially Unsafe Housing Conditions Not on yanna e 06/10/2023 Family and Community Support Answer Don e Recorded Help with Day-to-Day Activities Not on file 06/10/2023 Lonely or Isolated Not on file 06/10/2023 Employment Answer Date Recorded Do you want help finding or keeping work or a bulmaro b? Not on file 06/10/2023 Disabilities Answer Date Recorded Concentrating, Remembering, or Making Decisions Difficulty Not on file 06/10/2023 Doing Errands Independently Difficulty Not on fi le 06/10/2023 Education Answer Date Recorded Help with school or training? Not on file Preferred Language Not on file 06/10/2023 Comments Unknown Sex and Gender Information Value Date Recorded Sex Assigned at Not on file Legal Sex Female 12:14 PM EDT Gender Identity Not on file Sexual Orientation Not on file Plan of Treatment Health Maintenance Due Date Last Done Comments ANNUAL PHYSICAL 1940 DXA SCAN 1940 TDAP/TD VACCINES (1 - Tdap) 1957 Pneumococcal Vaccine 50+ (1 of 1 - PCV) 1988 ZOSTER VACCINE (1 of 2) 1988 RSV Vaccine - Adults (1 - 1-dose 75+ series) 3 COVID-19 Vaccine ( season) 2024 INFLUENZA VACCINE 06/02/2025
--- OUTSIDE RECORDS SUMMARY | 2025-03-31 15:16 | XMS_ITS | Encounter Summary ---
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 Name Role Phone Unavailable Primary Care Provider Unavailabl e Encounter Details Date Type Department Care Team (Late st Contact Info) Description 08/07/2012 Conversion Encounter [facility] HISTORICAL CONV [address] [place] [address] Interface, See Report Social History Tobacco Use Types Packs/Day Years Used Date Smoking Tobacco: Never Assessed Comments Unknown Sex and Gender Information Value Date Recorded Sex Assigned at Not on file Legal Sex Female 12:14 PM EDT Gender Identity Not on file Sexual Orientation Not on file documented as of this encounter Progress Notes * Interface, See Report - 08/07/2012 12:00 AM EST Patient: JOCELYN RABAGO MR #: : [id number] Date of Visit: 08/07/2012 A ttending Physician: Brie Moody Dictated By: CARSON JEFFREY Referring Physician: Diagnosis: ANNUAL WWE Allergies: PCN Chief complaint: NO CURRENT PROBLEMS History of present illness: Here for annual exam. No complaints today. Bowels and bladder are working well. No bleeding or spotting. Has not had a mammogram since 01/10, in 08/12 and has a son with newly diagnosed bile duct cancer. She got the letter and will deci de if she wantsto have done. Present family and/or social history: Family history: Son: Bile Duct Cancer Social history: Tobacco Y N PPD ETOH Y N # Drinks Marital Status W Occupation Past medical history: Medical: No changes in medical history from prior visit. Surgical: No new surgical procedures from prior visit. Health maintenance: Mammogram: Colonoscopy: Pap smear: 01/04/11 Tumor Marker: CT Scan: BMD: Review of systems: Constitutional: No change in weight, no excessive fatigue Psychiatric: No history of anxiety, depression, bipolar disorder, or insomnia Eyes: WEARS GLASSES. Vision unchanged Ears, Nose, Mouth, Throat: Hearing normal, no swallowing difficulties, no sore throat Endocrine: No history of diabetes, thyroid disease, heat/cold intolerance Lymphatic: No enlarged lymph nodes Respiratory: No shortness of breath, cough, asthma, wheezing Cardiovascular: +HTN, +HYPERLIPIDEMIA. No angina, orthopnea, edema, hypertension, murmur, hyperlipidemia Gastrointestinal: No constipation or diarrhea, no reflux, nausea, or vomiting Genitourinary: No dysuria, hematuria, urgency, or frequency Neurologic: No numbness, weakness, syncope, seizures, or headaches Musculoskeletal: +ARTHRITIS. No muscle weakness, or joint pain Integumentary: No new skin lesions Gynecologic: No abnormal bleeding, vaginal discharge, pelvic pain, of h/o abnml pap smears LMP: P: 3 Vag Deliveries: C-sec: Hematologic: No history of anemia, easy bruising, or blood clots Medications: See documented medication list. Physical exam: Constitutional: Weight 152 [place] 65 [place] [address] Pulse Temp Neurological/Psychiatric: HEENT: Neck: Respiratory: Cardiovascular: Breasts: Gastrointestinal: Lymphatic: Extremities: Skin: Gynecologic: External Genitalia: Vagina: Cervix: , pap obtained Uterus: Ovaries: Parametria: Smooth. Rectovaginal: Hemoccult: Procedure note: Assessment: Annual Well Woman Exam H/O Abnml pap Plan: Encouraged mammogram, pt has letter and phone number for [facility] location. RTC Approved by: Brie Moody 1:34 PM , 08/07/2012 cc: documented in this encounter Plan of Treatment Not on file documented as of this encounter Visit Diagnoses Not on filedocumented in this encounter
--- NOTE | 2025-03-31 15:20 | MR_ITS ---
FINAL REPORT TECHNIQUE: Multiplanar and multisequence imaging of the lumbar spine was obtained without contrast. CLINICAL HISTORY: ACUTE LT SIDED LBP W/SIDE SCIATICA pain, numbness, tingling bilateral legs COMPARISON: None available FINDINGS: There is grade 1 anterior spondylolisthesis of L5 on S1. Levoscoliosis is noted. Vertebral body height is preserved. The spinal cord ends at the level of L1. There is normal signal intensity within the substance of the distal spinal cord. There is bone marrow edema within the sacrum bilaterally and there appear to be bilateral sacral ala fractures, possibly insufficiency fractures. T2 hyperintense renal lesions are likely cysts. No acute paraspinal abnormality L1-2: Annular disc bulge with degenerative endplate changes and facet osteoarthropathy. No central stenosis. Moderate right and mild left foraminal narrowing. L2-3: Annular disc bulge with degenerative endplate change, facet osteoarthropathy, and ligamentum flavum hypertrophy. Mild to moderate central canal stenosis. Moderate to severe right and mild to moderate left foraminal stenosis. L3-4: Annular disc bulge with degenerative endplate change, facet osteoarthropathy, and ligamentum flavum hypertrophy. Moderate central canal stenosis with severe right and mild left foraminal narrowing. L4-5: Annular disc bulge with degenerative endplate changes and facet osteoarthropathy. Moderate to severe central canal stenosis with severe bilateral foraminal narrowing. L5-S1: Annular disc bulge with degenerative endplate changes and facet osteoarthropathy. Mild central stenosis and severe bilateral foraminal narrowing. IMPRESSION: 1. Bone marrow edema within the sacrum with bilateral sacral ala fractures, possibly insufficiency fractures. 2. Grade 1 anterior spondylolisthesis of L5 on S1 with levoscoliosis. 3. Advanced multilevel degenerative disc disease as above. Authenticated and ERN
== END 2025-03-31 23:59 | disposition home or self-care (01) ==
LOC: RAD 15:11
PROVIDERS: PCP Internal Medicine Adolescent Medicine; Visit Provider Nurse Practitioner Family
DX: M43.17 Spondylolisthesis, lumbosacral region (principal); M41.87 Other forms of scoliosis, lumbosacral region; M51.16 Intervertebral disc disorders with radiculopathy, lumbar region; S32.10XA Unspecified fracture of sacrum, initial encounter for closed fracture
CPT/HCPCS: 72148

== ENCOUNTER 2025-04-19 12:48 | Outpatient (RCR) | payer MEDICARE, OTHER, SELFPAY ==
--- NOTE | 2025-04-19 14:38 | HMH.PTOPEV ---
PT Outpatient Evaluation Rehab PT Outpatient Evaluation Start: 04/19/25 12:59 Freq: Status: Active Protocol: Document 04/19/25 13:03 CINDA (Rec: 04/19/25 14:25 CINDA [id number]) E-signed By Lissette Espinoza, PT Outpatient Therapy Subjective History Subjective History This is an initial PT evaluation for 84 y/o female, Jocelyn Ramos, who presents with referral for closed fracture of the sacrum . Pt reports her symptoms started ~1 month ago. Pt reports she fell on her back ~ 3-4 months ago but reports no symptoms following her fall. Pt reports she may have injured herself setting a mole trap a month ago. Pt denies knowing if she has osteoporosis. Pt describes her pain as an ache that is in the center of her low back-tailbone. Pt also reports RLE radicular symptoms but she reports she has had this pain prior to her acute pain. Prior to her injury/ pain, pt was walking a mile everyday with her dog. Pt reports she now has difficulty walking d/t her central sacral pain. Pt reports her symptoms are about the same in severity since they started a month ago. Pt reports she feels best in the afternoon and pain is worse in the morning. Pt used to see a chiropractor ~1 month ago d/t the pain. Pt does have chronic LBP. Pt's MRI reports Bone marrow edema within the sacrum with bilateral sacral ala fractures, possibly insufficiency fractures. 2. Grade 1 anterior spondylolisthesis of L5 on S1 with levoscoliosis. 3. Advanced multilevel degenerative disc disease as above. PMH: lymphedema, endometrial cancer (cancer free for 5 years.) New diagnosis of No cancer in past 12 months? Chief Complaint Pain,Stiff,Paresthesia Symptom Type Ache Symptoms Relieved By Rest/Positioning,Ice,Prescription Meds Symptoms Aggravated Physical Activity By Prior Functional None Limitations Current Functional Reaching,Lifting,Housework,Dressing,Sleeping,Standing, Limitations Sitting,Squatting,Recreation Activity,Walking,Stairs, Bending/Stooping Symptom Description Constant but Variable Level of pain today 3 (0-10) Pain scale - at its 2 best (0-10) Pain scale - at its 7 worst (0-10) Lumbopelvic Eval Posture Thoracic Spine Neutral Posture Standing Position Lumbar Spine Posture Neutral Standing Position Assistive device Assistive Devices None / NA Gait Observation General Gait Pattern Antalgic Gait Observation Palapation tenderness bilateral lumbar spinal Yes tenderness paraspinal Yes tenderness Lumbar/Sacral Tenderness Palpation Findings Lumbar/Sacral 3/4 TTP B SIJ Palpation Overall Comment Range of Motion Lumbar Spine Active 50% Flexion Range of Motion (degrees) Lumbar Spine Active 50% Extension Range of Motion (degrees) Left Lumbar Spine 50% Lateral Flexion Active Range of Motion (degrees) Right Lumbar Spine 50% Lateral Flexion Active Range of Motion (degrees) Lumbar Spine ROM Pain Limitations Manual Muscle Test Left Knee Extension 4 Good Strength Grade Knee Flexion 4 Good Strength Grade Hip Flexion Strength 4 Good Grade Hip Abduction 4 Good Strength Grade Hip Adduction 4 Good Strength Grade Right Knee Extension 4 Good Strength Grade Knee Flexion 4 Good Strength Grade Hip Flexion Strength 3 Fair Grade Hip Abduction 3+ Fair+ Strength Grade Hip Adduction 3+ Fair+ Strength Grade Special Tests Lumbar Spine Screen Positive Hip Scouring ( Positive Left,Positive Right Quadrant) Test Hip Rome (CYRIL) Negative Left,Negative Right Test Sciatic Nerve Negative Left,Negative Right Tension Test Bilateral Straight Positive Leg Raise Test Crossed Straight Leg Negative Left,Negative Right Raise Test Sacroiliac Joint Positive Left,Positive Right Compression Test Oswestry Index Section 1 Pain Intensity The pain comes and goes and is severe Section 2 Personal Care ( increase the pain, but I manage not to change my way of Washing,Dresing) doing it Section 3 Lifting Pain prevents me from lifting weights off the floor Section 4 Walking I cannot walk more than 1/4 mile without increasing pain Section 5 Sitting I can sit in my favorite chair for as long as I like Section 6 Standing I cannot stand more than 10 minutes without increasing pain Section 7 Sleeping I get no pain in bed Section 8 Social Life Pain has restricted my social life and I do not go out often Section 9 Traveling I get some pain when traveling, but none of my usual forms of travel m Section 10 Changing Degreee of My pain is neither getting better or worse Pain Score and Risk Level Oswestry Sc 24 Oswestry Risk Level Moderate Disability Outpatient Therapy Assessment Impairments Problems/ Impaired Range of Motion,Impaired Strength,Impaired Impairmments Transfers,Impaired Gait Pattern,Impaired Walking, Impaired Standing,Impaired Lifting,Subjective C/O Pain Prognosis Rehab Potential Good Comment Pt presents with subjective reports and objective findings consistent with her MRI imaging. Pt also presents with LBP with radiating pain. PT provided pt with HEP to target B hip and core strengthening. Pt verbalized understanding to performing HEP within tolerance. Pt would benefit from skilled OP PT to address deficits and improve QOL. Clinical Impression Consistent with Yes Diagnosis PT Patient Goals PT Patient Goals PT Short Term In 4 weeks, pt will: Patient Goals 1) Verbalize compliance with home exercise program to improve self-maintenance of symptoms. 2) Verbalize 48-hour pain average (worst/best/current) of 3/10 3) Will improve BLE strength by 1/5 MMT grade to improve daily functioning. 4) Tolerate one 10 min moderate intensity endurance task (ex: bike) 5) Improve CINDI to at most 22 points to decrease disability from LBP and improve QOL. 6) Verbalize feeling at least 45% improved in symptoms since initial PT evaluation. PT Shelter Patient In 8 weeks, pt will: Goals 1) Verbalize adherence with home exercise program to maximize self-maintenance of symptoms upon d/c from PT POC. 2) Verbalize 48-hour sacral pain average (worst/best/ current) of 1/10. 3) Will improve BLE strength to at least 4/5 MMT grade globally to improve daily functioning. 4) Improve CINDI to at most 19 points to decrease disability from LBP and improve QOL. 5) Improve Lumbar AROM to 75% to improve functional ROM for daily tasks like dressing, reaching, picking up objects, and driving. 6) Verbalize feeling at least 90% improved in symptoms since initial PT evaluation. Outpatient Therapy Plan of Care Treatment Plan May Include Therapeutic Exercise Yes Including Home Exercise Program Manual Therapy Yes Techniques Neuromuscular Re- Yes education Therapeutic Yes Activities to Return to Previous Functional/Work Level Gait Training Yes ADL/Self Care Yes Education Dry Needling Yes Thermal Modalities Yes Electrical Yes Stimulation Ultrasound/ Yes Phonophoresis Iontophoresis Yes Orthotics/Bracing/ Yes Splinting Group Therapy for Yes Medicare Eval/Re-Eval Yes Aquatic Therapy Yes Frequency Times per week 2x weekly Duration Number of Weeks 6-8 weeks Addendums This patient is a No candidate for social or vocational rehab ? Patient/Guardian Yes verbally acknowledges understanding of treatment program and consents to further treatment? Patient/Guardian Yes verbally acknowledges understanding of diagnosis, prognosis and goals for treatment? Eval Complexity PT Charges 14417 - Moderate Complexity Shoulder/Elbow Eval Shoulder Objective Measurements Elbow Objective Measurements PHYSICIAN CERTIFICATION: I certify the specified therapy services for Jocelyn Lopez Marketing Strategist are required, authorized, and reviewed every 30 days.
== END 2025-04-19 23:59 | disposition home or self-care (01) ==
LOC: PT 12:48
PROVIDERS: PCP Internal Medicine Adolescent Medicine; Visit Provider Internal Medicine Adolescent Medicine
DX: S32.10XD Unspecified fracture of sacrum, subsequent encounter for fracture with routine healing (principal); W01.0XXD Fall on same level from slipping, tripping and stumbling without subsequent striking against object, subsequent encounter
CPT/HCPCS: 97162

== ENCOUNTER 2025-05-31 12:03 | Outpatient (CLI) | payer MEDICARE, OTHER, SELFPAY ==
--- OUTSIDE RECORDS SUMMARY | 2025-04-05 06:15 | XMS_ITS ---
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 PT evaluation for range of motion/pain relief with sacral fractures. Diagnosis 1 Closed fracture of s acrum with routine healing, unspecified portion of sacrum, subsequent encounter (S32.10XD) Referral Organization [facility] DAIJA WADE Referring Provider First Name Mac Referring Provider Last Name Jaqueline Referring Provider Speciality Internal M edicine General Notes Tato Iglesias 12/2024 03:40:32 PM > faxed and they will call patient Referral Priority Routine REASON FOR VISIT FU sacral fractures Medications Medication SIG (Take, Route, Frequency, Duration) Notes Start Date End Date Status Ezetimibe-Simvastatin 10-20 mg TAKE 1 TABLET ON SATURDAY, SATURDAY AND SATURDAY Active Pantoprazole Sodium 40 mg TAKE 1 TABLET DAILY Active Gabapentin 100 MG 1 capsule Orally twice a day; Duration: 30 days 03/25/2025 Active Tylenol PM Extra Strength 500-25 MG 1 tablet at bedtime as needed Orally Once a day Active ONE A DAY WOMEN'S COMPLETE MULTIPLE VITAMINS WITH MINERALS 1 TAB(S) ORALLY ONCE A DAY; Duration: 30 DAY(S) *Please review for potential replacement for e-prescription and drug interaction check* Active FOLATE FORTE VITAMIN B6, B12 AND FOLATE 1 TAB(S) ORALLY ONCE A DAY *Please review for potential replacement for e-prescription and drug interaction check* Active NAC 600 MG 1 cap(s) orally once a day Active Vitamin D3 25 MCG 1 tab(s) orally once a day Active MiraLax - 1/2 CAP ORALLY ONCE A DAY *Please review and pick correct strength-formulatio n from [employer] options. If intended option is not shown, discontinue and re-order from Quick Search* Active Clobetasol Propionate 0.05 % 1 juan applied topically 2 times a day Active Social History Smoking: Question Answer Notes How long has it been since you last smoked? > 10 years Vital Signs Temperature 97.7 degrees Fahrenheit 04/05/20 25 Heart Rate 76 /min 04/05/2025 Blood pressure systolic 140 mm Hg 04/05/20 25 Blood pressure diastolic 82 mm Hg 025 Height 65 in 04/05/2025 Weight 132.4 lbs 04/05/2025 BMI 22.03 kg/m2 04/05/2025 Encounters Encounter Location Date Provider Diagnosis [facility] [address] [place] [address] 04/05/2025 Mac Jaqueline Closed fracture of sacrum with routine healing, unspecified portion of sacrum, subsequent encounter S32.10XD Assessments Encounter Date Diagnosis (ICD Code) Assessment Notes Treatment Notes Treatment Clinical Notes Section Notes 04/05/2025 Closed fracture of sacrum with routine healing, unspecified portion of sacrum, subsequent encounter (ICD-10 - S32.10XD) Overall pain seems to be improving. Told patient that Advil was relatively safe if used short-term, recommended twice daily dosing of the Advil with food and using Tylenol at night. New pain medication with peripheral nerve blockade has not really been effective, stop this given its cost issues. Continue mobility issues, discussed using a cane when she was out walking her dog. I will follow her up at her next scheduled appointment Plan Of Treatment Medication Medication Name Sig Start Date Stop Date Notes Journavx 50 MG as directed Orally 04/01/2025 Treatment Notes Assessment Notes Closed fracture of sacrum wi th routine healing, unspecified portion of sacrum, subsequent encounter Overall pain seems to be improving. Told patient that Advil was relatively safe if used short-term, recommended twice daily dosing of the Advil with food and using Tylenol at night. New pain medication with peripheral nerve blockade has not really been effective, stop this given its cost issues. Continue mobility issues, discussed using a cane when she was out walking her dog. I will follow her up at her next scheduled appointment Referrals Referral Date Details 04/05/2025 04/05/2025, [facility] PT evaluation for range of motion/pain relief with sacral fractures. Next Appt Details Follow Up: prn, Reason: Provider Name:Mac Parsons, 07/26/2025 09:00:00 AM, [address], [address], [place], [address], Progress Notes * Jocelyn RABAGODOB: 8 (84 yo F)Acc No.[id number]:04/05/2025 Progress Notes Patient: Gina GARZAJocelyn Provider: Gina Parsons MD :1940 A ge:84 Y S ex:Female Date:04/05/2025 Address:[address] [place] [address], [place], [id number] Subjective: * Chief Complaints: * 1 . FU sacral fractures. * HPI: g en: Patient here to follow-up for sacral fractures. Has lots of questions about the mechanism. See notes below but discussion about her plan going forward. She reports no bowel or bladder incontinence. Reports no sciatica type pain. Reports that she is been able to get outside to walk her dog for about half a block before she has fairly significant pain. No falls. Has been given a cane to use by a friend of hers. Reports that she has been taking some Advil which seems to do better than the other medications for pain relief. * Medical History: A nemia, Hypertension, blood [...] Procedure: a s lsited above , abdomen pain-[facility] 12/2021, blood clots - [facility] 09/2021, [facility] 03/2022, [facility]-blocked small bowell 12/2022. * Family History: F ather: , diagnosed with Cancer. M other: , Alzheimer's dementia. P aternal Grand Father: . P aternal Grand Mother: . M aternal Grand Father: . M aternal Grand Mother: . P aternal uncle: . P aternal aunt: . M aternal uncle: . M aternal aunt: . S ibrohit: alive. Rosa serrano: alive, Son - cancer. [...] outside [place]: no. * Medications: T aking Tylenol PM Extra Strength 500-25 MG Tablet 1 tablet at bedtime as needed Orally Once a day , Taking Clobetasol Propionate 0.05 % Ointment 1 juan [...] *Please review and pick correct strength-formulation from [employer] options. If intended option is not shown, [...] Delayed Release TAKE 1 TABLET DAILY , Taking Gabapentin 100 MG Capsule 1 capsule Orally twice a day , Taking Journavx 50 MG Tablet as directed Orally , Medication List reviewed and reconciled with the patient * Allergies: P enicillin, Azithromycin: upset stomach, predniSONE: rapid heart rate. Objective: * Vitals: N urse: KJ, Pain: 7, Temp: 97.7, RR: 16, HR: 76, BP: 140/82, Ht: 65, Wt: 132.4, BMI:22.03. * Examination: G eneral Examination: Pau guevara is talkative and pleasant, no distress but is very anxious about her ongoing rehab. Is able to sit to chair to 90 degree angle comfortably. Is able to get up from the chair by herself and takes several steps before she starts feeling pain. No distal leg edema, motor strength is intact. Assessment: * Assessment: 1. C losed fracture of sacrum with routine healing, unspecified portion of sacrum, subsequent encounter - S32.10XD (Primary) Plan: * Treatment: * Follow Up: p rn * * Sign off status: Completed true * Provider: Gina Parsons MD Date: 0 04/05/2025 Generated for Risa talavera/Nate/Jonaitting on: 0 05/31/2025 12:06 PM EDT History and Physical Notes * HPI (History of Present Illness) Category Sub-Category Detail Notes Category Not es gen Patient here to follow-up for sacral fractures. Has lots of questions about the mechanism. See notes below but discussion about her plan going forward. She reports no bowel or bladder incontinence. Reports no sciatica type pain. Reports that she is been able to get outside to walk her dog for about half a block before she has fairly significant pain. No falls. Has been given a cane to use by a friend of hers. Reports that she has been taking some Advil which seems to do better than the other medications for pain relief Examination Category Sub-Category Detail Notes Category Not es General Examination Patient is talkative and pleasant, no distress but is very anxious about her ongoing rehab. Is able to sit to chair to 90 degree angle comfortably. Is able to get up from the chair by herself and takes several steps before she starts feeling pain. No distal leg edema, motor strength is intact Consultation Request Notes Referral Date Referring Provider Referred Provider Not es 04/05/2025 Mac Parsons [facility] PT evaluation for range of motion/pain relief with sacral fractures.
--- OUTSIDE RECORDS SUMMARY | 2025-04-06 13:07 | XMS_ITS ---
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 Role Phone Mac Parsons Primary Care Provider Mac Parsons Unavailable Unavailable REASON FOR VISIT PT Eval Encounters Encounter Location Date Provider Diagnosis [facility] [place] [address] [place] [address] 04/06/2025 Mac Parsons Plan Of Treatment Next Appt Details Provider Name:Mac Parsons, 07/26/2025 09:00:00 AM, [address], [address], [place], [address], Progress Notes * Jocelyn RABAGODOB: 8 (84 yo F)Acc No.[id number]:04/06/2025 Patient: Jocelyn KAN :1940 A ge:84 Y S ex:Female Address:[place], [address] Subjective: * Chief Complaints: * P T Eval * Medical History: * Surgical History: * Hospitalization/Major Diagno stic Procedure: * Medications: Objective: * Vitals: * Physical Examination: Assessment: Plan: * Treatment: * Procedure Codes: * true * Date: Generated for Printi ng/Faxing/eTransmitting on: 0 05/31/2025 12:07 PM EDT
--- OUTSIDE RECORDS SUMMARY | 2025-04-19 05:15 | XMS_ITS ---
Author Organization [facility] Address [address] [place] [address] Care Team Providers Care Electrician Second Name Role Phone Mac Parsons Primary Care Provider [phone] Mac Parsons Unavailable Unavailable Allergies Allergen (clinical drug ingredient) Drug/Non Drug Allergy documented on EMR Reaction Allergy Type Onset Date Status predniSONE rapid heart rate Drug Allergy Active azithromycin Azithromycin upset stomach Drug Allergy Active Penicillin Unknown Drug Allergy Active REASON FOR VISIT 2 week follow up Medications Medication SIG (Take, Route, Frequency, Duration) Notes Start Date End Date Status MiraLax - 1/2 CAP ORALLY ONCE A DAY *Please review and pick correct strength-formulatio n from [employer] options. If intended option is not shown, [...] 40 mg TAKE 1 TABLET DAILY Active FOLATE FORTE VITAMIN B6, B12 AND FOLATE 1 TAB(S) ORALLY ONCE A DAY *Please review for potential replacement for e-prescription and drug interaction check* Active NAC 600 MG 1 cap(s) orally once a day Active Vitamin D3 25 MCG 1 tab(s) orally once a day Active Tylenol PM Extra Strength 500-25 MG 1 tablet at bedtime as needed Orally Once a day Active Clobetasol Propionate 0.05 % 1 juan applied topically 2 times a day Active Social History Smoking: Question Answer Notes How long has it been since you last smoked? > 10 years Vital Signs Temperature 97.7 degrees Fahrenheit 04/19/20 25 Heart Rate 80 /min 04/19/2025 Blood pressure systolic 138 mm Hg 04/19/20 25 Blood pressure diastolic 86 mm Hg 025 Height 65 in 04/19/2025 Weight 134 lbs 04/19/2025 BMI 22.3 kg/m2 04/19/2025 Encounters Encounter Location Date Provider Diagnosis [facility] [place] [address] [facility] [address] [place], [place] [address] 04/19/2025 Mac Parsons Closed fracture of sacrum with routine healing, unspecified portion of sacrum, subsequent encounter S32.10XD and Healthcare maintenance Z00.00 Assessments Encounter Date Diagnosis (ICD Code) Assessment Notes Treatment Notes Treatment Clinical Notes Section Notes 04/19/2025 Closed fracture of sacrum with routine healing, unspecified portion of sacrum, subsequent encounter (ICD-10 - S32.10XD) Pt seems to be progressing as expected continue 2-3 advil am and pm and tylenol pm before bed will be starting physical therapy today 04/19/2025 Healthcare maintenance (ICD-10 - Z00.00) Pt recalled 3 words She not concerned about falls at home, she is going to PT for sacral fractures She does live alone and is able to complete all ADLs She reports a good mood She is up to date on her vaccine schedule, will be getting her tetanus vaccine at the pharmacy Rx sent today She does have a living will maintains an adequate diet and hydration Plan Of Treatment Treatment Notes Assessment Notes Closed fracture of sacrum wi th routine healing, unspecified portion of sacrum, subsequent encounter Pt seems to be progressing as expected continue 2-3 advil am and pm and tylenol pm before bed will be starting physical therapy today Healthcare maintenance Pt recalled 3 words She not concerned about falls at home, she is going to PT for sacral fractures She does live alone and is able to complete all ADLs She reports a good mood She is up to date on her vaccine schedule, will be getting her tetanus vaccine at the pharmacy Rx sent today She does have a living will maintains an adequate diet and hydration Next Appt Details Follow Up: prn, Reason: Provider Name:Mac Parsons, 07/26/2025 09:00:00 AM, [address], [address], [place], [address], Progress Notes * Jocelyn RABAGODOB: 8 (84 yo F)Acc No.[id number]:04/19/2025 Progress Notes Patient: Jocelyn KAN Provider: Gina Parsons MD :1940 A ge:84 Y S ex:Female Date:04/19/2025 Address:[address], [place], [id number] Subjective: * Chief Complaints: * 1 . 2 week follow up. * HPI: g en: Mrs. Banks presents for a f/u on sacral fractures. She feels better at times, but still has pain in her low back and right leg. S he has cut back to taking 2 advils for pain relief am and pm and continuing to take tylenol pm. She states she feels much better in the afternoons. She has pain with sitting and standing. She has been using a cane less often and is able to still walk about 20-60 feet until the pain starts going down her right leg into her ankle. She will have her PT eval today at 1pm. She denies numbness but states she has tingling. She is also due for her wellness exam today. * Medical History: A nemia, Hypertension, blood [...] Procedure: a s lsited above , abdomen pain-[facility] 12/2021, blood clots - [facility] 09/2021, H 03/2022, [facility]-blocked small bowell 12/2022. [...] *Please review and pick correct strength-formulation from [employer] options. If intended option is not shown, [...] Release TAKE 1 TABLET DAILY , Discontinued Gabapentin 100 MG Capsule 1 capsule Orally twice a day , Medication List reviewed and reconciled with the patient * Allergies: P enicillin, Azithromycin: upset stomach, predniSONE: rapid heart rate. Objective: * Vitals: N urse: be, Pain: 5, Temp: 97.7, RR: 16, HR: 80, BP: 138/86, Ht: 65, Wt: 134, BMI:22.3. * Examination: G eneral Examination: General P leasant and Cooperative, NAD on RA,. a ble to sit at 90 degrees and stand on her own. pain while seated she is able to take a few steps before feeling pain no distal edema motor strength in tact. Assessment: * Assessment: 1. C losed fracture of sacrum with routine healing, unspecified portion of sacrum, subsequent encounter - S32.10XD (Primary) 2 . H ealthcare maintenance - Z00.00 ? Plan: * Treatment: 2. H ealthcare maintenance Notes: Pt recalled 3 words She not concerned about falls at home, she is going to PT for sacral fractures She does live alone and is able to complete all ADLs She reports a good mood She is up to date on her vaccine schedule, will be getting her tetanus vaccine at the pharmacy Rx sent today She does have a living will maintains an adequate diet and hydration * Procedure Codes: G 0439 ANNUAL WELLNESS VST; PPS SUBSQT VST, 1170F FUNCTIONAL STATUS ASSESSMENT, 1123F ADVANCED DIRECTIVE - HAS A LIVING WILL, G8420 BMI documented as normal, no follow up required., G8510 NEGATIVE SCREENING F/U NOT REQUIRED, G9903 Pt scrn tbco id as non user, 1036F TOBACCO NON-USER, G8783 NORMAL BP READING DOC F/U NOT RQR * Follow Up: p rn * * Sign off status: Completed true * Provider: Gina Parsons MD Date: 0 04/19/2025 Generated for Risa talavera/Nate/eTransmitting on: 0 05/31/2025 12:06 PM EDT History and Physical Notes * HPI (History of Present Illness) Category Sub-Category Detail Notes Category Not es gen Mrs. Banks presents for a f/u on sacral fractures. She feels better at times, but still has pain in her low back and right leg. She has cut back to taking 2 advils for pain relief am and pm and continuing to take tylenol pm. She states she feels much better in the afternoons. She has pain with sitting and standing. She has been using a cane less often and is able to still walk about 20-60 feet until the pain starts going down her right leg into her ankle. She will have her PT eval today at 1pm. She denies numbness but states she has tingling. She is also due for her wellness exam today Examination Category Sub-Category Detail Notes Category Not es General Examination General Pleasant and Cooperat harish, NAD on RA, able to sit at 90 degrees and stand on her own. pain while seated she is able to take a few steps before feeling pain no distal edema motor strength in tact
--- OUTSIDE RECORDS SUMMARY | 2025-05-31 06:15 | XMS_ITS ---
Author Organization [facility] Address [address] [place] [address] Care Team Providers Care Process Control Operator Name Role Phone Mac Parsons Primary Care Provider [phone] Mac Parsons Unavailable Unavailable Allergies Allergen (clinical drug ingredient) Drug/Non Drug Allergy documented on EMR Reaction Allergy Type Onset Date Status predniSONE rapid heart rate Drug Allergy Active azithromycin Azithromycin upset stomach Drug Allergy Active Penicillin Unknown Drug Allergy Active REASON FOR VISIT Had recent fall-beginning of this month. Left foot is still very sore Medications Medication SIG (Take, Route, Frequency, Duration) [...] 40 mg TAKE 1 TABLET DAILY Active Clobetasol Propionate 0.05 % 1 juan applied topically 2 times a day Active MiraLax - 1/2 CAP ORALLY ONCE A DAY *Please review and pick correct strength-formulatio n from Medispan options. If intended option is not shown, discontinue and re-order from Quick Search* Active FOLATE FORTE VITAMIN B6, B12 AND FOLATE 1 TAB(S) ORALLY ONCE A DAY *Please review for potential replacement for e-prescription and drug interaction check* Active NAC 600 MG 1 cap(s) orally once a day Active Vitamin D3 25 MCG 1 tab(s) orally once a day Active Immunizations Vaccine Route Administration Date Status Comme nts Fluzone High Dose IM Intramuscular 05/31/2025 Administered Social History Smoking: Question Answer Notes How long has it been since you last smoked? > 10 years Vital Signs Temperature 97.5 degrees Fahrenheit 05/31/20 25 Heart Rate 68 /min 05/31/2025 Blood pressure systolic 130 mm Hg 05/31/20 25 Blood pressure diastolic 74 mm Hg 025 Height 65 in 05/31/2025 Weight 136.4 lbs 05/31/2025 BMI 22.7 kg/m2 05/31/2025 Encounters Encounter Location Date Provider Diagnosis [facility] [address] [place] [address] 05/31/2025 Mac Parsons Left foot pain M79.6 72 ; Unspecified fall, sequela W19.XXXS ; Unspecified place in unspecified non-institutional (private) residence as the place of occurrence of the external cause Y92.009 and Immunization(s) administered Z23 Assessments Encounter Date Diagnosis (ICD Code) Assessment Notes Treatment Notes Treatment Clinical Notes Section Notes 05/31/2025 Left foot pain (ICD-10 - M79.672) Unlikely fracture given her ambulatory status but given bony tenderness across the dorsum of the foot will x-ray. Encourage patient to keep walking. She is making good progress since her sacral fractures 05/31/2025 Unspecified fall, sequela (ICD-10 - W19.XXXS) Seems to be doing well at home. Relatively safe home environment. Fall seem to be a mechanical fall involving ornamental rock and her dog 05/31/[address] in unspecified non-institutional (private) residence as the place of occurrence of the external cause (ICD-10 - Y92.009) 05/31/2025 Immunization(s) administered (ICD-10 - Z23) Plan Of Treatment Treatment Notes Assessment Notes Left foot pain Unlikely fracture given her ambulatory status but given bony tenderness across the dorsum of the foot will x-ray. Encourage patient to keep walking. She is making good progress since her sacral fractures Unspecified fall, sequela Seems to be do ing well at home. Relatively safe home environment. Fall seem to be a mechanical fall involving ornamental rock and her dog Pending Test Test Name Order Date X ray : Foot, Left 05/31/2025 Next Appt Details Follow Up: prn, Reason: Provider Name:Mac Rizvicarson Parsons, 07/26/2025 09:00:00 AM, [address], [address], [place], [address], Progress Notes * Jocelyn RABAGODOB: 8 (84 yo F)Acc No.[id number]:05/31/2025 Progress Notes Patient: Jocelyn KAN Provider: Gina Parsons MD :[id number] A ge:84 Y S ex:Female Date:05/31/2025 [facility] [place] [id number] Subjective: * Chief Complaints: * 1 . Had recent fall-beginning of this month. Left foot is still very sore. * HPI: g en: PT here for evaluation 1 month post fall for pain and swelling. She states she fell in her garden and landed on her left leg. She is complaining of some pain and swelling over the left arch and left metatarsal with some bruising. She hasn't had an x-ray of the foot but states she is walking better than she was right after the fall. She has some pain in her back from previous falls but is seeing physical therapy twice a week. PT denies numbness, tingling, or weakness of legs. PT also here for flu vaccine. * Medical History: A nemia, Hypertension, blood [...] Procedure: a s lsited above , abdomen pain-[facility] 12/2021, blood clots - [facility] 09/2021, [facility] 03/2022, [facility]-blocked small bowell 12/2022. * Family History: F ather: , diagnosed with Cancer. M other: , Alzheimer's dementia. P aternal Grand Father: . P aternal Grand Mother: . M aternal Grand Father: . M aternal Grand Mother: . P aternal uncle: . P aternal aunt: . M aternal uncle: . M aternal aunt: . S ibrohit: alive. C maggie: alive, Son - cancer. 3 brother(s) - [...] *Please review and pick correct strength-formulation from Cylance options. If intended option is not shown, [...] Release TAKE 1 TABLET DAILY , Discontinued Tylenol PM Extra Strength 500-25 MG Tablet 1 tablet at bedtime as needed Orally Once a day , Medication List reviewed and reconciled with the patient * Allergies: P enicillin, Azithromycin: upset stomach, predniSONE: rapid heart rate. Objective: * Vitals: N urse: KJ, Pain: 3, Temp: 97.5, RR: 16, HR: 68, BP: 130/74, Ht: 65, Wt: 136.4, BMI:22.7. * Examination: G eneral Examination: General P leasant and Cooperative, NAD on RA,. Heart: R egular Rate and Rhythm, no murmur, rubs or gallops. HEENT: p harynx and tonsils normal, TM's normal. Lungs: L CTAB, No wheezes, crackles or rhonchi, Good air movement,. Abdomen: S oft, NTND, BSNA, No organomegaly or peritoneal signs.. Peripheral pulses: n ormal (2+) bilaterally. Extremities: n ormal ROM,, no clubbing, no edema,, left foot positive for ecchymosis, swelling, and tenderness to palpation over arch and fifth metatarsal.? Assessment: * Assessment: 1. L eft foot pain - M79.672 (Primary) 2 . U nspecified fall, sequela - W19.XXXS [address] . U n[address] in unspecified non-institutional (private) residence as the place of occurrence of the external cause - Y92.009 4 . I mmunization(s) administered - Z23 Plan: * Treatment: Notes: Unlikely fracture given her ambulatory status but given bony tenderness across the dorsum ofthe foot will x-ray. Encourage patient to keep walking. She is making good progress since her sacral fractures? 2.?Unspecified fall, sequela? Notes: Seems to be doing well at home. Relatively safe home environment. Fall seem to be a mechanical fall involving ornamental rock and her dog?? * Immunizations: Fluzone High Dose : 0.7 mL (Route: Intramuscular) given by VIANEY Best on Left Arm (Immunization(s) administered) * Procedure Codes: 9 0662 Influenza High Dose Vaccine >65 Years Old, Units: 1.40 , G0008 ADMINISTRATION-FLU VACCINE MEDICARE ONLY, G2211 Complex e/m visit add on * Follow Up: p rn * * Sign off status: Completed true * Provider: Gina Parsons MD Date: 0 05/31/2025 Generated for Risa talavera/Nate/Claudiasmitting on: 0 05/31/2025 12:07 PM EDT History and Physical Notes * HPI (History of Present Illness) Category Sub-Category Detail Notes Category Not es gen PT here for sandra lundberg 1 month post fall for pain and swelling. She states she fell in her garden and landed on her left leg. She is complaining of some pain and swelling over the left arch and left metatarsal with some bruising. She hasn't had an x-ray of the foot but states she is walking better than she was right after the fall. She has some pain in her back from previous falls but is seeing physical therapy twice a week. PT denies numbness, tingling, or weakness of legs. PT also here for flu vaccine. Examination Category Sub-Category Detail Notes Category Not es General Examination HEENT: pharynx and tonsils normal, TM's normal Heart: Regular Rate and Rhy thm, no murmur, rubs or gallops Lungs: LCTAB, No wheezes, c rackles or rhonchi, Good air movement, Abdomen: Soft, NTND, BSNA, No organomegaly or peritoneal signs. Extremities: normal ROM,, no club nirali, no edema,, left foot positive for ecchymosis, swelling, and tenderness to palpation over arch and fifth metatarsal Peripheral pulses: normal (2+) bilatera lly General Pleasant and Coopera tive, NAD on RA,
--- NOTE | 2025-05-31 12:07 | XR_ITS ---
FINAL REPORT CLINICAL HISTORY: LT FOOT PAIN COMPARISON: None FINDINGS: LEFT FOOT Three views of the left foot demonstrate no acute fracture or dislocation. The visualized joint spaces are normally aligned. There is an ossific density adjacent to the dorsal aspect of the distal talus, measuring 8 mm in size and well-corticated. This likely represents a remote fracture fragment. The soft tissues are unremarkable. IMPRESSION: No acute bony abnormality. Reviewed, Interpreted and Dictated by Chano Clinton MD Transcribed by Alexandria Cuevas Authenticated and [facility]
--- OUTSIDE RECORDS SUMMARY | 2025-05-31 12:07 | XMS_ITS | Patient Health Record ---
Author Organization [facility] Address [address] [place] [address] Care Team Providers Care Saxophone Player Name Role Phone Mac Parsons Primary Care Provider Mac Parsons Unavailable Unavailable Katia Andersen Unavailable [phone] Migration, Provider Unavailable Unavailable Allergies Allergen (clinical drug ingredient) Drug/Non Drug Allergy documented on EMR Reaction Allergy Type Onset Date Status predniSONE rapid heart rate Drug Allergy Active azithromycin Azithromycin upset stomach Drug Allergy Active Penicillin Unknown Drug Allergy Active Results Component Value Reference Range Notes CBC (INCLUDES DIFF/PLT) (009 9) Reviewed date:11/12/2024 03:22:50 PM Interpretation: Performing Lab:NISSA, [facility] [id number] [facility], [facility]sfIZ[address] Carlos Shaikh Notes/Report: NON-FASTING; NON-FASTING WHITE BLOOD [...] MPV 10.6 7.5-12.5 fL ABSOLUTE NEUTROPHILS 2176 7156-6857 cells/uL ABSOLUTE LYMPHOCYTES 779 107-4477 cells/uL ABSOLUTE MONOCYTES 360 200-950 cells/uL ABSOLUTE EOSINOPHILS 150 15-500 cells/uL ABSOLUTE BASOPHILS 51 0-200 cells/uL NEUTROPHILS 64 LYMPHOCYTES 19.5 MONOCYTES 10.6 EOSINOPHILS 4.4 BASOPHILS 1.5 COMPREHENSIVE METABOLIC PANE L (13442) Reviewed date:11/10/2024 11:10:17 AM Interpretation: Performing Lab:CB, [facility] [id number], [facility] [id number] Carlos Shaikh Notes/Report: NON-FASTING; NON-FASTING GLUCOSE 84 [...] 16 10-35 U/L ALT 16 6-29 U/L MRI : Lumbar Spine w/o contr ast Reviewed date:04/03/2025 09:59:52 PM Interpretation: Performing Lab: Notes/Report: X ray : Spines, Lumbosacral Reviewed date:03/19/2025 10:37:57 AM Interpretation: Performing Lab: Notes/Report: X ray : Spines, Lumbosacral Reviewed date:03/19/2025 10:37:57 AM Interpretation: Performing Lab: Notes/Report: Rapid Covid/Flu A-B Combo Reviewed date:12/07/2024 12:58:30 PM Interpretation: Performing Lab: Notes/Report: Rapid Covid neg Flu A neg Flu B neg Reason For Referral Reason MRI LS spine without contrast Diagnosis 1 Acute left-sided low back pain with left-sided sciatica (M54.42) Referral Organization [facility] DAIJA HARMAN Referring Provider First Name Katia Referring Provider Last Name Nathaly Referring Provider [facility] Referred Organization [facility] Referred Address [address] [facility] [address] [facility], [place], [place],[address], Referred Provider Specialty Diagnostic R adiology General Notes Namita Rodriguez 2024 03:38:30 PM >sent to [facility] to schedule Referral Priority Routine Reason [facility] spital PT evaluation for range of motion/pain relief with sacral fractures. Diagnosis 1 Closed fracture of s acrum with routine healing, unspecified portion of sacrum, subsequent encounter (S32.10XD) Referral Organization [facility] DAIJA WADE Referring Provider First Name Mac Referring Provider Last Name Jaqueline Referring Provider Speciality Internal edicine General Notes Tato Iglesias 12/2024 03:40:32 PM > faxed and they will call patient Referral Priority Routine Reason HH- PT/OT - Closed f racture of sacrum with routine healing, unspecified portion of sacrum, subsequent encounter - S32.10XD (Primary) Referral Organization [facility] ALAYNA WADE Referring Provider First Name Mac Referring Provider Last Name Jaqueline Referring Provider Speciality Internal edicine Referred Organization [facility] Referred Address [address],[place], [place],[address], Referred Provider Specialty Home Health General Notes Namita Rodriguez 2024 11:33:08 AM >sent to [facility] Referral Priority Routine Medications Medication SIG (Take, [...] Fluzone High Dose IM Intramuscular 06/04/2024 Administered Fluzone High Dose IM Intramuscular 05/31/2025 Administered SHINGRIX Unknown 06/02/2012 Administered SHINGRIX Unknown 06/04/2018 Administered SHINGRIX Unknown 10/27/2018 Administered Social History Smoking: Question Answer Notes How long has it been since you last smoked? 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 Problem Hyperlipidemia (41819581) Hyperlipidemia (E78.5) Active confirmed Problem Mild cognitive impairment (506036113) Mild cognitive impairment (G31.84) Active confirmed Problem Essential hypertension (25186700) Hypertension, essential (I10) Active confirmed Problem Hyperlipidaemia (31025136) Hyperlipemia (E78.5) Active confirmed Problem Gastric reflux (340971351) Gastric reflux (K21.9) Active confirmed Problem Lymphedema (429728081) Lymphedema of left lower extremity (I89.0) Active confirmed Problem Memory loss (35637651) Memory loss (R41.3) Active confirmed Problem Elevated blood pressure (49481686) Elevated BP (I10) Active confirmed Problem History of pulmonary embolus (973202813) History of pulmonary embolism (Z86.711) Active confirmed Problem Acid reflux (408105625) Acid reflux (K21.9) Active confirmed Problem Sciatica (55226757) Acute left-s ided low back pain with left-sided sciatica (M54.42) Active confirmed Problem Adult health examination (644798421) Healthcare maintenance (Z00.00) Active confirmed Problem History of cancer of uterine body (801375498) History of uterine cancer (Z85.42) Active confirmed Problem Primary hypertension (42704324) Primary hypertension (I10) Active confirmed Problem Current smoker (30431001) Current smoker (F17.200) Active confirmed Problem Hearing loss (00735768) Hearing loss, unspecified hearing loss type, unspecified laterality (H91.90) Active confirmed Problem Duodenitis (74144781) Duodenitis determined by biopsy (K29.80) Active confirmed Problem Hyperlipidemia (49741080) Other hyperlipidemia (E78.49) Active confirmed Problem Generalized arthritis (322744353) Generalized arthritis (M19.90) Active confirmed Problem Gastroesophageal reflux disease with esophagitis (disorder) (639431940) Gastroesophageal reflux disease with esophagitis without hemorrhage (K21.00) Active confirmed Vital Signs Heart Rate 68 /min 05/31/2025 Temperature 97.5 degrees Fahrenheit 05/31/2025 Blood pressure diastolic 74 mm Hg 05/31/2025 Height 65 in 05/31/2025 Blood pressure systolic 130 mm Hg 05/31/2025 Weight 136.4 lbs 05/31/2025 BMI 22.7 kg/m2 05/31/2025 Encounters Encounter Location Date Provider Diagnosis [facility] [address] [place], [place] [address] 12/05/2024 Provider Migration [facility] [address] [place], [place] [address] 06/04/2024 Katia Andersen Contusion of left ca lf, subsequent encounter S80.12XD ; Hematoma of left lower leg S80.12XA and Immunization(s) administered Z23 [facility] [address] [place] [address] 07/13/2024 Mac Besson Gastroesophageal ref lux disease with esophagitis without hemorrhage K21.00 ; Hypertension, essential I10 and Gastroenteritis and colitis due to radiation K52.0 [facility] [address] [place] [address] 08/17/2024 Mac Besson Acute bronchitis, unspecified organism J20.9 and Acute cough R05.1 [facility] [address] [place] [address] 11/09/2024 Mac Besson Elevated BP I10 ; Mi ld cognitive impairment G31.84 ; 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 and Chronic constipation K59.09 [facility] [address] [place] [address] 12/04/2024 Mac Besson Acute URI J06.9 and Acute rhinitis J00 [facility] [address] [place] [address] 12/07/2024 Mac Besson Cough in adult R05.9 ; Acute non-recurrent maxillary sinusitis J01.00 and Viral bronchitis J20.8 [facility] [address] [place] [address] 03/08/2025 Mac Besson Lymphedema of left l ower extremity I89.0 ; Mild cognitive impairment G31.84 ; Hypertension, essential I10 and Chronic constipation K59.09 [facility] [address] [place] [address] 03/16/2025 Katia Nathaly Acute left-sided low back pain with left-sided sciatica M54.42 [facility] [address] [place] [address] 03/25/2025 [facility] Acute left-sided low back pain with left-sided sciatica M54.42 and 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 [facility] [address] [place], [place] [address] 04/05/2025 Mac Parsons Closed fracture of sacrum with routine healing, unspecified portion of sacrum, subsequent encounter S32.10XD [facility] [address] [facility] [address] [place], [place] [address] 04/19/2025 Mac Parsons Closed fracture of sacrum with routine healing, unspecified portion of sacrum, subsequent encounter S32.10XD and Healthcare maintenance Z00.00 [facility] [address] [facility] [address] [place] [address] 05/31/2025 Mac Parsons Left foot pain M79.6 72 ; Unspecified fall, sequela W19.XXXS ; Unspecified place in unspecified non-institutional (private) residence as the place of occurrence of the external cause Y92.009 and Immunization(s) administered Z23 [facility] [address] [facility] [address] [place], [place] [address] 06/01/2024 Mac Besson [facility] [address] [facility] [address] [place] [address] 06/01/2024 Katia Nathaly [facility] [address] [facility] [address] [place], [place] [address] 08/27/2024 Mac Besson [facility] [address] [facility] [address] [place] [address] 11/23/2024 Mac Besson Lymphedema of left l ower extremity I89.0 and Pain of left lower extremity M79.605 [facility] [address] [facility] [address] [place] [address] 12/07/2024 Macjose Parsons Edema of left lower extremity R60.0 [facility] [address] [facility] [address] [place] [address] 03/25/2025 Katia Nathaly Acute left-sided low back pain with left-sided sciatica M54.42 [facility] [address] [facility] [address] [place] [address] 04/01/2025 Katia Nathaly [facility] [address] [facility] [address] [place], [place] [address] 04/01/2025 Katia Plummer [facility] [address] [place], [place] [address] 04/06/2025 Mac Parsons [facility] [address] [place], [place] [address] 04/06/2025 Katia Andersen Assessments Encounter Date Diagnosis (ICD Code) Assessment Notes Treatment Notes Treatment Clinical Notes Section Notes 07/13/2024 Hypertension, essential (ICD-10 - I10) Blood [...] not tolerate prednisone well, trial of dexamethasone. 03/25/2025 Acute left-sided low back pain with [...] pain with left-sided sciatica (ICD-10 - M54.42) 04/05/2025 Closed fracture of sacrum with routine [...] her up at her next scheduled appointment 04/19/2025 Healthcare maintenance (ICD-10 - Z00.00) Pt [...] will maintains an adequate diet and hydration 04/19/2025 Closed fracture of sacrum with routine healing, unspecified portion of sacrum, subsequent encounter (ICD-10 - S32.10XD) Pt seems to be progressing as expected continue 2-3 advil am and pm and tylenol pm before bed will be starting physical therapy today 05/31/2025 Unspecified fall, sequela (ICD-10 - W19.XXXS) Seems to be doing well at home. Relatively safe home environment. Fall seem to be a mechanical fall involving ornamental rock and her dog 05/31/2025 Left foot pain (ICD-10 - M79.672) Unlikely fracture given her ambulatory status but given bony tenderness across the dorsum of the foot will x-ray. Encourage patient to keep walking. 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 Discontinued mirtazapine because she didn't like how it made her feel. Also didn't help with her scratching. 05/31/[address] in unspecified non-institutional (private) residence as the place of occurrence of the external cause (ICD-10 - Y92.009) 12/07/2024 Viral bronchitis (ICD-10 - J20.8) Has [...] diet. 06/04/2024 Immunization(s) administered (ICD-10 - Z23) 11/09/2024 Chronic constipation (ICD-10 - K59.09) having regular bowel movements. Continue daily miralax. 03/08/2025 Chronic constipation (ICD-10 - K59.09) - Having reg bowel movements - Continue miralax 05/31/2025 Immunization(s) administered (ICD-10 - Z23) 03/08/2025 Other - Will follow up in May 2025 for labs and Medicare wellness Plan Of Treatment Pending Test Test Name Order Date X ray : Foot, Left 05/31/2025 Physical Therapy 04/05/2025 Physical Therapy : Lymphedema 10/16/2022 Physical Therapy : Lymphedema 11/23/2024 Physical Therapy : Lymphedema 12/07/2024 Next Appt Details Provider Name:Mac Parsons, 07/26/2025 09:00:00 AM, [address] [facility], [place], [address], Insurance Providers Payer Name Payer Address Payer Phone Subscriber Number Group Number Insured Name Patient Relationship to Insured Coverage Start Date Coverage End Date [place] [address] [place] [phone] [id number] Jocelyn Ramos Self - patient is the insured [facility] CLAIMS [address] [place] [address] [id number] Jocelyn Ramos Self - patient is the insured [facility] [address] [place] [address] ACL Jocelyn Ramos Self - patient is [...] small bowel 12/2022 Hospitalization History Reason Date(Month/Year) H-blocked small bowell 12/2022 [facility] 03/2022 blood clots - [facility] 09/2021 abdomen pain-[facility] 12/2021 as lsited above
== END 2025-05-31 23:59 | disposition home or self-care (01) ==
LOC: RAD 12:05
PROVIDERS: PCP Internal Medicine Adolescent Medicine; Visit Provider Internal Medicine Adolescent Medicine
DX: M79.672 Pain in left foot (principal)
CPT/HCPCS: 73630

== ENCOUNTER 2025-06-01 09:00 | Outpatient (RCR) | payer MEDICARE, OTHER, SELFPAY ==
--- NOTE | 2025-05-21 10:11 | HMH.RHREAS ---
Rehab Reassessment Rehab OP Re-assessment Start: 05/04/25 15:14 Freq: Status: Active Protocol: Document 05/21/25 08:49 CINDA (Rec: 05/21/25 10:08 CINDA [id number]) E-signed By Lissette Espinoza, PT Oswestry Index Section 1 Pain Intensity The pain is moderate and does not vary much Section 2 Personal Care ( change my way of washing or dressing in order to avoid Washing,Dresing) pain Section 3 Lifting lifting heavy weights off the floor, but I can manage light to medium Section 4 Walking I cannot walk more than 1/4 mile without increasing pain Section 5 Sitting I can sit in my favorite chair for as long as I like Section 6 Standing I cannot stand more than 10 minutes without increasing pain Section 7 Sleeping I get no pain in bed Section 8 Social Life My social life is normal but increases the degree of pain Section 9 Traveling I get no pain when traveling Section 10 Changing Degreee of My pain fluctuates, but overall is definitely getting Pain better Score and Risk Level Oswestry Score 18 Oswestry Risk Level Moderate Disability Rehab Re-assessment Subjective Subjective Pt reports she feels 50% better since IE. Pt reports she is able to walk her block in the morning now but she used to be able to walk 1 mile. I know I'm improving but I have a long way to go HEP compliance: Pt reports good compliance with HEP. Pain at worst in past 48 hours: 10/10 Pain at best in past 48 hours: 5/10 Pain current: 5/10 48 hour pain average: 6.6/10 Pt's next follow-up with her doctor is in 2 weeks. Pt had a fall that resulted in ankle pain on 05/06. Pt previously denied going to ED when advised by DIESEL ROLLER OPERATOR d/ t acute ankle pain. Pt instructed again on visiting PCP d/t ankle pain still being present. Objective Objective Notes Lumbar AROM: FLEX= 100%, non-painful EXT= 25%, painful R SB= 50%, painful L SB= 50%, painful BLE MMTs: Hip FLEX = 4/5 Hip ABD = 4/5 Hip ADD = 4/5 Knee FLEX = 4/5 Knee EXT = 4/5 CINDI: 18: Moderate disability. Assessment Progress Assessment Progressing as Expected Assessment Notes This is a reassessment for Jocelyn Richard who presents to PT for c/o LBP. Since IE, pt has been seen for 7 visits that have consisted of modalities prn, education , and therapeutic exercises focusing on improving core strength and BLE strength. Pt with good attendance to scheduled PT visits and reports adherence to HEP. Since IE, pt with improvements in ability to ambulate longer distances, hip flexion strength, and subjective reports of pain. Pt still presents with impaired lumbar ROM, impaired BLE strength, and subjective complaints of pain. Pt would continue to benefit from skilled outpatient physical therapy to address remaining deficits and achieve LTGs. PT Patient Goals PT Short Term In 4 weeks, pt will: 4/6 MET Patient Goals 1) Verbalize compliance with home exercise program to improve self-maintenance of symptoms: MET 2) Verbalize 48-hour pain average (worst/best/current) of 3/10: Not MET 3) Will improve BLE strength by 1/5 MMT grade to improve daily functioning: MET 4) Tolerate one 10 min moderate intensity endurance task (ex: bike): MET 5) Improve CINDI to at most 22 points to decrease disability from LBP and improve QOL: Not met 6) Verbalize feeling at least 45% improved in symptoms since initial PT evaluation: MET PT Display Screen Fabricator Patient In 8 weeks, pt will: Not met Goals 1) Verbalize adherence with home exercise program to maximize self-maintenance of symptoms upon d/c from PT POC. 2) Verbalize 48-hour sacral pain average (worst/best/ current) of 1/10. 3) Will improve BLE strength to at least 4/5 MMT grade globally to improve daily functioning. 4) Improve CINDI to at most 19 points to decrease disability from LBP and improve QOL. 5) Improve Lumbar AROM to 75% to improve functional ROM for daily tasks like dressing, reaching, picking up objects, and driving. 6) Verbalize feeling at least 90% improved in symptoms since initial PT evaluation. Plan Plan Continue current POC Frequency of Therapy 2x weekly Duration of Therapy 4 weeks Time and Billing Re-Eval Time 10 Re-Eval Billing 0 Units Charge for PT No reassessment? PHYSICIAN CERTIFICATION: I certify the specified therapy services for Jocelyn Ramos are required, authorized, and reviewed every 30 days.
== END 2025-06-01 23:59 | disposition home or self-care (01) ==
LOC: PT 09:00
PROVIDERS: PCP Internal Medicine Adolescent Medicine; Visit Provider Internal Medicine Adolescent Medicine
DX: S32.10XD Unspecified fracture of sacrum, subsequent encounter for fracture with routine healing (principal)
CPT/HCPCS: 97014; 97110; 97530; G0283

== ENCOUNTER 2025-07-02 10:00 | Outpatient (RCR) | payer MEDICARE, OTHER, SELFPAY | END 2025-07-02 23:59 | disposition home or self-care (01) | LOC: PT 10:00 | PROVIDERS: PCP Internal Medicine Adolescent Medicine; Visit Provider Internal Medicine Adolescent Medicine | DX: S32.10XD Unspecified fracture of sacrum, subsequent encounter for fracture with routine healing (principal) | CPT/HCPCS: 97014; 97110; 97530; G0283 ==

== ENCOUNTER 2025-07-13 09:00 | Outpatient (RCR) | payer MEDICARE, OTHER, SELFPAY | END 2025-07-13 23:59 | disposition home or self-care (01) | LOC: PT 09:00 | PROVIDERS: PCP Internal Medicine Adolescent Medicine; Visit Provider Internal Medicine Adolescent Medicine | DX: S32.10XD Unspecified fracture of sacrum, subsequent encounter for fracture with routine healing (principal); X58.XXXD Exposure to other specified factors, subsequent encounter | CPT/HCPCS: 97014; 97110; 97530; G0283 ==

== ENCOUNTER 2025-07-27 10:45 | Outpatient (RCR) | payer MEDICARE, OTHER, SELFPAY ==
--- NOTE | 2025-07-27 11:57 | HMH.OPLYMPH ---
Rehab Lymphedema Evaluation Rehab Lymphedema Evaluation Start: 07/27/25 11:43 Freq: Status: Active Protocol: Document 07/27/25 11:45 LEANN (Rec: 07/27/25 11:57 PHORARABELLA [id number]) E-signed By Cleve Joshua, PT Subjective/History History History This is the initial PT lymphedema eval for Jocelyn Ramos, 85 yowf who presents with ~ 6-8 mos of L LE increased lymphedema this episode, but overall for many years. She has > 5 yr hx of L LE lymphedema after treatment for uterine cancer in ~2019 with LEN and XRT. She reports she continues to wear knee high compression stockings consistently with good results, but has not suffered from L thigh edema until the past year. She also has a home lymphedema pump, but she does not use it consistently. She reports SB resection performed ~ 2 yrs ago, and recent conservative treatment for B sacral ala fxs of unknown exact etiology (possibly due to a fall suffered ~ 6 mos ago) Subjective Subjective Pt states, My left leg just hums all the time. With further history it appears she is describing tingling sensation throughout her L LE. She continues to c/o increased thigh edema, that's never been like that before, but she also reports increased discomfort with using thigh compression garment that was obtained for her during her last lymphedema episode of care ~ 3 mos ago. She reports no c/o pain in her L LE, but does present with 2/4 TTP to the L thigh. Edema is noted to be non-pitting and mildly fibrotic at this time. LLIS score: 27 Lymphedema Eval Classification of Lymphedema Secondary Lymphedema Yes Stemmer's sign Stemmer's Sign no Stage of Lymphedema Lymphedema stages Stage II (Pitting edema, increased fibrosis w/ decreased pitting) Skin Changes Dry Skin Yes Other Changes Yes Pain Scale Pain Scale (0-10) 0 Radiation Therapy Has received yes radiation therapy Chemo Therapy Has received chemo no therapy Affected Extremities Areas Affected by Left Lower Extremity Lymphedema/Edema Lower Extremity Measurements Left MTP Measurement (cm) 20.5 Heel Measurement (cm 30.4 ) 10 cm Proximal to 25.4 Lateral Malleoli Measurement (cm) 20 cm Proximal to 35.9 Lateral Malleoli Measurement (cm) 30 cm Proximal to 34.3 Lateral Malleoli Measurement (cm) 40 cm Proximal to 39.9 Lateral Malleoli Measurement (cm) 50 cm Proximal to 45.0 Lateral Malleoli Measurement (cm) 60 cm Proximal to 0 Lateral Malleoli Measurement (cm) Lower Extremity 231.4 Measurement Total ( cm) Manual Lymphatic Drainage Treatment Area MLD Treatment Area Left Lower Extremity Wound Problems/Impairments Impairments Problems/ Palpation Tenderness,Impaired Endurance,Impaired Gait Impairmments Pattern,Impaired Walking,Impaired Standing,Impaired Dressing,Impaired Household Care,Impaired Recreational Activities,Increased Edema,Lymphedema Present,Impaired Self Care/Self Management Prognosis Rehab Potential Good Comment Skilled therapy is indicated to reduce overall L LE lymphedema in order to aid pt return to PLOF with all daily activities. Clinical Impression Consistent with Yes Diagnosis Lymphedema Patient Goals Lymphedema Patient Goals Lymphedema Short In 2 wks pt will complete these goals in order to aid Term Patient Goals improvement in function specifically with all ADLs: 1) Decrease TTP on the L thigh to 1/4 Lymphedema Nursing Home In 4 wks pt will complete these goals in order to aid Patient Goals improvement in function specifically with all ADLs: 1) Decrease TTP on the L thigh to 0/4 2) Decrease circumferential measurements in L LE by 5 cm total 3) Be independent with all lymphedema management at home via [facility] Outpatient Therapy Plan of Care Treatment Plan May Include Therapeutic Exercise Yes Including Home Exercise Program Manual Therapy Yes Techniques Neuromuscular Re- Yes education Therapeutic Yes Activities to Return to Previous Functional/Work Level ADL/Self Care Yes Education Manual Lymphatic Yes Drainage Eval/Re-Eval Yes Frequency Times per week 2 Duration Number of Weeks 4 Addendums This patient is a No candidate for social or vocational rehab ? Patient/Guardian Yes verbally acknowledges understanding of treatment program and consents to further treatment? Patient/Guardian Yes verbally acknowledges understanding of diagnosis, prognosis and goals for treatment? Eval Complexity PT Charges 75684 - High Complexity PHYSICIAN CERTIFICATION: I certify the specified therapy services for Jocelyn Ramos are required, authorized, and reviewed every 30 days.
== END 2025-07-27 23:59 | disposition home or self-care (01) ==
LOC: PT 10:45
PROVIDERS: PCP Internal Medicine Adolescent Medicine; Visit Provider Internal Medicine Adolescent Medicine
DX: I89.0 Lymphedema, not elsewhere classified (principal); M79.605 Pain in left leg
CPT/HCPCS: 97163

== ENCOUNTER 2025-08-10 09:00 | Outpatient (RCR) | payer MEDICARE, OTHER, SELFPAY | END 2025-08-10 23:59 | disposition home or self-care (01) | LOC: PT 09:00 | PROVIDERS: PCP Internal Medicine Adolescent Medicine; Visit Provider Internal Medicine Adolescent Medicine | DX: I89.0 Lymphedema, not elsewhere classified (principal); M79.605 Pain in left leg | CPT/HCPCS: 97140 ==

== ENCOUNTER 2025-08-16 10:29 | Outpatient (CLI) | payer MEDICARE, OTHER, SELFPAY ==
--- NOTE | 2025-08-16 10:34 | XR_ITS ---
FINAL REPORT CLINICAL HISTORY: FALL, PAIN fall saturday FINDINGS: Two views of the right femur were obtained. There is no prior exam for comparison. There is no acute fracture or dislocation. The joint spaces are well preserved. There is no acute soft tissue abnormality. IMPRESSION: No acute abnormality identified. Reviewed, Interpreted and Dictated by Chano Clinton MD Transcribed by Anny Schaefer Authenticated and [facility]
--- NOTE | 2025-08-16 10:34 | XR_ITS ---
FINAL REPORT CLINICAL HISTORY: FALL, PAIN fall saturday COMPARISON: None FINDINGS: RIGHT HIP Two views of the right hip with an AP view of the pelvis demonstrate no acute fracture or dislocation. The joint spaces appear normal. The visualized bony structures are well aligned. No soft tissue abnormality is seen. IMPRESSION: No acute bony abnormality. Reviewed, Interpreted and Dictated by Chano Clinton MD Transcribed by Anny Schaefer Authenticated and [facility]
== END 2025-08-16 23:59 | disposition home or self-care (01) ==
LOC: RAD 10:30
PROVIDERS: PCP Internal Medicine Adolescent Medicine; Visit Provider Internal Medicine Adolescent Medicine
DX: M25.551 Pain in right hip (principal); W19.XXXA Unspecified fall, initial encounter
CPT/HCPCS: 73502; 73552